=== PATIENT | female | born 1960 | race Caucasian/White ===

== ENCOUNTER → 2017-08-25 | Outpatient (CLI) | payer MEDICARE, MEDICAID ==
[~2017-08-25] MED LIST: CATHETER FLUSH 10 ML SYR IV PRN; IOHEXOL 350 MG/ML 150 ML (OMNIPAQUE 350) VIAL IV ONE; NS 100 ML (IVPB) BAG IV ONE
[2017-08-25 09:26] LABS: BUN/CREATININE RATIO 25; CREATININE SERUM 0.71 MG/DL (0.60-1.30); GFR ESTIMATED > 60
--- NOTE | 2017-08-25 11:31 | Diagnostic Imaging Report ---
PROCEDURE: CT angiography of the chest with contrast. TECHNIQUE: Multiple contiguous axial images were obtained through the chest after uneventful bolus administration of intravenous contrast. Reconstructed CTA MIP acquisitions were also performed. INDICATION: Difficulty breathing, shortness of breath and cough with a history of COPD. FINDINGS: There is some patchy bibasilar atelectasis and/or pneumonitis. There are no discrete pulmonary nodules or masses. There is air-trapping compatible with COPD. There is no pleural or pericardial fluid. There is no pneumothorax. There are no filling defects seen within the pulmonary arteries to suggest pulmonary embolism. Thoracic aorta is normal in caliber without evidence of dissection. There is no pathologically enlarged adenopathy in the chest. There are mild degenerative changes in the spine. The visualized intraabdominal structures are unremarkable. IMPRESSION: No evidence of pulmonary embolism or aortic dissection. COPD with some patchy bibasal atelectasis and/or pneumonitis. Dictated by: Dictated on workstation # [id number]
== END ==
LOC: RAD 08:49
PROVIDERS: ATTEND Nurse Practitioner Family
DX: J44.9 Chronic obstructive pulmonary disease, unspecified (principal)
CPT/HCPCS: 36415; 71275; 82565; 84520

== ENCOUNTER → 2017-08-27 | Outpatient (CLI) | payer MEDICARE, MEDICAID ==
[~2017-08-27] MED LIST changes: -CATHETER FLUSH 10 ML SYR IV PRN; -IOHEXOL 350 MG/ML 150 ML (OMNIPAQUE 350) VIAL IV ONE; -NS 100 ML (IVPB) BAG IV ONE; +RT-ALBUTEROL SULF 2.5 MG/3 ML PRE-MIX VIAL INH ONE
== END ==
LOC: RT 09:00 → EDUNIT# 09:45
PROVIDERS: ATTEND Nurse Practitioner Family
DX: J45.909 Unspecified asthma, uncomplicated (principal); J44.9 Chronic obstructive pulmonary disease, unspecified; Z72.0 Tobacco use
CPT/HCPCS: 94060; 94726; 94729

== ENCOUNTER 2017-09-12 19:48 | Outpatient (CLI) | payer MEDICARE, MEDICAID | END 2017-09-13 06:55 | disposition home or self-care (01) | LOC: SLEEP 19:48 | PROVIDERS: ATTEND Nurse Practitioner Family | DX: G47.33 Obstructive sleep apnea (adult) (pediatric) (principal); G47.10 Hypersomnia, unspecified | CPT/HCPCS: 95810 ==

== ENCOUNTER → 2017-09-30 | Outpatient (CLI) | payer MEDICARE, MEDICAID ==
[2017-09-30 10:38] LABS: ABG BASE EXCESS -1.3 MMOL/L (-2.5-2.5); ABG OXYGEN SATURATION 96 % (94-100); ABG PCO2 39 MMHG (35-45); ABG PH 7.39 (7.37-7.43); ABG PO2 61 MMHG (79-93); ABG TCO2 24.5 MMOL/L (21.0-31.0)
[2017-09-30 10:39] LABS: ALLENS TEST YES-POS; INSPIRED O2 2 L; PATIENT TEMP 96.6; VENTILATOR NO
== END ==
LOC: LAB 10:10
PROVIDERS: ATTEND Nurse Practitioner Family
DX: J44.9 Chronic obstructive pulmonary disease, unspecified (principal)
CPT/HCPCS: 82805

== ENCOUNTER 2017-10-09 19:48 | Outpatient (CLI) | payer MEDICARE, MEDICAID | END 2017-10-10 06:22 | disposition home or self-care (01) | LOC: SLEEP 19:48 | PROVIDERS: ATTEND Nurse Practitioner Family | DX: G47.33 Obstructive sleep apnea (adult) (pediatric) (principal); G47.10 Hypersomnia, unspecified; J43.9 Emphysema, unspecified | CPT/HCPCS: 95811 ==

== ENCOUNTER 2017-10-30 08:30 | Outpatient (RCR) | payer MEDICARE, MEDICAID ==
[2017-11-18 09:00] VITALS: BP 100/60
[2017-11-18 10:00] VITALS: BP 120/78
[2017-11-20 08:45] VITALS: BP 130/63
[2017-11-20 09:50] VITALS: BP 138/70
[2017-11-25 09:00] VITALS: BP 130/60
[2017-11-25 10:00] VITALS: BP 140/60
[2017-11-27 08:45] VITALS: BP 130/80
[2017-11-27 09:50] VITALS: BP 111/68
[2017-12-02 08:50] VITALS: BP 120/70
[2017-12-02 10:00] VITALS: BP 120/70
[2017-12-04 08:50] VITALS: BP 108/62
[2017-12-04 10:00] VITALS: BP 108/70
[2017-12-09 08:40] VITALS: BP 120/60
[2017-12-09 10:00] VITALS: BP 120/70
[2017-12-11 08:45] VITALS: BP 120/60
[2017-12-11 09:55] VITALS: BP 120/70
[2017-12-16 08:30] VITALS: BP 140/60
[2017-12-16 09:35] VITALS: BP 118/50
== END 2017-12-21 | disposition home or self-care (01) ==
LOC: PULM 08:30
PROVIDERS: ATTEND Nurse Practitioner Family
DX: J44.9 Chronic obstructive pulmonary disease, unspecified (principal); J45.909 Unspecified asthma, uncomplicated; R09.02 Hypoxemia; R06.00 Dyspnea, unspecified
CPT/HCPCS: 99211

== ENCOUNTER 2018-10-20 06:45 | Day surgery (SDC) | payer MEDICARE, MEDICAID ==
[2018-10-20] VITALS (12 sets, daily range): BP systolic 112–169; BP diastolic 62–92
[~2018-10-20] VITALS: Ht 160 cm; Wt 81.7 kg
--- OUTSIDE RECORDS SUMMARY | 2018-10-20 06:49 | XMS REPORT ---
Author Author REINIER LAMBERT [facility] Address [address] [place] [address] Care Team Providers Care Bracelet Form Coverer Name Role Phone PETRA REINIER Unavailable PROBLEMS Type Condition ICD9-CM Code [id number] Code Onset Dates Condition Status SNOMED Code Problem COPD mixed type J44.9 Active 71985114 Problem GERD with esophagitis K21.0 Active 392454336 Problem Insomnia, unspecified type G47.00 Active 630416988 Problem Mixed hyperlipidemia E78.2 Active 931032938 Problem COPD with acute exacerbation J44.1 Active 532856106 Problem Rhinitis J31.0 Active 40748411 Problem Adult idiopathic generalized osteoporosis M81.8 Active 925660329 Problem Oxygen dependent Z99.81 Active 405225381660 Problem History of anaphylactic shock due to insect sting Z91.038 Active 206318450 Problem Type 2 diabetes mellitus without complication, without long-term current use of insulin E11.9 Active 707467991 ALLERGIES Substance Reaction Event Type Date Status wasps anaphylaxsis Non Drug Allergy Jul, Active ENCOUNTERS Encounter Location Date Diagnosis [address] [place] [address] [id number] Jul, COPD mixed type J44.9 ; Oxygen dependent Z99.81 and Rhinitis J31.[address] [place] [address] [id number] Jun, [address] [place] [address] [id number] May, COPD with acute exacerbation J44.1 ; Dyspnea R06.00 ; Elevated BP without diagnosis of hypertension R03.0 and Oxygen dependent Z99.[address] [place] [address] [id number] May, COPD mixed type J44.9 ; GERD with esophagitis K21.0 and Adult idiopathic generalized osteoporosis M81.[id number] [place] [address] [id number] Apr, Type 2 diabetes mellitus without complication, without long-term current use of insulin E11.9 ; COPD mixed type J44.9 ; Encounter for immunization Z23 ; Oxygen dependent Z99.81 ; Rhinitis J31.0 ; Mixed hyperlipidemia E78.2 and History of anaphylactic shock due to insect sting Z91.038 [place] [id number] [place] [address] [id number] Feb, Bruises easily R23.8 ; COPD mixed type J44.9 ; Fever blister B00.1 ; GERD with esophagitis K21.0 and Adult idiopathic generalized osteoporosis M81.[address] [id number] Jan, [place] [id number] [place] [address] [id number] Jan, [place] [id number] [place] [address] [id number] December, Dilated pore of Tonya of back L70.8 [place] [id number] [place] [address] [id number] Nov, Well woman exam with routine gynecological exam Z01.419 ; Screening breast examination Z12.31 ; COPD mixed type J44.9 ; Oxygen dependent Z99.81 ; Vaginal discharge N89.8 ; Fever blister B00.1 ; GERD with esophagitis K21.0 and Adult idiopathic generalized osteoporosis M81.[address] [place] [address] [id number] Oct, [place] [id number] [place] [address] [id number] Oct, COPD exacerbation J44.[address] [place] [address] [id number] Oct, Pneumonia of right upper lobe due to infectious organism J18.1 ; Thrush B37.0 and COPD mixed type J44.9 [facility] [address] [id number] [id number] Oct, [facility] [id number] [place] [address] [id number] Oct, Acute nasopharyngitis J00 and COPD exacerbation J44.1 [place] [id number] [place] [address] [id number] Oct, History of anaphylactic shock due to insect sting Z91.038 ; COPD mixed type J44.9 and Oxygen dependent Z99.81 [place] [id number] [place] [address] [id number] Sep, Fever blister B00.1 and Skin infection L08.9 [place] [id number] [place] [address] [id number] Sep, Fever blister B00.[address] [id number] Jul, Seborrheic keratosis L82.1 and Obesity (BMI 30.0-34.9) E66.9 [place] [id number] [place] [address] [id number] Jul, COPD mixed type J44.9 ; Oxygen dependent Z99.81 ; Type 2 diabetes mellitus without complication, without long-term current use of insulin E11.9 and Mixed hyperlipidemia E78.[address] [place] [address] [id number] Jun, Type 2 diabetes mellitus without complication, without long-term current use of insulin E11.9 [address] [place] [address] [id number] Jun, Type 2 diabetes mellitus without complication, without long-term current use of insulin E11.9 and Mixed hyperlipidemia E78.[address] [id number] [id number] Jun, COPD mixed type J44.9 [address] [place] [address] [id number] Jun, COPD mixed type J44.9 ; Oxygen dependent Z99.81 ; Type 2 diabetes mellitus without complication, without long-term current use of insulin E11.9 ; Adult idiopathic generalized osteoporosis M81.8 ; Self-care deficit for bathing R46.0 ; No one available at home to care for patient Z74.2 ; Need for assistance at home and no other household member able to render care Z74.2 ; Encounter for immunization Z23 ; GERD with esophagitis K21.0 ; Insomnia, unspecified type G47.00 and Mixed hyperlipidemia E78.2 IMMUNIZATIONS No Known Immunizations SOCIAL HISTORY Never Assessed REASON FOR VISIT Breathing Issues Colleen URBINA PLAN OF CARE Activity Details Follow Up as scheduled, prn Reason:CHM VITAL SIGNS Height 63 in 2018-07-20 Weight 173.0 lbs 2018-07-20 Temperature 98.5 degrees Fahrenheit 2018-07-20 Heart Rate 88 bpm 2018-07-20 Respiratory Rate 18 2018-07-20 Oximetry w/ oxygen @ 2L:100 % 2018-07-20 BMI 30.64 kg/m2 2018-07-20 Blood pressure systolic 110 mmHg 2018-07-20 Blood pressure diastolic 64 mmHg 2018-07-20 MEDICATIONS Medication Instructions Dosage Frequency Start Date End Date Duration Status Spiriva HandiHaler 18 MCG Inhalation Once a day 1 capsule 24h Active Aspirin 81 81 MG Orally Once a day 1 tablet 24h Active Acyclovir 400 mg Orally Twice a day 1 tablet 12h Active Crestor 10 MG TAKE ONE (1) TABLET BY MOUTH DAILY... Active Albuterol Sulfate (2.5 MG/3ML) 0.083% Inhalation Every 4-6 hours as needed 2.5 mg Active Accu-Chek Anisa Plus w/Device In Vitro 2 to 3 times a week as directed Jan, 0 days Active Accu-Chek Anisa Plus - In Vitro 2-3 times a week as directed Jan, 0 days Active Ventolin HFA 90 MCG/ACT inhalation every 4 hours as needed 2 puffs as needed every 6 hrs Inhalation 0 days Active Evista 60 mg Orally Once a day 1 tablet 24h 90 days Active EpiPen 2-Gunner 0.3 MG/0.3ML Injection as needed as directed Oct, Active Ranitidine HCl 150 MG Orally twice a day 1 capsule 12h 90 days Active Calcium 500 + D 500-125 MG-UNIT Orally Once a day 1 tablet with food 24h Active Montelukast Sodium 10 MG Orally Once a day 1 tablet in the evening 24h Active Nebulizer/Tubing/Mouthpiece - as directed Jan, Active Symbicort 160-4.5 MCG/ACT Inhalation Twice a day 2 puffs 12h Active Zyrtec Allergy 10 mg Orally Once a day 1 capsule 24h 30 May, 2018 Aug, Active RESULTS No Results PROCEDURES Procedure Date Ordered Result Body Site [facility] VISIT ESTABLISHED PATIENT Jul 20, 2018 INSTRUCTIONS MEDICATIONS ADMINISTERED No Known Medications MEDICAL (GENERAL) HISTORY Type Description Date Medical History chronic obstructive pulmonary disease (COPD) on Medical History type II diabetes Medical History hypercholesterolemia Medical History insomnia Medical History esophageal reflux Surgical History partial hysterectomy Surgical History carpal tunnel release, left wrist Surgical History cataract removal, bilateral Surgical History colonoscopy, normal 2014 Surgical History heart cath, normal 2010 Surgical History Mammogram, normal 2014 Hospitalization History CVA, non-hemmoragic 1998
--- OUTSIDE RECORDS SUMMARY | 2018-10-20 06:49 | XMS REPORT ---
Author Author REINIER LAMBERT [facility] Address [address] [place] [address] Care Team Providers Care Quality Control Assistant Name Role Phone PETRA REINIER Unavailable PROBLEMS Type Condition ICD9-CM Code [id number] Code Onset Dates Condition Status SNOMED Code Problem COPD mixed type J44.9 Active 16129802 Problem GERD with esophagitis K21.0 Active 243371925 Problem Insomnia, unspecified type G47.00 Active 511171691 Problem Mixed hyperlipidemia E78.2 Active 023927278 Problem COPD with acute exacerbation J44.1 Active 099213927 Problem Rhinitis J31.0 Active 62626982 Problem Adult idiopathic generalized osteoporosis M81.8 Active 840633997 Problem Oxygen dependent Z99.81 Active 515293744265 Problem History of anaphylactic shock due to insect sting Z91.038 Active 567960461 Problem Type 2 diabetes mellitus without complication, without long-term current use of insulin E11.9 Active 475845506 ALLERGIES No Information ENCOUNTERS Encounter Location Date Diagnosis [id number] [place] [address] [id number] Jul, [place] [id number] [place] [address] [id number] Jun, [address] [id number] May, COPD with acute exacerbation J44.1 ; Dyspnea R06.00 ; Elevated BP without diagnosis of hypertension R03.0 and Oxygen dependent Z99.81 [place] [id number] [place] [address] [id number] May, COPD mixed type J44.9 ; GERD with esophagitis K21.0 and Adult idiopathic generalized osteoporosis M81.8 [place] [id number] [place] [address] [id number] Apr, Type 2 diabetes mellitus without complication, without long-term current use of insulin E11.9 ; COPD mixed type J44.9 ; Encounter for immunization Z23 ; Oxygen dependent Z99.81 ; Rhinitis J31.0 ; Mixed hyperlipidemia E78.2 and History of anaphylactic shock due to insect sting Z91.038 [facility] [id number] [place] [address] [id number] Feb, Bruises easily R23.8 ; COPD mixed type J44.9 ; Fever blister B00.1 ; GERD with esophagitis K21.0 and Adult idiopathic generalized osteoporosis M81.8 [facility] [id number] [place] [address] [id number] Jan, [place] [id number] [place] [address] [id number] Jan, [place] [id number] [place] [address] [id number] December, Dilated pore of Tonya of back L70.8 [place] [id number] [place] [address] [id number] Nov, Well woman exam with routine gynecological exam Z01.419 ; Screening breast examination Z12.31 ; COPD mixed type J44.9 ; Oxygen dependent Z99.81 ; Vaginal discharge N89.8 ; Fever blister B00.1 ; GERD with esophagitis K21.0 and Adult idiopathic generalized osteoporosis M81.8 [facility] [id number] [place] [address] [id number] Oct, [address] [place] [address] [id number] Oct, COPD exacerbation J44.1 [place] [id number] [place] [address] [id number] Oct, Pneumonia of right upper lobe due to infectious organism J18.1 ; Thrush B37.0 and COPD mixed type J44.9 [facility] [address] [id number] [facility] [id number] [phone] Oct, [facility] [id number] [place] [address] [id number] Oct, Acute nasopharyngitis J00 and COPD exacerbation J44.1 [facility] [id number] Oct, History of anaphylactic shock due to insect sting Z91.038 ; COPD mixed type J44.9 and Oxygen dependent Z99.81 [address] [place] [address] [id number] Sep, Fever blister B00.1 and Skin infection L08.9 [address] [place] [address] [id number] Sep, Fever blister B00.1 [address] [place] [address] [id number] Jul, Seborrheic keratosis L82.1 and Obesity (BMI 30.0-34.9) E66.9 [address] [place] [address] [id number] Jul, COPD mixed type J44.9 ; Oxygen dependent Z99.81 ; Type 2 diabetes mellitus without complication, without long-term current use of insulin E11.9 and Mixed hyperlipidemia E78.[id number] [place] [address] [id number] Jun, Type 2 diabetes mellitus without complication, without long-term current use of insulin E11.9 [address] [place] [address] [id number] Jun, Type 2 diabetes mellitus without complication, without long-term current use of insulin E11.9 and Mixed hyperlipidemia E78.[address] [id number] [id number] Jun, COPD mixed type J44.[address] [id number] [id number] Jun, COPD mixed type J44.9 ; Oxygen [...] SOCIAL HISTORY Never Assessed REASON FOR VISIT Xray Results PLAN OF CARE VITAL SIGNS MEDICATIONS Unknown Medications RESULTS No Results PROCEDURES No Known procedures INSTRUCTIONS MEDICATIONS ADMINISTERED No Known Medications MEDICAL (GENERAL) HISTORY Type Description Date Medical History chronic obstructive pulmonary disease (COPD) on 02 Medical History type II diabetes Medical History hypercholesterolemia Medical History insomnia Medical History esophageal reflux Surgical History partial hysterectomy Surgical History carpal tunnel release, left wrist Surgical History cataract removal, bilateral Surgical History colonoscopy, normal 2014 Surgical History heart cath, normal 2010 Surgical History Mammogram, normal 2014 Hospitalization History CVA, non-hemmoragic 1998
--- OUTSIDE RECORDS SUMMARY | 2018-10-20 06:49 | XMS REPORT ---
Author Author REINIER LAMBERT [facility] Address [address] [place] [address] Care Team Providers Care Director Loan Name Role Phone PETRA REINIER Unavailable PROBLEMS Type Condition ICD9-CM Code AJP89-SH Code Onset Dates Condition Status SNOMED Code Problem COPD mixed type J44.9 Active 05568674 Problem GERD with esophagitis K21.0 Active 739598294 Problem Insomnia, unspecified type G47.00 Active 732156879 Problem Mixed hyperlipidemia E78.2 Active 831007087 Problem COPD with acute exacerbation J44.1 Active 107432293 Problem Rhinitis J31.0 Active 48668794 Problem Adult idiopathic generalized osteoporosis M81.8 Active 282916093 Problem Oxygen dependent Z99.81 Active 592601174206 Problem History of anaphylactic shock due to insect sting Z91.038 Active 894077074 Problem Type 2 diabetes mellitus without complication, without long-term current use of insulin E11.9 Active 859418725 ALLERGIES Substance Reaction Event Type Date Status wasps anaphylaxsis Non Drug Allergy May, Active ENCOUNTERS Encounter Location Date Diagnosis [address] [id number] [place] [address] [id number] Jul, [address] [place] [address] [id number] Jun, [place] [id number] [place] [address] [id number] May, COPD with acute exacerbation J44.1 ; Dyspnea R06.00 ; Elevated BP without diagnosis of hypertension R03.0 and Oxygen dependent Z99.81 [place] [id number] [place] [address] [id number] May, COPD mixed type J44.9 ; GERD with esophagitis K21.0 and Adult idiopathic generalized osteoporosis M81.8 [place] [id number] [place] [address] [id number] Apr, Type 2 diabetes mellitus without complication, without long-term current use of insulin E11.9 ; COPD mixed type J44.9 ; Encounter for immunization Z23 ; Oxygen dependent Z99.81 ; Rhinitis J31.0 ; Mixed hyperlipidemia E78.2 and History of anaphylactic shock due to insect sting Z91.038 [facility] [id number] [place] [address] [id number] Feb, Bruises easily R23.8 ; COPD mixed type J44.9 ; Fever blister B00.1 ; GERD with esophagitis K21.0 and Adult idiopathic generalized osteoporosis M81.8 [facility] [address] [id number] Jan, [address] [id number] Jan, [place] [id number] [place] [address] [id number] December, Dilated pore of Tonya of back L70.8 [place] [id number] [place] [address] [id number] Nov, Well woman exam with routine gynecological exam Z01.419 ; Screening breast examination Z12.31 ; COPD mixed type J44.9 ; Oxygen dependent Z99.81 ; Vaginal discharge N89.8 ; Fever blister B00.1 ; GERD with esophagitis K21.0 and Adult idiopathic generalized osteoporosis M81.8 [facility] [id number] [place] [address] [id number] Oct, [place] [id number] [place] [address] [id number] Oct, COPD exacerbation J44.1 [facility] [id number] [place] [address] [id number] Oct, Pneumonia of right upper lobe due to infectious organism J18.1 ; Thrush B37.0 and COPD mixed type J44.9 [facility] [address] [id number] [id number] Oct, [facility] [id number] [place] [address] [id number] 20 Mar, 2018 Acute nasopharyngitis J00 and COPD exacerbation J44.1 [address] [place] [address] [id number] Oct, History of anaphylactic shock due to insect sting Z91.038 ; COPD mixed type J44.9 and Oxygen dependent Z99.81 [address] [place] [address] [id number] Sep, Fever blister B00.1 and Skin infection L08.9 [place] [id number] [place] [address] [id number] Sep, Fever blister B00.1 [place] [id number] [place] [address] [id number] Jul, Seborrheic keratosis L82.1 and Obesity (BMI 30.0-34.9) E66.9 [address] [place] [address] [id number] Jul, COPD mixed type J44.9 ; Oxygen dependent Z99.81 ; Type 2 diabetes mellitus without complication, without long-term current use of insulin E11.9 and Mixed hyperlipidemia E78.2 [address] [place] [address] [id number] Jun, Type 2 diabetes mellitus without complication, without long-term current use of insulin E11.9 [address] [place] [address] [id number] Jun, Type 2 diabetes mellitus without complication, without long-term current use of insulin E11.9 and Mixed hyperlipidemia E78.[address] [id number] [id number] Jun, COPD mixed type J44.[id number] [place] [address] [id number] Jun, COPD mixed type J44.9 ; Oxygen [...] SOCIAL HISTORY Never Assessed REASON FOR VISIT Cough/ congestion started yesterday. Not able to cough anything up Jack SHAH PLAN OF CARE Activity Details Follow Up 4 Weeks, prn Reason:BP/CHM VITAL SIGNS Height 63 in 2018-06-16 Weight 171.6 lbs 2018-06-16 Temperature 96.6 degrees Fahrenheit 2018-06-16 Heart Rate 100 bpm 2018-06-16 Respiratory Rate 24 2018-06-16 BMI 30.39 kg/m2 2018-06-16 Blood pressure systolic 170 mmHg 2018-06-16 Blood pressure diastolic 90 mmHg 2018-06-16 MEDICATIONS Medication Instructions Dosage Frequency Start Date End Date Duration Status Accu-Chek Anisa Plus - In Vitro 2-3 times a week as directed Jan, 0 days Active Nebulizer/Tubing/Mouthpiece - as directed Jan, Active EpiPen 2-Gunner 0.3 MG/0.3ML Injection as needed as directed Oct, Active Accu-Chek Anisa Plus w/Device In Vitro 2 to 3 times a week as directed Jan, 0 days Active Montelukast Sodium 10 MG Orally Once a day 1 tablet in the evening 24h Active Zyrtec Allergy 10 mg Orally Once a day 1 capsule 24h May, Aug, 30 day(s) Active Ventolin HFA 90 MCG/ACT inhalation every 4 hours as needed 2 puffs as needed every 6 hrs Inhalation 0 days Active Ranitidine HCl 150 MG Orally twice a day 1 capsule 12h 90 days Active Symbicort 160-4.5 MCG/ACT Inhalation Twice a day 2 puffs 12h Active Evista 60 mg Orally Once a day 1 tablet 24h 90 days Active Aspirin 81 81 MG Orally Once a day 1 tablet 24h Active Spiriva HandiHaler 18 MCG Inhalation Once a day 1 capsule 24h Active Crestor 10 MG TAKE ONE (1) TABLET BY MOUTH DAILY... Active Calcium 500 + D 500-125 MG-UNIT Orally Once a day 1 tablet with food 24h Active PredniSONE 20 mg Orally Once a day 1 tablet 24h May, Jun, 5 days Active Acyclovir 400 mg Orally Twice a day 1 tablet 12h 27 Feb, 2018 Active Albuterol Sulfate (2.5 MG/3ML) 0.083% Inhalation Every 4-6 hours as needed 2.5 mg Active RESULTS Name Result Date Reference Range Xray : Chest 2018-06-17 PROCEDURES Procedure Date Ordered Result Body Site [facility] VISIT ESTABLISHED PATIENT Jun 16, 2018 INSTRUCTIONS MEDICATIONS ADMINISTERED No Known Medications [...]
--- OUTSIDE RECORDS SUMMARY | 2018-10-20 06:49 | XMS REPORT ---
Author Author REINIER LAMBERT Organization [facility] Address [address] [place] [address] Care Team Providers Care Tow Mate Name Role Phone PETRA REINIER Unavailable PROBLEMS Type Condition ICD9-CM Code EIM53-YS Code Onset Dates Condition Status SNOMED Code Problem COPD mixed type J44.9 Active 23865027 Problem GERD with esophagitis K21.0 Active 168551083 Problem Insomnia, unspecified type G47.00 Active 343668715 Problem Mixed hyperlipidemia E78.2 Active 337624317 Problem COPD with acute exacerbation J44.1 Active 587904829 Problem Rhinitis J31.0 Active 82276581 Problem Adult idiopathic generalized osteoporosis M81.8 Active 566543584 Problem Oxygen dependent Z99.81 Active 734680416373 Problem History of anaphylactic shock due to insect sting Z91.038 Active 447028425 Problem Type 2 diabetes mellitus without complication, without long-term current use of insulin E11.9 Active 766493892 ALLERGIES No Information ENCOUNTERS Encounter Location Date Diagnosis [address] [place] [address] [id number] Jul, [place] [id number] [place] [address] [id number] May, COPD with acute exacerbation J44.1 ; Oxygen dependent Z99.81 ; Dyspnea R06.00 and Elevated BP without diagnosis of hypertension R03.0 [place] [id number] [place] [address] [id number] May, COPD mixed type J44.9 ; GERD with esophagitis K21.0 and Adult idiopathic generalized osteoporosis M81.[address] [place] [address] [id number] Apr, Type 2 diabetes mellitus without complication, without long-term current use of insulin E11.9 ; COPD mixed type J44.9 ; Encounter for immunization Z23 ; Oxygen dependent Z99.81 ; Rhinitis J31.0 ; Mixed hyperlipidemia E78.2 and History of anaphylactic shock due to insect sting Z91.038 [address] [place] [address] [id number] Feb, Bruises easily R23.8 ; COPD mixed type J44.9 ; Fever blister B00.1 ; GERD with esophagitis K21.0 and Adult idiopathic generalized osteoporosis M81.8 [place] [id number] [place] [address] [id number] Jan, [address] [id number] Jan, [place] [id number] [place] [address] [id number] December, Dilated pore of Tonya of back L70.8 [place] [address] [place] [address] [id number] Nov, Well woman exam with routine gynecological exam Z01.419 ; Screening breast examination Z12.31 ; COPD mixed type J44.9 ; Oxygen dependent Z99.81 ; Vaginal discharge N89.8 ; Fever blister B00.1 ; GERD with esophagitis K21.0 and Adult idiopathic generalized osteoporosis M81.8 [place] [id number] [place] [address] [id number] Oct, [place] [id number] [place] [address] [id number] Oct, COPD exacerbation J44.1 [place] [id number] [place] [address] [id number] Oct, Pneumonia of right upper lobe due to infectious organism J18.1 ; Thrush B37.0 and COPD mixed type J44.9 [facility] [address] [facility] [address] [id number] [id number] Oct, [address] [place] [address] [id number] Oct, Acute nasopharyngitis J00 and COPD exacerbation J44.1 [place] [id number] [place] [address] [id number] Oct, History of anaphylactic shock due to insect sting Z91.038 ; COPD mixed type J44.9 and Oxygen dependent Z99.[address] [place] [address] [id number] Sep, Fever blister B00.1 and Skin infection L08.9 [place] [id number] [place] [address] [id number] Sep, Fever blister B00.1 [place] [id number] [place] [address] [id number] Jul, Seborrheic keratosis L82.1 and Obesity (BMI 30.0-34.9) E66.9 [place] [address] [place] [address] [id number] Jul, COPD mixed type J44.9 ; Oxygen dependent Z99.81 ; Type 2 diabetes mellitus without complication, without long-term current use of insulin E11.9 and Mixed hyperlipidemia E78.[address] [place] [address] [id number] Jun, Type 2 diabetes mellitus without complication, without long-term current use of insulin E11.9 [address] [place] [address] [id number] Jun, Type 2 diabetes mellitus without complication, without long-term current use of insulin E11.9 and Mixed hyperlipidemia E78.[address] [id number] [id number] Jun, COPD mixed type J44.[id number] [place] [address] [id number] Jun, COPD mixed type J44.9 ; Oxygen [...] SOCIAL HISTORY Never Assessed REASON FOR VISIT med refill PLAN OF CARE VITAL SIGNS MEDICATIONS Medication Instructions Dosage Frequency Start Date End Date Duration Status Spiriva HandiHaler 18 MCG Inhalation Once a day 1 capsule 24h 30 days Active Ventolin HFA 90 MCG/ACT inhalation every 4 hours as needed 2 puffs as needed every 6 hrs Inhalation 0 days 30 days Active Albuterol Sulfate (2.5 MG/3ML) 0.083% Inhalation Every 4-6 hours as needed 2.5 mg 30 days Active Symbicort 160-4.5 MCG/ACT Inhalation Twice a day 2 puffs 12h 30 days Active Evista 60 mg Orally Once a day 1 tablet 24h 90 days Active Ranitidine HCl 150 MG Orally twice a day 1 capsule 12h 90 days Active RESULTS No Results PROCEDURES No Known procedures [...]
--- OUTSIDE RECORDS SUMMARY | 2018-10-20 06:50 | XMS REPORT ---
Author Author REINIER LAMBERT [facility] Address [address] [place] [address] Care Team Providers Care Nutrition Consultant Name Role Phone PETRA REINIER Unavailable PROBLEMS Type Condition ICD9-CM Code PBA58-XO Code Onset Dates Condition Status SNOMED Code Problem COPD mixed type J44.9 Active 20579061 Problem GERD with esophagitis K21.0 Active 532515874 Problem Insomnia, unspecified type G47.00 Active 068413274 Problem Rhinitis J31.0 Active 45515056 Problem History of anaphylactic shock due to insect sting Z91.038 Active 002001353 Problem Mixed hyperlipidemia E78.2 Active 635740903 Problem Oxygen dependent Z99.81 Active 782242530514 Problem Type 2 diabetes mellitus without complication, without long-term current use of insulin E11.9 Active 447446831 Problem Adult idiopathic generalized osteoporosis M81.8 Active 389109485 ALLERGIES Substance Reaction Event Type Date Status wasps anaphylaxsis Non Drug Allergy Apr, Active ENCOUNTERS Encounter Location Date Diagnosis [address] [place] [address] [id number] Apr, Type 2 diabetes mellitus without complication, without long-term current use of insulin E11.9 ; COPD mixed type J44.9 ; Encounter for immunization Z23 ; Oxygen dependent Z99.81 ; Rhinitis J31.0 ; Mixed hyperlipidemia E78.2 and History of anaphylactic shock due to insect sting Z91.038 [place] [id number] [id number] Feb, Bruises easily R23.8 ; COPD mixed type J44.9 ; Fever blister B00.1 ; GERD with esophagitis K21.0 and Adult idiopathic generalized osteoporosis M81.8 [place] [id number] [id number] Jan, [place] [id number] [place] [address] [id number] Jan, [address] [place] [address] [id number] December, Dilated pore of Tonya of back L70.8 [place] [id number] [place] [address] [id number] Nov, Well woman exam with routine gynecological exam Z01.419 ; Screening breast examination Z12.31 ; COPD mixed type J44.9 ; Oxygen dependent Z99.81 ; Vaginal discharge N89.8 ; Fever blister B00.1 ; GERD with esophagitis K21.0 and Adult idiopathic generalized osteoporosis M81.8 [address] [place] [address] [id number] Oct, [place] [id number] [place] [address] [id number] Oct, COPD exacerbation J44.1 [place] [id number] [place] [address] [id number] Oct, Pneumonia of right upper lobe due to infectious organism J18.1 ; Thrush B37.0 and COPD mixed type J44.9 [address] [id number] Oct, [place] [id number] [place] [address] [id number] Oct, Acute nasopharyngitis J00 and COPD exacerbation J44.1 [address] [place] [address] [id number] Oct, History of anaphylactic shock due to insect sting Z91.038 ; COPD mixed type J44.9 and Oxygen dependent Z99.81 [address] [place] [address] [id number] Sep, Fever blister B00.1 and Skin infection L08.9 [place] [id number] [place] [address] [id number] Sep, Fever blister B00.1 [place] [id number] [place] [address] [id number] Jul, Seborrheic keratosis L82.1 and Obesity (BMI 30.0-34.9) E66.9 [facility] [address] [facility] [id number] [id number] Jul, COPD mixed type J44.9 ; Oxygen dependent Z99.81 ; Type 2 diabetes mellitus without complication, without long-term current use of insulin E11.9 and Mixed hyperlipidemia E78.2 [facility] [address] [facility] [id number] [id number] Jun, Type 2 diabetes mellitus without complication, without long-term current use of insulin E11.9 [facility] [address] [facility] [id number] [id number] Jun, Type 2 diabetes mellitus without complication, without long-term current use of insulin E11.9 and Mixed hyperlipidemia E78.[address] [id number] [id number] Jun, COPD mixed type J44.[address] [id number] [id number] Jun, COPD mixed type J44.9 ; Oxygen [...] type G47.00 and Mixed hyperlipidemia E78.2 IMMUNIZATIONS Vaccine Route Administration Date Status FLULAVAL QUAD 0.5ML (6 MO & UP) 2018 IM Intramuscular May 08, 2018 Administered SOCIAL HISTORY Never Assessed REASON FOR VISIT New provider visit- COPD Jack SHAH, Right ear ache PLAN OF CARE Activity Details Follow Up 3 months or as indicated by lab, prn Reason:CHM VITAL SIGNS Height 63 in 2018-05-08 Weight 170 lbs 2018-05-08 Temperature 98.8 degrees Fahrenheit 2018-05-08 Heart Rate 100 bpm 2018-05-08 Respiratory Rate 24 2018-05-08 BMI 30.11 kg/m2 2018-05-08 Blood pressure systolic 128 mmHg 2018-05-08 Blood pressure diastolic 72 mmHg 2018-05-08 MEDICATIONS Medication Instructions Dosage Frequency Start Date End Date Duration Status Accu-Chek Anisa Plus w/Device In Vitro 2 to 3 times a week as directed Jan, 0 days Active Albuterol Sulfate (2.5 MG/3ML) 0.083% Inhalation Every 4-6 hours as needed 2.5 mg Active Aspirin 81 81 MG Orally Once a day 1 tablet 24h Active Accu-Chek Anisa Plus - In Vitro 2-3 times a week as directed Jan, 0 days Active Symbicort 160-4.5 MCG/ACT Inhalation Twice a day 2 puffs 12h Active Crestor 10 MG TAKE ONE (1) TABLET BY MOUTH DAILY... Active Acyclovir 400 mg Orally Twice a day 1 tablet 12h Sep, Active Montelukast Sodium 10 MG Orally Once a day 1 tablet in the evening 24h Active Ventolin HFA 90 MCG/ACT inhalation every 4 hours as needed 2 puffs as needed every 6 hrs Inhalation 0 days Active Spiriva HandiHaler 18 MCG Inhalation Once a day 1 capsule 24h Active Evista 60 MG Orally Once a day 1 tablet 24h Active Nebulizer/Tubing/Mouthpiece - as directed Jan, 0 days Active Zyrtec Allergy 10 mg Orally Once a day 1 capsule 24h Apr, May, 30 day(s) Active EpiPen 2-Gunner 0.3 MG/0.3ML Injection as needed as directed Oct, Active Calcium 500 + D 500-125 MG-UNIT Orally Once a day 1 tablet with food 24h Active Ranitidine HCl 150 MG Orally twice a day 1 capsule 12h Active RESULTS Name Result Date Reference Range A1C (IN HOUSE) 2018-05-08 A1C IN HOUSE 6.1 4.3 - 5.6 % Previous A1c 5.8 Lot [id number] Exp date 01/2020 MICROALBUMIN, URINE (IN HOUSE) 2018-05-08 MICROALBUMIN normal Lot # [id number] Exp date 11/2018 Clarity clear Color yellow ALB 10 CRE 200 A:C (IN HOUSE) 30 Control + Control Lot # Exp date PROCEDURES Procedure Date Ordered Result Body Site [facility] VISIT ESTABLISHED PATIENT May 08, 2018 MICROALBUMIN, SEMIQUANT May 08, 2018 GLYCATED HEMOGLOBIN TEST May 08, 2018 SINGLE IMMUNIZATION ADMIN May 08, 2018 FLULAVAL QUAD 0.5ML (6 MO AND UP) 2017May 08, 2018 INSTRUCTIONS MEDICATIONS ADMINISTERED No Known Medications [...] Mammogram, normal 2014 Hospitalization History CVA, non-hemmoragic 1999
--- OUTSIDE RECORDS SUMMARY | 2018-10-20 06:50 | XMS REPORT ---
Author Author LATOSHA PATTERSON Organization [facility] Address [address] [place] [address] Care Team Providers Care Core Winder Name Role Phone LATOSHA PATTERSON Unavailable PROBLEMS Type Condition ICD9-CM Code LNK79-FR Code Onset Dates Condition Status SNOMED Code Problem Adult idiopathic generalized osteoporosis M81.8 Active 648724537 Problem COPD mixed type J44.9 Active 87712645 Problem Type 2 diabetes mellitus without complication, without long-term current use of insulin E11.9 Active 055752083 Problem Mixed hyperlipidemia E78.2 Active 584561616 Problem COPD exacerbation J44.1 Active 461499147 Problem History of anaphylactic shock due to insect sting Z91.038 Active 916915266 Problem GERD with esophagitis K21.0 Active 034612803 Problem Insomnia, unspecified type G47.00 Active 641175359 Problem Obesity (BMI 30.0-34.9) E66.9 Active 751883462896858 Problem Oxygen dependent Z99.81 Active 233929533622 ALLERGIES No Information ENCOUNTERS Encounter Location Date Diagnosis [place] [id number] [place] [address] [id number] Feb, Bruises easily R23.8 ; COPD mixed type J44.9 ; Fever blister B00.1 ; GERD with esophagitis K21.0 and Adult idiopathic generalized osteoporosis M81.8 [facility] [id number] [id number] Jan, [place] [address] [place] [id number] [place] [address] [id number] Jan, [place] [address] [place] [id number] [place] [address] [id number] December, Dilated pore of Tonya of back L70.8 [place] [address] [place] [id number] [place] [address] [id number] Nov, Well woman exam with routine gynecological exam Z01.419 ; Screening breast examination Z12.31 ; COPD mixed type J44.9 ; Oxygen dependent Z99.81 ; Vaginal discharge N89.8 ; Fever blister B00.1 ; GERD with esophagitis K21.0 and Adult idiopathic generalized osteoporosis M81.8 [address] [place] [address] [id number] Oct, [address] [id number] Oct, COPD exacerbation J44.1 [address] [place] [address] [id number] Oct, Pneumonia of right upper lobe due to infectious organism J18.1 ; Thrush B37.0 and COPD mixed type J44.9 [address] [id number] Oct, [place] [address] [place] [address] [id number] Oct, Acute nasopharyngitis J00 and COPD exacerbation J44.1 [place] [address] [place] [address] [id number] Oct, History of anaphylactic shock due to insect sting Z91.038 ; COPD mixed type J44.9 and Oxygen dependent Z99.81 [address] [place] [address] [id number] Sep, Fever blister B00.1 and Skin infection L08.9 [place] [id number] [place] [address] [id number] Sep, Fever blister B00.1 [place] [address] [place] [address] [id number] Jul, Seborrheic keratosis L82.1 and Obesity (BMI 30.0-34.9) E66.9 [address] [place] [address] [id number] Jul, COPD mixed type J44.9 ; Oxygen dependent Z99.81 ; Type 2 diabetes mellitus without complication, without long-term current use of insulin E11.9 and Mixed hyperlipidemia E78.2 [facility] [address] [id number] [place] [id number] Jun, Type 2 diabetes mellitus without complication, without long-term current use of insulin E11.9 [facility] [address] [id number] [place] [id number] Jun, Type 2 diabetes mellitus without complication, without long-term current use of insulin E11.9 and Mixed hyperlipidemia E78.2 [place] [address] [facility] [address] [id number] [place] [id number] Jun, COPD mixed type J44.9 [facility] [address] [facility] [id number] [id number] Jun, COPD mixed type J44.9 ; Oxygen [...] SOCIAL HISTORY Never Assessed REASON FOR VISIT resend rx's PLAN OF CARE VITAL SIGNS MEDICATIONS Medication Instructions Dosage Frequency Start Date End Date Duration Status Nebulizer/Tubing/Mouthpiece - as directed Jan, 0 days Active Accu-Chek Anisa Plus w/Device In Vitro 2 to 3 times a week as directed Jan, 0 days Active Accu-Chek Anisa Plus - In Vitro 2-3 times a week as directed Jan, 0 days Active RESULTS No Results PROCEDURES No [...]
--- OUTSIDE RECORDS SUMMARY | 2018-10-20 06:50 | XMS REPORT ---
Author Author LATOSHA PATTERSON Organization [facility] Address [address] [place] [address] Care Team Providers Care Inspector Electromechanical Name Role Phone LATOSHA PATTERSON Unavailable PROBLEMS Type Condition ICD9-CM Code LCU03-BG Code Onset Dates Condition Status SNOMED Code Problem Adult idiopathic generalized osteoporosis M81.8 Active 298941353 Problem COPD mixed type J44.9 Active 04762102 Problem Type 2 diabetes mellitus without complication, without long-term current use of insulin E11.9 Active 039656960 Problem Mixed hyperlipidemia E78.2 Active 723084071 Problem COPD exacerbation J44.1 Active 361066996 Problem History of anaphylactic shock due to insect sting Z91.038 Active 475149207 Problem GERD with esophagitis K21.0 Active 482092330 Problem Insomnia, unspecified type G47.00 Active 923003205 Problem Obesity (BMI 30.0-34.9) E66.9 Active 502213461023166 Problem Oxygen dependent Z99.81 Active 678728276916 ALLERGIES No Information ENCOUNTERS Encounter Location Date Diagnosis [place] [id number] [place] [address] [id number] Feb, Bruises easily R23.8 ; COPD mixed type J44.9 ; Fever blister B00.1 ; GERD with esophagitis K21.0 and Adult idiopathic generalized osteoporosis M81.8 [facility] [id number], [place] [id number] Jan, [place] [address] [place] [id number] [place] [address] [id number] Jan, [place] [address] [place] [id number] [place] [address] [id number] December, Dilated pore of Tonya of back L70.8 [place] [address] [place] [id number] [place] [address] [id number] Nov, Well woman exam with routine gynecological exam Z01.419 ; Screening breast examination Z12.31 ; COPD mixed type J44.9 ; Oxygen dependent Z99.81 ; Vaginal discharge N89.8 ; Fever blister B00.1 ; GERD with esophagitis K21.0 and Adult idiopathic generalized osteoporosis M81.8 [address] [place] [address] [id number] Oct, [address] [id number] Oct, COPD exacerbation J44.1 [address] [place] [address] [id number] Oct, Pneumonia of right upper lobe due to infectious organism J18.1 ; Thrush B37.0 and COPD mixed type J44.9 [address] [id number] Oct, [place] [address] [place] [address] [id number] Oct, Acute nasopharyngitis J00 and COPD exacerbation J44.1 [place] [id number] [place] [address] [id number] Oct, History of anaphylactic shock due to insect sting Z91.038 ; COPD mixed type J44.9 and Oxygen dependent Z99.81 [address] [place] [address] [id number] Sep, Fever blister B00.1 and Skin infection L08.9 [place] [id number] [place] [address] [id number] Sep, Fever blister B00.1 [place] [id number] [place] [address] [id number] Jul, Seborrheic keratosis L82.1 and Obesity (BMI 30.0-34.9) E66.9 [address] [place] [address] [id number] Jul, COPD mixed type J44.9 ; Oxygen dependent Z99.81 ; Type 2 diabetes mellitus without complication, without long-term current use of insulin E11.9 and Mixed hyperlipidemia E78.2 [facility] [address] [id number] [place] [id number] Jun, Type 2 diabetes mellitus without complication, without long-term current use of insulin E11.9 [facility] [address] [id number] [place] [id number] Jun, Type 2 diabetes mellitus without complication, without long-term current use of insulin E11.9 and Mixed hyperlipidemia E78.2 [place] [address] [facility] [address] [id number] [place] [id number] Jun, COPD mixed type J44.[address] [facility] [address] [facility] [id number] [id number] Jun, COPD mixed type J44.9 ; Oxygen [...] SOCIAL HISTORY Never Assessed REASON FOR VISIT needs glucose monitor and neb kit PLAN OF CARE VITAL SIGNS MEDICATIONS Medication Instructions Dosage Frequency Start Date End Date Duration Status Accu-Chek Anisa Plus w/Device In Vitro 2 to 3 times a week as directed Jan, 0 days Active Accu-Chek Anisa Plus - In Vitro 2-3 times a week as directed Jan, 0 days Active Nebulizer/Tubing/Mouthpiece - as directed Jan, 0 days Active RESULTS [...]
--- OUTSIDE RECORDS SUMMARY | 2018-10-20 06:50 | XMS REPORT ---
Author Author LATOSHA PATTERSON Organization [facility] Address [address] [place] [address] Care Team Providers Care Facilities Engineering Manager Name Role Phone LATOSHA PATTERSON Unavailable PROBLEMS Type Condition ICD9-CM Code WID14-FG Code Onset Dates Condition Status SNOMED Code Problem Adult idiopathic generalized osteoporosis M81.8 Active 573200807 Problem COPD mixed type J44.9 Active 75965143 Problem Type 2 diabetes mellitus without complication, without long-term current use of insulin E11.9 Active 802318726 Problem Mixed hyperlipidemia E78.2 Active 434545081 Problem COPD exacerbation J44.1 Active 262303690 Problem History of anaphylactic shock due to insect sting Z91.038 Active 459900168 Problem GERD with esophagitis K21.0 Active 266162797 Problem Insomnia, unspecified type G47.00 Active 391592995 Problem Obesity (BMI 30.0-34.9) E66.9 Active 582765529360071 Problem Oxygen dependent Z99.81 Active 199056159142 ALLERGIES Substance Reaction Event Type Date Status wasps anaphylaxsis Non Drug Allergy December, Active ENCOUNTERS Encounter Location Date Diagnosis [address] [place] [address] [id number] Feb, Bruises easily R23.8 ; COPD mixed type J44.9 ; Fever blister B00.1 ; GERD with esophagitis K21.0 and Adult idiopathic generalized osteoporosis M81.8 [place] [address] [id number] [id number] Jan, [address] [place] [address] [id number] Jan, [place] [id number] [id number] December, Dilated pore of Tonya of back L70.8 [address] [place] [address] [id number] Nov, Well woman exam with routine gynecological exam Z01.419 ; Screening breast examination Z12.31 ; COPD mixed type J44.9 ; Oxygen dependent Z99.81 ; Vaginal discharge N89.8 ; Fever blister B00.1 ; GERD with esophagitis K21.0 and Adult idiopathic generalized osteoporosis M81.8 [place] [id number] [place] [id number] Oct, [address] [id number] Oct, COPD exacerbation J44.[address] [id number] Oct, Pneumonia of right upper lobe due to infectious organism J18.1 ; Thrush B37.0 and COPD mixed type J44.9 [address] [id number] Oct, [place] [address] [place] [address] [id number] Oct, Acute nasopharyngitis J00 and COPD exacerbation J44.[address] [id number] Oct, History of anaphylactic shock due to insect sting Z91.038 ; COPD mixed type J44.9 and Oxygen dependent Z99.81 [address] [place] [address] [id number] Sep, Fever blister B00.1 and Skin infection L08.9 [place] [address] [place] [address] [id number] Sep, Fever blister B00.[address] [id number] Jul, Seborrheic keratosis L82.1 and Obesity (BMI 30.0-34.9) E66.9 [place] [address] [place] [address] [id number] Jul, COPD mixed type J44.9 ; Oxygen dependent Z99.81 ; Type 2 diabetes mellitus without complication, without long-term current use of insulin E11.9 and Mixed hyperlipidemia E78.2 [facility] [address] [facility] [id number] [phone] Jun, Type 2 diabetes mellitus without complication, without long-term current use of insulin E11.9 [facility] [address] [facility] [id number] [id number] Jun, Type 2 diabetes mellitus without complication, without long-term current use of insulin E11.9 and Mixed hyperlipidemia E78.[address] [id number] [place] [id number] Jun, COPD mixed type J44.9 [facility] [address] [facility] [id number] [phone] Jun, COPD mixed type J44.9 ; Oxygen [...] SOCIAL HISTORY Never Assessed REASON FOR VISIT Procedure- PLAN OF CARE Activity Details Follow Up prn Reason: VITAL SIGNS Height 63 in 2017-12-19 Weight 165.8 lbs 2017-12-19 Temperature 97.6 degrees Fahrenheit 2017-12-19 Heart Rate 100 bpm 2017-12-19 Respiratory Rate 20 2017-12-19 BMI 29.37 kg/m2 2017-12-19 Blood pressure systolic 120 mmHg 2017-12-19 Blood pressure diastolic 68 mmHg 2017-12-19 MEDICATIONS Medication Instructions Dosage Frequency Start Date End Date Duration Status Crestor 10 mg Orally Once a day 1 tablet 24h Active Albuterol Sulfate (2.5 MG/3ML) 0.083% Inhalation Every 4-6 hours as needed 2.5 mg 0 Active Montelukast Sodium 10 MG Orally Once a day 1 tablet in the evening 24h 0 Active Acyclovir 400 mg Orally Twice a day 1 tablet 12h Sep, 30 days Active Fluconazole 150 MG Orally once 1 tablet Nov, 1 dose Active Calcium 500 + D 500-125 MG-UNIT Orally Once a day 1 tablet with food 24h Active Ranitidine HCl 150 MG Orally twice a day 1 capsule 12h 0 Active Evista 60 MG Orally Once a day 1 tablet 24h 0 Active Ventolin HFA 90 MCG/ACT inhalation every 4 hours as needed 2 puffs as needed every 6 hrs Inhalation 0 days 0 Active Aspirin 81 81 MG Orally Once a day 1 tablet 24h Active Spiriva HandiHaler 18 MCG Inhalation Once a day 1 capsule 24h 0 Active Symbicort 160-4.5 MCG/ACT Inhalation Twice a day 2 puffs 12h 0 Active EpiPen 2-Gunner 0.3 MG/0.3ML Injection as needed as directed Oct, 0 days Active RESULTS No Results PROCEDURES Procedure Date Ordered Result Body Site [facility] VISIT ESTABLISHED PATIENT December 19, 2017 INSTRUCTIONS MEDICATIONS ADMINISTERED No Known Medications MEDICAL [...]
--- OUTSIDE RECORDS SUMMARY | 2018-10-20 06:50 | XMS REPORT ---
Author Author LATOSHA PATTERSON Organization [facility] Address [address] [place] [address] Care Team Providers Care French Instructor Name Role Phone LATOSHA PATTERSON Unavailable PROBLEMS Type Condition ICD9-CM Code YGB62-MP Code Onset Dates Condition Status SNOMED Code Problem Adult idiopathic generalized osteoporosis M81.8 Active 186524696 Problem COPD mixed type J44.9 Active 53498863 Problem Type 2 diabetes mellitus without complication, without long-term current use of insulin E11.9 Active 991358094 Problem Mixed hyperlipidemia E78.2 Active 164217345 Problem COPD exacerbation J44.1 Active 304462622 Problem History of anaphylactic shock due to insect sting Z91.038 Active 600975511 Problem GERD with esophagitis K21.0 Active 692373242 Problem Insomnia, unspecified type G47.00 Active 524959098 Problem Obesity (BMI 30.0-34.9) E66.9 Active 272856377910005 Problem Oxygen dependent Z99.81 Active 369134618312 ALLERGIES Substance Reaction Event Type Date Status wasps anaphylaxsis Non Drug Allergy Nov, Active ENCOUNTERS Encounter Location Date Diagnosis [address] [place] [address] [id number] Feb, Bruises easily R23.8 ; COPD mixed type J44.9 ; Fever blister B00.1 ; GERD with esophagitis K21.0 and Adult idiopathic generalized osteoporosis M81.8 [place] [address] [id number] [phone] Jan, [address] [place] [address] [id number] Jan, [place] [id number] [id number] December, Dilated pore of Tonya of back L70.8 [address] [place] [address] [id number] Nov, Well woman exam with routine gynecological exam Z01.419 ; Screening breast examination Z12.31 ; COPD mixed type J44.9 ; Oxygen dependent Z99.81 ; Vaginal discharge N89.8 ; Fever blister B00.1 ; GERD with esophagitis K21.0 and Adult idiopathic generalized osteoporosis M81.8 [place] [id number] [place] [id number] Oct, [address] [id number] Oct, COPD exacerbation J44.[address] [id number] Oct, Pneumonia of right upper lobe due to infectious organism J18.1 ; Thrush B37.0 and COPD mixed type J44.9 [address] [id number] Oct, [place] [address] [place] [address] [id number] Oct, Acute nasopharyngitis J00 and COPD exacerbation J44.1 [place] [address] [place] [address] [id number] Oct, History of anaphylactic shock due to insect sting Z91.038 [place] [address] [place] [address] [id number] Sep, Fever blister B00.1 and Skin infection L08.9 [place] [address] [place] [address] [id number] Sep, Fever blister B00.1 [place] [address] [place] [address] [id number] Jul, Seborrheic keratosis L82.1 and Obesity (BMI 30.0-34.9) E66.9 [place] [address] [place] [address] [id number] Jul, COPD mixed type J44.9 ; Oxygen dependent Z99.81 ; Type 2 diabetes mellitus without complication, without long-term current use of insulin E11.9 and Mixed hyperlipidemia E78.2 [facility] [address] [facility] [id number] [place] [phone] Jun, Type 2 diabetes mellitus without complication, without long-term current use of insulin E11.9 [facility] [address] [facility] [id number] [place] [phone] Jun, Type 2 diabetes mellitus without complication, without long-term current use of insulin E11.9 and Mixed hyperlipidemia E78.[address] [id number] [place] [phone] Jun, COPD mixed type J44.9 [facility] [address] [facility] [id number] [id number] Jun, COPD mixed type J44.9 ; Oxygen [...] E78.2 IMMUNIZATIONS Vaccine Route Administration Date Status B12, VITAMIN (UP TO 1000 MCG) IM Intramuscular December 12, 2017 Administered SOCIAL HISTORY Never Assessed REASON FOR VISIT Annual physical (female) Jack SHAH PLAN OF CARE Activity Details Follow Up 1 Year, prn Reason:WWE Pending Test Mammogram, Bilateral Screening VITAL SIGNS Height 63 in 2017-12-12 Weight 168 lbs 2017-12-12 Heart Rate 98 bpm 2017-12-12 Respiratory Rate 20 2017-12-12 BMI 29.76 kg/m2 2017-12-12 Blood pressure systolic 122 mmHg 2017-12-12 Blood pressure diastolic 68 mmHg 2017-12-12 MEDICATIONS Medication Instructions Dosage Frequency Start Date End Date Duration Status Fluconazole 150 MG Orally once 1 tablet Nov, 1 dose Active Montelukast Sodium 10 MG Orally Once a day 1 tablet in the evening 24h 0 Active Symbicort 160-4.5 MCG/ACT Inhalation Twice a day 2 puffs 12h 0 Active Evista 60 MG Orally Once a day 1 tablet 24h 0 Active Aspirin 81 81 MG Orally Once a day 1 tablet 24h Active Calcium 500 + D 500-125 MG-UNIT Orally Once a day 1 tablet with food 24h Active Spiriva HandiHaler 18 MCG Inhalation Once a day 1 capsule 24h 0 Active Acyclovir 400 mg Orally Twice a day 1 tablet 12h 27 Sep, 2017 30 days Active Ranitidine HCl 150 MG Orally twice a day 1 capsule 12h 0 Active EpiPen 2-Gunner 0.3 MG/0.3ML Injection as needed as directed Oct, 0 days Active Albuterol Sulfate (2.5 MG/3ML) 0.083% Inhalation Every 4-6 hours as needed 2.5 mg 0 Active Crestor 10 mg Orally Once a day 1 tablet 24h Active Ventolin HFA 90 MCG/ACT inhalation every 4 hours as needed 2 puffs as needed every 6 hrs Inhalation 0 days 0 Active RESULTS No Results PROCEDURES Procedure Date Ordered Result Body Site SPECIMEN HANDLING December 12, 2017 [facility] December 12, 2017 [facility] VISIT ESTABLISHED PATIENT December 12, 2017 B12, VITAMIN (UP TO 1000 MCG) December 12, 2017 Bacterial Vaginosis In House December 12, 2017 ANNUAL WELLNESS VST; PPS SUBSQT VST December 12, 2017 THER/PROPH/DIAG INJ, SC/IM December 12, 2017 INSTRUCTIONS MEDICATIONS ADMINISTERED No Known Medications [...]
--- OUTSIDE RECORDS SUMMARY | 2018-10-20 06:50 | XMS REPORT ---
Author Author LATOSHA PATTERSON Organization [facility] Address [address] [place] [address] Care Team Providers Care Manager Metrology Name Role Phone LATOSHA PATTERSON Unavailable PROBLEMS Type Condition ICD9-CM Code EGE34-JT Code Onset Dates Condition Status SNOMED Code Problem Adult idiopathic generalized osteoporosis M81.8 Active 516501555 Problem COPD mixed type J44.9 Active 80649695 Problem Type 2 diabetes mellitus without complication, without long-term current use of insulin E11.9 Active 927182095 Problem Mixed hyperlipidemia E78.2 Active 342930780 Problem COPD exacerbation J44.1 Active 531292079 Problem History of anaphylactic shock due to insect sting Z91.038 Active 833997485 Problem GERD with esophagitis K21.0 Active 695424729 Problem Insomnia, unspecified type G47.00 Active 379695861 Problem Obesity (BMI 30.0-34.9) E66.9 Active 694585424779429 Problem Oxygen dependent Z99.81 Active 321182228223 ALLERGIES Substance Reaction Event Type Date Status wasps anaphylaxsis Non Drug Allergy Oct, Active ENCOUNTERS Encounter Location Date Diagnosis [address] [place] [address] [id number] Apr, [place] [id number] [place] [address] [id number] Feb, Bruises easily R23.8 ; COPD mixed type J44.9 ; Fever blister B00.1 ; GERD with esophagitis K21.0 and Adult idiopathic generalized osteoporosis M81.8 [address] [id number] Jan, [address], [place] [id number] Jan, [place] [address] [place] [address] [id number] December, Dilated pore of Tonya of back L70.8 [address] [place] [address] [id number] Nov, Well woman exam with routine gynecological exam Z01.419 ; Screening breast examination Z12.31 ; COPD mixed type J44.9 ; Oxygen dependent Z99.81 ; Vaginal discharge N89.8 ; Fever blister B00.1 ; GERD with esophagitis K21.0 and Adult idiopathic generalized osteoporosis M81.8 [place] [address] [place] [id number] Oct, [address] [id number] Oct, COPD exacerbation J44.[address] [id number] Oct, Pneumonia of right upper lobe due to infectious organism J18.1 ; Thrush B37.0 and COPD mixed type J44.9 [address] [id number] Oct, [place] [address] [place] [address] [id number] Oct, Acute nasopharyngitis J00 and COPD exacerbation J44.1 [place] [address] [place] [address] [id number] Oct, History of anaphylactic shock due to insect sting Z91.038 ; COPD mixed type J44.9 and Oxygen dependent Z99.81 [place] [address] [place] [address] [id number] Sep, Fever blister B00.1 and Skin infection L08.9 [place] [address] [place] [address] [id number] Sep, Fever blister B00.[address] [id number] Jul, Seborrheic keratosis L82.1 and Obesity (BMI 30.0-34.9) E66.[address] [place] [id number] Jul, COPD mixed type J44.9 ; Oxygen dependent Z99.81 ; Type 2 diabetes mellitus without complication, without long-term current use of insulin E11.9 and Mixed hyperlipidemia E78.2 [facility] [address] [facility] [id number] [phone] Jun, Type 2 diabetes mellitus without complication, without long-term current use of insulin E11.9 [facility] [address] [facility] [id number] [phone] Jun, Type 2 diabetes mellitus without complication, without long-term current use of insulin E11.9 and Mixed hyperlipidemia E78.[address] [id number] [id number] Jun, COPD mixed type J44.9 [facility] [address] [facility] [id number][place] [id number] Jun, COPD mixed type J44.9 ; Oxygen [...] SOCIAL HISTORY Never Assessed REASON FOR VISIT COPD and due for EPI Pen Renewal Jack SHAH, Sees new for f/u results PLAN OF CARE Activity Details Follow Up 6 Months, prn Reason:CHM COPD VITAL SIGNS Height 63 in 2017-10-28 Weight 171 lbs 2017-10-28 Temperature 97.9 degrees Fahrenheit 2017-10-28 Heart Rate 112 bpm 2017-10-28 Respiratory Rate 20 2017-10-28 BMI 30.29 kg/m2 2017-10-28 Blood pressure systolic 142 mmHg 2017-10-28 Blood pressure diastolic 66 mmHg 2017-10-28 MEDICATIONS Medication Instructions Dosage Frequency Start Date End Date Duration Status Evista 60 MG Orally Once a day 1 tablet 24h Active Acyclovir 400 mg Orally Twice a day 1 tablet 12h 27 Sep, 2017 30 days Active Montelukast Sodium 10 MG Orally Once a day 1 tablet in the evening 24h Active Spiriva HandiHaler 18 MCG Inhalation Once a day 1 capsule 24h Active Calcium 500 + D 500-125 MG-UNIT Orally Once a day 1 tablet with food 24h Active Crestor 10 mg Orally Once a day 1 tablet 24h 0 Active Ventolin HFA 90 MCG/ACT Inhalation every 6 hrs 2 puffs as needed 6h 0 days Active Ranitidine HCl 150 MG Orally twice a day 1 capsule 12h Active EpiPen 2-Gunner 0.3 MG/0.3ML Injection as needed as directed Oct, 0 days Active Aspirin 81 81 MG Orally Once a day 1 tablet 24h Active Brovana 15 MCG/2ML Inhalation Twice a day 2 ml 12h Active Symbicort 160-4.5 MCG/ACT Inhalation Twice a day 2 puffs 12h Active Mirtazapine 7.5 MG Orally Once a day 1 tablet at bedtime 24h Active Ventolin HFA 90 MCG/ACT 2 puffs as needed every 6 hrs Inhalation 0 days 0 Active Albuterol Sulfate (2.5 MG/3ML) 0.083% Active RESULTS No Results PROCEDURES Procedure Date Ordered Result Body Site [facility] VISIT ESTABLISHED PATIENT October 28, 2017 INSTRUCTIONS MEDICATIONS ADMINISTERED No Known Medications [...]
--- OUTSIDE RECORDS SUMMARY | 2018-10-20 06:50 | XMS REPORT ---
Author Author LATOSHA PATTERSON Organization [facility] Address [address] [place] [address] Care Team Providers Care Register Repairer Name Role Phone LATOSHA APTTERSON Unavailable PROBLEMS Type Condition ICD9-CM Code DAX37-VQ Code Onset Dates Condition Status SNOMED Code Problem COPD mixed type J44.9 Active 16903197 Problem GERD with esophagitis K21.0 Active 198881887 Problem Insomnia, unspecified type G47.00 Active 625416164 Problem Rhinitis J31.0 Active 90466400 Problem History of anaphylactic shock due to insect sting Z91.038 Active 715472799 Problem Mixed hyperlipidemia E78.2 Active 781388525 Problem Oxygen dependent Z99.81 Active 092353121701 Problem Type 2 diabetes mellitus without complication, without long-term current use of insulin E11.9 Active 779283903 Problem Adult idiopathic generalized osteoporosis M81.8 Active 216911624 ALLERGIES Substance Reaction Event Type Date Status wasps anaphylaxsis Non Drug Allergy Feb, Active ENCOUNTERS Encounter Location Date Diagnosis [address] [place] [address] [id number] Apr, Type 2 diabetes mellitus without complication, without long-term current use of insulin E11.9 ; COPD mixed type J44.9 ; Encounter for immunization Z23 ; Oxygen dependent Z99.81 ; Rhinitis J31.0 ; Mixed hyperlipidemia E78.2 and History of anaphylactic shock due to insect sting Z91.038 [address] [place] [address] [id number] Feb, Bruises easily R23.8 ; COPD mixed type J44.9 ; Fever blister B00.1 ; GERD with esophagitis K21.0 and Adult idiopathic generalized osteoporosis M81.8 [address], [place] [id number] Jan, [address] [place] [address] [id number] Jan, [place] [address] [place] [address] [id number] December, Dilated pore of Tonya of back L70.8 [place] [address] [place] [address] [id number] Nov, Well woman exam with routine gynecological exam Z01.419 ; Screening breast examination Z12.31 ; COPD mixed type J44.9 ; Oxygen dependent Z99.81 ; Vaginal discharge N89.8 ; Fever blister B00.1 ; GERD with esophagitis K21.0 and Adult idiopathic generalized osteoporosis M81.[address] [id number] Oct, [place] [address] [place] [address] [id number] Oct, COPD exacerbation J44.[address] [id number] Oct, Pneumonia of right upper lobe due to infectious organism J18.1 ; Thrush B37.0 and COPD mixed type J44.9 [place] [id number] [place] [address] [id number] Oct, [place] [address] [place] [address] [id number] Oct, Acute nasopharyngitis J00 and COPD exacerbation J44.1 [place] [address] [place] [address] [id number] Oct, History of anaphylactic shock due to insect sting Z91.038 ; COPD mixed type J44.9 and Oxygen dependent Z99.81 [place] [address] [place] [address] [id number] Sep, Fever blister B00.1 and Skin infection L08.9 [place] [address] [place] [address] [id number] Sep, Fever blister B00.[address] [id number] Jul, Seborrheic keratosis L82.1 and Obesity (BMI 30.0-34.9) E66.9 [facility] [address] [facility] [id number] [id number] Jul, COPD mixed type J44.9 ; Oxygen dependent Z99.81 ; Type 2 diabetes mellitus without complication, without long-term current use of insulin E11.9 and Mixed hyperlipidemia E78.2 [facility] [address] [facility] [id number] [phone] Jun, Type 2 diabetes mellitus without complication, without long-term current use of insulin E11.9 [facility] [address] [facility] [id number], [place] [phone] Jun, Type 2 diabetes mellitus without complication, without long-term current use of insulin E11.9 and Mixed hyperlipidemia E78.[address] [id number] [id number] Jun, COPD mixed type J44.[address] [id number], [place] [id number] Jun, COPD mixed type J44.9 ; Oxygen [...] SOCIAL HISTORY Never Assessed REASON FOR VISIT Arm pain, needs order for arm sleeves, and skin cream Colleen RN PLAN OF CARE Activity Details Follow Up 3 Months, prn Reason: VITAL SIGNS Height 63 in 2018-02-24 Weight 171.0 lbs 2018-02-24 Temperature 98.4 degrees Fahrenheit 2018-02-24 Heart Rate 102 bpm 2018-02-24 Respiratory Rate 22 2018-02-24 Oximetry w/ oxygen:96 % 2018-02-24 BMI 30.29 kg/m2 2018-02-24 Blood pressure systolic 140 mmHg 2018-02-24 Blood pressure diastolic 76 mmHg 2018-02-24 MEDICATIONS Medication Instructions Dosage Frequency Start Date End Date Duration Status EpiPen 2-Gunner 0.3 MG/0.3ML Injection as needed as directed Oct, 0 days Active Acyclovir 400 mg Orally Twice a day 1 tablet 12h Sep, Active Montelukast Sodium 10 MG Orally Once a day 1 tablet in the evening 24h Active Spiriva HandiHaler 18 MCG Inhalation Once a day 1 capsule 24h Active Ranitidine HCl 150 MG Orally twice a day 1 capsule 12h Active Crestor 10 mg Orally Once a day 1 tablet 24h Active Ventolin HFA 90 MCG/ACT inhalation every 4 hours as needed 2 puffs as needed every 6 hrs Inhalation 0 days Active Evista 60 MG Orally Once a day 1 tablet 24h Active Accu-Chek Anisa Plus w/Device In Vitro 2 to 3 times a week as directed Jan, 0 days Active Albuterol Sulfate (2.5 MG/3ML) 0.083% Inhalation Every 4-6 hours as needed 2.5 mg Active Accu-Chek Anisa Plus - In Vitro 2-3 times a week as directed Jan, 0 days Active Symbicort 160-4.5 MCG/ACT Inhalation Twice a day 2 puffs 12h Active Aspirin 81 81 MG Orally Once a day 1 tablet 24h Active Nebulizer/Tubing/Mouthpiece - as directed Jan, 0 days Active Calcium 500 + D 500-125 MG-UNIT Orally Once a day 1 tablet with food 24h Active RESULTS No Results PROCEDURES Procedure Date Ordered Result Body Site [facility] VISIT ESTABLISHED PATIENT February 24, 2018 INSTRUCTIONS MEDICATIONS ADMINISTERED No Known Medications [...]
--- OUTSIDE RECORDS SUMMARY | 2018-10-20 06:50 | XMS REPORT ---
Author Author LATOSHA PATTERSON Organization [facility] Address [address] [place] [address] Care Team Providers Care Line Appliance Assembler Name Role Phone LATOSHA PATTERSON Unavailable PROBLEMS Type Condition ICD9-CM Code [id number] Code Onset Dates Condition Status SNOMED Code Problem Adult idiopathic generalized osteoporosis M81.8 Active 800318971 Problem COPD mixed type J44.9 Active 77976141 Problem Type 2 diabetes mellitus without complication, without long-term current use of insulin E11.9 Active 089579513 Problem Mixed hyperlipidemia E78.2 Active 541497308 Problem COPD exacerbation J44.1 Active 791710347 Problem History of anaphylactic shock due to insect sting Z91.038 Active 737529351 Problem GERD with esophagitis K21.0 Active 042555330 Problem Insomnia, unspecified type G47.00 Active 462860388 Problem Obesity (BMI 30.0-34.9) E66.9 Active 293478855579543 Problem Oxygen dependent Z99.81 Active 337019773687 ALLERGIES No Known Allergies ENCOUNTERS Encounter Location Date Diagnosis [place] [id number] [place] [address] [id number] Feb, Bruises easily R23.8 ; COPD mixed type J44.9 ; Fever blister B00.1 ; GERD with esophagitis K21.0 and Adult idiopathic generalized osteoporosis M81.8 [facility] [id number] [id number] Jan, [place] [address] [place] [id number] [place] [address] [id number] Jan, [facility] [address] [id number] [place] [address] [id number] December, Dilated pore of Tonya of back L70.8 [place] [id number] [place] [address] [id number] Nov, Well woman exam with routine gynecological exam Z01.419 ; Screening breast examination Z12.31 ; COPD mixed type J44.9 ; Oxygen dependent Z99.81 ; Vaginal discharge N89.8 ; Fever blister B00.1 ; GERD with esophagitis K21.0 and Adult idiopathic generalized osteoporosis M81.8 [address] [place] [address] [id number] Oct, [address] [id number] Oct, COPD exacerbation J44.1 [place] [id number] [place] [address] [id number] Oct, Pneumonia of right upper lobe due to infectious organism J18.1 ; Thrush B37.0 and COPD mixed type J44.9 [address] [id number] Oct, [place] [id number] [place] [address] [id number] Oct, Acute nasopharyngitis J00 and COPD exacerbation J44.1 [place] [id number] [place] [address] [id number] Oct, History of anaphylactic shock due to insect sting Z91.038 [place] [id number] [place] [address] [id number] Sep, Fever blister B00.1 and Skin infection L08.9 [place] [id number] [place] [address] [id number] Sep, Fever blister B00.1 [place] [id number] [place] [address] [id number] Jul, Seborrheic keratosis L82.1 and Obesity (BMI 30.0-34.9) E66.9 [place] [id number] [place] [address] [id number] 08 Jul, 2017 COPD mixed type J44.9 ; Oxygen dependent Z99.81 ; Type 2 diabetes mellitus without complication, without long-term current use of insulin E11.9 and Mixed hyperlipidemia E78.[address] [id number] [place] [id number] Jun, Type 2 diabetes mellitus without complication, without long-term current use of insulin E11.9 [facility] [address] [facility] [id number] [id number] Jun, Type 2 diabetes mellitus without complication, without long-term current use of insulin E11.9 and Mixed hyperlipidemia E78.[address] [id number][place] [id number] Jun, COPD mixed type J44.9 [facility] [address] [facility] [id number][place] [phone] Jun, COPD mixed type J44.9 ; Oxygen [...] SOCIAL HISTORY Never Assessed REASON FOR VISIT Pt c/o blisters to lips and left side of face started about 7 days ago Jack SHAH PLAN OF CARE Activity Details Follow Up 1 Week, prn Reason: VITAL SIGNS Height 63 in 2017-10-14 Weight 169.8 lbs 2017-10-14 Temperature 98.1 degrees Fahrenheit 2017-10-14 Heart Rate 100 bpm 2017-10-14 Respiratory Rate 20 2017-10-14 BMI 30.08 kg/m2 2017-10-14 Blood pressure systolic 124 mmHg 2017-10-14 Blood pressure diastolic 72 mmHg 2017-10-14 MEDICATIONS Medication Instructions Dosage Frequency Start Date End Date Duration Status Acyclovir 400 mg Orally Twice a day 1 tablet 12h Sep, 30 days Active Spiriva HandiHaler 18 MCG Inhalation Once a day 1 capsule 24h Active Montelukast Sodium 10 MG Orally Once a day 1 tablet in the evening 24h Active Symbicort 160-4.5 MCG/ACT Inhalation Twice a day 2 puffs 12h Active Calcium 500 + D 500-125 MG-UNIT Orally Once a day 1 tablet with food 24h Active Ranitidine HCl 150 MG Orally twice a day 1 capsule 12h Active Mirtazapine 7.5 MG Orally Once a day 1 tablet at bedtime 24h Active Keflex 500 mg Orally every 12 hrs 1 capsule 12h 27 Sep, 2017 Oct, 10 day(s) Active Aspirin 81 81 MG Orally Once a day 1 tablet 24h Active Ventolin HFA 90 MCG/ACT Inhalation every 6 hrs 2 puffs as needed 6h 0 days Active Albuterol Sulfate (2.5 MG/3ML) 0.083% Active Crestor 10 mg Orally Once a day 1 tablet 24h Jul, 0 days Active Evista 60 MG Orally Once a day 1 tablet 24h Active RESULTS No Results PROCEDURES Procedure Date Ordered Result Body Site [facility] VISIT ESTABLISHED PATIENT Oct 14, 2017 INSTRUCTIONS MEDICATIONS ADMINISTERED No Known Medications [...]
--- OUTSIDE RECORDS SUMMARY | 2018-10-20 06:51 | XMS REPORT ---
Author Author LATOSHA PATTERSON Organization [facility] Address [address] [place] [address] Care Team Providers Care Electrician Aircraft Name Role Phone LATOSHA PATTERSON Unavailable PROBLEMS Type Condition ICD9-CM Code [id number] Code Onset Dates Condition Status SNOMED Code Problem Adult idiopathic generalized osteoporosis M81.8 Active 994668031 Problem COPD mixed type J44.9 Active 75571395 Problem Type 2 diabetes mellitus without complication, without long-term current use of insulin E11.9 Active 509375485 Problem Mixed hyperlipidemia E78.2 Active 926641600 Problem COPD exacerbation J44.1 Active 838577875 Problem History of anaphylactic shock due to insect sting Z91.038 Active 891202290 Problem GERD with esophagitis K21.0 Active 217530748 Problem Insomnia, unspecified type G47.00 Active 919920337 Problem Obesity (BMI 30.0-34.9) E66.9 Active 743824357379458 Problem Oxygen dependent Z99.81 Active 674860761245 ALLERGIES No Information ENCOUNTERS Encounter Location Date Diagnosis [address] [place] [address] [id number] Feb, Bruises easily R23.8 ; COPD mixed type J44.9 ; Fever blister B00.1 ; GERD with esophagitis K21.0 and Adult idiopathic generalized osteoporosis M81.8 [facility] [id number] [id number] Jan, [place] [id number] [place] [address] [id number] Jan, [facility] [id number] [place] [address] [id number] December, Dilated pore of Tonya of back L70.8 [place] [address] [place] [id number] [place] [address] [id number] Nov, Well woman exam with routine gynecological exam Z01.419 ; Screening breast examination Z12.31 ; COPD mixed type J44.9 ; Oxygen dependent Z99.81 ; Vaginal discharge N89.8 ; Fever blister B00.1 ; GERD with esophagitis K21.0 and Adult idiopathic generalized osteoporosis M81.8 [address] [place] [address] [id number] Oct, [address] [id number] Oct, COPD exacerbation J44.1 [place] [id number] [place] [address] [id number] Oct, Pneumonia of right upper lobe due to infectious organism J18.1 ; Thrush B37.0 and COPD mixed type J44.[address] [id number] [id number] Oct, [place] [id number] [place] [address] [id number] Oct, Acute nasopharyngitis J00 and COPD exacerbation J44.1 [place] [id number] [place] [address] [id number] Oct, History of anaphylactic shock due to insect sting Z91.038 [place] [id number] [place] [address] [id number] Sep, Fever blister B00.1 and Skin infection L08.9 [place] [id number] [place] [address] [id number] Sep, Fever blister B00.1 [place] [id number] [place] [address] [id number] Jul, Seborrheic keratosis L82.1 and Obesity (BMI 30.0-34.9) E66.9 [place] [id number] [place] [address] [id number] Jul, COPD mixed type J44.9 ; Oxygen dependent Z99.81 ; Type 2 diabetes mellitus without complication, without long-term current use of insulin E11.9 and Mixed hyperlipidemia E78.[address] [id number] [place] [id number] Jun, Type 2 diabetes mellitus without complication, without long-term current use of insulin E11.9 [facility] [address] [facility] [id number] [id number] Jun, Type 2 diabetes mellitus without complication, without long-term current use of insulin E11.9 and Mixed hyperlipidemia E78.[address] [id number] [place] [id number] Jun, COPD mixed type J44.9 [facility] [address] [facility] [id number][place] [id number] Jun, COPD mixed type J44.9 ; Oxygen [...] SOCIAL HISTORY Never Assessed REASON FOR VISIT lab results/medication PLAN OF CARE VITAL SIGNS MEDICATIONS Medication Instructions Dosage Frequency Start Date End Date Duration Status Amoxicillin-Pot Clavulanate 875-125 MG Orally every 12 hrs 1 tablet 12h Oct, Nov, 10 day(s) Active RESULTS No Results PROCEDURES No Known [...]
--- OUTSIDE RECORDS SUMMARY | 2018-10-20 06:51 | XMS REPORT ---
Author Author EVONNE AHUJA Organization [facility] Address [address] [place] [address] Care Team Providers Care Director Of Food And Beverage Services Name Role Phone EVONNE AHUJA Unavailable PROBLEMS Type Condition ICD9-CM Code RCF34-WI Code Onset Dates Condition Status SNOMED Code Problem Adult idiopathic generalized osteoporosis M81.8 Active 248118325 Problem COPD mixed type J44.9 Active 66860116 Problem Type 2 diabetes mellitus without complication, without long-term current use of insulin E11.9 Active 676817676 Problem Mixed hyperlipidemia E78.2 Active 571699081 Problem COPD exacerbation J44.1 Active 242880927 Problem History of anaphylactic shock due to insect sting Z91.038 Active 426485547 Problem GERD with esophagitis K21.0 Active 453485052 Problem Insomnia, unspecified type G47.00 Active 978873425 Problem Obesity (BMI 30.0-34.9) E66.9 Active 449435234883994 Problem Oxygen dependent Z99.81 Active 165142844000 ALLERGIES No Information ENCOUNTERS Encounter Location Date Diagnosis [place] [id number] [place] [address] [id number] Feb, Bruises easily R23.8 ; COPD mixed type J44.9 ; Fever blister B00.1 ; GERD with esophagitis K21.0 and Adult idiopathic generalized osteoporosis M81.8 [facility] [id number] [place] [address] [id number] Jan, [place] [id number] [place] [address] [id number] Jan, [place] [id number] [place] [address] [id number] December, Dilated pore of Tonya of back L70.8 [address] [place] [address] [id number] Nov, Well woman exam with routine gynecological exam Z01.419 ; Screening breast examination Z12.31 ; COPD mixed type J44.9 ; Oxygen dependent Z99.81 ; Vaginal discharge N89.8 ; Fever blister B00.1 ; GERD with esophagitis K21.0 and Adult idiopathic generalized osteoporosis M81.8 [place] [id number] [place] [address] [id number] Oct, [address] [id number] Oct, COPD exacerbation J44.[address] [id number] Oct, Pneumonia of right upper lobe due to infectious organism J18.1 ; Thrush B37.0 and COPD mixed type J44.9 [address] [place] [address] [id number] Oct, [place] [id number] [place] [address] [id number] Oct, Acute nasopharyngitis J00 and COPD exacerbation J44.1 [place] [id number] [place] [address] [id number] Oct, History of anaphylactic shock due to insect sting Z91.[address] [id number] Sep, Fever blister B00.1 and Skin infection L08.9 [place] [id number] [place] [address] [id number] Sep, Fever blister B00.[address] [id number] Jul, Seborrheic keratosis L82.1 and Obesity (BMI 30.0-34.9) E66.[address] [id number] Jul, 2017 COPD mixed type J44.9 ; Oxygen dependent Z99.81 ; Type 2 diabetes mellitus without complication, without long-term current use of insulin E11.9 and Mixed hyperlipidemia E78.2 [place] [id number] [place] [address] [id number] Jun, Type 2 diabetes mellitus without complication, without long-term current use of insulin E11.9 [facility] [address] [facility] [id number] [place] [id number] Jun, Type 2 diabetes mellitus without complication, without long-term current use of insulin E11.9 and Mixed hyperlipidemia E78.2 [place] [address] [facility] [id number] [place] [id number] Jun, COPD mixed type J44.9 [facility] [address] [facility] [id number] [place] [id number] Jun, COPD mixed type J44.9 ; Oxygen [...] SOCIAL HISTORY Never Assessed REASON FOR VISIT PLAN OF CARE VITAL SIGNS MEDICATIONS No Known Medications RESULTS No Results PROCEDURES No Known [...]
--- OUTSIDE RECORDS SUMMARY | 2018-10-20 06:51 | XMS REPORT ---
Author Author EVONNE AHUJA Organization [facility] Address [address] [place] [address] Care Team Providers Care Specialty Food Products Supervisor Name Role Phone EVONNE AHUJA Unavailable PROBLEMS Type Condition ICD9-CM Code HSO95-MF Code Onset Dates Condition Status SNOMED Code Problem Adult idiopathic generalized osteoporosis M81.8 Active 718213179 Problem COPD mixed type J44.9 Active 14263775 Problem Type 2 diabetes mellitus without complication, without long-term current use of insulin E11.9 Active 071403396 Problem Mixed hyperlipidemia E78.2 Active 236363897 Problem COPD exacerbation J44.1 Active 503108454 Problem History of anaphylactic shock due to insect sting Z91.038 Active 895040257 Problem GERD with esophagitis K21.0 Active 323204717 Problem Insomnia, unspecified type G47.00 Active 261156411 Problem Obesity (BMI 30.0-34.9) E66.9 Active 953445305801686 Problem Oxygen dependent Z99.81 Active 754397426135 ALLERGIES No Known Allergies ENCOUNTERS Encounter Location Date Diagnosis [place] [id number] [place] [address] [id number] Feb, Bruises easily R23.8 ; COPD mixed type J44.9 ; Fever blister B00.1 ; GERD with esophagitis K21.0 and Adult idiopathic generalized osteoporosis M81.8 [facility] [id number] [place] [address] [id number] Jan, [place] [id number] [place] [address] [id number] Jan, [place] [id number] [place] [address] [id number] December, Dilated pore of Tonya of back L70.8 [place] [id number] [place] [address] [id number] Nov, Well woman exam with routine gynecological exam Z01.419 ; Screening breast examination Z12.31 ; COPD mixed type J44.9 ; Oxygen dependent Z99.81 ; Vaginal discharge N89.8 ; Fever blister B00.1 ; GERD with esophagitis K21.0 and Adult idiopathic generalized osteoporosis M81.8 [facility] [address] [id number] [place] [id number] Oct, [address] [id number] Oct, COPD exacerbation J44.[address] [id number] Oct, Pneumonia of right upper lobe due to infectious organism J18.1 ; Thrush B37.0 and COPD mixed type J44.9 [place] [id number] [place] [address] [id number] Oct, [address] [id number] Oct, Acute nasopharyngitis J00 and COPD exacerbation J44.1 [place] [id number] [place] [address] [id number] Oct, History of anaphylactic shock due to insect sting Z91.[address] [id number] Sep, Fever blister B00.1 and Skin infection L08.9 [place] [id number] [place] [address] [id number] Sep, Fever blister B00.[address] [id number] Jul, Seborrheic keratosis L82.1 and Obesity (BMI 30.0-34.9) E66.[address] [id number] 08 Jul, 2017 COPD mixed type J44.9 ; Oxygen dependent Z99.81 ; Type 2 diabetes mellitus without complication, without long-term current use of insulin E11.9 and Mixed hyperlipidemia E78.2 [place] [id number] [place] [address] [id number] Jun, Type 2 diabetes mellitus without complication, without long-term current use of insulin E11.9 [facility] [address] [facility] [id number] [place] [id number] Jun, Type 2 diabetes mellitus without complication, without long-term current use of insulin E11.9 and Mixed hyperlipidemia E78.2 [place] [address] [facility] [id number] [place] [id number] Jun, COPD mixed type J44.9 [facility] [address] [facility] [id number][place] [id number] Jun, COPD mixed type J44.9 ; Oxygen [...] SOCIAL HISTORY Never Assessed REASON FOR VISIT Swelling (lip), has had fever blister Colleen RN PLAN OF CARE Activity Details Follow Up as schd Reason: VITAL SIGNS Height 63 in 2017-10-06 Weight 167.6 lbs 2017-10-06 Temperature 97.4 degrees Fahrenheit 2017-10-06 Heart Rate 88 bpm 2017-10-06 Respiratory Rate 18 2017-10-06 Oximetry w/ oxygen:99 % 2017-10-06 BMI 29.69 kg/m2 2017-10-06 Blood pressure systolic 126 mmHg 2017-10-06 Blood pressure diastolic 70 mmHg 2017-10-06 MEDICATIONS Medication Instructions Dosage Frequency Start Date End Date Duration Status Ventolin HFA 90 MCG/ACT Inhalation every 6 hrs 2 puffs as needed 6h 0 days Active Acyclovir 800 MG Orally Five times a day 1 tablet Sep, 07 days Active Crestor 10 mg Orally Once a day 1 tablet 24h Jul, 0 days Active Ranitidine HCl 150 MG Orally twice a day 1 capsule 12h Active Aspirin 81 81 MG Orally Once a day 1 tablet 24h Active Mirtazapine 7.5 MG Orally Once a day 1 tablet at bedtime 24h Active Calcium 500 + D 500-125 MG-UNIT Orally Once a day 1 tablet with food 24h Active Albuterol Sulfate (2.5 MG/3ML) 0.083% Active Spiriva HandiHaler 18 MCG Inhalation Once a day 1 capsule 24h Active Evista 60 MG Orally Once a day 1 tablet 24h Active Montelukast Sodium 10 MG Orally Once a day 1 tablet in the evening 24h Active Symbicort 160-4.5 MCG/ACT Inhalation Twice a day 2 puffs 12h Active RESULTS No Results PROCEDURES Procedure Date Ordered Result Body Site MEASURE BLOOD OXYGEN LEVEL Oct 06, 2017 [facility] VISIT ESTABLISHED PATIENT Oct 06, 2017 INSTRUCTIONS MEDICATIONS ADMINISTERED No Known Medications [...]
--- OUTSIDE RECORDS SUMMARY | 2018-10-20 06:51 | XMS REPORT ---
Author Author LATOSHA PATTERSON Organization [facility] Address [address] [place] [address] Care Team Providers Care Ethnoarchaeologist Name Role Phone LATOSHA PATTERSON Unavailable PROBLEMS Type Condition ICD9-CM Code QUC98-YS Code Onset Dates Condition Status SNOMED Code Problem Adult idiopathic generalized osteoporosis M81.8 Active 486779275 Problem COPD mixed type J44.9 Active 77413871 Problem Type 2 diabetes mellitus without complication, without long-term current use of insulin E11.9 Active 092446076 Problem Mixed hyperlipidemia E78.2 Active 729087958 Problem COPD exacerbation J44.1 Active 907013855 Problem History of anaphylactic shock due to insect sting Z91.038 Active 578537153 Problem GERD with esophagitis K21.0 Active 450998403 Problem Insomnia, unspecified type G47.00 Active 329923142 Problem Obesity (BMI 30.0-34.9) E66.9 Active 098095253396665 Problem Oxygen dependent Z99.81 Active 460835952147 ALLERGIES No Known Allergies ENCOUNTERS Encounter Location Date Diagnosis [address] [id number] December, Dilated pore of Tonya of back L70.8 [place] [id number] [id number] Nov, Well woman exam with routine gynecological exam Z01.419 ; Screening breast examination Z12.31 ; COPD mixed type J44.9 ; Oxygen dependent Z99.81 ; Vaginal discharge N89.8 ; Fever blister B00.1 ; GERD with esophagitis K21.0 and Adult idiopathic generalized osteoporosis M81.8 [place] [id number] [id number] Oct, [address] [place] [address] [id number] Oct, COPD exacerbation J44.1 [address] [place] [address] [id number] Oct, Pneumonia of right upper lobe due to infectious organism J18.1 ; Thrush B37.0 and COPD mixed type J44.9 [facility] [address] [facility] [address] [id number] [id number] Oct, [address] [id number] Oct, Acute nasopharyngitis J00 and COPD exacerbation J44.1 [place] [id number] [place] [address] [id number] Oct, History of anaphylactic shock due to insect sting Z91.038 [place] [id number] [place] [address] [id number] Sep, Fever blister B00.1 and Skin infection L08.9 [place] [id number] [place] [address] [id number] Sep, Fever blister B00.1 [place] [id number] [place] [address] [id number] Jul, Seborrheic keratosis L82.1 and Obesity (BMI 30.0-34.9) E66.9 [place] [id number] [place] [address] [id number] Jul, COPD mixed type J44.9 ; Oxygen dependent Z99.81 ; Type 2 diabetes mellitus without complication, without long-term current use of insulin E11.9 and Mixed hyperlipidemia E78.2 [address] [place] [address] [id number] Jun, Type 2 diabetes mellitus without complication, without long-term current use of insulin E11.9 [address] [place] [address] [id number] Jun, Type 2 diabetes mellitus without complication, without long-term current use of insulin E11.9 and Mixed hyperlipidemia E78.2 [facility] [address] [facility] [address] [id number][place] [id number] Jun, COPD mixed type J44.9 [facility] [address] [facility] [id number] [place] [phone] Jun, COPD mixed type J44.9 ; Oxygen [...] Never Assessed REASON FOR VISIT COPD and lab f/u Jack SHAH PLAN OF CARE Activity Details Follow Up 3 Months Reason:CHM COPD VITAL SIGNS Height 63 in 2017-07-25 Weight 172.2 lbs 2017-07-25 Temperature 98.1 degrees Fahrenheit 2017-07-25 Heart Rate 80 bpm 2017-07-25 Respiratory Rate 18 2017-07-25 BMI 30.50 kg/m2 2017-07-25 Blood pressure systolic 120 mmHg 2017-07-25 Blood pressure diastolic 68 mmHg 2017-07-25 MEDICATIONS Medication Instructions Dosage Frequency Start Date [...] day 1 tablet with food 24h Active Symbicort 160-4.5 MCG/ACT Inhalation Twice a day 2 puffs 12h Active Mirtazapine 7.5 MG Orally Once a day 1 tablet at bedtime 24h Active Ranitidine HCl 150 MG Orally twice a day 1 capsule 12h Active Brovana 15 MCG/2ML Inhalation Twice a day 2 ml 12h Active Crestor 10 mg Orally Once a day 1 tablet 24h Jul, 0 days Active Clotrimazole 1 % Externally Twice a day 1 application to affected area 12h Active Montelukast Sodium 10 MG Orally Once a day 1 tablet in the evening 24h Active Dexilant 60 MG Orally Once a day 1 capsule 24h Active RESULTS No Results PROCEDURES Procedure Date Ordered Result Body Site [facility] VISIT ESTABLISHED PATIENT Jul 25, 2017 INSTRUCTIONS MEDICATIONS ADMINISTERED No Known Medications [...]
--- OUTSIDE RECORDS SUMMARY | 2018-10-20 06:51 | XMS REPORT ---
Author Author LATOSHA PATTERSON Organization [facility] Address [address] [place] [address] Care Team Providers Care [employer] Manager Name Role Phone LATOSHA PATTERSON Unavailable PROBLEMS Type Condition ICD9-CM Code KUI26-LK Code Onset Dates Condition Status SNOMED Code Problem Adult idiopathic generalized osteoporosis M81.8 Active 013405144 Problem COPD mixed type J44.9 Active 20052015 Problem Type 2 diabetes mellitus without complication, without long-term current use of insulin E11.9 Active 289220449 Problem Mixed hyperlipidemia E78.2 Active 566273073 Problem COPD exacerbation J44.1 Active 683745308 Problem History of anaphylactic shock due to insect sting Z91.038 Active 863130186 Problem GERD with esophagitis K21.0 Active 547530989 Problem Insomnia, unspecified type G47.00 Active 493302234 Problem Obesity (BMI 30.0-34.9) E66.9 Active 636989622284885 Problem Oxygen dependent Z99.81 Active 597280843880 ALLERGIES No Known Allergies ENCOUNTERS Encounter Location Date Diagnosis [address] [id number] December, Dilated pore of Tonya of back L70.8 [place] [id number] [id number] Nov, Well woman exam with routine gynecological exam Z01.419 ; Screening breast examination Z12.31 ; COPD mixed type J44.9 ; Oxygen dependent Z99.81 ; Vaginal discharge N89.8 ; Fever blister B00.1 ; GERD with esophagitis K21.0 and Adult idiopathic generalized osteoporosis M81.8 [place] [id number] [id number] Oct, [address] [place] [address] [id number] Oct, COPD exacerbation J44.1 [address] [place] [address] [id number] Oct, Pneumonia of right upper lobe due to infectious organism J18.1 ; Thrush B37.0 and COPD mixed type J44.9 [facility] [address] [id number] [id number] Oct, [address] [id number] Oct, Acute nasopharyngitis J00 and COPD exacerbation J44.1 [place] [address] [place] [address] [id number] Oct, History of anaphylactic shock due to insect sting Z91.038 [place] [address] [place] [address] [id number] Sep, Fever blister B00.1 and Skin infection L08.9 [place] [address] [place] [address] [id number] Sep, Fever blister B00.1 [place] [address] [place] [address] [id number] Jul, Seborrheic keratosis L82.1 and Obesity (BMI 30.0-34.9) E66.9 [place] [address] [place] [address] [id number] Jul, COPD mixed type J44.9 ; Oxygen dependent Z99.81 ; Type 2 diabetes mellitus without complication, without long-term current use of insulin E11.9 and Mixed hyperlipidemia E78.2 [address] [place] [address] [id number] Jun, Type 2 diabetes mellitus without complication, without long-term current use of insulin E11.9 [address] [place] [address] [id number] Jun, Type 2 diabetes mellitus without complication, without long-term current use of insulin E11.9 and Mixed hyperlipidemia E78.2 [facility] [address] [id number] [id number] Jun, COPD mixed type J44.9 [facility] [address] [facility] [id number] [place] [phone] Jun, COPD mixed type J44.9 ; Oxygen [...] SOCIAL HISTORY Never Assessed REASON FOR VISIT Mole Removal from right side of nose Jack SHAH PLAN OF CARE Activity Details Follow Up prn Reason: VITAL SIGNS Height 63 in 2017-07-29 Weight 172 lbs 2017-07-29 Temperature 96.9 degrees Fahrenheit 2017-07-29 Heart Rate 86 bpm 2017-07-29 Respiratory Rate 16 2017-07-29 BMI 30.47 kg/m2 2017-07-29 Blood pressure systolic 122 mmHg 2017-07-29 Blood pressure diastolic 68 mmHg 2017-07-29 MEDICATIONS Medication Instructions Dosage Frequency Start Date End Date Duration Status Mirtazapine 7.5 MG Orally Once a day 1 tablet at bedtime 24h Active Spiriva HandiHaler 18 MCG Inhalation Once a day 1 capsule 24h Active Symbicort 160-4.5 MCG/ACT Inhalation Twice a day 2 puffs 12h Active Evista 60 MG Orally Once a day 1 tablet 24h Active Calcium 500 + D 500-125 MG-UNIT Orally Once a day 1 tablet with food 24h Active Albuterol Sulfate (2.5 MG/3ML) 0.083% Active Clotrimazole 1 % Externally Twice a day 1 application to affected area 12h Active Ranitidine HCl 150 MG Orally twice a day 1 capsule 12h Active Dexilant 60 MG Orally Once a day 1 capsule 24h Active Brovana 15 MCG/2ML Inhalation Twice a day 2 ml 12h Active Montelukast Sodium 10 MG Orally Once a day 1 tablet in the evening 24h Active Crestor 10 mg Orally Once a day 1 tablet 24h Jul, 0 days Active Ventolin HFA 90 MCG/ACT Inhalation every 6 hrs 2 puffs as needed 6h 0 days Active RESULTS No Results PROCEDURES Procedure Date Ordered Result Body Site CRYOTHERAPY OF SKIN 2017-07-29 completed CRYOTHERAPY OF SKIN Jul 29, 2017 [facility] VISIT ESTABLISHED PATIENT Jul 29, 2017 INSTRUCTIONS MEDICATIONS ADMINISTERED No Known Medications [...]
--- OUTSIDE RECORDS SUMMARY | 2018-10-20 06:51 | XMS REPORT ---
Author Author LATOSHA PATTERSON Organization [facility] Address [address] [place] [address] Care Team Providers Care Human Resources Intern Name Role Phone LATOSHA PATTERSON Unavailable PROBLEMS Type Condition ICD9-CM Code LNE33-YW Code Onset Dates Condition Status SNOMED Code Problem Adult idiopathic generalized osteoporosis M81.8 Active 153547623 Problem COPD mixed type J44.9 Active 07142284 Problem Type 2 diabetes mellitus without complication, without long-term current use of insulin E11.9 Active 393808606 Problem Mixed hyperlipidemia E78.2 Active 943235886 Problem COPD exacerbation J44.1 Active 529586297 Problem History of anaphylactic shock due to insect sting Z91.038 Active 024178342 Problem GERD with esophagitis K21.0 Active 027408059 Problem Insomnia, unspecified type G47.00 Active 607133160 Problem Obesity (BMI 30.0-34.9) E66.9 Active 993519554541145 Problem Oxygen dependent Z99.81 Active 757104138176 ALLERGIES Substance Reaction Event Type Date Status wasps anaphylaxsis Non Drug Allergy Oct, Active ENCOUNTERS Encounter Location Date Diagnosis [address] [id number] Feb, Bruises easily R23.8 ; COPD mixed type J44.9 ; Fever blister B00.1 ; GERD with esophagitis K21.0 and Adult idiopathic generalized osteoporosis M81.8 [id number] [id number] Jan, [address] [id number] Jan, [place] [id number] [id number] December, Dilated pore of Tonya of back L70.8 [address] [place] [id number] Nov, Well woman exam with routine gynecological exam Z01.419 ; Screening breast examination Z12.31 ; COPD mixed type J44.9 ; Oxygen dependent Z99.81 ; Vaginal discharge N89.8 ; Fever blister B00.1 ; GERD with esophagitis K21.0 and Adult idiopathic generalized osteoporosis M81.8 [address] [place] [id number] Oct, [address] [id number] Oct, COPD exacerbation J44.[address] [id number] Oct, Pneumonia of right upper lobe due to infectious organism J18.1 ; Thrush B37.0 and COPD mixed type J44.9 [address] [id number] Oct, [place] [id number] [place] [address] [id number] Oct, Acute nasopharyngitis J00 and COPD exacerbation J44.1 [place] [id number] [place] [address] [id number] Oct, History of anaphylactic shock due to insect sting Z91.038 [place] [id number] [place] [address] [id number] Sep, Fever blister B00.1 and Skin infection L08.9 [place] [id number] [place] [address] [id number] Sep, Fever blister B00.1 [place] [id number] [place] [address] [id number] Jul, Seborrheic keratosis L82.1 and Obesity (BMI 30.0-34.9) E66.9 [address] [place] [address] [id number] Jul, COPD mixed type J44.9 ; Oxygen dependent Z99.81 ; Type 2 diabetes mellitus without complication, without long-term current use of insulin E11.9 and Mixed hyperlipidemia E78.2 [facility] [address] [facility] [id number] [place] [id number] Jun, Type 2 diabetes mellitus without complication, without long-term current use of insulin E11.9 [facility] [address] [facility] [id number] [place] [id number] Jun, Type 2 diabetes mellitus without complication, without long-term current use of insulin E11.9 and Mixed hyperlipidemia E78.[address] [id number] [place] [id number] Jun, COPD mixed type J44.9 [facility] [address] [facility] [id number] [phone] Jun, COPD mixed type J44.9 ; Oxygen [...] SOCIAL HISTORY Never Assessed REASON FOR VISIT f/u on pneumonia, had CXR done yesterday Jack SHAH PLAN OF CARE Activity Details Follow Up Friday prn, pending CXR and progression Reason: VITAL SIGNS Height 63 in 2017-11-05 Weight 169.4 lbs 2017-11-05 Temperature 98.8 degrees Fahrenheit 2017-11-05 Heart Rate 100 bpm 2017-11-05 Respiratory Rate 22 2017-11-05 BMI 30.00 kg/m2 2017-11-05 Blood pressure systolic 120 mmHg 2017-11-05 Blood pressure diastolic 68 mmHg 2017-11-05 MEDICATIONS Medication Instructions Dosage Frequency Start Date End Date Duration Status Crestor 10 mg Orally Once a day 1 tablet 24h 0 Active Benzonatate 100 mg Orally Three times a day 1 capsule as needed 8h Oct, Active Calcium 500 + D 500-125 MG-UNIT Orally Once a day 1 tablet with food 24h Active Acyclovir 400 mg Orally Twice a day 1 tablet 12h 27 Sep, 2017 30 days Active Nystatin 638281 UNIT/ML Mouth/Throat (swish and swallow) Four times a day 4 ml 6h Oct, Nov, 28 days Active Ranitidine HCl 150 MG Orally twice a day 1 capsule 12h Active Spiriva HandiHaler 18 MCG Inhalation Once a day 1 capsule 24h Active Albuterol Sulfate (2.5 MG/3ML) 0.083% Active Promethazine-Codeine 6.25-10 MG/5ML Orally 3 times a day 5 ml as needed for severe cough 8h Oct, Active Zithromax Z-Gunner 250 mg Orally Once a day 2 tqb d 1 then 1 tab qd 24h Oct, Oct, Active PredniSONE 10 mg Orally Once a day 4 tablet with food or milk x 4 d then 3 tab x 4 d then 2 tab x 4 d then 1 tab x 4 d 24h Oct, Active Evista 60 MG Orally Once a day 1 tablet 24h Active Montelukast Sodium 10 MG Orally Once a day 1 tablet in the evening 24h Active EpiPen 2-Gunner 0.3 MG/0.3ML Injection as needed as directed Oct, 0 days Active Aspirin 81 81 MG Orally Once a day 1 tablet 24h Active Ventolin HFA 90 MCG/ACT 2 puffs as needed every 6 hrs Inhalation 0 days Active Mirtazapine 7.5 MG Orally Once a day 1 tablet at bedtime 24h Active Symbicort 160-4.5 MCG/ACT Inhalation Twice a day 2 puffs 12h Active RESULTS No Results PROCEDURES Procedure Date Ordered Result Body Site ROUTINE VENIPUNCTURE 2017-11-05 [facility], 2017 [facility] VISIT ESTABLISHED PATIENT November 05, 2017 INSTRUCTIONS MEDICATIONS ADMINISTERED No Known Medications [...]
--- OUTSIDE RECORDS SUMMARY | 2018-10-20 06:51 | XMS REPORT ---
Author Author LATOSHA PATTERSON Organization [facility] Address [address] [place] [address] Care Team Providers Care School Attendance Secretary Name Role Phone LATOSHA PATTERSON Unavailable PROBLEMS Type Condition ICD9-CM Code XHS91-GA Code Onset Dates Condition Status SNOMED Code Problem Adult idiopathic generalized osteoporosis M81.8 Active 600685676 Problem COPD mixed type J44.9 Active 79488012 Problem Type 2 diabetes mellitus without complication, without long-term current use of insulin E11.9 Active 103532129 Problem Mixed hyperlipidemia E78.2 Active 232391448 Problem COPD exacerbation J44.1 Active 971013024 Problem History of anaphylactic shock due to insect sting Z91.038 Active 026177446 Problem GERD with esophagitis K21.0 Active 341808638 Problem Insomnia, unspecified type G47.00 Active 274559722 Problem Obesity (BMI 30.0-34.9) E66.9 Active 782985970913529 Problem Oxygen dependent Z99.81 Active 871062888114 ALLERGIES No Information ENCOUNTERS Encounter Location Date Diagnosis [address] [place] [address] [id number] Feb, Bruises easily R23.8 ; COPD mixed type J44.9 ; Fever blister B00.1 ; GERD with esophagitis K21.0 and Adult idiopathic generalized osteoporosis M81.8 [facility] [id number] [place] [id number] Jan, [place] [id number] [place] [address] [id number] Jan, [facility] [id number] [place] [address] [id number] December, Dilated pore of Tonya of back L70.8 [place] [address] [place] [id number] [place] [address] [id number] Nov, Well woman exam with routine gynecological exam Z01.419 ; Screening breast examination Z12.31 ; COPD mixed type J44.9 ; Oxygen dependent Z99.81 ; Vaginal discharge N89.8 ; Fever blister B00.1 ; GERD with esophagitis K21.0 and Adult idiopathic generalized osteoporosis M81.8 [address] [place] [address] [id number] Oct, [address] [id number] Oct, COPD exacerbation J44.1 [place] [id number] [place] [address] [id number] Oct, Pneumonia of right upper lobe due to infectious organism J18.1 ; Thrush B37.0 and COPD mixed type J44.[address] [id number] [id number] Oct, [place] [id number] [place] [address] [id number] Oct, Acute nasopharyngitis J00 and COPD exacerbation J44.1 [place] [id number] [place] [address] [id number] Oct, History of anaphylactic shock due to insect sting Z91.038 [place] [address] [place] [address] [id number] Sep, Fever blister B00.1 and Skin infection L08.9 [place] [id number] [place] [address] [id number] Sep, Fever blister B00.1 [place] [id number] [place] [address] [id number] Jul, Seborrheic keratosis L82.1 and Obesity (BMI 30.0-34.9) E66.9 [place] [address] [place] [address] [id number] Jul, COPD mixed type J44.9 ; Oxygen dependent Z99.81 ; Type 2 diabetes mellitus without complication, without long-term current use of insulin E11.9 and Mixed hyperlipidemia E78.[address] [id number] [place] [id number] Jun, Type 2 diabetes mellitus without complication, without long-term current use of insulin E11.9 [facility] [address] [facility] [id number] [id number] Jun, Type 2 diabetes mellitus without complication, without long-term current use of insulin E11.9 and Mixed hyperlipidemia E78.[address] [id number] [place] [id number] Jun, COPD mixed type J44.9 [facility] [address] [facility] [id number] [place] [id number] Jun, COPD mixed type J44.9 ; Oxygen [...] VISIT PLAN OF CARE VITAL SIGNS MEDICATIONS Medication Instructions Dosage Frequency Start Date End Date Duration Status Zithromax Z-Gunner 250 mg Orally Once a day 2 tqb d 1 then 1 tab qd 24h Oct, Oct, 0 days Active RESULTS No Results [...]
--- OUTSIDE RECORDS SUMMARY | 2018-10-20 06:51 | XMS REPORT ---
Author Author EVONNE AHUJA Organization [facility] Address [address] [place] [address] Care Team Providers Care Rigger Third Name Role Phone EVONNE AHUJA Unavailable PROBLEMS Type Condition ICD9-CM Code QDA99-VQ Code Onset Dates Condition Status SNOMED Code Problem Adult idiopathic generalized osteoporosis M81.8 Active 109152128 Problem COPD mixed type J44.9 Active 88074238 Problem Type 2 diabetes mellitus without complication, without long-term current use of insulin E11.9 Active 242842841 Problem Mixed hyperlipidemia E78.2 Active 467213407 Problem COPD exacerbation J44.1 Active 681442642 Problem History of anaphylactic shock due to insect sting Z91.038 Active 504248689 Problem GERD with esophagitis K21.0 Active 432632433 Problem Insomnia, unspecified type G47.00 Active 354068752 Problem Obesity (BMI 30.0-34.9) E66.9 Active 316771001268674 Problem Oxygen dependent Z99.81 Active 224600746849 ALLERGIES Substance Reaction Event Type Date Status wasps anaphylaxsis Non Drug Allergy Oct, Active ENCOUNTERS Encounter Location Date Diagnosis [address] [id number] Feb, Bruises easily R23.8 ; COPD mixed type J44.9 ; Fever blister B00.1 ; GERD with esophagitis K21.0 and Adult idiopathic generalized osteoporosis M81.8 [place] [id number] [place] [address] [id number] Jan, [place] [id number] [place] [address] [id number] Jan, [place] [address] [id number] [place] [address] [id number] December, Dilated pore of Tonya of back L70.[address] [id number] Nov, Well woman exam with routine gynecological exam Z01.419 ; Screening breast examination Z12.31 ; COPD mixed type J44.9 ; Oxygen dependent Z99.81 ; Vaginal discharge N89.8 ; Fever blister B00.1 ; GERD with esophagitis K21.0 and Adult idiopathic generalized osteoporosis M81.8 [place] [id number] [place] [id number] Oct, [address] [id number] Oct, COPD exacerbation J44.[address] [id number] Oct, Pneumonia of right upper lobe due to infectious organism J18.1 ; Thrush B37.0 and COPD mixed type J44.9 [address] [id number] Oct, [address] [id number] Oct, Acute nasopharyngitis J00 and COPD exacerbation J44.1 [place] [address] [place] [address] [id number] Oct, History of anaphylactic shock due to insect sting Z91.038 [place] [address] [place] [address] [id number] Sep, Fever blister B00.1 and Skin infection L08.9 [place] [address] [place] [address] [id number] Sep, Fever blister B00.1 [place] [id number] [place] [address] [id number] Jul, Seborrheic keratosis L82.1 and Obesity (BMI 30.0-34.9) E66.9 [place] [id number] [place] [address] [id number] Jul, 2017 COPD mixed type J44.9 ; Oxygen dependent Z99.81 ; Type 2 diabetes mellitus without complication, without long-term current use of insulin E11.9 and Mixed hyperlipidemia E78.2 [facility] [address] [facility] [id number] [place] [id number] Jun, Type 2 diabetes mellitus without complication, without long-term current use of insulin E11.9 [facility] [address] [facility] [id number] [id number] Jun, Type 2 diabetes mellitus without complication, without long-term current use of insulin E11.9 and Mixed hyperlipidemia E78.[address] [id number] [id number] Jun, COPD mixed type J44.9 [facility] [address] [facility] [id number] [id number] Jun, COPD mixed type J44.9 ; Oxygen [...] SOCIAL HISTORY Never Assessed REASON FOR VISIT cough with dark yellow sputum, sore throat, runny/stuffy nose, cough is worse when laying down, more SOA than usual, ears feel full and popping, sneezing more -all for 3 days---lexi RN PLAN OF CARE Activity Details Follow Up as scd Reason: VITAL SIGNS Height 63 in 2017-11-04 Weight 169 lbs 2017-11-04 Temperature 97.9 degrees Fahrenheit 2017-11-04 Heart Rate 123 bpm 2017-11-04 Respiratory Rate 24 2017-11-04 BMI 29.93 kg/m2 2017-11-04 Blood pressure systolic 136 mmHg 2017-11-04 Blood pressure diastolic 82 mmHg 2017-11-04 MEDICATIONS Medication Instructions Dosage Frequency Start Date End Date Duration Status Spiriva HandiHaler 18 MCG Inhalation Once a day 1 capsule 24h Active Zithromax Z-Gunner 250 mg Orally Once a day 2 tqb d 1 then 1 tab qd 24h Oct, Oct, 05 days Active Calcium 500 + D 500-125 MG-UNIT Orally Once a day 1 tablet with food 24h Active Ranitidine HCl 150 MG Orally twice a day 1 capsule 12h Active Symbicort 160-4.5 MCG/ACT Inhalation Twice a day 2 puffs 12h Active EpiPen 2-Gunner 0.3 MG/0.3ML Injection as needed as directed 13 Oct, 2017 0 days Active PredniSONE 10 mg Orally Once a day 4 tablet with food or milk x 4 d then 3 tab x 4 d then 2 tab x 4 d then 1 tab x 4 d 24h 20 Oct, 2017 Active Montelukast Sodium 10 MG Orally Once a day 1 tablet in the evening 24h Active Acyclovir 400 mg Orally Twice a day 1 tablet 12h Sep, 30 days Active Aspirin 81 81 MG Orally Once a day 1 tablet 24h Active Mirtazapine 7.5 MG Orally Once a day 1 tablet at bedtime 24h Not- Taking Crestor 10 mg Orally Once a day 1 tablet 24h 0 Active Evista 60 MG Orally Once a day 1 tablet 24h Active Albuterol Sulfate (2.5 MG/3ML) 0.083% Active Ventolin HFA 90 MCG/ACT 2 puffs as needed every 6 hrs Inhalation 0 days 0 Active Promethazine-Codeine 6.25-10 MG/5ML Orally 3 times a day 5 ml as needed for severe cough 8h Oct, Active Benzonatate 100 mg Orally Three times a day 1 capsule as needed 8h Oct, Active RESULTS Name Result Date Reference Range Chest X-ray PA and Lateral 2017-11-04 PROCEDURES Procedure Date Ordered Result Body Site [facility] VISIT ESTABLISHED PATIENT November 04, 2017 INSTRUCTIONS MEDICATIONS ADMINISTERED No Known Medications [...]
[2018-10-20] MEDS ORDERED: HEParin 1000 UNIT/ML (10ML VIAL) FOR BOLUS ONE (06:54)
[2018-10-20] MEDS ORDERED: NS IV 1000 ML 3,000 ML ONE (06:54)
[2018-10-20] MEDS ORDERED: LIDOCAINE 1% INJ 20 ML 20 ML VIAL ONE (06:54)
[2018-10-20] MEDS: NS IV 1000 ML 1,000 ML IV SCH ×2 (07:06→13:17)
[2018-10-20 07:23] LABS: HEMOGLOBIN 14.5 G/DL (11.5-16.0); RED CELL DISTRIBUTION WIDTH 14.9 % (10.0-14.5); WHITE BLOOD COUNT 10.5 10^3/uL (4.3-11.0)
[2018-10-20] MEDS ORDERED: RALO60TA12 PO (07:33)
[2018-10-20 07:35] LABS: INR 0.9 (0.8-1.4); PROTHROMBIN TIME PATIENT 12.1 SEC (12.2-14.7)
[2018-10-20] MEDS ORDERED: BUDE10.2 IH (07:40)
[2018-10-20] MEDS ORDERED: ROSU10TA27 PO (07:40)
[2018-10-20] MEDS ORDERED: ASPI-983 PO (07:40)
[2018-10-20] MEDS ORDERED: CYAN10006 PO (07:40)
[2018-10-20] MEDS ORDERED: TIOT18CA2 IH (07:40)
[2018-10-20] MEDS ORDERED: RANI-515 PO (07:40)
[2018-10-20] MEDS ORDERED: CETI10TA17 PO (07:40)
[2018-10-20] MEDS ORDERED: MONT10TA24 PO (07:40)
[2018-10-20] MEDS ORDERED: ACYC400T PO (07:40)
[2018-10-20] MEDS ORDERED: ALBU2.5V4 INH (07:40)
[2018-10-20] MEDS ORDERED: RT-ALBUINH INH (07:40)
[2018-10-20 07:44] LABS: ALANINE AMINOTRANSFERASE 12 U/L (0-55); ALBUMIN 4.5 GM/DL (3.2-4.5); ALKALINE PHOSPHATASE 75 U/L (40-136); BILIRUBIN,TOTAL 0.5 MG/DL (0.1-1.0); BUN/CREATININE RATIO 20; CARBON DIOXIDE 24 MMOL/L (21-32); CHLORIDE 105 MMOL/L (98-107); CREATININE SERUM 0.74 MG/DL (0.60-1.30); GFR ESTIMATED > 60; GLUCOSE 100 MG/DL (70-105); HDL CHOLESTEROL 65 MG/DL (40-60); POTASSIUM 3.7 MMOL/L (3.6-5.0); SODIUM 141 MMOL/L (135-145); TOTAL PROTEIN 7.6 GM/DL (6.4-8.2); TRIGLYCERIDES 76 MG/DL (<150); VLDL CHOLESTEROL 15 MG/DL (5-40)
[2018-10-20 08:33] LABS: CHOLESTEROL 183 MG/DL (< 200)
[2018-10-20] MEDS ORDERED: fentaNYL INJECTION 100 MCG/2 ML AMP ONE (09:41)
[2018-10-20] MEDS ORDERED: MIDAZOLAM 5 MG/5 ML (VERSED) VIAL ONE (09:41)
--- NOTE | 2018-10-20 09:52 | Cardiac Procedure Note-CS/ASA ---
Pre-Procedure Note Pre-Op Procedure Note H&P Reviewed The H&P was reviewed, patient examined and no changes noted. Date H&P Reviewed: Oct 20, 2018 Time H&P Reviewed: 09:52 Conscious Sedation Pre-Proced Time 09:52 ASA Score 3 For ASA 3 and 4: Consider anesthesia and medical clearance. Also, for patients with a history of failed moderate sedation consider anesthesia. Airway Lungs Heart ASA score ASA 1: a normal healthy patient ASA 2: a patient with a mild systemic disease (mid diabetes, controlled hypertension, obesity ASA 3: a patient with a severe systemic disease that limits activity (angina , COPD, prior Myocardial infarction) ASA 4: a patient with an incapacitating disease that is a constant threat to life (CHF, renal failure) ASA 5: a moribund patient not expected to survive 24 hrs. (ruptured aneurysm) ASA 6: a declared brain- patient whose organs are being harvested. For emergent operations, add the letter E after the classification Mallampati Classification Grade 2 Sedation Plan Analgesia, Amnesia, Plan communicated to team members, Discussed options with patient/fam, Discussed risks with patient/fam The patient is an appropriate candidate to undergo the planned procedure, sedation, and anesthesia. The patient immediately re-assessed prior to indication. AVANI SAHU MD FACP FAC CCDS Oct 20, 2018 09:52
[2018-10-20] MEDS ORDERED: EPTIFIBATIDE BOLUS 20 ML IV ONE (10:24)
[2018-10-20] MEDS ORDERED: NITRO DRIP 25000 MCG/D5W 0 ML IV ONE (10:24)
[2018-10-20] MEDS ORDERED: NS IV 1000 ML 1,000 ML IV SCH (10:39)
[2018-10-20] MEDS ORDERED: CLOPIDOGREL 300 MG (PLAVIX) TABLET PO ONE (10:43)
[2018-10-20] MEDS ORDERED: ASPIRIN 81 MG CHEW (CHILDREN'S ASA) ONE ×2 (10:43→10:47)
[2018-10-20] MEDS ORDERED: PATIENT MAY USE OWN MEDS, ALL PO SCH (10:45)
--- NOTE | 2018-10-20 11:13 | CARDIAC CATHETERIZATION ---
DATE OF SERVICE: 10/20/2018 CARDIAC CATHETERIZATION REPORT The patient is a 57-year-old lady, who has multiple coronary artery disease risk factors and who has had rapidly progressive exertional shortness of breath in the recent past and chest discomfort suggestive of new onset of angina. Cardiac catheterization was carried out today after having obtained informed consent. PROCEDURE: She was brought to the cardiac catheterization laboratory in a fasting state. Right groin was prepared and draped in the usual sterile fashion. Lidocaine 1% was used for local anesthesia. Modified Seldinger technique was used to advance a 5-Palestinian sheath in the right femoral artery. A 5-Palestinian JL4 catheter was used for left coronary angiography. A 5-Palestinian JR4 catheter for right coronary angiography. A 5-Palestinian JR4 catheter was used for left heart catheterization and left ventricular angiography. Subsequently, percutaneous intervention was carried out to the left anterior descending artery as described below. PERCUTANEOUS INTERVENTION TO THE LEFT ANTERIOR DESCENDING ARTERY: We exchanged the sheath over a wire for a 6-Palestinian sheath. We gave 5000 units of intravenous heparin. A double bolus of Integrilin was given during the intervention. We used a 6-Palestinian JL4 guide catheter. We used a Choice floppy wire to cross the mid left anterior descending artery lesion and the tip was placed in the distal vessel. We advanced Jing 2.25 x 18 mm stent to the mid left anterior descending artery. This was carefully positioned to cover the lesion and the stent was deployed at 16 atmospheres. This reduced the stenosis from 75% to 0%. Flow throughout the vessel is normal. The patient tolerated the procedure well. HEMODYNAMICS: Left ventricular end-diastolic pressure following coronary angiography was 18 mmHg. There was no significant pressure gradient on pullback across the aortic valve. Ascending aortic pressure was 106/64 with a mean 81 mmHg. LEFT VENTRICULAR ANGIOGRAPHY: Left ventricular angiography was carried out in the right anterior oblique projection. Global left ventricular systolic function normal. No regional wall motion abnormality is seen. Left ventricular ejection fraction is approximately 65%. There does not appear to be significant mitral regurgitation. CORONARY ANGIOGRAPHY: Coronary calcification is present. Left main coronary artery does not exhibit significant obstructive disease. Left anterior descending artery had 75% mid vessel stenosis, which was successfully stented with the Jing 2.25 x 18 mm stent deployed at 16 atmospheres. This reduced the stenosis to 0% residual. The left circumflex has mild plaque. The right coronary artery is dominant and has 40% mid vessel stenosis. CONCLUSIONS: 1. Coronary artery disease consisting of 75% mid vessel stenosis in the left anterior descending artery that was stented with Jing 2.25 x 18 mm stent. The rest of the coronary vessels have mild to moderate diffuse disease. 2. Normal global left ventricular systolic function with ejection fraction of 65%. 3. Mild to moderate elevation of left ventricular end-diastolic pressure. DISCUSSION AND RECOMMENDATIONS: Dual antiplatelet therapy has been initiated. She has been advised to continue to refrain from smoking cigarettes. Risk factor modification has been discussed. She is being hospitalized for overnight observation. Job ID: [id number] DocumentID: [id number] Dictated Date: 10/20/2018 10:58:00 [employer] Vice President [employer] (Ex ) Date: 10/20/2018 11:12:35 Dictated By: AVANI SAHU MD, MA, FACP, FACC,
[2018-10-20] MEDS ORDERED: NS IV 1000 ML 1,000 ML ONE (13:12)
--- NOTE | 2018-10-20 16:15 | NUR ---
bruise noted to inside of patients R thigh. Palpated area, area soft, no c/o pain or discomfort, had second nurse assess area. Agree with this nurse assessment. Groin check remains the same, soft, no bleeding noted, no hematomas noted, no pain on palpitation.
--- NOTE | 2018-10-20 18:00 | NUR ---
patient transferred to 4th floor, nurse deysi dietrich assessed patient site with this nurse. No change in site. report given, patient belongings et home med brought with patient.
--- NOTE | 2018-10-20 18:12 | NUR ---
Pt received as transfer from ICU. Accompanied by TREATING MACHINE OPERATOR, & sister
[2018-10-20] MEDS: RT-ALBUTEROL SULF 2.5 MG/3 ML PRE-MIX VIAL INH PRN (20:34)
[2018-10-20] MEDS ORDERED: MONTELUKAST 10 MG (SINGULAIR) TAB PO SCH (21:00)
[2018-10-20] MEDS ORDERED: ROSUVASTATIN 10 MG (CRESTOR) TABLET PO SCH (21:00)
[2018-10-20] MEDS: ACYCLOVIR 400 MG TABLET (ZOVIRAX) PO SCH (21:16)
[2018-10-20] MEDS: SYMBICORT 160/4.5 MCG INHALER 6 GM (NON-FORMULARY) IH SCH (21:16)
[2018-10-21] VITALS: BP 111/57
[2018-10-21 04:00] VITALS: BP 118/54
[2018-10-21 05:51] LABS: HEMOGLOBIN 12.1 G/DL (11.5-16.0); MEAN PLATELET VOLUME 11.6 FL (7.4-10.4); RED CELL DISTRIBUTION WIDTH 14.7 % (10.0-14.5); WHITE BLOOD COUNT 10.4 10^3/uL (4.3-11.0)
[2018-10-21 06:18] LABS: BUN/CREATININE RATIO 20; CALCIUM 9.1 MG/DL (8.5-10.1); CARBON DIOXIDE 24 MMOL/L (21-32); CHLORIDE 108 MMOL/L (98-107); CREATININE SERUM 0.66 MG/DL (0.60-1.30); GFR ESTIMATED > 60; GLUCOSE 113 MG/DL (70-105); POTASSIUM 4.7 MMOL/L (3.6-5.0); SODIUM 138 MMOL/L (135-145)
[2018-10-21] MEDS ORDERED: CYANOCOBALAMIN 1,000 MCG (VITAMIN B-12) TABLET PO SCH (07:00)
[2018-10-21 08:00] VITALS: BP 133/80
[2018-10-21] MEDS ORDERED: TIOTROPIUM BROMIDE (SPIRIVA) 5'S INHALER IH SCH (08:00)
[2018-10-21] MEDS: RT-ALBUTEROL SULF 2.5 MG/3 ML PRE-MIX VIAL INH PRN (08:27)
[2018-10-21] MEDS: SYMBICORT 160/4.5 MCG INHALER 6 GM (NON-FORMULARY) IH SCH (08:28)
[2018-10-21] MEDS: ACYCLOVIR 400 MG TABLET (ZOVIRAX) PO SCH (08:31)
[2018-10-21] MEDS ORDERED: CLOPIDOGREL 75 MG (PLAVIX) TABLET PO SCH (09:00)
[2018-10-21] MEDS ORDERED: raLOXifene 60 MG (EVISTA) TAB PO SCH (09:00)
[2018-10-21] MEDS ORDERED: raNItidine (ZANTAC) 150 MG TAB NON-FORMULARY PO SCH (09:00)
[2018-10-21] MEDS ORDERED: ASPIRIN 81 MG CHEW (CHILDREN'S ASA) PO SCH (09:00)
[2018-10-21] MEDS ORDERED: ceTIRizine 10 MG (ZyrTEC) TAB NON-FORMULARY PO SCH (09:00)
--- NOTE | 2018-10-21 09:48 | Progress Note-Cardiology ---
Cardiology SOAP Progress Note Objective: I&O/Vital Signs 10/21/18 10/21/18 10/21/18 10/21/18 00:00 01:00 04:00 07:00 Temp 97.2 97.6 Pulse 89 75 81 93 Resp 22 20 B/P (MAP) 111/57 (75) 118/54 (75) Pulse Ox 94 97 O2 Delivery Nasal Cannula Nasal Cannula O2 Flow Rate 2.00 2.00 10/21/18 10/21/18 08:00 08:28 Temp 97.0 Pulse 78 Resp 18 B/P (MAP) 133/80 (97) Pulse Ox 97 95 O2 Delivery Nasal Cannula Nasal Cannula O2 Flow Rate 2.00 2.00 10/21/18 00:00 Intake Total 1000 ml Balance 1000 ml Weight (Pounds): 180 Weight (Ounces): 1.0 Weight (Calculated Kilograms): 81.978831 Condition: DP/PT pulses palpable Swelling: mild amount of swelling Bruising: moderated bruising Constitutional: AAO x 3, well-developed Respiratory: No accessory muscle use; other (some scattered rhonchi, good air entry, somewhat increased exp phase) Cardiovascular: regular rate-rhythm, S1 and S2, systolic murmur (soft SOPHIA at card base) Gastrointestional: No tender; soft; No guarding, No rebound; audible bowel sounds Extremities: No clubbing, No cyanosis, No significant edema Neurologic/Psychiatric: oriented x 3, grossly intact, power is 5/5 both on sides Skin: No rash on exposed areas, No ulcerations on exposed areas Results/Procedures: Labs Laboratory Tests 10/21/18 05:19: White Blood Count 10.4, Red Blood Count 4.33L, Hemoglobin 12.1, Hematocrit 39, Mean Corpuscular Volume 89, Mean Corpuscular Hemoglobin 28, Mean Corpuscular Hemoglobin Concent 31L, Red Cell Distribution Width 14.7H, Platelet Count 192, Mean Platelet Volume 11.6H, Sodium Level 138, Potassium Level 4.7, Chloride Level 108H, Carbon Dioxide Level 24, Anion Gap 6, Blood Urea Nitrogen 13, Creatinine 0.66, Estimat Glomerular Filtration Rate > 60, BUN/Creatinine Ratio 20, Glucose Level 113H, Calcium Level 9.1 Laboratory Tests 10/20/18 07:12 10/21/18 05:19 A/P: Assessment: CAD. Cath of 10/20/18 showed 75% mid vessel stenosis in the left anterior descending artery that was stented with Jing 2.25 x 18 mm stent. The rest of the coronary vessels have mild to moderate diffuse disease. Normal global left ventricular systolic function with ejection fraction of 65%. Mild to moderate elevation of left ventricular end-diastolic pressure COPD Chronic tobacco use, quit in Jun 2018 Borderline DM II vs IFG Hyperlipidemia Plan: * I had a long and detailed discussion regarding cath findings, interventions undertaken, regimen changes, f/u plan and risk factor mod * Advised to continue to avoid smoking * Advised compliance with meds, including ASA and Plavix * Outpt f/u advised AVANI SAHU MD FACP FAC CCDS Oct 21, 2018 09:48
[2018-10-21] MEDS ORDERED: ASPI-999 PO (09:59)
[2018-10-21] MEDS ORDERED: CLOP75TA69 PO (09:59)
--- NOTE | 2018-10-21 09:59 | Discharge Inst-Cardiology ---
Discharge Inst-Cardiac Discharge Medications New Medications: Aspirin (Aspirin) 81 Mg Tab.chew 81 MG PO DAILY, #90 TAB 3 Refills Clopidogrel Bisulfate (Plavix) 75 Mg Tablet 75 MG PO DAILY, #90 TAB 3 Refills Continued Medications: Acyclovir (Acyclovir) 400 Mg Tablet 400 MG PO BID, TAB Albuterol Sulfate (Albuterol Sulfate) 2.5 Mg/3 Ml Vial.neb 2.5 MG INH Q4-6HRS PRN for SHORTNESS OF BREATH, EA Albuterol Sulfate (Ventolin Hfa) 1 Puff Puff 2 PUFF INH Q4H PRN for SHORTNESS OF BREATH, PUFF 1 PUFF = 90 MCG Budesonide/Formoterol Fumarate (Symbicort 160-4.5 Mcg Inhaler) 10.2 Gm Hfa.aer.ad 2 PUFF IH BID, INHALER Cetirizine HCl (Cetirizine HCl) 10 Mg Tablet 10 MG PO DAILY, TAB Cyanocobalamin (Vitamin B-12) (Vitamin B-12) 1,000 Mcg Tablet 1000 MCG PO DAILY, TAB Montelukast Sodium (Montelukast Sodium) 10 Mg Tablet 10 MG PO DAILY, TAB Raloxifene HCl (Raloxifene HCl) 60 Mg Tablet 60 MG PO DAILY, TAB Ranitidine HCl (Acid Manager Metrology (RANITIDINE)) 150 Mg Tablet 150 MG PO DAILY, TAB Rosuvastatin Calcium (Rosuvastatin Calcium) 10 Mg Tablet 10 MG PO DAILY, TAB Tiotropium [place] (Spiriva) 1 Inh Aerp 1 INH IH DAILY, INHALER Discontinued Medications: Aspirin (Aspirin EC) 81 Mg Tablet. 81 MG PO DAILY, TAB AVANI SAHU MD FACP FAC CCDS Oct 21, 2018 09:59
--- NOTE | 2018-10-21 10:00 | Discharge Inst-Post CATH ---
Discharge Inst-CATH/EP Post Cardiac Cath/EP D/C Inst Follow Up/Plan F/u with Dr Williamson in 2-3 weeks No smoking CARDIAC CATH DISCHARGE INSTRUCTIONS *Hold Metformin for 48 hours post heart cath. ACTIVITY * Go Home directly and rest. * Limit activity of the leg (or wrist if it was used) for 7 days including aerobics, swimming, jogging, bicycling, etc. * Restrict stair-climbing for 7 days if possible, if not, climb up with your non -cath leg, then bring together on the same step. * Avoid lifting, pushing, pulling or excessive movement of the affected extremity for 7 days. * Customary sexual activity may be resumed after 2 days-use caution not to use a position that strains or causes pain to the affected extremity. * No driving for 24 hours. * NO SMOKING. * Avoid straining for bowel movements for 7 days. * Gentle walking on level ground is allowed. * Returning to work will depend on the type of procedure and the results. Your doctor will discuss this with you. CALL YOUR DOCTOR FOR ANY OF THE FOLLOWING: *If bleeding from the puncture site occurs- Apply gentle pressure to site with clean cloth and call your doctor or EMS. * If a knot or lump forms under the skin, increases in size, or causes pain. * If bruising appears to be worsening or moving further down your leg instead of disappearing. * Temperature above 101 F. CARE OF YOUR GROIN INCISION; * Bruising or purple discoloration of the skin near the puncture site is common. * You may shower only, no bathtub bathing for 5 days. Be careful to avoid slipping as your leg may feel stiff. * If a closure device was used on your femoral artery, please see the attached guide regarding care of the device and your leg. * Leave the dressing on, until removed by office staff. CARE OF YOUR WRIST INCISION; * Bruising or purple discoloration of the skin near the puncture site is common. * You may shower. * DO NOT submerge wrist. * Leave dressing on, until removed by office staff.. AVANI WILLIAMSON [facility] CCDS Oct 21, 2018 10:00
== END 2018-10-21 10:35 | disposition home or self-care (01) ==
LOC: CATH 06:45 → ICU 11:27 → 4TH 18:00 → CATH 10-21 10:35
PROVIDERS: ATTEND Internal Medicine Cardiovascular Disease
DX: I25.10 Atherosclerotic heart disease of native coronary artery without angina pectoris (principal); Z11.2 Encounter for screening for other bacterial diseases; E11.9 Type 2 diabetes mellitus without complications; E78.5 Hyperlipidemia, unspecified; J44.9 Chronic obstructive pulmonary disease, unspecified; G47.33 Obstructive sleep apnea (adult) (pediatric); Z86.73 Personal history of transient ischemic attack (TIA), and cerebral infarction without residual deficits; Z87.891 Personal history of nicotine dependence; Z79.899 Other long term (current) drug therapy; Z79.82 Long term (current) use of aspirin
CPT/HCPCS: 36415; 80048; 80053; 80061; 85027; 85610; 85730; 87081; 93005; 93458; 94640; 94760

== ENCOUNTER 2018-10-24 11:48 | Emergency (ER) | payer MEDICARE, MEDICAID ==
[~2018-10-24] VITALS: Ht 160 cm; Wt 77.1 kg
[~2018-10-24 11:48] MED LIST changes: +ACYC400T PO; +ALBU2.5V4 INH; +ASPI-983 PO; +ASPI-999 PO; +BUDE10.2 IH; +CETI10TA17 PO; +CLOP75TA69 PO; +CYAN10006 PO; +MONT10TA24 PO; +RALO60TA12 PO; +RANI-515 PO; +ROSU10TA27 PO; +RT-ALBUINH INH; -RT-ALBUTEROL SULF 2.5 MG/3 ML PRE-MIX VIAL INH ONE; +TIOT18CA2 IH
--- NOTE | 2018-10-24 12:49 | ED Integumentary General ---
General Chief Complaint: Skin/Wound Problems Stated Complaint: STENT PLACED- AREA IS SWOLLEN Nursing Triage Note: STENT PLACED RIGHT GROIN ON FRIDAY. TODAY STATES THERE IS A HARD LUMP IN THE AREA. AREA SORE BUT DOES NOT HURT MORE THEN NORMAL. Source: patient Exam Limitations: no limitations History of Present Illness Date Seen by Provider: Oct 24, 2018 Time Seen by Provider: 12:23 Initial Comments 57-year-old female who presents to the emergency room with complaints of right groin swelling. She reports that on 10/20/18 she had a heart catheter with a stent placed. When she woke up this morning she noticed a hard tender lump to the right groin. It is approximately size of a golf ball. Timing/Duration: this morning Possible Cause: no cause identified Associated Symptoms: swelling/mass/lumps Allergies and Home Medications Allergies Coded Allergies: No Known Drug Allergies (Unverified , 08/25/17) Home Medications Acyclovir 400 Mg Tablet, 400 MG PO BID, (Reported) Albuterol Sulfate 2.5 Mg/3 Ml Vial.neb, 2.5 MG INH Q4-6HRS PRN for SHORTNESS OF BREATH, (Reported) Albuterol Sulfate 1 Puff Puff, 2 PUFF INH Q4H PRN for SHORTNESS OF BREATH, ( Reported) 1 PUFF = 90 MCG Aspirin 81 Mg Tab.chew, 81 MG PO DAILY Prescribed by: AVANI SAHU on 10/21/18958 Budesonide/Formoterol Fumarate 10.2 Gm Hfa.aer.ad, 2 PUFF IH BID, (Reported) Cetirizine HCl 10 Mg Tablet, 10 MG PO DAILY, (Reported) Clopidogrel Bisulfate 75 Mg Tablet, 75 MG PO DAILY Prescribed by: AVANI SAHU on 10/21/18958 Cyanocobalamin (Vitamin B-12) 1,000 Mcg Tablet, 1,000 MCG PO DAILY, (Reported) Montelukast Sodium 10 Mg Tablet, 10 MG PO DAILY, (Reported) Raloxifene HCl 60 Mg Tablet, 60 MG PO DAILY, (Reported) Ranitidine HCl 150 Mg Tablet, 150 MG PO DAILY, (Reported) Rosuvastatin Calcium 10 Mg Tablet, 10 MG PO DAILY, (Reported) Tiotropium [place] 1 Inh Aerp, 1 INH IH DAILY, (Reported) Patient Home Medication List Home Medication List Reviewed: Yes Review of Systems Review of Systems Constitutional: no symptoms reported, see HPI Skin: see HPI, lumps (right groin swelling) All Other Systems Reviewed Negative Unless Noted: Yes Past Phsxzgs-Vdpomi-Kgvino Hx Past Med/Social Hx: Reviewed Nursing Past Med/Soc Hx Patient Social History Alcohol Use: Denies Use Recreational Drug Use: No Smoking Status: Former Smoker Type Used: Cigarettes 2nd Hand Smoke Exposure: Yes Recent Foreign Travel: No Contact w/Someone Who Travel: No Recent Infectious Disease Expo: No Recent Hopitalizations: No Immunizations Up To Date Date of Pneumonia Vaccine: May 22, 2016 Date of Influenza Vaccine: May 22, 2018 Past Medical History Surgeries: Yes Hysterectomy Respiratory: Yes (CONT O2) COPD Currently Using BIPAP: Yes (WITH O2 ) Cardiac: Yes (RECENT CARDIAC STENT) High Cholesterol Neurological: Yes (1998) Stroke Genitourinary: No Gastrointestinal: Yes Gastroesophageal Reflux Endocrine: Yes (DIET CONTROLLED DIABETES) Cancer: No Integumentary: No Family Medical History Reviewed Nursing Family Hx Physical Exam Vital Signs Vital Signs - First Documented 10/24/18 11:57 Temp 98.4 Pulse 90 Resp 16 Pulse Ox 96 O2 Delivery Nasal Cannula O2 Flow Rate 2.00 Capillary Refill : Less Than 3 Seconds General Appearance: WD/WN, no apparent distress Cardiovascular: normal peripheral pulses, regular rate, rhythm, no edema, no gallop, no JVD, no murmur Respiratory: chest non-tender, lungs clear, normal breath sounds, no respiratory distress, no accessory muscle use Extremities: normal capillary refill Neurologic/Psychiatric: alert, normal mood/affect, oriented x 3 Skin: normal color, warm/dry, ecchymosis (moderate ecchymosis to the right groin) Skin Problem Location: other (right groin) Skin Problem Character: swelling (moderate swelling approximately 3 cm in diameter. No bruit present at this time.) Progress/Results/Core Measures Results/Orders My Orders Orders - SRUTHI TERRY Pseudoaneurysm Dx Repair (10/24/18 12:18) Cbc With Automated Diff (10/24/18 12:22) Protime With Inr (10/24/18 12:22) Partial Thromboplastin Time (10/24/18 12:22) Basic Metabolic Panel (10/24/18 12:40) Vital Signs/I&O 3/9/19 3/9/19 11:57 12:19 Temp 98.4 Pulse 90 Resp 16 B/P (MAP) Pulse Ox 96 O2 Delivery Nasal Cannula Nasal Cannula O2 Flow Rate 2.00 2.00 Departure Impression Primary Impression: possible pseudoaneurysm after heart catheter Disposition: 02 XFER [facility]-TRM HOSP Condition: Stable/Unchanged Transfer Time Spoke to Accepting Phy: 12:[address] Moises Lozada emergency room physician agrees to accept the patient at this time. Transfer Time: 12:54 Transfer Facility: [facility] room Method of Transfer: Private Vehicle Departure-Patient Inst. Referrals: [facility] (PCP/Family) Primary Care Physician SRUTHI TERRY Oct 24, 2018 12:49
[2018-10-24 13:15] VITALS: BP 157/67
== END 2018-10-24 13:15 | disposition short-term general hospital (02) ==
LOC: EDUNIT# 11:48 → ER 11:50
DX: R19.09 Other intra-abdominal and pelvic swelling, mass and lump (principal); J44.9 Chronic obstructive pulmonary disease, unspecified; E78.00 Pure hypercholesterolemia, unspecified; K21.9 Gastro-esophageal reflux disease without esophagitis; E11.9 Type 2 diabetes mellitus without complications; Z86.73 Personal history of transient ischemic attack (TIA), and cerebral infarction without residual deficits; Z95.5 Presence of coronary angioplasty implant and graft; Z79.51 Long term (current) use of inhaled steroids; Z79.82 Long term (current) use of aspirin; Z79.02 Long term (current) use of antithrombotics/antiplatelets; Z87.891 Personal history of nicotine dependence; Z90.710 Acquired absence of both cervix and uterus

== ENCOUNTER → 2019-01-04 | Outpatient (CLI) | payer MEDICARE, MEDICAID ==
--- NOTE | 2019-01-04 15:41 | Diagnostic Imaging Report ---
EXAM: CT CHEST SCREENING WO INDICATION: Quit smoking 5 years ago. Long-term smoker. COMPARISON: None. FINDINGS: Advanced centrilobular emphysema. New spiculated nodule in the left upper lobe measures up to 0.8 cm. No other new pulmonary nodules. Calcified granulomas in the right lung. Lung bases are obscured by respiratory motion. Increasing consolidation and pleural thickening along the posterior right upper lobe. No endobronchial lesions. No pleural effusion or pneumothorax. Moderate atherosclerotic calcifications including coronary and aortic. Normal caliber central pulmonary arteries and thoracic aorta. Normal heart size. No pericardial effusion. No mediastinal, hilar or axillary lymphadenopathy. Calcified right hilar and mediastinal lymph nodes. The visualized upper abdominal contents are unremarkable. No acute osseous findings. IMPRESSION: 1. New spiculated solid pulmonary nodule in the left upper lobe measuring up to 0.8 cm. There is also new consolidation along the right major fissure in the right upper lobe. Recommend followup with low-dose noncontrast chest CT in three months. 2. Advanced centrilobular emphysema. 3. Moderate atherosclerotic calcifications including coronary. Lung-RADS Category: 4a Modifier: S. Please note that the low-dose technique of this chest CT is of non-diagnostic quality. This study is only intended for lung cancer screening of high risk patients. Dictated by: Dictated on workstation # [id number]
== END ==
LOC: RAD 10:25
PROVIDERS: ATTEND Nurse Practitioner Family
DX: Z12.2 Encounter for screening for malignant neoplasm of respiratory organs (principal); J43.2 Centrilobular emphysema; J45.909 Unspecified asthma, uncomplicated; J18.1 Lobar pneumonia, unspecified organism; I25.10 Atherosclerotic heart disease of native coronary artery without angina pectoris; R91.1 Solitary pulmonary nodule; I70.0 Atherosclerosis of aorta; G47.10 Hypersomnia, unspecified; G47.33 Obstructive sleep apnea (adult) (pediatric); F17.210 Nicotine dependence, cigarettes, uncomplicated

== ENCOUNTER 2019-02-22 08:45 | Outpatient (RCR) | payer MEDICARE, MEDICAID | END 2019-02-23 | disposition home or self-care (01) | LOC: CR 08:45 | PROVIDERS: ATTEND Internal Medicine Cardiovascular Disease | DX: Z48.812 Encounter for surgical aftercare following surgery on the circulatory system (principal); Z95.5 Presence of coronary angioplasty implant and graft | CPT/HCPCS: 93798 ==

== ENCOUNTER → 2019-02-25 | Outpatient (CLI) | payer MEDICAID, MEDICARE | LOC: RAD 10:22 | PROVIDERS: ATTEND Registered Nurse | DX: Z12.31 Encounter for screening mammogram for malignant neoplasm of breast (principal) | CPT/HCPCS: 77067 ==

== ENCOUNTER → 2019-04-27 | Outpatient (CLI) | payer MEDICARE, MEDICAID ==
[~2019-04-27] MED LIST changes: +CYAN-41 PO; -CYAN10006 PO; +HOLD METFORMIN - RECEIVED CONTRAST 20 ML VIAL IV SCH; +IOHEXOL 350 MG/ML 100 ML (OMNIPAQUE 350) VIAL IV ONE; +NS 100 ML (IVPB) BAG IV ONE; -ROSU10TA27 PO; +ROSU10TA28 PO
[2019-04-27 08:00] LABS: BUN/CREATININE RATIO 13; CREATININE SERUM 0.75 MG/DL (0.60-1.30); GFR ESTIMATED > 60
--- NOTE | 2019-04-27 13:49 | Diagnostic Imaging Report ---
PROCEDURE: CT chest with contrast only. TECHNIQUE: Multiple contiguous axial images were obtained through the chest after administration of intravenous contrast. Auto Exposure Controls were utilized during the CT exam to meet ALARA standards for radiation dose reduction. DATE: April 27, 2019. COMPARISON: CT chest of August 25, 2017. CT chest of January 04, 2019. INDICATION: 58-year-old female, evaluation of new pulmonary nodule seen on screening CT chest exam. FINDINGS: There are predominantly linear opacities in the right upper lobe on axial image 46 and adjacent sequential images which are consistent with atelectasis and/or scarring. This is a change since August 25, 2017. There is a nodule in the left upper lobe measuring 5 mm in size on axial image 33 which is new since August 2017 but unchanged in size since January 04, 2019. There is a fairly similar appearing nodular opacity in the right lower lobe on axial image 73 measuring 5 mm in size which is new. There is no additional identified pulmonary nodule. There is no lung mass. There is no additional focal airspace consolidation. There is no pneumothorax. There is no pleural effusion. There are upper lobe predominant changes of centrilobular emphysema. There is no identified pulmonary embolus. The main pulmonary artery is normal in caliber. There are coronary artery calcifications and additional areas of atherosclerotic disease. The heart is not enlarged. There is no pericardial effusion. There is no identified abnormally enlarged noncalcified mediastinal, hilar, or axillary lymph node which meets CT size criteria for adenopathy. Additional evaluation of the imaged portions of the upper abdomen is unremarkable. There is no identified acute bony abnormality. IMPRESSION: 1. There are 5 mm left upper lobe and 5 mm right lower lobe pulmonary nodules. The right lower lobe pulmonary nodule is new since January 04, 2019. The left upper lobe pulmonary nodule is stable since January 04, 2019 and new since August 25, 2017. Recommend followup CT chest in 3-6 months to evaluate for potential stability of both pulmonary nodules. 2. Upper lobe predominant changes of centrilobular emphysema. Dictated by: Dictated on workstation # [id number]
== END ==
LOC: RAD 07:28
PROVIDERS: ATTEND Nurse Practitioner Family
DX: J43.2 Centrilobular emphysema (principal); R91.8 Other nonspecific abnormal finding of lung field; G47.33 Obstructive sleep apnea (adult) (pediatric); G47.10 Hypersomnia, unspecified; J42 Unspecified chronic bronchitis; J45.909 Unspecified asthma, uncomplicated; Z72.0 Tobacco use
CPT/HCPCS: 36415; 71260; 82565; 84520

== ENCOUNTER 2019-04-28 08:33 | Outpatient (RCR) | payer MEDICARE, MEDICAID ==
[~2019-04-28 08:33] MED LIST changes: -HOLD METFORMIN - RECEIVED CONTRAST 20 ML VIAL IV SCH; -IOHEXOL 350 MG/ML 100 ML (OMNIPAQUE 350) VIAL IV ONE; -NS 100 ML (IVPB) BAG IV ONE
== END 2019-05-27 | disposition home or self-care (01) ==
LOC: CR 08:33
PROVIDERS: ATTEND Internal Medicine Cardiovascular Disease
DX: Z48.812 Encounter for surgical aftercare following surgery on the circulatory system (principal); Z95.5 Presence of coronary angioplasty implant and graft
CPT/HCPCS: 93798

== ENCOUNTER 2019-05-17 08:03 | Outpatient (RCR) | payer MEDICARE, MEDICAID | END 2019-06-02 | disposition home or self-care (01) | LOC: CR3 08:03 | PROVIDERS: ATTEND Internal Medicine Cardiovascular Disease | DX: Z29.8 Encounter for other specified prophylactic measures (principal) ==

== ENCOUNTER → 2019-06-11 | Outpatient (CLI) | payer MEDICARE, MEDICAID ==
[~2019-06-11] MED LIST changes: +CATHETER FLUSH 10 ML SYR IV PRN; +HOLD METFORMIN - RECEIVED CONTRAST 20 ML VIAL IV SCH; +IOHEXOL 350 MG/ML 100 ML (OMNIPAQUE 350) VIAL IV ONE; +NS 100 ML (IVPB) BAG IV ONE
[2019-06-11 10:15] LABS: BASOPHILS % (AUTO) 1 % (0-10); EOSINOPHILS # (AUTO) 0.2 10^3/uL (0.0-0.3); EOSINOPHILS % (AUTO) 2 % (0-10); HEMATOCRIT 35 % (35-52); HEMOGLOBIN 10.6 G/DL (11.5-16.0); LYMPHOCYTES # (AUTO) 2.2 X 10^3 (1.0-4.0); LYMPHOCYTES % (AUTO) 25 % (12-44); MEAN CORPUSCULAR HEMOGLOBIN 23 PG (25-34); MEAN CORPUSCULAR HGB CONC 30 G/DL (32-36); MEAN CORPUSCULAR VOLUME 77 FL (80-99); MEAN PLATELET VOLUME 10.6 FL (7.4-10.4); MONOCYTES # (AUTO) 0.5 X 10^3 (0.0-1.0); MONOCYTES % (AUTO) 6 % (0-12); NEUTROPHILS # (AUTO) 5.8 X 10^3 (1.8-7.8); NEUTROPHILS % (AUTO) 67 % (42-75); PLATELET COUNT 344 10^3/uL (130-400); RED CELL DISTRIBUTION WIDTH 16.5 % (10.0-14.5); WHITE BLOOD COUNT 8.7 10^3/uL (4.3-11.0)
[2019-06-11 10:29] LABS: ALANINE AMINOTRANSFERASE 14 U/L (0-55); ALBUMIN 4.3 GM/DL (3.2-4.5); ALKALINE PHOSPHATASE 79 U/L (40-136); BILIRUBIN,TOTAL 0.4 MG/DL (0.1-1.0); BUN/CREATININE RATIO 19; CALCIUM 10.3 MG/DL (8.5-10.1); CARBON DIOXIDE 25 MMOL/L (21-32); CHLORIDE 104 MMOL/L (98-107); CREATININE SERUM 0.68 MG/DL (0.60-1.30); GFR ESTIMATED > 60; GLUCOSE 90 MG/DL (70-105); POTASSIUM 4.1 MMOL/L (3.6-5.0); SODIUM 140 MMOL/L (135-145); TOTAL PROTEIN 7.1 GM/DL (6.4-8.2)
--- NOTE | 2019-06-11 11:09 | Diagnostic Imaging Report ---
PROCEDURE: CT angiography of the chest with contrast. TECHNIQUE: Multiple contiguous axial images were obtained through the chest after uneventful bolus administration of intravenous contrast. 3D reconstructed CTA MIP acquisitions were also performed. Auto Exposure Controls were utilized during the CT exam to meet ALARA standards for radiation dose reduction. INDICATION: Increasing shortness of air for the last two weeks. COMPARISON: Correlation is made with prior CT chest from 04/27/2019. FINDINGS: Pulmonary arterial system is without evidence of thromboembolus. No filling defects are seen within central, lobar or segmental branches. Thoracic aorta is normal in caliber. There is no dissection. No axillary lymphadenopathy is seen. No definite hilar or mediastinal lymphadenopathy is detected. No pericardial or pleural fluid is detected. Centrilobular emphysematous changes are noted. The nodular density in the left upper lobe previously described appears stable at 5 mm, image 35, series 3. Linear bandlike opacity in the right upper lobe appears similar to prior exam. Previously noted nodule in the right lower lobe is not appreciated on today's exam. No new nodule is seen. No infiltrates are identified. Upper abdomen is unremarkable. IMPRESSION: 1. No evidence of pulmonary embolism or thoracic aortic dissection. 2. Stable left upper lobe pulmonary nodule. Right lower lobe nodule described previously is not well seen on today's study. No new abnormality is detected. Dictated by: Dictated on workstation # [id number]
--- NOTE | 2019-06-11 16:34 | Diagnostic Imaging Report ---
PROCEDURE: US Venous Lower Ext Jordi. TECHNIQUE: Multiple real-time grayscale images were obtained over the lower extremities in various projections, bilaterally. Additional duplex Doppler and color Doppler images were also obtained. INDICATION: Bilateral leg pain. Comparison: Non available. Findings: The bilateral common femoral, femoral and popliteal veins are patent by color doppler imaging and without DVT. Visualized proximal aspects of the greater saphenous, deep femoral, posterior tibial and peroneal veins are also patent. All of the evaluated deep venous structures demonstrate normal compressibility and waveform augmentation where applicable. Impression: No deep venous thrombosis in either of the lower extremities. Dictated by: Dictated on workstation # [id number]
== END ==
LOC: RAD 09:58
PROVIDERS: ATTEND Nurse Practitioner Family
DX: J44.9 Chronic obstructive pulmonary disease, unspecified (principal); M25.572 Pain in left ankle and joints of left foot; M25.571 Pain in right ankle and joints of right foot; R91.1 Solitary pulmonary nodule; Z87.891 Personal history of nicotine dependence
CPT/HCPCS: 36415; 71275; 80053; 85025; 85027; 93970

== ENCOUNTER → 2019-07-26 | Outpatient (CLI) | payer MEDICARE, MEDICAID ==
[~2019-07-26] MED LIST changes: +ACHD5005 PO; +ALBU2.5V4 NEB; -CATHETER FLUSH 10 ML SYR IV PRN; +CLOP75TA28 PO; +DILT180C85 PO; +FERR-84 PO; +FLUT16SP22 NS; -HOLD METFORMIN - RECEIVED CONTRAST 20 ML VIAL IV SCH; -IOHEXOL 350 MG/ML 100 ML (OMNIPAQUE 350) VIAL IV ONE; +LINE600T15 PO; -NS 100 ML (IVPB) BAG IV ONE; +OSEL75CA15 PO; +PANT40TA3 PO; -RANI-515 PO; +RANI-609 PO
--- NOTE | 2019-07-26 13:21 | Diagnostic Imaging Report ---
INDICATION: ASTHMA,COPD,CHRONIC BRONCHITIS,HX SMOKING,SOB, TOBACCO USER COMPARISON: CT chest dated 04/27/2019. FINDINGS: Frontal and lateral views of the chest demonstrate normal heart size and pulmonary vascularity. The lungs are clear. There are no signs of infiltrate, pleural effusions or pneumothoraces. The visualized osseous structures show no acute abnormalities. IMPRESSION: 1. No acute process. No signs of infiltrates, effusions or pneumothoraces. Dictated by: Dictated on workstation # [id number]
== END ==
LOC: RAD 12:11
PROVIDERS: ATTEND Nurse Practitioner Family
DX: J44.9 Chronic obstructive pulmonary disease, unspecified (principal); R91.8 Other nonspecific abnormal finding of lung field; Z87.891 Personal history of nicotine dependence; Z72.0 Tobacco use
CPT/HCPCS: 71046

== ENCOUNTER 2019-09-06 05:47 | Outpatient (CLI) | payer MEDICARE, MEDICAID ==
[~2019-09-06] VITALS: Ht 160 cm; Wt 84.0 kg
[~2019-09-06 05:47] MED LIST changes: -ACHD5005 PO; -ALBU2.5V4 NEB; -CLOP75TA28 PO; -DILT180C85 PO; -FERR-84 PO; -FLUT16SP22 NS; -LINE600T15 PO; -OSEL75CA15 PO; -PANT40TA3 PO
[2019-09-06] MEDS ORDERED: FERR-84 PO (14:40)
== END 2019-09-06 14:45 | disposition home or self-care (01) ==
LOC: PREOP 05:47
PROVIDERS: ATTEND Surgery
DX: Z01.818 Encounter for other preprocedural examination (principal)

== ENCOUNTER 2019-09-22 14:06 | Inpatient (IN) | payer MEDICARE, MEDICAID ==
[~2019-09-22] VITALS: Ht 160 cm; Wt 86.3 kg
[~2019-09-22 14:06] MED LIST changes: +ALBU2.5V4 NEB; +CLOP75TA28 PO; +FERR-84 PO; +FLUT16SP22 NS; +OSEL75CA15 PO
[2019-09-22] MEDS ORDERED: guaiFENesin/CODEINE (ROBITUSSIN AC) 10ML UDC PO PRN (14:15)
[2019-09-22] MEDS ORDERED: MELATONIN 3 MG TABLET PO PRN (14:15)
[2019-09-22] MEDS ORDERED: ALPRAZolam 0.25 MG (XANAX) TAB PO PRN (14:15)
[2019-09-22] MEDS ORDERED: LACTULOSE SYRUP 10GM/15ML (ENULOSE) 30ML UDC PO PRN (14:15)
[2019-09-22] MEDS ORDERED: diphenhydrAMINE 25 MG TAB (BENADRYL) PO PRN (14:15)
[2019-09-22] MEDS ORDERED: CALCIUM CARBONATE 500 MG (TUMS) TAB.CHEW PO PRN (14:15)
[2019-09-22] MEDS ORDERED: BISACODYL 10 MG SUPP (DULCOLAX) PR PRN (14:15)
[2019-09-22] MEDS ORDERED: ONDANSETRON 4 MG/2 ML (SDV) Z0FRAN IV PRN (14:15)
[2019-09-22] MEDS ORDERED: LOPERAMIDE 2 MG (IMODIUM) TABLET PO PRN (14:15)
[2019-09-22] MEDS ORDERED: FLEET ENEMA ADULT 1 EA BTL PR PRN (14:15)
[2019-09-22] MEDS ORDERED: ONDANSETRON 4 MG (ZOFRAN) ORAL DISSOLVE TAB PO PRN (14:15)
[2019-09-22] MEDS ORDERED: DOCUSATE SODIUM 100 MG (COLACE) CAP PO PRN (14:15)
[2019-09-22] MEDS ORDERED: DILT180C85 PO (14:32)
[2019-09-22] MEDS ORDERED: ACHD5005 PO (14:32)
[2019-09-22] MEDS ORDERED: LINE600T15 PO (14:32)
[2019-09-22] MEDS ORDERED: PANT40TA3 PO (14:32)
--- NOTE | 2019-09-22 15:04 | Physical Therapy Evaluation ---
PT Evaluation-General Medical Diagnosis Admission Date Medical Diagnosis: resp failure, sepsis/pneumonia Onset Date: Sep 12, 2019 Therapy Diagnosis Therapy Diagnosis: impaired mobility, strength, endurance Height/Weight Height (Feet): 5 Height (Inches): 3.00 Weight (Pounds): 170 Weight (Ounces): 0.0 Precautions Precautions/Isolations: Droplet Isolation, Standard Precautions Referral Physician: Adrianne Mathews DO Reason for Referral: Evaluation/Treatment Medical History Pertinent Medical History: CAD, COPD Additional Medical History Past Medical History Surgeries: Hysterectomy Respiratory: Chronic Bronchitis, COPD, Emphysema, Pneumonia, Sleep Apnea Currently Using CPAP: No Currently Using BIPAP: Yes (WITH O2 ) Cardiac: Coronary Artery Disease, High Cholesterol Neurological: Stroke Sexually Transmitted Disease: No HIV/AIDS: No Gastrointestinal: Gastroesophageal Reflux Musculoskeletal: Chronic Back Pain Loss of Vision: Denies Hearing Impairment: Denies History of Blood Disorders: Yes (ANEMIA) Adverse Reaction to Blood Mims: No (N/A) Reviewed History: Yes Reviewed History: Yes Social History Home: Single Level Current Living Status: Other Family Entry Into Home: Level Entry Prior Prior Level of Function SCALE: Activities may be completed with or without assistive devices. 6-Ksyuccdorn-hlhfqfx completes the activity by him/herself with no assistance from a helper. 5-Set-up or Clean-up Assistance-helper sets up or cleans up; patient completes activity. [place] assists only prior to or following the activity. 4-Supervision or Touching Assistance-helper provides verbal cues and/or touching/steadying and/or contact guard assistance as patient completes activity. Assistance may be provided throughout the activity or intermittently. 3-Partial/Moderate Assistance-helper does LESS THAN HALF the effort. [place] lifts, holds or supports trunk or limbs, but provides less than half the effort. 2-Substantial/Maximal Assistance-helper does MORE THAN HALF the effort. [place] lifts or holds trunk or limbs and provides more than half the effort. 9-Jkyurtwuw-npqmaj does ALL the effort. Patient does none of the effort to complete the activity. Or, the assistance of 2 or more helpers is required for the patient to complete the activity. If activity was not attempted, code reason: 7-Patient Refused. 9-Not Applicable-not attempted and the patient did not perform the activity before the current illness, exacerbation or injury. 10-Not Attempted due to Environmental Limitations-(lack of equipment, weather restraints, etc.). 88-Not Attempted due to Medical Conditions or Safety Concerns. Bed Mobility: 6 Transfers (B,C,W/C): 6 Gait: 6 Indoor Mobility (Ambulation): Independent PT Evaluation-Current Subjective Patient in bed pre tx, agrees to PT, will be going down to rehab this afternoon. Patient has 3/10 pain in her abdomen. Will be co-treating with OT due to poor patient mobility, strength, endurance, severe SOB with little activity, the need to coordinate UE and LE during activity. Pt/Family Goals "to be able to take care of myself at home" Objective Patient Orientation: Person, Place, Situation Attachments: Oxygen, Otero Catheter vapotherm ROM/Strength ROM Lower Extremities WNL Strength Lower Extremities 4/5 gross BLE Sensory Hearing: Functional Sensation Right Lower Extremit: Intact Sensation Left Lower Extremity: Intact Transfers Roll Left to Right (QC): 4 Sit to Lying (QC): 4 Lying to Sitting/Side of Bed(Q: 4 Sit to Stand (QC): 4 Chair/Tos-uu-Blgms Xfer(QC): 4 Patient performs bed mobility with SBA, supine <-> sit with SBA, sit <-> stand with CGA, transfers with CGA. Good use of hands on armrests and good safety positioning. Patient gets SOB just sitting up to the side of the bed. Gait Does the Patient Walk?: Yes Mode of Locomotion: Walk Anticipated Mode of Locomotion: Walk Walk 10 feet (QC): 88 Walk 50 ft with 2 Turns(QC): 88 Walk 150 ft (QC): 88 Walking 10ft/uneven surface-QC: 88 Distance: 3'x2 Gait Assistive Device: FWW Comments/Gait Description Patient can ambulate 3' with a rolling walker with CGA. Patient ambulates slowly but steady. She is very SOB just from ambulating that short distance. Wheelchair Training Does the Pt Use a Wheelchair?: Yes Wheel 50 ft with 2 turns (QC): 1 Wheel 150 ft (QC): 1 Type of Wheelchair: Manual Stairs 1 Step (curb) (QC): 88 4 Steps (QC): 88 12 Steps (QC): 88 Balance Sitting Static: Normal Sitting Dynamic: Normal Standing Static: Good Standing Dynamic: Good Picking up an Object (QC): 88 Assessment/Needs Patient has impaired mobility, strength, endurance. She has severe SOB with even light activity. Rehab Potential: Poor PT Short Term Goals Short Term Goals Time Frame: Sep 29, 2019 Roll Left & Right: 6 Sit to lyin Lying to sitting on side of be: 6 Sit to stand: 4 (SBA) Chair/vgd-pz-dsmph transfer: 4 (SBA) Toilet transfer: 4 (SBA) Car transfer: 4 (SBA) Walk 10 feet: 4 (CGA) PT Outgoing Inspector Goals Long-Term Goals PT Long-Term Goals Time Frame: Oct 13, 2019 Roll Left & Right (QC): 6 Sit to Lying (QC): 6 Lying-Sitting on Side/Bed(QC): 6 Sit to Stand (QC): 6 Chair/Pym-rf-Gppbk Xfer(QC): 6 Toilet Transfer (QC): 6 Car Transfer (QC): 6 Walk 10 feet (QC): 6 PT Plan Problem List Problem List: Activity Tolerance, Functional Strength, Safety, Balance, Gait, Transfer, Bed Mobility Treatment/Plan Treatment Plan: Continue Plan of Care Treatment Plan: Bed Mobility, Education, Functional Activity Kameron, Functional Strength, Group Therapy, Gait, Safety, Therapeutic Exercise, Transfers Treatment Duration: Oct 13, 2019 Frequency: Modified Program (IRF) Estimated Hrs Per Day: 1.5 hours per day Patient and/or Family Agrees t: Yes Safety Risks/Education Patient Education: Gait Training, Transfer Techniques, Correct Positioning, Safety Issues Teaching Recipient: Patient Teaching Methods: Demonstration, Discussion Response to Teaching: Reinforcement Needed Discharge Recommendations Plan Patient will perform bed mobility and transfer training, balance and endurance training, functional strengthening, stair training, gait training, and education, to improve functional mobility and independence at home. Therapy Discharge Recommendati: Home & Family Time/GCodes Time In: 1405 Time Out: 1505 Total Billed Treatment Time: 50 Total Billed Treatment 1 visit EVM 10' FA 40 PT performed bed mobility, transfers, ambulation, positioning and LE activity, OT performed UE activity, positioning and assist with transfers and ambulation. PT eval from [id number], OT eval from [id number], co-treat from [id number] YAMILET HOPKINS PT Sep 22, 2019 15:03
--- NOTE | 2019-09-22 15:35 | Occupational Therapy Eval ---
OT Evaluation-General/PLF Medical Diagnosis Admission Date Medical Diagnosis: resp failure, sepsis/pneumonia Onset Date: Sep 12, 2019 Therapy Diagnosis Therapy Diagnosis: Decreased ADL status Height/Weight Height (Feet): 5 Height (Inches): 3.00 Weight (Pounds): 170 Weight (Ounces): 0.0 Precautions Precautions/Isolations: Droplet Isolation, Standard Precautions Weight Bear Status Weight Bearing Restriction: Weight Bearing/Tolerated Referral Physician: Adrianne Mathews DO Referral Reason: Activity Tolerance, Self Care, Evaluation/Treatment, Strengt hening/ROM Medical History Pertinent Medical History: CAD, COPD Additional Medical History s/p stent, COPD, sleep apnea, BiPAP, sepsis protocol, high cholesterol, CAD Current History Pt was in ICU for multiple days due to decreased repiration/ sepsis/ PNA, pt transferred to 4th floor and now to ARU. Pt remains on vapotherm, states they attempted to take off on this date and pt not able to tolerate it. Reviewed History: Yes Social History Home: Single Level Current Living Status: Other Family Entry Into Home: Level Entry Steps Into Home: 0 ADL-Prior Level of Function SCALE: Activities may be completed with or without assistive devices. 8-Kiuvtuafgk-yokddza completes the activity by him/herself with no assistance from a helper. 5-Set-up or Clean-up Assistance-helper sets up or cleans up; patient completes activity. [place] assists only prior to or following the activity. 4-Supervision or Touching Assistance-helper provides verbal cues and/or touching/steadying and/or contact guard assistance as patient completes activity. Assistance may be provided throughout the activity or intermittently. 3-Partial/Moderate Assistance-helper does LESS THAN HALF the effort. [place] lifts, holds or supports trunk or limbs, but provides less than half the effort. 2-Substantial/Maximal Assistance-helper does MORE THAN HALF the effort. [place] lifts or holds trunk or limbs and provides more than half the effort. 8-Zxmskmbvm-zgoacp does ALL the effort. Patient does none of the effort to complete the activity. Or, the assistance of 2 or more helpers is required for the patient to complete the activity. If activity was not attempted, code reason: 7-Patient Refused. 9-Not Applicable-not attempted and the patient did not perform the activity before the current illness, exacerbation or injury. 10-Not Attempted due to Environmental Limitations-(lack of equipment, weather restraints, etc.). 88-Not Attempted due to Medical Conditions or Safety Concerns. ADL PLOF Comments Pt states she received assist prior to hospitalization (~17 hours), assists with IADLs in/out of home and shower transfers. Self Care: Needed Some Help Functional Cognition: Independent DME/Equipment: Bath Chair, Grab Bars, Shower DME/Equipment Comments FWW and above. Occupation: not employed Drive Self: No Leisure Interests: Books, manish. OT Current Status Subjective PT eval: [id number] (10) OT eval: 9061-0438 (10) OT/ PT cotreat: 6926-4106 (40) Pt in bed upon entry (4th floor). PT eval, OT eval. Pt expresses minimal 2/10 pain in abdomen post-medication. Pt agreeable to OT/ PT cotreat and assist to ARU. Cotreat rendered due to complex medical status, decreased respiratory endurance, need for 2 skilled therapists to manage transfers/ balance/ track respiratory status/ manage multiple lines. Mental Status/Objective Patient Orientation: Person, Place, Situation, Normal For Age Attachments: Otero Catheter, Oxygen (continues on vapotherm), SCD's, Telemetry Current Glasses/Contacts: Yes Hearing Aids: No Dentures/Partials: Yes Hand Dominance: Right Upper Extremity ROM WFL BUE Upper Extremity Coordination WFL BUE Upper Extremity Sensation WFL BUE Upper Extremity Strength 4-/5 bilaterally Edema: L UE edematous and weeping from forearm. ADL-Treatment Eating (QC): 6 (per pt.) Oral Hygiene (QC): 7 Shower/Bathe Self (QC): 7 Upper Body Dressing (QC): 7 Lower Body Dressing (QC): 7 On/Off Footwear (QC): 4 (SBA per pt and previous OT notes, denies sock donning/ doffing at this time.) Toileting Hygiene (QC): 7 Other Treatments At start of session, sister/ brother in law present. Pt plans to transfer to ARU, education provided to pt's family members of ability to take items to ARU. Family leaves. PT eval; OT eval (10 min). Pt provides hx of hospitalization, provides prior level. Pt wishes to return home to continue doing activities she completed a few month prior to hospitalization. Pt states immediately prior to hospitalization, pt was extremely weak/ required assist. Pt willing to work, ARU expectations and OT/ PT role addressed. Pt expresses minimal knowledge of therapy role, specific examples provided with education of importance of skilled therapeutic movements/ knowledge. Pt educated on use of co-treatments until pt able to maintain 02/ increase activity endurance. Pt completes bed mob with SBA, scoots bottom EOB with SBA. Pt positioned with walker, able to sit to stand with SBA and transfer to w/c positioned at foot of bed with SBA. Pt expresses she needs to catch breath (pt continued on vapotherm). Pt recovers quickly. Pt states she is able to don/ doff socks with SBA, already sponge bathed today, and has been "getting up/ down" frequently through day and states little fatigued. Pt educated on benefits of movement for edema management. RT contacted for vapotherm transfer. With RT present, pt wheeled to ARU on 15L 02 with vapotherm to follow. Pt positioned next to recliner chair, able to sit to stand/ transfer to recliner with SBA. Pt returned to vapother. Pt educated on use of call light/ plans to return in morning. Family educated on pt positioning, family returns to room. Family educated on goals of ARU and recommended clothing options. Family acknowledges. All questions answered, call light in reach, pt le ft with family in recliner chair with legs elevated. Education OT Patient Education: Correct positioning, Exercise program, Home exercise program, Modified ADL techniques, Purpose of tx/functional activities, Rehab process, Safety issues, Transfer techniques Teaching Recipient: Patient Teaching Methods: Demonstration, Discussion Response to Teaching: Verbalize Understanding, Return Demonstration OT Short Term Goals Short Term Goals Oral hygiene: 6 Toileting hygiene: 3 OT Longterm Goals Longterm Goals Time Frame: Oct 06, 2019 Eating (QC): 6 Oral Hygiene (QC): 6 Toileting Hygiene (QC): 6 Shower/Bathe Self (QC): 6 Upper Body Dressing (QC): 6 Lower Body Dressing (QC): 6 On/Off Footwear (QC): 6 Additional Goals: 1-Demonstrate ADL Tasks, 2-Verbalize Understanding, 3- ImproveStrength/[place] 1=Demonstrate adherence to instructed precautions during ADL tasks. 2=Patient will verbalize/demonstrate understanding of assistive devices/modifications for ADL. 3=Patient will improve strength/tolerance for activity to enable patient to perform ADL's. OT Education/Plan Problem List/Assessment Assessment: Decreased Activ Tolerance, Dependent Transfers, Edema, Impaired I ADL's, Impaired Self-Care Skills Discharge Recommendations Plan/Recommendations: Continue POC Treatment Plan/Plan of Care Treatment,Training & Education: Yes Patient would benefit from OT for education, treatment and training to promote independence in ADL's, mobility, safety and/or upper extremity function for ADL's. Plan of Care: ADL Retraining, Caregiver Training, Concurrent Therapy, Functional Mobility, Group Exercise/Act as Ind, UE Funct Exercise/Act Treatment Duration: Oct 06, 2019 Frequency: At least 5 of 7 days/Wk (IRF) Estimated Hrs Per Day: 1.5 hours per day Agreement: Yes Rehab Potential: Fair Time/GCodes Start Time: 14:15 Stop Time: 15:05 Total Time Billed (hr/min): 50 Billed Treatment Time PT eval: [id number] (10) OT eval: 3306-2485 (10) OT/ PT cotreat: [id number] (40): Cotreat rendered due to complex medical status, decreased respiratory endurance, need for 2 skilled therapists to manage transfers/ balance/ track respiratory status/ manage multiple lines. 1, EVM (10), FA 2 (40)= 50 JIMBO DEL TORO OTR Sep 22, 2019 15:35
--- NOTE | 2019-09-22 15:54 | NUR ---
Ruth Kc admitted to room 228-1, with an admitting diagnosis of COPD, Sepsis, Afib, on 09/22/19 from Medical Floor via wheelchair, accompanied by Staff and family. RUTH KC introduced to surroundings, call light, bed controls, phone, TV, temperature control, lights, meal times, smoking policy, visitor policy, side rail policy, bathrooms and showers. Patient Rights given to patient in the handbook.RUTH KC verbalizes understanding that [facility] is not responsible for the loss or damage to any personal effects or valuables that are kept in the patients posession during their hospitalization. The following Patient Care Plans were discussed with the Patient: Discharge Planning, Sepsis, COPD exacerbation, Impaired Mobility. RUTH KC verbalizes understanding of Interdisciplinary Patient Education.
[2019-09-22] MEDS ORDERED: ACETAMINOPHEN 325 MG TABLET PO PRN (16:15)
[2019-09-22] MEDS ORDERED: ONDANSETRON 4 MG/2 ML (SDV) Z0FRAN IVP PRN (16:15)
[2019-09-22] MEDS ORDERED: morphine INJ 4 MG/ML 1 ML (VIAL/SYRINGE) IV PRN (16:15)
[2019-09-22] MEDS ORDERED: RT-ALBUTEROL/IPRATROPIUM 3 ML (DUONEB) VIAL INH PRN (16:15)
[2019-09-22] MEDS ORDERED: polyethylene glycoL POWDER 17 GM (MIRALAX) PACK PO PRN (16:15)
--- NOTE | 2019-09-22 16:18 | PM&R Post Admission Assessment ---
PM&R HP Date of Visit: Sep 22, 2019 Time of Visit: 16:00 History of Present Illness CC: COPD myopathy HPI: This is a very complicated and weak 58yoWF clinic patient of [facility] who is known to me on admit on 09/12/19 for severe sepsis and required lengthy stay in ICU for 9 days who presents to the IRF in need of aggressive therapy in order to regain function to return home to live and return to [place]. Patient remains on droplet isolation for MRSA pneumonia and sputum culture confirmed. Patient remains on Vapotherm so will require slow therapy schedule in order to accommodate hypoxia and increase O2 requirements. Family updated on the plan. Cardiology and Pulmonology will remain in consultation on this very complicated patient. Patient is at high risk for decompensation. My admit assessment and plan from 09/12/19: Assessment: Severe sepsis placed on aggressive IV fluid protocol Pneumonia left lung nearly white out post influenza placed on broad-spectrum Zosyn and vancomycin to cover for MRSA pneumonia post influenza which ultimately revealed MRSA in sputum Influenza s/p Tamiflu Exacerbation of COPD placed on IV steroids and nebulizer treatments Obstructive sleep apnea maintain on BiPAP Dr. Kirkland CAD previous stent placed by Dr. Williamson consulted cardiology Episodes of atrial fibrillation with rapid ventricular response on telemetry consulting cardiology High risk for DVT placed on Lovenox Severe leukocytosis Anemia of chronic illness Plan: Central line by Dr. Jaime Crowley and Dr. Kirkland are all appreciated IV antibiotics Lovenox IV steroids Maintain Vapotherm may need BiPAP or intubation Critically ill Past Lbfzike-Jmafcb-Mwdzsr Hx Past Med/Social Hx: Reviewed Nursing Past Med/Soc Hx, Reviewed and Corrections made Patient Social History Marrital Status: single Employed/Student: unemployed Alcohol Use: Denies Use Recreational Drug Use: No Smoking Status: Former Smoker Former Smoker, Quit: Jul 24, 2019 Type Used: Cigarettes 2nd Hand Smoke Exposure: Yes Physical Abuse Screen: No Sexual Abuse: No Recent Foreign Travel: No Contact w/other who traveled: No Recent Hopitalizations: Yes (This hospitalization, on 4th floor) Recent Infectious Disease Expo: No Immunizations Up To Date Pediatric: Yes Date of Pneumonia Vaccine: May 22, 2016 Date of Influenza Vaccine: May 22, 2018 Seasonal Allergies Seasonal Allergies: Yes Past Medical History Surgeries: Hysterectomy Respiratory: Chronic Bronchitis, COPD, Emphysema, Pneumonia, Sleep Apnea Currently Using CPAP: No Currently Using BIPAP: Yes (WITH O2 ) Cardiac: Atrial Fibrillation, Coronary Artery Disease, High Cholesterol, Hypertension Neurological: Stroke Sexually Transmitted Disease: No HIV/AIDS: No Gastrointestinal: Gastroesophageal Reflux Musculoskeletal: Chronic Back Pain Are Your Blood Sugars Over 250: No Loss of Vision: Denies Hearing Impairment: Denies History of Blood Disorders: Yes (ANEMIA) Adverse Reaction to Blood Mims: No (N/A) Family History Alcoholism 19 FATHER G8 BROTHER Alzheimer's disease Arthritis 19 MOTHER Cardiovascular disease G8 SISTER Cataracts 19 MOTHER Completed stroke 19 MOTHER Coronary thrombosis G8 SISTER Dementia 19 MOTHER Hypercholesterolemia 19 MOTHER Hypertension 19 MOTHER Myocardial infarction G8 SISTER Osteoporosis 19 MOTHER Prior Level of Function Bed Mobility: 6 Transfers: 6 Gait: 6 Indoor Mobility (Ambulation): Independent Self Care: Needed Some Help Functional Cognition: Independent Occupation: not employed Drive Self: No Leisure Interests: Books, manish. Current Level of Fuctioning Roll Left to Right: 4 Sit to Lyin Lying to Sitting/Side of Bed: 4 Sit to Stand: 4 Chair/Jxs-op-Aafxh Xfer: 4 Does the Patient Walk: Yes Mode of Locomotion: Walk Anticipated Mode of Locomotion: Walk Walk 10 feet: 88 Walk 50 ft with 2 Turns: 88 Walk 150 ft: 88 Walking 10ft on uneven surface: 88 Gait Assistive Device: FWW Does the Pt Use a Wheelchair: Yes Wheel 50 ft with 2 turns: 1 Wheel 150 ft: 1 Type of Wheelchair: Manual 1 Step (curb): 88 4 Steps: 88 12 Steps: 88 Picking up an Object: 88 Eatin (per pt.) Oral Hygiene: 7 Shower/Bathe Self: 7 Upper Body Dressin Lower Body Dressin On/Off Footwear: 4 (SBA per pt and previous OT notes, denies sock donning/ doffing at this time.) Toileting Hygiene: 7 PM&R Allergy/Meds/Data Review Allergies Coded Allergies: No Known Drug Allergies (Unverified , 09/06/19) Home Medications Scheduled Aspirin (Aspirin), 81 MG PO HS, (Reported) Budesonide/Formoterol Fumarate (Symbicort 160-4.5 Mcg Inhaler), 2 PUFF IH BID, (Reported) Cetirizine HCl (Cetirizine HCl), 10 MG PO DAILY, (Reported) Clopidogrel Bisulfate (Clopidogrel), 75 MG PO DAILY, (Reported) Ferrous Sulfate (Iron), 325 MG PO DAILY, (Reported) Montelukast Sodium (Montelukast Sodium), 10 MG PO HS, (Reported) Raloxifene HCl (Raloxifene HCl), 60 MG PO DAILY, (Reported) Rosuvastatin Calcium (Rosuvastatin Calcium), 10 MG PO HS, (Reported) Tiotropium [place] (Spiriva), 1 CAP IH 1000, (Reported) Scheduled PRN Albuterol Sulfate (Proair Hfa), 2 PUFF INH Q4H PRN for SHORTNESS OF BREATH, ( Reported) Albuterol Sulfate (Albuterol Sulfate), 2.5 MG NEB Q4H PRN for SHORTNESS OF BREATH, (Reported) Fluticasone Propionate (Fluticasone Propionate), 1 SPRAY NS DAILY PRN for ALLERGIES, (Reported) Discontinued Medications Aspirin (Aspirin), 81 MG PO HS, (Reported) Oseltamivir Phosphate (Oseltamivir Phosphate), 75 MG PO BID, (Reported) Current Medications Current Medications Reviewed Review of Systems Constitutional: dizziness, malaise, weakness Respiratory: cough, dyspnea on exertion, short of breath, wheezing Psychiatric/Neurological: Anxiety, Depressed All Other Systems Reviewed Negative Unless Noted: Yes Physical Exam Physical Exam Vital Signs Capillary Refill : Height, Weight, BMI Height: 5'3.00" Weight: 170lbs. 0.0oz. [id number]; 33.00 BMI Method:Stated General Appearance: WD/WN, Anxious, Chronically ill, Mild Distress Eyes: Bilateral Eye Normal Inspection, Bilateral Eye PERRL HEENT: PERRL/EOMI, Normal ENT Inspection, Pharynx Normal Neck: Full Range of Motion, Normal Inspection, Non Tender, Supple, Carotid Bruit Respiratory: Chest Non Tender, No Accessory Muscle Use, No Respiratory Distress Cardiovascular: Regular Rate, Rhythm, No Gallop, No JVD, No Murmur, Normal Peripheral Pulses Gastrointestinal: Normal Bowel Sounds, No Organomegaly, No Pulsatile Mass, Non Tender, Soft Back: Normal Inspection, No CVA Tenderness, No Vertebral Tenderness Extremity: Normal Capillary Refill, Normal Inspection, Normal Range of Motion, Non Tender, No Calf Tenderness, Pedal Edema Neurologic/Psychiatric: Alert, Oriented x3, No Motor/Sensory Deficits, Normal Mood/Affect, Motor Weakness (generalized weakness all extremities) Skin: Normal Color, Warm/Dry Lymphatic: No Adenopathy PM&R Medical Assessment & Plan REHAB/MEDICAL ASSESSMENT AND PLAN: REHAB 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 The comorbidities that impact the patients function and/or functional outcome by: severe COPD still requiring Vapotherm will require close monitoring along with recent AF will maintain on Tely REHAB PLAN: The patient is being admitted to our comprehensive inpatient rehabilitation facility and can tolerate the intensity of service consisting of at least: 180 minutes of therapy a day, 5 out of 7 days a week Rehab treatment will consist of: PT and OT will slowly help patient progress and strengthen in order to return home PLOF The patient/family has a good understanding of our discharge process and will benefit from an interdisciplinary inpatient rehabilitation program. The patient has potential to make improvement and is in need of at least two of the following multidisciplinary therapies including but not limited to physical, occupational, speech, and prosthetics and orthotics. Additionally the patient will need services from respiratory, nutritional services, wound care, psychology, etc. (Customize this to each patient). Given the patients complex condition and risk of further medical complications, rehabilitation services cannot be safely or effectively provided at a lower level of care such as a long-term facility. BARRIERS TO DISCHARGE: Severe COPD and Vapotherm requirements ESTIMATED LOS: 10 days DISPOSITION: Home RELEVANT CHANGES SINCE PREADMISSION SCREENING: I have compared the patients medical and functional status at the time of the preadmission screening and there are: no changes PROGNOSIS: Good REHABILITATION GOALS: 1. All therapies will help regain function and strength in order to return to PLOF All the above goals were reviewed with the patient and he/she is in agreement. By signing this document, I acknowledge that I have personally performed a full physical examination on this patient within 24 hours of admission to this inpatient rehabilitation facility and have determined the patient to be able to tolerate the above course of treatment at an intensive level for a reasonable period of time. I will be completing a detailed individualized Plan of Care for this patient by day #4 of the patients stay based upon the Preadmission Screen, the Post-Admission Evaluation, and the therapy evaluations. Admission Dx/Comorbidities: (1) Respiratory failure Status: Acute ICD Codes: J96.90 - Respiratory failure, unspecified, unspecified whether with hypoxia or hypercapnia (2) Anemia ICD Codes: D64.9 - Anemia, unspecified (3) CAD (coronary artery disease) ICD Codes: I25.10 - Atherosclerotic heart disease of unga coronary artery without angina pectoris (4) Leukocytosis ICD Codes: D72.829 - Elevated white blood cell count, unspecified (5) Atrial fibrillation with RVR ICD Codes: I48.91 - Unspecified atrial fibrillation (6) COPD (chronic obstructive pulmonary disease) Status: Acute ICD Codes: J44.9 - Chronic obstructive pulmonary disease, unspecified (7) Obstructive sleep apnea Status: Chronic ICD Codes: G47.33 - Obstructive sleep apnea (adult) (pediatric) (8) Myopathy ICD Codes: G72.9 - Myopathy, unspecified (9) Former smoker ICD Codes: Z87.891 - Personal history of nicotine dependence (10) History of coronary artery stent placement ICD Codes: Z95.5 - Presence of coronary angioplasty implant and graft Assessment and Plan Assess & Plan/Chief Complaint Assessment: COPD myopathy s/p Severe sepsis placed on aggressive IV fluid protocol s/p MRSA pneumonia left lung nearly white out post influenza placed on broad- spectrum Zosyn and vancomycin to cover for MRSA pneumonia post influenza which ultimately revealed MRSA in sputum s/p Influenza B s/p Tamiflu Exacerbation of COPD placed on IV steroids and nebulizer treatments Obstructive sleep apnea maintain on BiPAP Dr. Kirkland CAD previous stent placed by Dr. Williamson consulted cardiology Episodes of atrial fibrillation with rapid ventricular response on telemetry consulting cardiology High risk for DVT placed on Lovenox Severe leukocytosis Anemia of chronic illness s/p transfusion Plan: IRF protocol Monitor closely Cardiology and Pulmo appreciated BERTRAND CUEVAS DO Sep 22, 2019 16:18
[2019-09-22] MEDS ORDERED: ASPI-999 PO (16:32)
--- NOTE | 2019-09-22 16:33 | NUR ---
UPDATED THE MED REC TO THE LIST OF MEDICATIONS REPORTED WHEN SHE WAS ADMITTED TO ICU. THE FOLLOWING CHANGES WERE MADE WHEN THE PATIENT DISCHARGED TO REHAB THAT ARE NOT CURRENTLY REFLECTED ON THE MED REC: START TAKING: DILTIAZEM ER 180MG 2 CAP DAILY HYDROCODONE 5-325MG 1 Q4H PRN LINEZOLID 600MG BID PROTONIX 40MG BID STOP TAKING: ASPIRIN 81MG HS TAMIFLU 75MG BID (DID NOT ADD THIS BACK TO THE MED REC AT THIS TIME.)
[2019-09-22] MEDS ORDERED: FLU QUADRIvalent (5+ YOA) 2019-2020 (AFLURIA) 0.5 ML IM ONE (16:45)
[2019-09-22 17:58] VITALS: BP 150/67
[2019-09-22] MEDS: ACETAMINOPHEN 500 MG TAB (TYLENOL) PO PRN (18:36)
[2019-09-22] MEDS: ADVAIR HFA 115/21 MCG INHALER 8 GM IH SCH (19:49)
[2019-09-22] MEDS: LINEZOLID (ZYVOX) 600 MG TAB PO SCH (20:48)
[2019-09-22] MEDS: APIXABAN 5 MG (ELIQUIS) TABLET PO SCH (20:48)
[2019-09-22] MEDS: PANTOPRAZOLE 40 MG (PROTONIX) TAB PO SCH (20:48)
[2019-09-22] MEDS: SENNA W/DOCUSATE (SENOKOT S) TABLET PO SCH (20:49)
[2019-09-22] MEDS: polyethylene glycoL POWDER 17 GM (MIRALAX) PACK PO SCH (20:49)
[2019-09-22] MEDS: DOCUSATE SODIUM 100 MG (COLACE) CAP PO SCH (20:49)
[2019-09-22] MEDS: inSUlin ASPART (NovoLOG) 1 UNIT/0.01 ML (CHARGE PER UNIT) SC SCH (21:27)
[2019-09-22] MEDS: HYDROcodone/APAP 5 MG/325 MG (LORTAB) TAB PO PRN (22:18)
[2019-09-23 05:06] VITALS: BP 136/72
[2019-09-23] MEDS: inSUlin ASPART (NovoLOG) 1 UNIT/0.01 ML (CHARGE PER UNIT) SC SCH ×4 (06:00→21:45)
[2019-09-23 06:24] LABS: BASOPHILS % (AUTO) 0 % (0-10); EOSINOPHILS # (AUTO) 0.4 10^3/uL (0.0-0.3); EOSINOPHILS % (AUTO) 5 % (0-10); HEMATOCRIT 28 % (35-52); HEMOGLOBIN 8.6 G/DL (11.5-16.0); LYMPHOCYTES # (AUTO) 1.2 X 10^3 (1.0-4.0); LYMPHOCYTES % (AUTO) 13 % (12-44); MEAN CORPUSCULAR HEMOGLOBIN 26 PG (25-34); MEAN CORPUSCULAR HGB CONC 30 G/DL (32-36); MEAN CORPUSCULAR VOLUME 86 FL (80-99); MEAN PLATELET VOLUME 10.4 FL (7.4-10.4); MONOCYTES # (AUTO) 0.9 X 10^3 (0.0-1.0); MONOCYTES % (AUTO) 10 % (0-12); NEUTROPHILS # (AUTO) 6.5 X 10^3 (1.8-7.8); NEUTROPHILS % (AUTO) 72 % (42-75); PLATELET COUNT 561 10^3/uL (130-400); RED CELL DISTRIBUTION WIDTH 18.4 % (10.0-14.5); WHITE BLOOD COUNT 8.9 10^3/uL (4.3-11.0)
[2019-09-23 06:48] LABS: ALANINE AMINOTRANSFERASE 15 U/L (0-55); ALBUMIN 2.9 GM/DL (3.2-4.5); ALKALINE PHOSPHATASE 75 U/L (40-136); BILIRUBIN,TOTAL 0.3 MG/DL (0.1-1.0); BUN/CREATININE RATIO 14; CALCIUM 8.7 MG/DL (8.5-10.1); CARBON DIOXIDE 27 MMOL/L (21-32); CHLORIDE 98 MMOL/L (98-107); CREATININE SERUM 0.59 MG/DL (0.60-1.30); GFR ESTIMATED > 60; GLUCOSE 111 MG/DL (70-105); POTASSIUM 4.2 MMOL/L (3.6-5.0); SODIUM 133 MMOL/L (135-145); TOTAL PROTEIN 6.2 GM/DL (6.4-8.2)
[2019-09-23] MEDS: PANTOPRAZOLE 40 MG (PROTONIX) TAB PO SCH ×2 (08:28→21:51)
[2019-09-23] MEDS: APIXABAN 5 MG (ELIQUIS) TABLET PO SCH (08:28)
[2019-09-23] MEDS: SENNA W/DOCUSATE (SENOKOT S) TABLET PO SCH ×2 (08:28→21:52)
[2019-09-23] MEDS: LINEZOLID (ZYVOX) 600 MG TAB PO SCH ×2 (08:28→21:51)
[2019-09-23] MEDS: DOCUSATE SODIUM 100 MG (COLACE) CAP PO SCH ×2 (08:29→21:51)
[2019-09-23] MEDS: polyethylene glycoL POWDER 17 GM (MIRALAX) PACK PO SCH ×2 (08:29→21:52)
[2019-09-23 08:30] VITALS: BP 155/71
--- NOTE | 2019-09-23 08:41 | PM&R Progress Note ---
Subjective HPI/CC On Admission Date Seen by Provider: Sep 23, 2019 Time Seen by Provider: 08:45 Subjective/Events-last exam Pt doing very well Weaning off vapotherm Still very dyspneic on exertion On 6 liters of oxygen weaning down to 5 liters today. She wears 4 liters at home Infection control will evaluate how many more sputums we need and when those can be obtained because she still is on droplet protection Will DC lee catheter Sodium level 133 Dark tarry stools will hold Plavix and Eliquis BM today but it was dark and tarry Zyvox will stop on Friday Checked meds and labs Conferred with RN Reviewed therapy notes Review of Systems General: Fatigue Pulmonary: Dyspnea Objective Exam Vital Signs Vital Signs Date Time Temp Pulse Resp B/P (MAP) Pulse Ox O2 Delivery O2 Flow Rate FiO2 09/23/19 17:18 36.6 78 20 137/62 (87) 94 Nasal Cannula 3.00 09/23/19 09:42 40 Capillary Refill : Less Than 3 Seconds General Appearance: WD/WN, Anxious, Chronically ill, Mild Distress HEENT: PERRL/EOMI, Normal ENT Inspection, Pharynx Normal Neck: Full Range of Motion, Normal Inspection, Non Tender, Supple, Carotid Bruit Respiratory: Chest Non Tender, No Accessory Muscle Use, No Respiratory Distress, Decreased Breath Sounds Cardiovascular: Regular Rate, Rhythm, No Gallop, No JVD, No Murmur, Normal Peripheral Pulses Gastrointestinal: Normal Bowel Sounds, No Organomegaly, No Pulsatile Mass, Non Tender, Soft Back: Normal Inspection, No CVA Tenderness, No Vertebral Tenderness Extremity: Normal Capillary Refill, Normal Inspection, Normal Range of Motion, Non Tender, No Calf Tenderness, Pedal Edema Neurologic/Psychiatric: Alert, Oriented x3, No Motor/Sensory Deficits, Normal Mood/Affect, Motor Weakness (generalized weakness all extremities) Skin: Normal Color, Warm/Dry Lymphatic: No Adenopathy Results/Procedures Lab Laboratory Tests 09/23/19 05:30 Patient resulted labs reviewed. FIM Transfers Therapy Code Descriptions/Definitions Functional Whitley Measure: 0=Not Assessed/NA 4=Minimal Assistance 1=Total Assistance 5=Supervision or Setup 2=Maximal Assistance 6=Modified Whitley 3=Moderate Assistance 7=Complete IndependenceSCALE: Activities may be completed with or without assistive devices. 6-Qyrmdyktcd-cudovtx completes the activity by him/herself with no assistance from a helper. 5-Set-up or Clean-up Assistance-helper sets up or cleans up; patient completes activity. [place] assists only prior to or following the activity. 4-Supervision or Touching Assistance-helper provides verbal cues and/or touching/steadying and/or contact guard assistance as patient completes activity. Assistance may be provided throughout the activity or intermittently. 3-Partial/Moderate Assistance-helper does LESS THAN HALF the effort. Lincoln lifts, holds or supports trunk or limbs, but provides less than half the effort. 2-Substantial/Maximal Assistance-helper does MORE THAN HALF the effort. [place] lifts or holds trunk or limbs and provides more than half the effort. 2-Pmvawsvtf-vvuhlk does ALL the effort. Patient does none of the effort to complete the activity. Or, the assistance of 2 or more helpers is required for the patient to complete the activity. If activity was not attempted, code reason: 7-Patient Refused. 9-Not Applicable-not attempted and the patient did not perform the activity before the current illness, exacerbation or injury. 10-Not Attempted due to Environmental Limitations-(lack of equipment, weather restraints, etc.). 88-Not Attempted due to Medical Conditions or Safety Concerns. Roll Left to Right (QC): 4 Sit to Lying (QC): 4 Sit to Stand (QC): 4 Chair/Nlm-ly-Xqzuh Xfer(QC): 4 Gait Training Does the Patient Walk?: Yes Walk 10 feet (QC): 88 Walk 50 ft with 2 Turns(QC): 88 Walk 150 ft (QC): 88 Walking 10ft/uneven surface-QC: 88 Gait Assistive Device: FWW Wheelchair Training Does the Pt Use a Wheelchair?: Yes Wheel 50 ft with 2 turns (QC): 1 Wheel 150 ft (QC): 1 Type of Wheelchair: Manual Stair Training 1 Step (curb) (QC): 88 4 Steps (QC): 88 12 Steps (QC): 88 Balance Picking up an Object (QC): 88 ADL-Treatment Eating (QC): 6 (per pt.) Oral Hygiene (QC): 7 Shower/Bathe Self (QC): 7 Upper Body Dressing (QC): 7 Lower Body Dressing (QC): 7 On/Off Footwear (QC): 4 (SBA per pt and previous OT notes, denies sock donning/ doffing at this time.) Toileting Hygiene (QC): 7 Assessment/Plan Assessment and Plan Assess & Plan/Chief Complaint Assessment: COPD myopathy s/p Severe sepsis placed on aggressive IV fluid protocol s/p MRSA pneumonia left lung nearly white out post influenza placed on broad- spectrum Zosyn and vancomycin to cover for MRSA pneumonia post influenza which ultimately revealed MRSA in sputum s/p Influenza B s/p Tamiflu s/p Exacerbation of COPD placed on IV steroids and nebulizer treatments Obstructive sleep apnea maintain on BiPAP Dr. Kirkland CAD previous stent placed by Dr. Williamson consulted cardiology Episodes of atrial fibrillation with rapid ventricular response on telemetry consulting cardiology High risk for DVT placed on Lovenox Severe leukocytosis Anemia of chronic illness s/p transfusion Plan: IRF protocol Monitor closely Cardiology and Pulmo appreciated Wean Vapotherm (1) Respiratory failure Status: Acute (2) Anemia (3) CAD (coronary artery disease) (4) Leukocytosis (5) Atrial fibrillation with RVR (6) COPD (chronic obstructive pulmonary disease) Status: Acute (7) Obstructive sleep apnea Status: Chronic (8) Myopathy (9) Former smoker (10) History of coronary artery stent placement BERTRAND CUEVAS DO Sep 23, 2019 08:41
[2019-09-23 09:42] VITALS: BP 155/71
--- NOTE | 2019-09-23 09:56 | Physical Therapy Daily Note ---
PT Daily Note-Current Subjective Patient in bed pre tx, agrees to PT, has no complaints of pain. Will be co- treating with OT due to poor patient mobility, endurance, severe SOB with activity, the need to coordinate UE and LE during activity. Appearance Patient in recliner post tx with nurse call, phone, tray, all needs met. Mental Status Patient Orientation: Normal For Age Attachments: Oxygen 5L of O2 nasal canula Transfers SCALE: Activities may be completed with or without assistive devices. 7-Dyikmqhxbq-zpsjpdo completes the activity by him/herself with no assistance from a helper. 5-Set-up or Clean-up Assistance-helper sets up or cleans up; patient completes activity. [place] assists only prior to or following the activity. 4-Supervision or Touching Assistance-helper provides verbal cues and/or touching/steadying and/or contact guard assistance as patient completes activity. Assistance may be provided throughout the activity or intermittently. 3-Partial/Moderate Assistance-helper does LESS THAN HALF the effort. [place] lifts, holds or supports trunk or limbs, but provides less than half the effort. 2-Substantial/Maximal Assistance-helper does MORE THAN HALF the effort. [place] lifts or holds trunk or limbs and provides more than half the effort. 1-Qieaekatm-vyrteu does ALL the effort. Patient does none of the effort to complete the activity. Or, the assistance of 2 or more helpers is required for the patient to complete the activity. If activity was not attempted, code reason: 7-Patient Refused. 9-Not Applicable-not attempted and the patient did not perform the activity before the current illness, exacerbation or injury. 10-Not Attempted due to Environmental Limitations-(lack of equipment, weather restraints, etc.). 88-Not Attempted due to Medical Conditions or Safety Concerns. Roll Left & Right (QC): 6 Lying to Sitting/Side of Bed(Q: 6 Sit to Stand (QC): 4 Chair/Dvi-gf-Juinq Xfer(QC): 4 Car Transfer (QC): 4 Car transfer machine was placed in the doorway of her room and she performed car transfer with SBA, no assist needed to get her legs in or out. Gait Training Distance: 10'x2 Walk 10 feet (QC): 4 Gait Persons Needed: 1 Gait Assistive Device: FWW Slow but steady ambulation, severe SOB with going just this short distance. Exercises Seated Therapy Exercises: Ankle pumps, Long arc quads, Hip flexion, Hip abd/add Seated Reps: 20 Treatments bed mobility, transfers, ambulation, car transfer, LE exercise, assist OT with standing and positioning during bathing and dressing Assessment Current Status: Fair Progress improved general mobility but patient has severe SOB with minimal activity. PT performed bed mobility, transfers, ambulation, LE exercise, standing and positi oning during bathing and dressing, OT performed bathing and dressing, UE activity. PT Short Term Goals Short Term Goals Time Frame: Sep 29, 2019 Roll Left & Right: 6 Sit to lyin Lying to sitting on side of be: 6 Sit to stand: 4 (SBA) Chair/yad-bc-szrtl transfer: 4 (SBA) Toilet transfer: 4 (SBA) Car transfer: 4 (SBA) Walk 10 feet: 4 (CGA) PT Residential Goals Racecar Driver Goals PT Residential Goals Time Frame: Oct 13, 2019 Roll Left & Right (QC): 6 Sit to Lying (QC): 6 Lying-Sitting on Side/Bed(QC): 6 Sit to Stand (QC): 6 Chair/Aic-jf-Mroxi Xfer(QC): 6 Toilet Transfer (QC): 6 Car Transfer (QC): 6 Walk 10 feet (QC): 6 PT Plan Problem List Problem List: Activity Tolerance, Functional Strength, Safety, Balance, Gait, Transfer, Bed Mobility Treatment/Plan Treatment Plan: Continue Plan of Care Treatment Plan: Bed Mobility, Education, Functional Activity Kameron, Functional Strength, Group Therapy, Gait, Safety, Therapeutic Exercise, Transfers Treatment Duration: Oct 13, 2019 Frequency: Modified Program (IRF) Estimated Hrs Per Day: 1.5 hours per day Patient and/or Family Agrees t: Yes Safety Risks/Education Patient Education: Gait Training, Transfer Techniques, Correct Positioning, Safety Issues Teaching Recipient: Patient Teaching Methods: Demonstration, Discussion Response to Teaching: Reinforcement Needed Time/GCodes Time In: 0900 Time Out: 1000 Total Billed Treatment Time: 60 Total Billed Treatment 1 visit FA 45' EX 15' Co-treated with OT for 60 min. YAMILET HOPKINS PT Sep 23, 2019 09:56
--- NOTE | 2019-09-23 09:58 | Occupational Ther Daily Note ---
OT Current Status-Daily Note Subjective Pt alert, lying in bed. Pt agrees to therapy. No c/o pain. Respiratory in room during treatment to check O2 levels: 95-96%. Pt on 5 L O2. Mental Status/Objective Patient Orientation: Person, Place, Time, Situation Attachments: Central Line, Otero Catheter, Oxygen (5L) ADL-Treatment [place] with PT ([id number]) due to complex medical status, decreased respiratory tolerance, need for 2 skilled therapists to manage transfers/ balance/ track respiratory status/ manage multiple lines. PT worked on transfers, sit to stands, ambulation and B LE exercises. OT worked on ADLs, UE placement during transfers, manipulating tubing during ambulation and energy conservation techniques. Pt requires multiple lengthy recovery breaks throughout therapy due to SOA. Pt has difficulty with completing any activity/task with UE at chest height or higher due to SOA and decreased activity tolerance. Pt able to stand with close SBA to cleanse allie area then due to fatigue and SOA assist given to cleanse buttocks. Pt able to thread UE's and head through shirt then assist to pull down in back. Pt able to don/doff socks after set up. Assist to thread catheter through pant leg, assist to thread that leg through pants. Pt able to thread R LE through pant leg. After therapy, pt sitting in recliner with call light/phone in reach. All needs met in room. Therapy Code Descriptions/Definitions Functional [place] Measure: 0=Not Assessed/NA 4=Minimal Assistance 1=Total Assistance 5=Supervision or Setup 2=Maximal Assistance 6=Modified [place] 3=Moderate Assistance 7=Complete IndependenceSCALE: Activities may be completed with or without assistive devices. 3-Tvzoydlfiq-sojjsts completes the activity by him/herself with no assistance from a helper. 5-Set-up or Clean-up Assistance-helper sets up or cleans up; patient completes activity. [place] assists only prior to or following the activity. 4-Supervision or Touching Assistance-helper provides verbal cues and/or touching/steadying and/or contact guard assistance as patient completes activity. Assistance may be provided throughout the activity or intermittently. 3-Partial/Moderate Assistance-helper does LESS THAN HALF the effort. [place] lifts, holds or supports trunk or limbs, but provides less than half the effort. 2-Substantial/Maximal Assistance-helper does MORE THAN HALF the effort. [place] lifts or holds trunk or limbs and provides more than half the effort. 2-Dpccuarit-zjlknc does ALL the effort. Patient does none of the effort to complete the activity. Or, the assistance of 2 or more helpers is required for the patient to complete the activity. If activity was not attempted, code reason: 7-Patient Refused. 9-Not Applicable-not attempted and the patient did not perform the activity before the current illness, exacerbation or injury. 10-Not Attempted due to Environmental Limitations-(lack of equipment, weather restraints, etc.). 88-Not Attempted due to Medical Conditions or Safety Concerns. Shower/Bathe Self (QC): 3 Upper Body Dressing (QC): 3 Lower Body Dressing (QC): 3 On/Off Footwear: 5 OT Short Term Goals Short Term Goals Oral hygiene: 6 Toileting hygiene: 3 OT Weatherization Operations Manager Goals Correction Goals Time Frame: Oct 06, 2019 Eating (QC): 6 Oral Hygiene (QC): 6 Toileting Hygiene (QC): 6 Shower/Bathe Self (QC): 6 Upper Body Dressing (QC): 6 Lower Body Dressing (QC): 6 On/Off Footwear (QC): 6 Additional Goals: 1-Demonstrate ADL Tasks, 2-Verbalize Understanding, 3- ImproveStrength/Kameron 1=Demonstrate adherence to instructed precautions during ADL tasks. 2=Patient will verbalize/demonstrate understanding of assistive devices/modifications for ADL. 3=Patient will improve strength/tolerance for activity to enable patient to perform ADL's. OT Education/Plan Problem List/Assessment Assessment: Decreased Activ Tolerance, Decreased UE Strength, Impaired Self- Care Skills, Restricted Funct UE ROM Discharge Recommendations Plan/Recommendations: Continue POC Treatment Plan/Plan of Care Patient would benefit from OT for education, treatment and training to promote independence in ADL's, mobility, safety and/or upper extremity function for ADL's. Plan of Care: ADL Retraining, Caregiver Training, Concurrent Therapy, Functional Mobility, Group Exercise/Act as Ind, UE Funct Exercise/Act Treatment Duration: Oct 06, 2019 Frequency: At least 5 of 7 days/Wk (IRF) Estimated Hrs Per Day: 1.5 hours per day Agreement: Yes Rehab Potential: Fair Time/GCodes Start Time: 09:00 Stop Time: 10:00 Total Time Billed (hr/min): 60 Billed Treatment Time 1 visit-ADL 3 (45 min) FA 1 (15 min) [place] with PT ([id number]) due to complex medical status, decreased respiratory tolerance, need for 2 skilled therapists to manage transfers/ balance/ track respiratory status/ manage multiple lines. SYLVIA MALDONADO Sep 23, 2019 09:58
[2019-09-23] MEDS: CLOPIDOGREL 75 MG (PLAVIX) TABLET PO SCH ×2 (10:20→16:26)
--- NOTE | 2019-09-23 10:29 | NUR ---
PCCT REPORTS DARK, TARRY STOOL THIS AM. DR. CUEVAS AND DR. MYRICK NOTIFIED. ORDERS TO HOLD PLAVIX AND ELIQUIS PER DR. CUEVAS.
--- NOTE | 2019-09-23 10:30 | Progress Note ---
MARUQIS BILLINGSLEY, MEDICAL STUDENT 09/23/19 1030: Progress Note 58 YO F w/ PMH of COPD who was admitted on 09/12/19 for severe sepsis starting with influenza, then MRSA and required lengthy stay in ICU for 9 days who is now in rehab, in need of aggressive therapy in order to regain function to return home to live and return to PLOF. Patient remains on droplet isolation for MRSA pneumonia and sputum culture confirmed. Patient remains on Vapotherm so will require slow therapy schedule in order to accommodate hypoxia and increase O2 requirements. Family updated on the plan. Cardiology and Pulmonology will remain in consultation on this very complicated patient. Patient is at high risk for decompensation. Since admission to the rehab unit the patient remains on oxygen and is currently on 5L, she mentioned that she is normally on 2L at home. She has also had an EGD which revealed a stomach ulcer. The patient describes abdominal pain the right upper quadrant and has been mentioning that she has been having dark stools. Vital Signs Capillary Refill : Height, Weight, BMI Height: 5'3.00" Weight: 170lbs. 0.0oz. 77.032590et; 33.00 BMI Method:Stated General Appearance: WD/WN, Anxious, Chronically ill, Mild Distress Eyes: Bilateral Eye Normal Inspection, Bilateral Eye PERRL Neck: Full Range of Motion, Normal Inspection, Non Tender, Supple, Carotid Bruit Respiratory: No wheezes or crackles bilaterally, Patient has increased work of breathing and is currently on 5L O2 Cardiovascular: Regular Rate, Rhythm, No Gallop, No JVD, No Murmur, Normal Peripheral Pulses, distant heart sounds Gastrointestinal: Normal Bowel Sounds, No Organomegaly, No Pulsatile Mass, Tender in LUQ Extremity: Normal Capillary Refill, Normal Inspection, Normal Range of Motion, Non Tender, No Calf Tenderness, Pedal Edema Neurologic/Psychiatric: Alert, Oriented x3, Normal Mood/Affect, Motor Weakness (generalized weakness all extremities) Skin: Normal Color, Warm/Dry Lymphatic: No Adenopathy Assessment: 58 YO F w/ PMH of COPD who is at high risk of decompensation due to influenza infection and superimposed MRSA PNA. The patient is currently being managed on 5L O2 which is 3L higher than her home O2. She is currently receiving antibiotics and recovering appropriately. She will see PT and OT daily to return to her baseline function. Plan: Severe sepsis placed on aggressive IV fluid protocol - discontinuing as patient is hyponatremic Pneumonia left lung nearly white out post influenza placed on Linezolid Patient will remain on contact and droplet precautions until patient has 3 negative sputum cultures. Influenza s/p Tamiflu Exacerbation of COPD placed on IV steroids and nebulizer treatments Obstructive sleep apnea maintain on BiPAP Dr. Kirkland CAD previous stent placed by Dr. Williamson consulted cardiology Episodes of atrial fibrillation with rapid ventricular response on telemetry consulting cardiology On Lovenox and Plavix - may or may not continue anticoagulation as patient was found to have ulcer and is having dark stools Severe leukocytosis Anemia of chronic illness Marquis Billingsley MS4 ADRIANNE CUEVAS DO 09/23/190: Supervisory-Addendum Brief Verification & Attestation Participated in pt care: history, MDM, physical Personally performed: exam, history, MDM, supervision of care Care discussed with: Medical Student Procedures: n/a Results interpretation: Verified all documentation Verification and Attestation of Medical Student E/M Service A medical student performed and documented this service in my presence. I reviewed and verified all information documented by the medical student and made modifications to such information, when appropriate. I personally performed the physical exam and medical decision making. Adrianne Cuevas, Sep 23, 2019,21:30 MARQUIS BILLINGSLEY, MEDICAL STUDENT Sep 23, 2019 10:30 ADRIANNE CUEVAS DO Sep 23, 2019 21:30
[2019-09-23] MEDS: RT-ALBUTEROL/IPRATROPIUM 3 ML (DUONEB) VIAL INH SCH ×3 (11:09→23:03)
[2019-09-23] MEDS: ADVAIR HFA 115/21 MCG INHALER 8 GM IH SCH ×2 (11:09→23:03)
[2019-09-23] MEDS: UMECLIDINIUM BROMIDE (INCRUSE ELLIPTA) 7'S IH SCH (11:09)
--- NOTE | 2019-09-23 11:20 | ST Cognitive Linguistic Eval ---
Speech Evaluation-General Medical Diagnosis resp failure, sepsis/pneumonia Onset Date: Sep 12, 2019 Therapy Diagnosis Therapy Diagnosis: Cognitive-communication Referral Referring Physician: Dr. Mathews Reason for Referral: Evaluation/Treatment Medical History Pertinent Medical History: CAD, COPD Reviewed History: Yes Social History Current Living Status: Other Family Speech PLF-Current Status Prior Level of Function Patient reported that her cognition and memory were normal prior to hospital admission Subjective Patient was alert, pleasant, and cooperative for all evaluation tasks. Patient reported that she is feeling good and that her mind is clearing up each day. Patient sat upright in her bed for the duration of the evaluation. Language Eval: Auditory Comprehends Simple Yes/No Ques: Functional Indent/Objects Multiple [place]: Functional Ident/Pics in Multiple [place]: Functional Follows 1-Step Commands: Functional Follows Complex Directions: Functional Follows General Conversations: Functional Language Eval: Verbal Language Completes Spontaneous Greeting: Functional Produces Auto, Serial Info: Functional Imitates Simple Words/Phrases: Functional Word Finding: Functional Requests Basic Needs: Functional States Basic Personal Info: Functional Expresses Complex Ideas: Functional Objective Cognitive Domain Attention: WNL Memory: WNL Problem Solving: Functional Executive Functions: WNL Visuospatial Skills: WNL Composite Severity Rating: WNL Clock Drawing Severity Rating: WNL Objective Formal/Standardized Tests [facility] Mental Status (UMS) Examination was administered. Results Patient was administered the SLUMS and scored 27/30 which falls within normal limits of cognitive function. Oral Motor/Speech Production Within functional limits. Impression Patient was admitted to the ARU s/p sepsis/pneumonia. Patient was administered the SLUMS and scored 27/30 which falls within normal limits of cognitive function. Patient does not require skilled ST services at this time. Speech Patient Assess Expression of Ideas/Wants: Expression (4) Understanding Verbal Content: Understands (4) Brief Interview-Mental Status: Yes Repetition of Three Words: Three (3) Temporal Orientation: Year: Correct (3) Temporal Orientation: Month: Accurate within 5 days(2) Temporal Orientation: Day: Correct (1) Recall : Wear to say "Sock": Yes, no cue required (2) Recall : Color: Yes, no cue required (2) Recall : Bed: Yes,after cueing (1) Memory/Recall Ability: Current season, That he or she is in a hsp/hsp unit Speech-Plan Patient/Family Goals Patient/Family Goals: Patient reported that she wishes to return home upon discharge. Treatment Plan Speech Therapy Treatment Plan: Discontinue ST Treatment Duration: Sep 23, 2019 Frequency: 1 time per week Estimated Hrs Per Day: .25 hour per day Rehab Potential: Fair Barriers to Learning: Current medical status Pt/Family Agrees to Plan: Yes Safety Risks/Education Teaching Recipient: Patient Teaching Methods: Demonstration, Discussion Response to Teaching: Verbalize Understanding Education Topics Provided: Patient educated on evaluation tasks and safety awareness of hospital room. Time Speech Therapy Time In: 08:45 Speech Therapy Time Out: 09:00 Total Billed Time: 15 Billed Treatment Time 1, SPSNDCOMP VAMSHI Esquivel Sep 23, 2019 11:20
--- NOTE | 2019-09-23 11:26 | NUR ---
PER DR. MYRICK, PLEASE MAKE SURE PATIENT IS ON PROTONIX BID AND CARAFATE AC&HS.
--- NOTE | 2019-09-23 11:27 | Physical Therapy Daily Note ---
PT Daily Note-Current Subjective Patient in recliner pre tx, agrees to PT, no complaints of pain at rest. Appearance Patient in recliner post tx with nurse call, phone, tray, all needs met. Mental Status Patient Orientation: Normal For Age Attachments: Oxygen Transfers SCALE: Activities may be completed with or without assistive devices. 3-Xfirgpmoyx-kaiuzyn completes the activity by him/herself with no assistance from a helper. 5-Set-up or Clean-up Assistance-helper sets up or cleans up; patient completes activity. [place] assists only prior to or following the activity. 4-Supervision or Touching Assistance-helper provides verbal cues and/or touching/steadying and/or contact guard assistance as patient completes activity. Assistance may be provided throughout the activity or intermittently. 3-Partial/Moderate Assistance-helper does LESS THAN HALF the effort. [place] lifts, holds or supports trunk or limbs, but provides less than half the effort. 2-Substantial/Maximal Assistance-helper does MORE THAN HALF the effort. [place] lifts or holds trunk or limbs and provides more than half the effort. 0-Dwkuyzbbd-yfptbd does ALL the effort. Patient does none of the effort to complete the activity. Or, the assistance of 2 or more helpers is required for the patient to complete the activity. If activity was not attempted, code reason: 7-Patient Refused. 9-Not Applicable-not attempted and the patient did not perform the activity before the current illness, exacerbation or injury. 10-Not Attempted due to Environmental Limitations-(lack of equipment, weather restraints, etc.). 88-Not Attempted due to Medical Conditions or Safety Concerns. Exercises Supine Ex: Ankle pumps, Quad Set, Glut sets Supine Reps: 20 (performed in recliner with legs elevated) Seated Therapy Exercises: Ankle pumps, Long arc quads, Hip flexion, Hip abd/add Seated Reps: 20 Treatments LE strengthening Assessment Current Status: Fair Progress Patient needs many rest breaks due to SOB and fatigue PT Short Term Goals Short Term Goals Time Frame: Sep 29, 2019 Roll Left & Right: 6 Sit to lyin Lying to sitting on side of be: 6 Sit to stand: 4 (SBA) Chair/vsv-vl-ytmvk transfer: 4 (SBA) Toilet transfer: 4 (SBA) Car transfer: 4 (SBA) Walk 10 feet: 4 (CGA) PT Racecourse Barrier Attendant Goals Shelter Goals PT Shelter Goals Time Frame: Oct 13, 2019 Roll Left & Right (QC): 6 Sit to Lying (QC): 6 Lying-Sitting on Side/Bed(QC): 6 Sit to Stand (QC): 6 Chair/Lvn-lw-Zdwka Xfer(QC): 6 Toilet Transfer (QC): 6 Car Transfer (QC): 6 Walk 10 feet (QC): 6 PT Plan Problem List Problem List: Activity Tolerance, Functional Strength, Safety, Balance, Gait, Transfer, Bed Mobility Treatment/Plan Treatment Plan: Continue Plan of Care Treatment Plan: Bed Mobility, Education, Functional Activity Kameron, Functional Strength, Group Therapy, Gait, Safety, Therapeutic Exercise, Transfers Treatment Duration: Oct 13, 2019 Frequency: Modified Program (IRF) Estimated Hrs Per Day: 1.5 hours per day Patient and/or Family Agrees t: Yes Safety Risks/Education Patient Education: Correct Positioning, Safety Issues Teaching Recipient: Patient Teaching Methods: Demonstration, Discussion Response to Teaching: Reinforcement Needed Time/GCodes Time In: 1100 Time Out: 1130 Total Billed Treatment Time: 30 Total Billed Treatment 1 visit EX 30' YAMILET HOPKINS PT Sep 23, 2019 11:27
--- NOTE | 2019-09-23 11:38 | Occupational Ther Daily Note ---
OT Current Status-Daily Note Subjective Pt alert, sitting in recliner. Pt agrees to therapy. Pt stated that respiratory has decreased her O2 levels to 3L. Pt was dizzy after short ambulation and had difficulty catching her breath. Increased O2 to 4L during session. Mental Status/Objective Patient Orientation: Person, Place, Time, Situation Attachments: Central Line, Otero Catheter, Oxygen (3L) ADL-Treatment Pt able to ambulated using FWW with SBA and assist to manipulate tubing. Pt sat at sink to complete oral care. Pt had difficulty with recovering from ambulation and UE movement with oral motor task, stating that she felt dizzy. Pt then complete oral/denture care, mod I. Pt then ambulated back to recliner after session. Call light/phone in reach. All needs met in room. Therapy Code Descriptions/Definitions Functional [place] Measure: 0=Not Assessed/NA 4=Minimal Assistance 1=Total Assistance 5=Supervision or Setup 2=Maximal Assistance 6=Modified [place] 3=Moderate Assistance 7=Complete IndependenceSCALE: Activities may be completed with or without assistive devices. 5-Jfocdmxxze-qiqvxxz completes the activity by him/herself with no assistance from a helper. 5-Set-up or Clean-up Assistance-helper sets up or cleans up; patient completes activity. [place] assists only prior to or following the activity. 4-Supervision or Touching Assistance-helper provides verbal cues and/or touching/steadying and/or contact guard assistance as patient completes activity. Assistance may be provided throughout the activity or intermittently. 3-Partial/Moderate Assistance-helper does LESS THAN HALF the effort. [place] lifts, holds or supports trunk or limbs, but provides less than half the effort. 2-Substantial/Maximal Assistance-helper does MORE THAN HALF the effort. [place] lifts or holds trunk or limbs and provides more than half the effort. 0-Afinvcmij-pszsly does ALL the effort. Patient does none of the effort to compl ete the activity. Or, the assistance of 2 or more helpers is required for the patient to complete the activity. If activity was not attempted, code reason: 7-Patient Refused. 9-Not Applicable-not attempted and the patient did not perform the activity before the current illness, exacerbation or injury. 10-Not Attempted due to Environmental Limitations-(lack of equipment, weather restraints, etc.). 88-Not Attempted due to Medical Conditions or Safety Concerns. Oral Hygiene (QC): 6 OT Short Term Goals Short Term Goals Oral hygiene: 6 Toileting hygiene: 3 OT Brick Shader Goals Nursing Home Goals Time Frame: Oct 06, 2019 Eating (QC): 6 Oral Hygiene (QC): 6 Toileting Hygiene (QC): 6 Shower/Bathe Self (QC): 6 Upper Body Dressing (QC): 6 Lower Body Dressing (QC): 6 On/Off Footwear (QC): 6 Additional Goals: 1-Demonstrate ADL Tasks, 2-Verbalize Understanding, 3- ImproveStrength/Kameron 1=Demonstrate adherence to instructed precautions during ADL tasks. 2=Patient will verbalize/demonstrate understanding of assistive devices/modifications for ADL. 3=Patient will improve strength/tolerance for activity to enable patient to perform ADL's. OT Education/Plan Problem List/Assessment Assessment: Decreased Activ Tolerance, Decreased UE Strength, Impaired Self- Care Skills Discharge Recommendations Plan/Recommendations: Continue POC Treatment Plan/Plan of Care Patient would benefit from OT for education, treatment and training to promote independence in ADL's, mobility, safety and/or upper extremity function for ADL's. Plan of Care: ADL Retraining, Caregiver Training, Concurrent Therapy, Functional Mobility, Group Exercise/Act as Ind, UE Funct Exercise/Act Treatment Duration: Oct 06, 2019 Frequency: At least 5 of 7 days/Wk (IRF) Estimated Hrs Per Day: 1.5 hours per day Agreement: Yes Rehab Potential: Fair Time/GCodes Start Time: 11:30 Stop Time: 12:00 Total Time Billed (hr/min): 30 Billed Treatment Time 1 visit-ADL 2 (30 min) SYLVIA MALDONADO Sep 23, 2019 11:38
--- NOTE | 2019-09-23 11:39 | NUR ---
PER DIXIE MILLAN, RECHECK SPUTUM TODAY. IF NEGATIVE, MAY DC FROM ISOLATION.
[2019-09-23] MEDS: HYDROcodone/APAP 5 MG/325 MG (LORTAB) TAB PO PRN ×2 (13:19→21:51)
--- NOTE | 2019-09-23 14:37 | Occupational Ther Daily Note ---
OT Current Status-Daily Note Subjective Pt alert, lying in bed. Pt states that she was tired from the day. Agrees to work with CONDE, education on Energy Conservation. Mental Status/Objective Patient Orientation: Person, Place, Time Attachments: Central Line, Otero Catheter, Oxygen (3L) ADL-Treatment Therapy Code Descriptions/Definitions Functional [place] Measure: 0=Not Assessed/NA 4=Minimal Assistance 1=Total Assistance 5=Supervision or Setup 2=Maximal Assistance 6=Modified [place] 3=Moderate Assistance 7=Complete IndependenceSCALE: Activities may be completed with or without assistive devices. 9-Bkpffboahf-wxjpghg completes the activity by him/herself with no assistance fr om a helper. 5-Set-up or Clean-up Assistance-helper sets up or cleans up; patient completes activity. [place] assists only prior to or following the activity. 4-Supervision or Touching Assistance-helper provides verbal cues and/or touching/steadying and/or contact guard assistance as patient completes activity. Assistance may be provided throughout the activity or intermittently. 3-Partial/Moderate Assistance-helper does LESS THAN HALF the effort. [place] lifts, holds or supports trunk or limbs, but provides less than half the effort. 2-Substantial/Maximal Assistance-helper does MORE THAN HALF the effort. [place] lifts or holds trunk or limbs and provides more than half the effort. 3-Djlbtsxvn-vshakf does ALL the effort. Patient does none of the effort to complete the activity. Or, the assistance of 2 or more helpers is required for the patient to complete the activity. If activity was not attempted, code reason: 7-Patient Refused. 9-Not Applicable-not attempted and the patient did not perform the activity before the current illness, exacerbation or injury. 10-Not Attempted due to Environmental Limitations-(lack of equipment, weather restraints, etc.). 88-Not Attempted due to Medical Conditions or Safety Concerns. Other Treatment Pt given Energy Conservation handout and educated on using techniques throughout the day. Pt and CONDE discussed pt's normal day and how to implement techniques in personal routine. Pt verbalized understanding and gave personal strategies and experiences. After therapy, pt lying in bed with call light/phone in reach. All needs met in room. OT Short Term Goals Short Term Goals Oral hygiene: 6 Toileting hygiene: 3 OT Penit[facility] Goals Food And Beverage Checker Goals Time Frame: Oct 06, 2019 Eating (QC): 6 Oral Hygiene (QC): 6 Toileting Hygiene (QC): 6 Shower/Bathe Self (QC): 6 Upper Body Dressing (QC): 6 Lower Body Dressing (QC): 6 On/Off Footwear (QC): 6 Additional Goals: 1-Demonstrate ADL Tasks, 2-Verbalize Understanding, 3-Improve Strength/Kameron 1=Demonstrate adherence to instructed precautions during ADL tasks. 2=Patient will verbalize/demonstrate understanding of assistive devices/modifications for ADL. 3=Patient will improve strength/tolerance for activity to enable patient to pe rform ADL's. OT Education/Plan Problem List/Assessment Assessment: Decreased Activ Tolerance, Decreased UE Strength, Impaired Self- Care Skills Discharge Recommendations Plan/Recommendations: Continue POC Treatment Plan/Plan of Care Patient would benefit from OT for education, treatment and training to promote independence in ADL's, mobility, safety and/or upper extremity function for ADL's. Plan of Care: ADL Retraining, Caregiver Training, Concurrent Therapy, Functional Mobility, Group Exercise/Act as Ind, UE Funct Exercise/Act Treatment Duration: Oct 06, 2019 Frequency: At least 5 of 7 days/Wk (IRF) Estimated Hrs Per Day: 1.5 hours per day Agreement: Yes Rehab Potential: Fair Time/GCodes Start Time: 14:05 Stop Time: 14:35 Total Time Billed (hr/min): 30 Billed Treatment Time 1 visit-FA 2 (30 min) SYLVIA MALDONADO Sep 23, 2019 14:37
--- NOTE | 2019-09-23 15:20 | NUR ---
"RD ASSESSMENT PMHx: COPD; CAD; hypercholesterolemia; stroke; GERD; REGAN PT INTERACTION: Pt was awake and pleasant during nutrition assessment. Pt states she has been eating well since I spoke with her in the ICU. Note avg PO intake is 80% x2d, per chart review. Pt states no recent issues with n/v at this time. Pt states some recent issues with constipation. Note last BM was 2/5 and pt currently on bowel regimen of colace BID; senna BID; and miralax BID, per chart review. ABNORMAL NUTRITION-RELATED LAB VALUES LOW: Na 133; cr 0.59; Pro 6.2; alb 2.9 HIGH: Est. kcal needs: 1210-5930 kcal | 15-18 kcal/kg Est. Pro needs: 72-90 g Pro | 0.8-1.0 g Pro/kg PES STATEMENT: Given pt's PO intake, no nutrition diagnosis at this time (NO-1.1) INTERVENTION: Continue with current diet order of Heart Healthy diet. Will continue to follow and reassess as pt needs and status change. MONITOR/EVALUATE: PO Intake; Plan of Care; Hydration Status; Weight Status; Lab Values Edgar Morgan, MS, RD, LD"
[2019-09-23] MEDS: SUCRALFATE 1 GM (CARAFATE) TAB PO SCH ×2 (15:45→21:51)
--- NOTE | 2019-09-23 16:49 | NUR ---
DR. SAHU UPDATED ON TARRY STOOLS NOTED THIS AM. [facility] 8.6... 8.5 YESTERDAY (09/22/19). ORDERS TO CONTINUE TO HOLD ELIQUIS... BUT RESUME PLAVIX. PATIENT "COULD IF SHE DOESN'T TAKE PLAVIX". Addendum: 09/23/19 at 1953 by EDDIE GREEN RN DR. CUEVAS NOTIFIED AND OK TO RESUME PLAVIX.
[2019-09-23 17:18] VITALS: BP 137/62
--- NOTE | 2019-09-23 19:56 | NUR ---
HECK CATHETER DC'D THIS AFTERNOON PER ORDERS. PATIENT VOIDING WITHOUT DIFFICULTY.
[2019-09-24] MEDS: RT-ALBUTEROL/IPRATROPIUM 3 ML (DUONEB) VIAL INH SCH ×6 (03:00→22:44)
[2019-09-24] MEDS: inSUlin ASPART (NovoLOG) 1 UNIT/0.01 ML (CHARGE PER UNIT) SC SCH ×4 (06:13→21:50)
[2019-09-24 06:14] VITALS: BP 134/73
[2019-09-24] MEDS: SUCRALFATE 1 GM (CARAFATE) TAB PO SCH ×4 (06:14→22:00)
[2019-09-24] MEDS: UMECLIDINIUM BROMIDE (INCRUSE ELLIPTA) 7'S IH SCH (06:36)
[2019-09-24] MEDS: ADVAIR HFA 115/21 MCG INHALER 8 GM IH SCH ×2 (06:36→22:44)
[2019-09-24 06:39] LABS: HEMOGLOBIN 8.1 G/DL (11.5-16.0); RED CELL DISTRIBUTION WIDTH 18.1 % (10.0-14.5); WHITE BLOOD COUNT 8.7 10^3/uL (4.3-11.0)
[2019-09-24 08:00] VITALS: BP 133/68
--- NOTE | 2019-09-24 08:00 | NUR ---
LAB REPORTS YESTERDAY'S SPUTUM SPECIMEN CONTINUES TO GROW MRSA AND ISOLATION CONTINUES. ASSISTED UP TO COMMODE AND PATIENT REPORTS A DARK STOOL. CONTINUED SOB WITH EXERTION, BUT STATES IMPROVED. O2 ON AT 3L. 2+ EDEMA BLE AND BRYAN HOSE AND SCD ON. STATES IS TOLERATING THERAPY BETTER.
[2019-09-24] MEDS: CLOPIDOGREL 75 MG (PLAVIX) TABLET PO SCH (08:20)
[2019-09-24] MEDS: PANTOPRAZOLE 40 MG (PROTONIX) TAB PO SCH ×2 (08:20→22:01)
[2019-09-24] MEDS: LINEZOLID (ZYVOX) 600 MG TAB PO SCH ×2 (08:21→22:01)
[2019-09-24] MEDS: DOCUSATE SODIUM 100 MG (COLACE) CAP PO SCH ×2 (08:22→21:30)
[2019-09-24] MEDS: polyethylene glycoL POWDER 17 GM (MIRALAX) PACK PO SCH ×2 (08:22→21:30)
[2019-09-24] MEDS: SENNA W/DOCUSATE (SENOKOT S) TABLET PO SCH ×2 (08:22→21:30)
--- NOTE | 2019-09-24 09:09 | PM&R Progress Note ---
Subjective HPI/CC On Admission Date Seen by Provider: Sep 24, 2019 Time Seen by Provider: 09:15 Subjective/Events-last exam Pt doing very well Sputum did show once again the MRSA Maintained on Zyvox Off vapotherm completely Overall dramatically improved since admission Lower extremity edema continues Hgb 8.1, had some bloody stools today, stopped Eliquis and maintained on Plavix since that is absolutely required per cardiology Dark tarry stools will hold Eliquis BM today but it was dark and tarry Zyvox will stop on Friday Checked meds and labs Conferred with RN Reviewed therapy notes Review of Systems General: Fatigue Pulmonary: Dyspnea Gastrointestinal: Melena, Hematochezia Objective Exam Vital Signs Vital Signs Date Time Temp Pulse Resp B/P (MAP) Pulse Ox O2 Delivery O2 Flow Rate FiO2 09/24/19 14:31 97 Nasal Cannula 3.00 09/24/19 06:14 36.0 80 16 134/73 (93) 09/23/19 09:42 40 Capillary Refill : Less Than 3 Seconds General Appearance: No Apparent Distress, WD/WN, Anxious, Chronically ill HEENT: PERRL/EOMI, Normal ENT Inspection, Pharynx Normal Neck: Full Range of Motion, Normal Inspection, Non Tender, Supple, Carotid Bruit Respiratory: Chest Non Tender, No Accessory Muscle Use, No Respiratory Distress, Decreased Breath Sounds Cardiovascular: Regular Rate, Rhythm, No Gallop, No JVD, No Murmur, Normal Peripheral Pulses Gastrointestinal: Normal Bowel Sounds, No Organomegaly, No Pulsatile Mass, Non Tender, Soft Back: Normal Inspection, No CVA Tenderness, No Vertebral Tenderness Extremity: Normal Capillary Refill, Normal Inspection, Normal Range of Motion, Non Tender, No Calf Tenderness, Pedal Edema Neurologic/Psychiatric: Alert, Oriented x3, No Motor/Sensory Deficits, Normal Mood/Affect, Motor Weakness Skin: Normal Color, Warm/Dry Lymphatic: No Adenopathy Results/Procedures Lab Laboratory Tests 09/24/19 06:30 Patient resulted labs reviewed. FIM Transfers Therapy Code Descriptions/Definitions Functional [place] Measure: 0=Not Assessed/NA 4=Minimal Assistance 1=Total Assistance 5=Supervision or Setup 2=Maximal Assistance 6=Modified [place] 3=Moderate Assistance 7=Complete IndependenceSCALE: Activities may be completed with or without assistive devices. 1-Twgnievwla-hqfkpiy completes the activity by him/herself with no assistance from a helper. 5-Set-up or Clean-up Assistance-helper sets up or cleans up; patient completes activity. [place] assists only prior to or following the activity. 4-Supervision or Touching Assistance-helper provides verbal cues and/or touching/steadying and/or contact guard assistance as patient completes activity. Assistance may be provided throughout the activity or intermittently. 3-Partial/Moderate Assistance-helper does LESS THAN HALF the effort. [place] lif ts, holds or supports trunk or limbs, but provides less than half the effort. 2-Substantial/Maximal Assistance-helper does MORE THAN HALF the effort. [place] lifts or holds trunk or limbs and provides more than half the effort. 6-Faksencin-hcerve does ALL the effort. Patient does none of the effort to complete the activity. Or, the assistance of 2 or more helpers is required for the patient to complete the activity. If activity was not attempted, code reason: 7-Patient Refused. 9-Not Applicable-not attempted and the patient did not perform the activity before the current illness, exacerbation or injury. 10-Not Attempted due to Environmental Limitations-(lack of equipment, weather restraints, etc.). 88-Not Attempted due to Medical Conditions or Safety Concerns. Roll Left to Right (QC): 6 Sit to Lying (QC): 4 Sit to Stand (QC): 4 Chair/Jmv-kx-Uiarg Xfer(QC): 4 Car Transfer (QC): 4 Gait Training Does the Patient Walk?: Yes Distance: 10'x2 Walk 10 feet (QC): 4 Walk 50 ft with 2 Turns(QC): 88 Walk 150 ft (QC): 88 Walking 10ft/uneven surface-QC: 88 Gait Persons Needed: 1 Gait Assistive Device: FWW Wheelchair Training Does the Pt Use a Wheelchair?: Yes Wheel 50 ft with 2 turns (QC): 1 Wheel 150 ft (QC): 1 Type of Wheelchair: Manual Stair Training 1 Step (curb) (QC): 88 4 Steps (QC): 88 12 Steps (QC): 88 Balance Picking up an Object (QC): 88 ADL-Treatment Eating (QC): 6 (per pt.) Oral Hygiene (QC): 6 Shower/Bathe Self (QC): 3 Upper Body Dressing (QC): 3 Lower Body Dressing (QC): 3 On/Off Footwear (QC): 5 Toileting Hygiene (QC): 7 Assessment/Plan Assessment and Plan Assess & Plan/Chief Complaint Assessment: COPD myopathy s/p Severe sepsis placed on aggressive IV fluid protocol s/p MRSA pneumonia left lung nearly white out post influenza placed on broad- spectrum Zosyn and vancomycin to cover for MRSA pneumonia post influenza which ultimately revealed MRSA in sputum s/p Influenza B s/p Tamiflu s/p Exacerbation of COPD placed on IV steroids and nebulizer treatments Obstructive sleep apnea maintain on BiPAP Dr. Kirkland CAD previous stent placed by Dr. Williamson consulted cardiology Episodes of atrial fibrillation with rapid ventricular response on telemetry consulting cardiology High risk for DVT placed on Lovenox Severe leukocytosis Anemia of chronic illness s/p transfusion Plan: IRF protocol Monitor closely Cardiology and Pulmo appreciated Weaned Vapotherm Maintain Plavix Hold OAC (1) Respiratory failure Status: Acute (2) Anemia (3) CAD (coronary artery disease) (4) Leukocytosis (5) Atrial fibrillation with RVR (6) COPD (chronic obstructive pulmonary disease) Status: Acute (7) Obstructive sleep apnea Status: Chronic (8) Myopathy (9) Former smoker (10) History of coronary artery stent placement BERTRAND CUEVAS DO Sep 24, 2019 09:09
[2019-09-24] MEDS: HYDROcodone/APAP 5 MG/325 MG (LORTAB) TAB PO PRN (09:16)
--- NOTE | 2019-09-24 09:39 | Pulmonary Progress Note ---
Subjective Date Seen by a Provider: Sep 24, 2019 Time Seen by a Provider: 08:45 Subjective/Events-last exam Pt is sitting up in chair and getting bath w/ assistance. Is purse lip breathing as gets short of breath with exertion but is able to maintain sats per NC and 3L and no longer on vapotherm. She denies f/ns/c. Review of Systems General: Fatigue Pulmonary: Dyspnea, Cough Sepsis Event Evaluation Height, Weight, BMI Height: 5'3.00" Weight: 170lbs. 0.0oz. 77.662095wt; 36.52 BMI Method:Stated Exam Exam Vital Signs Date Time Temp Pulse Resp B/P (MAP) Pulse Ox O2 Delivery O2 Flow Rate FiO2 09/24/19 06:42 Nasal Cannula 3.00 09/24/19 06:41 Nasal Cannula 3.00 09/24/19 06:37 95 Nasal Cannula 3.00 09/24/19 06:14 36.0 80 16 134/73 (93) 97 Nasal Cannula 3.00 09/23/19 23:10 Nasal Cannula 3.00 09/23/19 22:59 93 Nasal Cannula 3.00 09/23/19 21:00 Nasal Cannula 6.00 09/23/19 17:18 36.6 78 20 137/62 (87) 94 Nasal Cannula 3.00 09/23/19 15:30 91 Nasal Cannula 3.00 09/23/19 11:18 Nasal Cannula 3.00 09/23/19 11:10 98 Nasal Cannula 5.00 09/23/19 09:59 Nasal Cannula 6.00 09/23/19 09:42 36.6 84 97 40 I & O 09/24/19 07:00 Intake Total 810 ml Output Total 1000 ml Balance -190 ml Height & Weight Height: 5'3.00" Weight: 170lbs. 0.0oz. 77.281756pb; 36.52 BMI Method:Stated General Appearance: WD/WN, Anxious, Chronically ill, Mild Distress HEENT: PERRL/EOMI, Normal ENT Inspection, Pharynx Normal Neck: Full Range of Motion, Normal Inspection, Non Tender, Supple, Carotid Bru it Respiratory: Chest Non Tender, No Accessory Muscle Use, No Respiratory Dist ress, Decreased Breath Sounds Cardiovascular: Regular Rate, Rhythm, No Gallop, No JVD, No Murmur, Normal Peripheral Pulses Capillary Refill: Less Than 3 Seconds Extremity: Normal Capillary Refill, Normal Inspection, Normal Range of Motion, Non Tender, No Calf Tenderness, Pedal Edema Neurologic/Psychiatric: Alert, Oriented x3, No Motor/Sensory Deficits, Normal Mood/Affect, Motor Weakness Skin: Normal Color, Warm/Dry Lymphatic: No Adenopathy Results Lab Laboratory Tests 09/23/19 05:30 09/24/19 06:30 Assessment/Plan Assessment/Plan Severe Sepsis secondary to PNA/UTI -zyvox -CXR 09/21 is improving -Titrate oxygen pt to 3L NC currently is not on vapotherm - CT of chest -- reviewed -will need to be repeated 8wks after discharge. -MRSA nasal swab is positive s/p GIB with positive occult stool protonix to BID -s/p EGD/colonoscopy -s/p 2 units of PRBC s/p AFib -Currently on Cardizem gtt -Cardiology following H Influenza and MRSA PNA -Continue Zyvox -pt remains on droplet precaution Acute respiratory failure Vapotherm and BIPAP PRN Anemia -Occult stool is negative Hx of lung nodules -PT will need repeat CT of chest 8 wks after treatment to ensure complete resolution. Influenza -Continue Tamiflu s/p Afib RVR - now converted to sinus -Cardiology follwowing COPDAE - Severe oxygen dependent COPD. -Solumedrol -SVNs -Oxygen Anemia -Monitor -Check Occult stool REGAN -Home bipap CAD -Cardiology following -troponin is neg THANIA VANCE APRN Sep 24, 2019 09:39
--- NOTE | 2019-09-24 09:55 | Occupational Ther Daily Note ---
OT Current Status-Daily Note Subjective Pt alert, sitting on BSC. Pt agrees to therapy. Pt c/o abdomen pain, reported to nrsg. Mental Status/Objective Patient Orientation: Person, Place, Time, Situation Attachments: Central Line ADL-Treatment [place] with PT ([id number]) due to complex medical status, decreased respiratory tolerance, need for 2 skilled therapists to manage transfers/ balance/ track respiratory status. PT worked on transfers, sit to stands, ambulation and B LE exercises. OT worked on ADLs, UE placement during transfers, manipulating tubing during ambulation and energy conservation techniques. Pt requires multiple lengthy recovery breaks throughout therapy due to SOA. Pt has difficulty with completing any activity/task with UE at chest height or higher due to SOA and decreased activity tolerance. Pt able to stand to cleanse allie area/buttocks. Pt donned/doffed shirt by self after set up. Pt able to don socks using sock aide, doff socks by self. Pt used sock aid to don BRYAN hose with min A. Pt used dressing stick to don/doff pants over feet due to decreased respiratory tolerance then was able to stand and hike over hips. Pt started in standing to complete oral care then used chair to sit and finish oral care. Therapy Code Descriptions/Definitions Functional [place] Measure: 0=Not Assessed/NA 4=Minimal Assistance 1=Total Assistance 5=Supervision or Setup 2=Maximal Assistance 6=Modified [place] 3=Moderate Assistance 7=Complete IndependenceSCALE: Activities may be completed with or without assistive devices. 4-Gmgqvbezkd-jgzphtc completes the activity by him/herself with no assistance from a helper. 5-Set-up or Clean-up Assistance-helper sets up or cleans up; patient completes activity. [place] assists only prior to or following the activity. 4-Supervision or Touching Assistance-helper provides verbal cues and/or touching/steadying and/or contact guard assistance as patient completes activity. Assistance may be provided throughout the activity or intermittently. 3-Partial/Moderate Assistance-helper does LESS THAN HALF the effort. [place] lifts, holds or supports trunk or limbs, but provides less than half the effort. 2-Substantial/Maximal Assistance-helper does MORE THAN HALF the effort. [place] lifts or holds trunk or limbs and provides more than half the effort. 0-Bautcuacf-kzziix does ALL the effort. Patient does none of the effort to complete the activity. Or, the assistance of 2 or more helpers is required for the patient to complete the activity. If activity was not attempted, code reason: 7-Patient Refused. 9-Not Applicable-not attempted and the patient did not perform the activity before the current illness, exacerbation or injury. 10-Not Attempted due to Environmental Limitations-(lack of equipment, weather restraints, etc.). 88-Not Attempted due to Medical Conditions or Safety Concerns. Oral Hygiene (QC): 6 Shower/Bathe Self (QC): 5 Upper Body Dressing (QC): 5 Lower Body Dressing (QC): 5 On/Off Footwear: 3 Toileting Hygiene (QC): 4 (SBA to manipulate clothing and cleanse self.) Toilet Transfer (QC): 4 (SBA) Other Treatment Pt completed UE exercises using pursed lip breathing, verbal cues for correct sequence during exercises. Pt complete UE exercises that did not go above heart 15x each then 10x for over heart exercises. Pt took lengthy recovery breaks between each exercise. After therapy, pt sitting in recliner with call light/ phone in reach. All needs met in room. OT Short Term Goals Short Term Goals Oral hygiene: 6 Toileting hygiene: 3 OT Adjunct Latin Professor Goals Adjunct Latin Professor Goals Time Frame: Oct 06, 2019 Eating (QC): 6 Oral Hygiene (QC): 6 Toileting Hygiene (QC): 6 Shower/Bathe Self (QC): 6 Upper Body Dressing (QC): 6 Lower Body Dressing (QC): 6 On/Off Footwear (QC): 6 Additional Goals: 1-Demonstrate ADL Tasks, 2-Verbalize Understanding, 3- ImproveStrength/Kameron 1=Demonstrate adherence to instructed precautions during ADL tasks. 2=Patient will verbalize/demonstrate understanding of assistive devices/modifications for ADL. 3=Patient will improve strength/tolerance for activity to enable patient to perform ADL's. OT Education/Plan Problem List/Assessment Assessment: Decreased Activ Tolerance, Impaired Self-Care Skills Discharge Recommendations Plan/Recommendations: Continue POC Treatment Plan/Plan of Care Patient would benefit from OT for education, treatment and training to promote independence in ADL's, mobility, safety and/or upper extremity function for ADL's. Plan of Care: ADL Retraining, Caregiver Training, Concurrent Therapy, Func tional Mobility, Group Exercise/Act as Ind, UE Funct Exercise/Act Treatment Duration: Oct 06, 2019 Frequency: At least 5 of 7 days/Wk (IRF) Estimated Hrs Per Day: 1.5 hours per day Agreement: Yes Rehab Potential: Fair Time/GCodes Start Time: 08:30 Stop Time: 10:00 Total Time Billed (hr/min): 90 Billed Treatment Time 1 visit-ADL 5 (75 min) EX 1 (15 min) [place] with PT ([id number]) due to complex medical status, decreased respiratory tolerance, need for 2 skilled therapists to manage transfers/ balance/ track respiratory status. Individual [id number] SYLVIA MALDONADO Sep 24, 2019 09:55
--- NOTE | 2019-09-24 09:55 | Physical Therapy Daily Note ---
PT Daily Note-Current Subjective Patient in recliner pre tx, agrees to PT, has unrated pain in abdomen, nurse comes to give patient pain meds during treatment. Will be co-treating with OT due to poor patient mobility, strength, endurance, SOB with even minimal activity, and the need to coordinate UE and LE during activity. Appearance Patient in recliner post tx with nurse call, phone, tray, all needs met. Mental Status Patient Orientation: Normal For Age Attachments: Oxygen Transfers SCALE: Activities may be completed with or without assistive devices. 7-Cxracovxlx-sbpnzgz completes the activity by him/herself with no assistance from a helper. 5-Set-up or Clean-up Assistance-helper sets up or cleans up; patient completes activity. [place] assists only prior to or following the activity. 4-Supervision or Touching Assistance-helper provides verbal cues and/or дмитрий meggan/steadying and/or contact guard assistance as patient completes activity. Assistance may be provided throughout the activity or intermittently. 3-Partial/Moderate Assistance-helper does LESS THAN HALF the effort. [place] lifts, holds or supports trunk or limbs, but provides less than half the effort. 2-Substantial/Maximal Assistance-helper does MORE THAN HALF the effort. [place] lifts or holds trunk or limbs and provides more than half the effort. 0-Xsoavoxdq-udxjsx does ALL the effort. Patient does none of the effort to complete the activity. Or, the assistance of 2 or more helpers is required for the patient to complete the activity. If activity was not attempted, code reason: 7-Patient Refused. 9-Not Applicable-not attempted and the patient did not perform the activity before the current illness, exacerbation or injury. 10-Not Attempted due to Environmental Limitations-(lack of equipment, weather restraints, etc.). 88-Not Attempted due to Medical Conditions or Safety Concerns. Sit to Stand (QC): 4 Chair/Vwl-hf-Oxamw Xfer(QC): 4 Gait Training Distance: 20'x3 Walk 10 feet (QC): 4 Gait Persons Needed: 1 Gait Assistive Device: FWW Slow but steady ambulation, needs occasional cues to keep from getting wound up in her O2 line. Exercises Seated Therapy Exercises: Ankle pumps, Long arc quads, Hip flexion Seated Reps: 20 Treatments ambulation, transfers, LE strengthening, patient stood at the sink and groomed and took care of her dentures, sitting occasionally for SOB Assessment Current Status: Fair Progress slowly improving endurance PT Short Term Goals Short Term Goals Time Frame: Sep 29, 2019 Roll Left & Right: 6 Sit to lyin Lying to sitting on side of be: 6 Sit to stand: 4 (SBA) Chair/zkb-pf-fgkyn transfer: 4 (SBA) Toilet transfer: 4 (SBA) Car transfer: 4 (SBA) Walk 10 feet: 4 (CGA) PT Asset Management Lead Goals Care Home Goals PT Care Home Goals Time Frame: Oct 13, 2019 Roll Left & Right (QC): 6 Sit to Lying (QC): 6 Lying-Sitting on Side/Bed(QC): 6 Sit to Stand (QC): 6 Chair/Grb-zl-Jzaod Xfer(QC): 6 Toilet Transfer (QC): 6 Car Transfer (QC): 6 Walk 10 feet (QC): 6 PT Plan Problem List Problem List: Activity Tolerance, Functional Strength, Safety, Balance, Gait, Transfer, Bed Mobility Treatment/Plan Treatment Plan: Continue Plan of Care Treatment Plan: Bed Mobility, Education, Functional Activity Kameron, Functional Strength, Group Therapy, Gait, Safety, Therapeutic Exercise, Transfers Treatment Duration: Oct 13, 2019 Frequency: Modified Program (IRF) Estimated Hrs Per Day: 1.5 hours per day Patient and/or Family Agrees t: Yes Safety Risks/Education Patient Education: Gait Training, Transfer Techniques, Correct Positioning, Safety Issues Teaching Recipient: Patient Teaching Methods: Demonstration, Discussion Response to Teaching: Reinforcement Needed Time/GCodes Time In: 0900 Time Out: 1000 Total Billed Treatment Time: 60 Total Billed Treatment 1 visit GT 20' EX 10' FA 30' Co-treated for 60 min. PT performed transfers, ambulation, standing during grooming, LE exercise, OT performed dressing, grooming, UE exercise, assist with ambulation and UE activity. YAMILET HOPKINS PT Sep 24, 2019 09:55
--- NOTE | 2019-09-24 10:03 | Progress Note - Cardiology ---
Cardiology SOAP Progress Note Subjective: Sitting up in a recliner at the bedside. C/O abdominal discomfort and dark tarry BM's. No c/o CP or palpitations. Feels she is getting stronger. Objective: I&O/Vital Signs 09/24/19 09/24/19 09/24/19 09/24/19 06:14 06:37 06:41 06:42 Temp 36.0 Pulse 80 Resp 16 B/P (MAP) 134/73 (93) Pulse Ox 97 95 O2 Delivery Nasal Cannula Nasal Cannula Nasal Cannula Nasal Cannula O2 Flow Rate 3.00 3.00 3.00 3.00 09/24/19 00:00 Intake Total 560 ml Output Total 750 ml Balance -190 ml Weight (Pounds): 170 Weight (Ounces): 0.0 Weight (Calculated Kilograms): 77.277569 Constitutional: AAO x 3, well-developed Respiratory: chest expansion is symmetric, chest is bilaterally symmetric, other (good air entry) Cardiovascular: regular rate-rhythm, systolic murmur (SOPHIA) Gastrointestional: No tender; round, distended, audible bowel sounds Extremities: other (mod bilat LE swelling) Neurologic/Psychiatric: grossly intact Skin: No rash on exposed areas, No ulcerations on exposed areas Results/Procedures: Labs Laboratory Tests 09/23/19 15:58: Glucometer 145H 09/23/19 21:01: Glucometer 145H 09/24/19 05:34: Glucometer 136H 09/24/19 06:30: White Blood Count 8.7, Red Blood Count 3.14L, Hemoglobin 8.1L, Hematocrit 27L, Mean Corpuscular Volume 85, Mean Corpuscular Hemoglobin 26, Mean Corpuscular Hemoglobin Concent 30L, Red Cell Distribution Width 18.1H, Platelet Count 564H, Mean Platelet Volume 10.0 09/24/19 10:42: Glucometer 122H Microbiology 09/23/19 Gram Stain - Final, Resulted 09/23/19 Sputum Culture - Preliminary, Resulted Staphylococcus aureus A/P: Assessment: Sepsis and ac resp failure due to ac exac of COPD due to ANTONIA pneumonia PAF with intermittent RVR Anemia due to GI blood loss. Upper and lower endoscopy of 09/21/19: reflux esophagitis(stage 2), moderate gastritis with prepyloric ulcer 5mm size with overlying fibrin clot, no active bleed; mild chronic stage 2 ext and int hemorrhoids, mild sigmoid diverticulosis. CAD. Cath of 10/20/18 showed 75% mid vessel stenosis in the left anterior descending artery that was stented with Jing 2.25 x 18 mm stent. The rest of the coronary vessels have mild to moderate diffuse disease. Normal global left ventricular systolic function with ejection fraction of 65%. Mild to moderate elevation of left ventricular end-diastolic pressure COPD Chronic tobacco use, quit in Jun 2018 Borderline DM II vs IFG Hyperlipidemia 50-60% bilat ICA stenoses on carotid u/s 04/29/2019 Plan: Complex management due to multiple comorbidities (see above) Resume Eliquis when felt to be safe by the Med and Surg services Continue Plavix. Hold ASA Transfuse as needed Advised to stay away from tobacco use Hospitalist and Pulm Svces managing pneumonia, COPD, and sepsis STEPH REVELES Sep 24, 2019 10:03
[2019-09-24] MEDS ORDERED: CATHETER FLUSH 10 ML SYR IV PRN (12:15)
[2019-09-24] MEDS: CATHETER FLUSH 10 ML SYR IV SCH ×2 (14:17→22:12)
--- NOTE | 2019-09-24 14:19 | Physical Therapy Daily Note ---
PT Daily Note-Current Subjective Patient is agreeable to therapy at this time. Appearance Patient in recliner with feet up and call light and bedside table within reach. Mental Status Patient Orientation: Person, Place, Time, Situation Attachments: Oxygen (6L) Transfers SCALE: Activities may be completed with or without assistive devices. 0-Zerwjihiln-rywaldj completes the activity by him/herself with no assistance from a helper. 5-Set-up or Clean-up Assistance-helper sets up or cleans up; patient completes activity. [place] assists only prior to or following the activity. 4-Supervision or Touching Assistance-helper provides verbal cues and/or touching/steadying and/or contact guard assistance as patient completes activity. Assistance may be provided throughout the activity or intermittently. 3-Partial/Moderate Assistance-helper does LESS THAN HALF the effort. [place] lifts, holds or supports trunk or limbs, but provides less than half the effort. 2-Substantial/Maximal Assistance-helper does MORE THAN HALF the effort. [place] lifts or holds trunk or limbs and provides more than half the effort. 8-Iilfidhsm-smfugj does ALL the effort. Patient does none of the effort to complete the activity. Or, the assistance of 2 or more helpers is required for the patient to complete the activity. If activity was not attempted, code reason: 7-Patient Refused. 9-Not Applicable-not attempted and the patient did not perform the activity before the current illness, exacerbation or injury. 10-Not Attempted due to Environmental Limitations-(lack of equipment, weather restraints, etc.). 88-Not Attempted due to Medical Conditions or Safety Concerns. Sit to Stand (QC): 4 (SBA) Toilet Transfer (QC): 4 (SBA) Gait Training Does the Patient Walk?: Yes Distance: 50' x 3 Walk 10 feet (QC): 4 Walk 50 ft with 2 Turns(QC): 4 Gait Assistive Device: FWW CGA for safety. Wheelchair Training Does the Pt Use a Wheelchair?: No Exercises Seated Therapy Exercises: Ankle pumps (20BLE x 2), Long arc quads (15BLE x 2), Hip flexion (15BLE x 2) Treatments Ambulation, transfers, BLE exercises. Assessment Patient needed frequent rest breaks while performing exercises due to SOB. Patient fatigued quickly during ambulation. PT Short Term Goals Short Term Goals Time Frame: Sep 29, 2019 Roll Left & Right: 6 Sit to lyin Lying to sitting on side of be: 6 Sit to stand: 4 (SBA) Chair/aeq-iu-gkzqp transfer: 4 (SBA) Toilet transfer: 4 (SBA) Car transfer: 4 (SBA) Walk 10 feet: 4 (CGA) PT Fraternity Adviser Goals Fdc Goals PT Fraternity Adviser Goals Time Frame: Oct 13, 2019 Roll Left & Right (QC): 6 Sit to Lying (QC): 6 Lying-Sitting on Side/Bed(QC): 6 Sit to Stand (QC): 6 Chair/Due-gd-Mxkbw Xfer(QC): 6 Toilet Transfer (QC): 6 Car Transfer (QC): 6 Walk 10 feet (QC): 6 PT Plan Problem List Problem List: Activity Tolerance, Functional Strength, Safety, Balance, Gait, Transfer, Bed Mobility Treatment/Plan Treatment Plan: Continue Plan of Care Treatment Plan: Bed Mobility, Education, Functional Activity Kameron, Functional Strength, Group Therapy, Gait, Safety, Therapeutic Exercise, Transfers Treatment Duration: Oct 13, 2019 Frequency: Modified Program (IRF) Estimated Hrs Per Day: 1.5 hours per day Patient and/or Family Agrees t: Yes Safety Risks/Education Patient Education: Gait Training, Transfer Techniques Teaching Recipient: Patient Teaching Methods: Discussion Response to Teaching: Reinforcement Needed Time/GCodes Time In: 1300 Time Out: 1330 Total Billed Treatment Time: 30 Total Billed Treatment 1 visit GT 15 EX 15 SHIRA TYLER PT Sep 24, 2019 14:19
--- NOTE | 2019-09-24 16:02 | NUR ---
CM/SS ADMISSION Patient was admitted to ARU 09/22/19 for COPD MYOPATHY after a stay beginning in AV ICU 09/12/19. She had presented to ED 09/12 in critical condition status with severe sepsis and respiratory failure requiring Vapotherm. Patient continues to have a complex medical status and decreased respiratory endurance but has improved to O2 via NC at this time. Patient resided at home with in-home assist through [employer] 17 hours weekly. Environmental Lawyer will contact her Disaster Recovery Coordinator to explore an increase in hours due to change in status. DME: Has Home O2, BiPap with O2, bath chair, grab bars, FWW. Will partner with therapists regarding any DME recommendations to assist patient for post hospital functioning and care. PCP: [facility] PAINT[facility] [place] INSURED: RUPAL Davison O and RPI ([employer])er PHARMACY: [facility] Patient understands the purpose of the Weekly Team Conference, that she will be reviewed overall next week for progress and a proposed target discharge window.
--- NOTE | 2019-09-24 16:16 | Progress Note - Cardiology ---
Cardiology SOAP Progress Note Subjective: Black, tarry stool yesterday and today Gen malaise present Shortness of breath better than at time of admission, but not resolved No cp No palp No syncope No n/v/d Objective: I&O/Vital Signs 09/24/19 09/24/19 09/24/19 09/24/19 06:14 06:37 06:41 06:42 Temp 36.0 Pulse 80 Resp 16 B/P (MAP) 134/73 (93) Pulse Ox 97 95 O2 Delivery Nasal Cannula Nasal Cannula Nasal Cannula Nasal Cannula O2 Flow Rate 3.00 3.00 3.00 3.00 09/24/19 09/24/19 09/24/19 09:00 11:22 14:31 Pulse Ox 97 97 O2 Delivery Nasal Cannula Nasal Cannula Nasal Cannula O2 Flow Rate 3.00 3.00 3.00 09/24/19 00:00 Intake Total 560 ml Output Total 750 ml Balance -190 ml Weight (Pounds): 170 Weight (Ounces): 0.0 Weight (Calculated Kilograms): 77.983809 Constitutional: AAO x 3, well-developed Respiratory: chest expansion is symmetric, chest is bilaterally symmetric, other (good air entry) Cardiovascular: regular rate-rhythm, systolic murmur (SOPHIA) Gastrointestional: No tender; round, distended, audible bowel sounds Extremities: other (mod bilat LE swelling) Neurologic/Psychiatric: grossly intact Skin: No rash on exposed areas, No ulcerations on exposed areas Results/Procedures: Labs Laboratory Tests 09/23/19 21:01: Glucometer 145H 09/24/19 05:34: Glucometer 136H 09/24/19 06:30: White Blood Count 8.7, Red Blood Count 3.14L, Hemoglobin 8.1L, Hematocrit 27L, Mean Corpuscular Volume 85, Mean Corpuscular Hemoglobin 26, Mean Corpuscular Hemoglobin Concent 30L, Red Cell Distribution Width 18.1H, Platelet Count 564H, Mean Platelet Volume 10.0 09/24/19 10:42: Glucometer 122H Microbiology 09/23/19 Gram Stain - Final, Resulted 09/23/19 Sputum Culture - Preliminary, Resulted Staphylococcus aureus Laboratory Tests 09/23/19 05:30 09/24/19 06:30 A/P: Assessment: Sepsis and ac resp failure due to ac exac of COPD due to ANTONIA pneumonia, improved, managed by the Med Svce PAF with intermittent RVR Anemia due to GI blood loss. Upper and lower endoscopy of 09/21/19: reflux esophagitis(stage 2), moderate gastritis with prepyloric ulcer 5mm size with overlying fibrin clot, no active bleed; mild chronic stage 2 ext and int hemorrhoids, mild sigmoid diverticulosis. CAD. Cath of 10/20/18 showed 75% mid vessel stenosis in the left anterior descending artery that was stented with Jing 2.25 x 18 mm stent. The rest of the coronary vessels have mild to moderate diffuse disease. Normal global left ventricular systolic function with ejection fraction of 65%. Mild to moderate elevation of left ventricular end-diastolic pressure COPD Chronic tobacco use, quit in Jun 2018 Borderline DM II vs IFG Hyperlipidemia 50-60% bilat ICA stenoses on carotid u/s 04/29/2019 Plan: Complex management due to multiple comorbidities (see above) Have had to hold Eliquis because pt still has some melena. Resume Eliquis when felt to be safe by the Med and Surg services Continue Plavix. Hold ASA Transfuse as needed Advised to stay away from tobacco use AVANI SAHU MD FACP FACC CCDS Sep 24, 2019 16:16
[2019-09-24 17:32] VITALS: BP 153/78
--- NOTE | 2019-09-24 18:00 | NUR ---
HAS IMPROVED IN ACTIVITY TODAY AND AMBULATING TO BATHROOM EACH TIME INSTEAD OF USING COMMODE. A GOOD DAY.
--- NOTE | 2019-09-24 19:20 | NUR ---
bedside report received from [facility], assume care of pt
--- NOTE | 2019-09-24 21:55 | NUR ---
pt refused rogelio Fernandez & Henry, fabs 138
[2019-09-24 23:00] VITALS: BP 153/78
[2019-09-25] MEDS: RT-ALBUTEROL/IPRATROPIUM 3 ML (DUONEB) VIAL INH SCH ×4 (03:26→22:15)
[2019-09-25 05:18] VITALS: BP 152/77
[2019-09-25] MEDS: SUCRALFATE 1 GM (CARAFATE) TAB PO SCH ×4 (05:53→21:14)
[2019-09-25] MEDS: CATHETER FLUSH 10 ML SYR IV SCH ×3 (05:53→22:29)
[2019-09-25] MEDS: inSUlin ASPART (NovoLOG) 1 UNIT/0.01 ML (CHARGE PER UNIT) SC SCH ×4 (05:57→21:15)
[2019-09-25] MEDS: ADVAIR HFA 115/21 MCG INHALER 8 GM IH SCH ×2 (07:15→22:14)
[2019-09-25] MEDS: UMECLIDINIUM BROMIDE (INCRUSE ELLIPTA) 7'S IH SCH (07:16)
[2019-09-25 08:00] VITALS: BP 149/84
--- NOTE | 2019-09-25 08:00 | NUR ---
STATES TIRED AND GENERALIZED ACHINESS FROM YESTERDAY. WAS MORE ACTIVE WITH THERAPY YESTERDAY. CONTINUED 2+ EDEMA IN LOWER EXTREMITIES. BRYAN HOSE ON. STATES FEELS STIR CRAZY WITH NOT GOING OUT OF ROOM, BUT CAN NOT TOLERATED WEARING MASK OVER OXYGEN.
[2019-09-25] MEDS: DOCUSATE SODIUM 100 MG (COLACE) CAP PO SCH ×2 (08:17→21:18)
[2019-09-25] MEDS: PANTOPRAZOLE 40 MG (PROTONIX) TAB PO SCH ×2 (08:17→21:15)
[2019-09-25] MEDS: CLOPIDOGREL 75 MG (PLAVIX) TABLET PO SCH (08:17)
[2019-09-25] MEDS: SENNA W/DOCUSATE (SENOKOT S) TABLET PO SCH ×2 (08:17→21:18)
[2019-09-25] MEDS: LINEZOLID (ZYVOX) 600 MG TAB PO SCH (08:17)
[2019-09-25] MEDS: polyethylene glycoL POWDER 17 GM (MIRALAX) PACK PO SCH ×2 (08:19→21:18)
--- NOTE | 2019-09-25 08:56 | Physical Therapy Daily Note ---
PT Daily Note-Current Subjective Pt laying Supine in bed upon arrival. Nurse is present. Pt agrees to PT. Due to droplet precaution & pt not wanting to wear mask to leave room, pt completes Rx in room. Pain Numeric Pain Scale: 3 Comment: Pt reports generalized pain throughout body but reports tolerable. Mental Status Patient Orientation: Person, Place, Time, Situation Transfers SCALE: Activities may be completed with or without assistive devices. 3-Fhxxyqspkn-nvstxwz completes the activity by him/herself with no assistance from a helper. 5-Set-up or Clean-up Assistance-helper sets up or cleans up; patient completes activity. [place] assists only prior to or following the activity. 4-Supervision or Touching Assistance-helper provides verbal cues and/or touching/steadying and/or contact guard assistance as patient completes activity . Assistance may be provided throughout the activity or intermittently. 3-Partial/Moderate Assistance-helper does LESS THAN HALF the effort. [place] lifts, holds or supports trunk or limbs, but provides less than half the effort. 2-Substantial/Maximal Assistance-helper does MORE THAN HALF the effort. [place] lifts or holds trunk or limbs and provides more than half the effort. 7-Wpkvgmbrk-rzamvo does ALL the effort. Patient does none of the effort to complete the activity. Or, the assistance of 2 or more helpers is required for the patient to complete the activity. If activity was not attempted, code reason: 7-Patient Refused. 9-Not Applicable-not attempted and the patient did not perform the activity before the current illness, exacerbation or injury. 10-Not Attempted due to Environmental Limitations-(lack of equipment, weather restraints, etc.). 88-Not Attempted due to Medical Conditions or Safety Concerns. Sit to Lying (QC): 5 Lying to Sitting/Side of Bed(Q: 5 Sit to Stand (QC): 5 Toilet Transfer (QC): 5 Weight Bearing Right Lower Extremity: Right Full Weight Bearing Left Lower Extremity: Left Full Weight Bearing Gait Training Does the Patient Walk?: Yes Distance: 50' Walk 10 feet (QC): 5 Walk 50 ft with 2 Turns(QC): 5 Gait Persons Needed: 1 Gait Assistive Device: FWW MANAGER GARDEN only assists with managing O2 line. Wheelchair Training Does the Pt Use a Wheelchair?: No Exercises Seated Therapy Exercises: Ankle pumps, Long arc quads, Hip flexion, Kicking activity, Hip abd/add, Glut set Seated Reps: 20 Treatments Pt transfers from Supine to EOB and takes RB for dizziness. Pt then transfers to standing using FWW. Pt ambulates in room before reporting using to use restroom. Pt returns to recliner to rest after restroom. Pt completes Seated E x then resting in recliner with all needs met, call light in hand. Assessment Current Status: Good Progress Pt fatigues needing occasional short RB to recover. PT Short Term Goals Short Term Goals Time Frame: Sep 29, 2019 Roll Left & Right: 6 Sit to lyin Lying to sitting on side of be: 6 Sit to stand: 4 (SBA) Chair/qvj-yr-fbnja transfer: 4 (SBA) Toilet transfer: 4 (SBA) Car transfer: 4 (SBA) Walk 10 feet: 4 (CGA) PT Jail Goals Manager Ethics Goals PT Jail Goals Time Frame: Oct 13, 2019 Roll Left & Right (QC): 6 Sit to Lying (QC): 6 Lying-Sitting on Side/Bed(QC): 6 Sit to Stand (QC): 6 Chair/Zpw-wn-Zmgtf Xfer(QC): 6 Toilet Transfer (QC): 6 Car Transfer (QC): 6 Walk 10 feet (QC): 6 PT Plan Problem List Problem List: Activity Tolerance, Functional Strength Treatment/Plan Treatment Plan: Continue Plan of Care Treatment Plan: Bed Mobility, Education, Functional Activity Kameron, Functional Strength, Group Therapy, Gait, Safety, Therapeutic Exercise, Transfers Treatment Duration: Oct 13, 2019 Frequency: Modified Program (IRF) Estimated Hrs Per Day: 1.5 hours per day Patient and/or Family Agrees t: Yes Safety Risks/Education Patient Education: Gait Training, Transfer Techniques, Correct Positioning, Safety Issues Teaching Recipient: Patient Teaching Methods: Discussion Response to Teaching: Verbalize Understanding Time/GCodes Time In: 820 Time Out: 850 Total Billed Treatment Time: 30 Total Billed Treatment 1, FA (15m) EX (15m) BRINA ARNETT MANAGER GARDEN Sep 25, 2019 08:56
[2019-09-25] MEDS: HYDROcodone/APAP 5 MG/325 MG (LORTAB) TAB PO PRN (09:58)
--- NOTE | 2019-09-25 10:16 | Occupational Ther Daily Note ---
OT Current Status-Daily Note Subjective Pt seen in room, up in recliner, agreeable to OT. No pain mentioned. Appearance Alert, cooperative ADL-Treatment Therapy Code Descriptions/Definitions Functional [place] Measure: 0=Not Assessed/NA 4=Minimal Assistance 1=Total Assistance 5=Supervision or Setup 2=Maximal Assistance 6=Modified [place] 3=Moderate Assistance 7=Complete IndependenceSCALE: Activities may be completed with or without assistive devices. 7-Kzzcjrvvda-kvcxhfv completes the activity by him/herself with no assistance from a helper. 5-Set-up or Clean-up Assistance-helper sets up or cleans up; patient completes activity. [place] assists only prior to or following the activity. 4-Supervision or Touching Assistance-helper provides verbal cues and/or touching/steadying and/or contact guard assistance as patient completes acti vity. Assistance may be provided throughout the activity or intermittently. 3-Partial/Moderate Assistance-helper does LESS THAN HALF the effort. [place] lifts, holds or supports trunk or limbs, but provides less than half the effort. 2-Substantial/Maximal Assistance-helper does MORE THAN HALF the effort. [place] lifts or holds trunk or limbs and provides more than half the effort. 9-Ffjjorqlo-bkgtcz does ALL the effort. Patient does none of the effort to complete the activity. Or, the assistance of 2 or more helpers is required for the patient to complete the activity. If activity was not attempted, code reason: 7-Patient Refused. 9-Not Applicable-not attempted and the patient did not perform the activity before the current illness, exacerbation or injury. 10-Not Attempted due to Environmental Limitations-(lack of equipment, weather restraints, etc.). 88-Not Attempted due to Medical Conditions or Safety Concerns. Other Treatment Pt completed 10 reps of 5 different bilat UE exercises with yellow theraband (gentle resistance). Pt required recovery periods after each set of exercises and after exercise with one extremity before switching sides. On O2 throughout. Pt able to do pursed lip breathing without cues. While recovering, pt provided education on energy conservation, focusing on pacing herself. Pt was able to practice this while doing exercises and recognizing physical cues of recovery. Pt left up in recliner, all needs met, O2 in place. Education OT Patient Education: Energy conservation, Home exercise program, Purpose of tx/functional activities Teaching Recipient: Patient Teaching Methods: Demonstration, Discussion Response to Teaching: Verbalize Understanding, Return Demonstration OT Short Term Goals Short Term Goals Oral hygiene: 6 Toileting hygiene: 3 OT Half-Way Goals Nursing Program Coordinator Goals Time Frame: Oct 06, 2019 Eating (QC): 6 Oral Hygiene (QC): 6 Toileting Hygiene (QC): 6 Shower/Bathe Self (QC): 6 Upper Body Dressing (QC): 6 Lower Body Dressing (QC): 6 On/Off Footwear (QC): 6 Additional Goals: 1-Demonstrate ADL Tasks, 2-Verbalize Understanding, 3- ImproveStrength/Kameron 1=Demonstrate adherence to instructed precautions during ADL tasks. 2=Patient will verbalize/demonstrate understanding of assistive devices/modifications for ADL. 3=Patient will improve strength/tolerance for activity to enable patient to perform ADL's. OT Education/Plan Discharge Recommendations Plan/Recommendations: Continue POC Treatment Plan/Plan of Care Patient would benefit from OT for education, treatment and training to promote independence in ADL's, mobility, safety and/or upper extremity function for ADL's. Plan of Care: ADL Retraining, Caregiver Training, Concurrent Therapy, Functional Mobility, Group Exercise/Act as Ind, UE Funct Exercise/Act Treatment Duration: Oct 06, 2019 Frequency: At least 5 of 7 days/Wk (IRF) Estimated Hrs Per Day: 1.5 hours per day Agreement: Yes Rehab Potential: Fair Time/GCodes Start Time: 09:00 Stop Time: 09:30 Total Time Billed (hr/min): 30 Billed Treatment Time visit, 30 minutes exercise PEDRO GRAYSON OT Sep 25, 2019 10:15
--- NOTE | 2019-09-25 12:51 | PM&R Progress Note ---
Subjective HPI/CC On Admission Date Seen by Provider: Sep 25, 2019 Time Seen by Provider: 13:00 Subjective/Events-last exam Pt doing very well Sputum did show once again the MRSA so she remains in isolation Maintained on Zyvox Off Vapotherm completely Overall dramatically improved since admission Lower extremity edema continues and wearing BRYAN's Hgb 8.1, had some bloody stools yesterday, stopped Eliquis and maintained on Plavix since that is absolutely required per cardiology Dark tarry stools will hold Eliquis Zyvox will stop today Checked meds and labs Conferred with RN Reviewed therapy notes Review of Systems General: Fatigue Pulmonary: Dyspnea Cardiovascular: Edema Objective Exam Vital Signs Vital Signs Date Time Temp Pulse Resp B/P (MAP) Pulse Ox O2 Delivery O2 Flow Rate FiO2 09/25/19 07:19 Nasal Cannula 3.00 09/25/19 07:18 97 09/25/19 05:18 35.8 75 18 152/77 (102) 09/23/19 09:42 40 Capillary Refill : Less Than 3 Seconds General Appearance: No Apparent Distress, WD/WN, Anxious, Chronically ill HEENT: PERRL/EOMI, Normal ENT Inspection, Pharynx Normal Neck: Full Range of Motion, Normal Inspection, Non Tender, Supple, Carotid Bruit Respiratory: Chest Non Tender, No Accessory Muscle Use, No Respiratory Distress, Decreased Breath Sounds Cardiovascular: Regular Rate, Rhythm, No Gallop, No JVD, No Murmur, Normal Peripheral Pulses Gastrointestinal: Normal Bowel Sounds, No Organomegaly, No Pulsatile Mass, Non Tender, Soft Back: Normal Inspection, No CVA Tenderness, No Vertebral Tenderness Extremity: Normal Capillary Refill, Normal Inspection, Normal Range of Motion, Non Tender, No Calf Tenderness, Pedal Edema Neurologic/Psychiatric: Alert, Oriented x3, No Motor/Sensory Deficits, Normal Mood/Affect, Motor Weakness Skin: Normal Color, Warm/Dry Lymphatic: No Adenopathy Results/Procedures Lab Patient resulted labs reviewed. FIM Transfers Therapy Code Descriptions/Definitions Functional [place] Measure: 0=Not Assessed/NA 4=Minimal Assistance 1=Total Assistance 5=Supervision or Setup 2=Maximal Assistance 6=Modified [place] 3=Moderate Assistance 7=Complete IndependenceSCALE: Activities may be completed with or without assistive devices. 9-Qslyvatfbx-miibdub completes the activity by him/herself with no assistance from a helper. 5-Set-up or Clean-up Assistance-helper sets up or cleans up; patient completes activity. [place] assists only prior to or following the activity. 4-Supervision or Touching Assistance-helper provides verbal cues and/or touching/steadying and/or contact guard assistance as patient completes activity. Assistance may be provided throughout the activity or intermittently. 3-Partial/Moderate Assistance-helper does LESS THAN HALF the effort. [place] lifts, holds or supports trunk or limbs, but provides less than half the effort. 2-Substantial/Maximal Assistance-helper does MORE THAN HALF the effort. [place] lifts or holds trunk or limbs and provides more than half the effort. 7-Foqhflmrr-xzzprb does ALL the effort. Patient does none of the effort to complete the activity. Or, the assistance of 2 or more helpers is required for the patient to complete the activity. If activity was not attempted, code reason: 7-Patient Refused. 9-Not Applicable-not attempted and the patient did not perform the activity before the current illness, exacerbation or injury. 10-Not Attempted due to Environmental Limitations-(lack of equipment, weather restraints, etc.). 88-Not Attempted due to Medical Conditions or Safety Concerns. Roll Left to Right (QC): 6 Sit to Lying (QC): 5 Sit to Stand (QC): 5 Chair/Vaf-bo-Tkqrm Xfer(QC): 4 Car Transfer (QC): 4 Gait Training Does the Patient Walk?: Yes Distance: 50' Walk 10 feet (QC): 5 Walk 50 ft with 2 Turns(QC): 5 Walk 150 ft (QC): 88 Walking 10ft/uneven surface-QC: 88 Gait Persons Needed: 1 Gait Assistive Device: FWW Wheelchair Training Does the Pt Use a Wheelchair?: No Wheel 50 ft with 2 turns (QC): 1 Wheel 150 ft (QC): 1 Type of Wheelchair: Manual Stair Training 1 Step (curb) (QC): 88 4 Steps (QC): 88 12 Steps (QC): 88 Balance Picking up an Object (QC): 88 ADL-Treatment Eating (QC): 6 (per pt.) Oral Hygiene (QC): 6 Shower/Bathe Self (QC): 5 Upper Body Dressing (QC): 5 Lower Body Dressing (QC): 5 On/Off Footwear (QC): 3 Toileting Hygiene (QC): 4 (SBA to manipulate clothing and cleanse self.) Toilet Transfer (QC): 4 (SBA) Assessment/Plan Assessment and Plan Assess & Plan/Chief Complaint Assessment: COPD myopathy s/p Severe sepsis placed on aggressive IV fluid protocol s/p MRSA pneumonia left lung nearly white out post influenza placed on broad- spectrum Zosyn and vancomycin to cover for MRSA pneumonia post influenza which ultimately revealed MRSA in sputum s/p Influenza B s/p Tamiflu s/p Exacerbation of COPD placed on IV steroids and nebulizer treatments Obstructive sleep apnea maintain on BiPAP Dr. Kirkland CAD previous stent placed by Dr. Williamson consulted cardiology Episodes of atrial fibrillation with rapid ventricular response on telemetry consulting cardiology High risk for DVT placed on Lovenox Severe leukocytosis Anemia of chronic illness s/p transfusion Edema Plan: IRF protocol Monitor closely Cardiology and Pulmo appreciated Weaned Vapotherm Maintain Plavix, Hold OAC BRYAN's (1) Respiratory failure Status: Acute (2) Anemia (3) CAD (coronary artery disease) (4) Leukocytosis (5) Atrial fibrillation with RVR (6) COPD (chronic obstructive pulmonary disease) Status: Acute (7) Obstructive sleep apnea Status: Chronic (8) Myopathy (9) Former smoker (10) History of coronary artery stent placement BERTRAND CUEVAS DO Sep 25, 2019 12:51
--- NOTE | 2019-09-25 12:52 | Individualized Plan of Care ---
Individualized Plan of Care Rehab Nursing IPOC Order Admission Date Sep 22, 2019 at 15:33 Current Orders Orders Admission Order(Inpt,Obs,Sdc) (09/22/19 14:15) Vital Signs: Per Unit Policy ( 08,16,00 (09/22/19 14:15) Jack Scott 09,21 (09/22/19 14:15) Sequential Compression Device Q4H (09/22/19 14:15) Cam Maker-Inpt Rehab Con (09/22/19 14:15) Rehab Nursing Orders-Ipoc (09/22/19 14:15) Physical Therapy Rehab Orders (09/22/19 14:15) Occupational Therapy Rehab Ord (09/22/19 14:15) Speech Therapy Rehab Orders (09/22/19 14:15) Cbc With Automated Diff (09/23/19 06:00) Comprehensive Metabolic Panel (09/23/19 06:00) Sodium 2g (2000 Mg) (09/22/19 Dinner) Intake & Output 06,14,22 (09/22/19 14:15) Precautions (Aru) (09/22/19 14:15) Daily Weight 06 (09/22/19 14:15) Rehab-Intensity Of Therapy (09/22/19 14:15) Initiate Admission Nursing Pro .admission (09/22/19 14:15) Acetaminophen Tablet (Tylenol Tablet) (09/22/19 14:15) Alprazolam Tablet (Xanax Tablet) (09/22/19 14:15) Calcium Carbonate Chew Tablet (Antacid C (09/22/19 14:15) Diphenhydramine Tablet (Benadryl Tablet) (09/22/19 14:15) Docusate Sodium Capsule (Colace Capsule) (09/22/19 21:00) Docusate Sodium Capsule (Colace Capsule) (09/22/19 14:15) Bisacodyl Suppository (Dulcolax Supposit (09/22/19 14:15) Lactulose Oral Solution (Enulose Oral So (09/22/19 14:15) Na Phos/Na Biphos Enema (Fleet Enema Zeeshan (09/22/19 14:15) Guaifenesin/Codeine Syrup (Robitussin Ac (09/22/19 14:15) Loperamide Tablet (Imodium Tablet) (09/22/19 14:15) Melatonin Tablet (Melatonin Tablet) (09/22/19 14:15) Polyethylene Glycol Powder Pkt (Miralax (09/22/19 21:00) Ondansetron Injection (Zofran Injectio (09/22/19 14:15) Ondansetron Oral Dissolve Tab (Zofran (09/22/19 14:15) Senna S Tablet (Senokot S Tablet) (09/22/19 21:00) Initiate Admission Nursing Pro .admission (09/22/19 14:15) Patient Visit (09/22/19 ) Pt Eval Moderate Complexity (09/22/19 ) Functional Activities, Ea 15 (09/22/19 ) Code/Resuscitation (09/22/19 16:15) Accucheck Achs ACHS (09/22/19 16:15) Nursing Communication (Order) (09/22/19 16:15) Heart Healthy (09/23/19 Breakfast) Acetaminophen Tablet/Caplet (Tylenol T (09/22/19 16:15) Albuterol/Ipra Inhalation Soln (Duoneb I (09/22/19 16:15) Apixaban Tablet (Eliquis Tablet) (09/22/19 21:00) Clopidogrel Tablet (Plavix Tablet) (09/23/19 09:00) Diltiazem Cd 24 Hr Capsule (Cardizem Cd (09/23/19 09:00) Fluticasone/Salmeterol 115/21 (Advair Hf (09/22/19 20:00) Hydrocodone/Apap 5/325 Tablet (Lortab 5 (09/22/19 16:15) Linezolid Tablet (Zyvox Tablet) (09/22/19 21:00) Ondansetron Injection (Zofran Injectio (09/22/19 16:15) Pantoprazole Tablet (Protonix Tablet) (09/22/19 21:00) Polyethylene Glycol Powder Pkt (Miralax (09/22/19 16:15) Umeclidinium [place] Inhaler (Incruse El (09/23/19 08:00) Insulin Aspart (Novolog) (Novolog (Charg (09/22/19 21:00) Morphine Injection (Morphine Injection (09/22/19 16:15) Bipap (Bilevel) Set Up (09/22/19 16:15) Consult Cardiology (09/22/19 16:15) Consult General Surgery (09/22/19 16:15) Consult Pulmonology (09/22/19 16:15) Mdi Treatment (09/22/19 16:15) Rt Request For Service (09/22/19 16:15) Telemetry Nursing Assessment ( (09/22/19 16:15) Svn Small Volume Nebulizer (09/22/19 16:15) Influenza Quad (5+Yoa) (Afluria (09/22/19 16:45) Albuterol/Ipra Inhalation Soln (Duoneb I (09/23/19 10:00) Catheter(Urinary) Discontinue (09/23/19 09:33) Sputum Culture (09/23/19 10:55) Sucralfate Tablet (Carafate Tablet) (09/23/19 16:00) Patient Visit (09/23/19 ) Speech Sound Lang Comp (09/23/19 ) Patient Visit (09/23/19 ) Exercise Therap, Ea 15 Min (09/23/19 ) Functional Activities, Ea 15 (09/23/19 ) Cbc No Diff (09/24/19 06:00) Sodium Chloride Flush (Catheter Flush Sy (09/24/19 12:15) Sodium Chloride Flush (Catheter Flush Sy (09/24/19 14:00) Patient Visit (09/24/19 ) Functional Activities, Ea 15 (09/24/19 ) Gait Training, Ea 15 Min (09/24/19 ) Exercise Therap, Ea 15 Min (09/24/19 ) Patient Visit (09/24/19 ) Exercise Therap, Ea 15 Min (09/24/19 ) Gait Training, Ea 15 Min (09/24/19 ) Albuterol/Ipra Inhalation Soln (Duoneb I (09/25/19 03:00) Mat Initiate Protocol (09/24/19 23:08) Patient Visit (09/25/19 ) Functional Activities, Ea 15 (09/25/19 ) Exercise Therap, Ea 15 Min (09/25/19 ) Basic Metabolic Panel (09/26/19 05:00) Cbc With Automated Diff (09/26/19 05:00) Rehab Nursing Orders: Ongoing Assess. of Function Status, Bowel Management, Disease Management & Educaiton, DVT Prophylaxis, Fall Prevention, Fluid/Electrolyte/Nutrition Mgmt, Infection Prevention, Medication Management & Education, Management of Risks & Complications, Management of Skin Intergrity, Nutrition Management, Pain Management, Patient/Family Support, Safety Management Intensity of Therapy to be met Patient to be seen: 15 hrs over 7 cons. days PT IPOC Problem List: Activity Tolerance, Functional Strength Treatment Plan: Continue Plan of Care Bed Mobility, Education, Functional Activity Kameron, Functional Strength, Group Therapy, Gait, Safety, Therapeutic Exercise, Transfers Treatment Duration: Oct 13, 2019 Frequency: Modified Program (IRF) Estimated Hrs Per Day: 1.5 hours per day OT IPOC Problems: Decreased Activ Tolerance, Impaired Self-Care Skills OT Treatment, Training and Edu: Yes Plan of Care: ADL Retraining, Caregiver Training, Concurrent Therapy, Functional Mobility, Group Exercise/Act as Ind, UE Funct Exercise/Act Treatment Duration: Oct 06, 2019 Frequency: At least 5 of 7 days/Wk (IRF) Estimated Hrs Per Day: 1.[address] IPOC Speech Therapy Treatment Plan: Discontinue ST Treatment Duration: Sep 23, 2019 Frequency: 1 time per week Estimated Hrs Per Day: .25 hour per day Cam Maker/Case Mgmt Cam Maker/Case Managemen: Discharge Planning Dietitian/Board Certified Orthodontist Dietitian/Board Certified Orthodontist to monitor nutritional status and make changes and/or recommendations as needed and work with speech pathology on dietary upgrades as the occur. Physician IPOC Medical Issues being managed closely and that require the 24 hour availability of a physician: Recent severe respiratory failure and AF and GIB and anemia will require close monitoring or resp status Medical Issues: Bowel/Bladder Function, DVT Prophylaxis, Falls Precautions, Fluid/Electrolyte/Nutrition Balance, Pain Management Brief Synthesis of Preadmission Screen, Post-Admission Evaluation, and Therapy Evaluations: PT OT will focus on regaining PLOF in order to return home after a 2 week ICU course Medical Prognosis: Good Anticipated Length of Stay: 7 days BERTRAND CUEVAS DO Sep 25, 2019 12:52
--- NOTE | 2019-09-25 14:07 | Progress Note - Cardiology ---
Cardiology SOAP Progress Note Subjective: Has not noted black, tarry stools since early yesterday No cp or palp or syncope Shortness of breath and malaise slowly improving Objective: I&O/Vital Signs 09/25/19 09/25/19 09/25/19 09/25/19 03:27 05:18 07:18 07:19 Temp 35.8 Pulse 75 Resp 18 B/P (MAP) 152/77 (102) Pulse Ox 95 97 97 O2 Delivery NIV CPAP Nasal Cannula Nasal Cannula Nasal Cannula O2 Flow Rate 3.00 3.00 3.00 3.00 09/25/19 07:19 O2 Delivery Nasal Cannula O2 Flow Rate 3.00 09/25/19 00:00 Intake Total 990 ml Output Total 1000 ml Balance -10 ml Weight (Pounds): 170 Weight (Ounces): 0.0 Weight (Calculated Kilograms): 77.257956 Constitutional: AAO x 3, well-developed Respiratory: chest expansion is symmetric, chest is bilaterally symmetric, other (good air entry) Cardiovascular: regular rate-rhythm, systolic murmur (SOPHIA) Gastrointestional: No tender; round, distended, audible bowel sounds Extremities: other (mod bilat LE swelling) Neurologic/Psychiatric: grossly intact Skin: No rash on exposed areas, No ulcerations on exposed areas Results/Procedures: Labs Laboratory Tests 09/24/19 16:11: Glucometer 109 09/24/19 21:58: Glucometer 138H 09/25/19 05:47: Glucometer 129H 09/25/19 12:06: Glucometer 117H Microbiology 09/23/19 Gram Stain - Final, Complete 09/23/19 Sputum Culture - Final, Complete Staphylococcus aureus A/P: Assessment: Sepsis and ac resp failure due to ac exac of COPD due to ANTONIA pneumonia, improved, managed by the Med Svce PAF with intermittent RVR Anemia due to GI blood loss. Upper and lower endoscopy of 09/21/19: reflux esophagitis(stage 2), moderate gastritis with prepyloric ulcer 5mm size with overlying fibrin clot, no active bleed; mild chronic stage 2 ext and int hem orrhoids, mild sigmoid diverticulosis. CAD. Cath of 10/20/18 showed 75% mid vessel stenosis in the left anterior descending artery that was stented with Jing 2.25 x 18 mm stent. The rest of the coronary vessels have mild to moderate diffuse disease. Normal global left ventricular systolic function with ejection fraction of 65%. Mild to moderate elevation of left ventricular end-diastolic pressure COPD Chronic tobacco use, quit in Jun 2018 Borderline DM II vs IFG Hyperlipidemia 50-60% bilat ICA stenoses on carotid u/s 04/29/2019 Plan: * Complex management due to multiple comorbidities (see above) * Have had to hold Eliquis because pt still has some melena. Resume Eliquis when felt to be safe by the Med and Surg services * Continue Plavix. Hold ASA * Transfuse as needed * Advised to stay away from tobacco use * Repeat labs AVANI SAHU MD FACP FAC CCDS Sep 25, 2019 14:07
[2019-09-25 17:55] VITALS: BP 140/65
--- NOTE | 2019-09-25 18:00 | NUR ---
STILL VERY SOB WITH EXERTION, OTHERWISE DOING VERY WELL.
--- NOTE | 2019-09-25 19:12 | NUR ---
bedside report received from [facility], assume care of pt
--- NOTE | 2019-09-25 21:15 | NUR ---
fsbs 104, pt refused Senokot & miralax, to bathroom with 1 person assist & walker
[2019-09-26] MEDS: RT-ALBUTEROL/IPRATROPIUM 3 ML (DUONEB) VIAL INH SCH ×3 (03:48→15:39)
[2019-09-26] MEDS: ACETAMINOPHEN 500 MG TAB (TYLENOL) PO PRN (04:13)
--- NOTE | 2019-09-26 04:13 | NUR ---
c/o rib pain level 3/10 on numeric scale, Tylenol 500mg given
--- NOTE | 2019-09-26 05:00 | NUR ---
resting quietly in bed, pain level 0/10 on flacc scale
[2019-09-26] MEDS: CATHETER FLUSH 10 ML SYR IV SCH ×3 (05:30→22:35)
[2019-09-26 05:45] VITALS: BP 161/73
[2019-09-26 05:49] LABS: BASOPHILS % (AUTO) 0 % (0-10); EOSINOPHILS # (AUTO) 0.4 10^3/uL (0.0-0.3); EOSINOPHILS % (AUTO) 5 % (0-10); HEMATOCRIT 25 % (35-52); HEMOGLOBIN 7.6 G/DL (11.5-16.0); LYMPHOCYTES % (AUTO) 13 % (12-44); MEAN CORPUSCULAR HEMOGLOBIN 26 PG (25-34); MEAN CORPUSCULAR HGB CONC 30 G/DL (32-36); MEAN CORPUSCULAR VOLUME 86 FL (80-99); MEAN PLATELET VOLUME 9.7 FL (7.4-10.4); MONOCYTES # (AUTO) 0.7 X 10^3 (0.0-1.0); MONOCYTES % (AUTO) 9 % (0-12); NEUTROPHILS # (AUTO) 5.7 X 10^3 (1.8-7.8); NEUTROPHILS % (AUTO) 74 % (42-75); PLATELET COUNT 541 10^3/uL (130-400); RED CELL DISTRIBUTION WIDTH 17.4 % (10.0-14.5); WHITE BLOOD COUNT 7.7 10^3/uL (4.3-11.0)
[2019-09-26] MEDS: inSUlin ASPART (NovoLOG) 1 UNIT/0.01 ML (CHARGE PER UNIT) SC SCH ×4 (06:00→20:22)
[2019-09-26 06:10] LABS: BUN/CREATININE RATIO 17; CALCIUM 8.3 MG/DL (8.5-10.1); CARBON DIOXIDE 24 MMOL/L (21-32); CHLORIDE 102 MMOL/L (98-107); CREATININE SERUM 0.52 MG/DL (0.60-1.30); GFR ESTIMATED > 60; GLUCOSE 117 MG/DL (70-105); POTASSIUM 3.7 MMOL/L (3.6-5.0); SODIUM 135 MMOL/L (135-145)
[2019-09-26] MEDS: SUCRALFATE 1 GM (CARAFATE) TAB PO SCH ×4 (06:21→20:16)
[2019-09-26 08:00] VITALS: BP 142/67
--- NOTE | 2019-09-26 08:00 | NUR ---
ADMITS TO WEAKNESS AND SOB, BUT STATES FEELS BETTER THAN HAS IN MONTHS. O2 CONTINUES AT 3L AND QUITE SOB WITH EXERTION. DENIES PAIN.
[2019-09-26] MEDS: PANTOPRAZOLE 40 MG (PROTONIX) TAB PO SCH ×2 (08:23→20:15)
[2019-09-26] MEDS: CLOPIDOGREL 75 MG (PLAVIX) TABLET PO SCH (08:23)
[2019-09-26] MEDS: DOCUSATE SODIUM 100 MG (COLACE) CAP PO SCH ×2 (08:26→20:15)
[2019-09-26] MEDS: polyethylene glycoL POWDER 17 GM (MIRALAX) PACK PO SCH ×2 (08:26→20:15)
[2019-09-26] MEDS: SENNA W/DOCUSATE (SENOKOT S) TABLET PO SCH ×2 (08:26→20:22)
[2019-09-26] MEDS: ADVAIR HFA 115/21 MCG INHALER 8 GM IH SCH (10:30)
[2019-09-26] MEDS: UMECLIDINIUM BROMIDE (INCRUSE ELLIPTA) 7'S IH SCH (10:30)
--- NOTE | 2019-09-26 13:00 | NUR ---
DR. CUEVAS INFORMED OF RASH UNDER BREASTS AND WILL START ON NYSTATIN CREAM. ALSO HGB DROPPING AND VENOFER WILL BE STARTED. I.S. ENCOURAGED AND INTERVENTION PUT IN.
--- NOTE | 2019-09-26 13:42 | PM&R Progress Note ---
Subjective HPI/CC On Admission Date Seen by Provider: Sep 26, 2019 Time Seen by Provider: 13:00 Subjective/Events-last exam Pt doing very well Sputum did show once again the MRSA so she remains in isolation Off Vapotherm completely on NC Overall dramatically improved since admission Lower extremity edema continues and wearing BRYAN's and that seems to be helping Hgb lower today and only dark stool not tarry since stopping OAC but maintained on Plavix since it is absolutely necessary Checked meds and labs Conferred with RN Reviewed therapy notes Review of Systems General: Fatigue Pulmonary: Dyspnea Objective Exam Vital Signs Vital Signs Date Time Temp Pulse Resp B/P (MAP) Pulse Ox O2 Delivery O2 Flow Rate FiO2 09/26/19 17:51 36.6 80 20 148/78 (101) 97 Nasal Cannula 3.00 09/23/19 09:42 40 Capillary Refill : Less Than 3 Seconds General Appearance: No Apparent Distress, WD/WN, Anxious, Chronically ill HEENT: PERRL/EOMI, Normal ENT Inspection, Pharynx Normal Neck: Full Range of Motion, Normal Inspection, Non Tender, Supple, Carotid Bruit Respiratory: Chest Non Tender, No Accessory Muscle Use, No Respiratory Distress, Decreased Breath Sounds Cardiovascular: Regular Rate, Rhythm, No Gallop, No JVD, No Murmur, Normal Peripheral Pulses Gastrointestinal: Normal Bowel Sounds, No Organomegaly, No Pulsatile Mass, Non Tender, Soft Back: Normal Inspection, No CVA Tenderness, No Vertebral Tenderness Extremity: Normal Capillary Refill, Normal Inspection, Normal Range of Motion, Non Tender, No Calf Tenderness, Pedal Edema Neurologic/Psychiatric: Alert, Oriented x3, No Motor/Sensory Deficits, Normal Mood/Affect, Motor Weakness Skin: Normal Color, Warm/Dry Lymphatic: No Adenopathy Results/Procedures Lab Laboratory Tests 09/26/19 05:28 Patient resulted labs reviewed. FIM Transfers Therapy Code Descriptions/Definitions Functional [place] Measure: 0=Not Assessed/NA 4=Minimal Assistance 1=Total Assistance 5=Supervision or Setup 2=Maximal Assistance 6=Modified [place] 3=Moderate Assistance 7=Complete IndependenceSCALE: Activities may be completed with or without assistive devices. 1-Oprxodjdav-jhtrwad completes the activity by him/herself with no assistance from a helper. 5-Set-up or Clean-up Assistance-helper sets up or cleans up; patient completes activity. [place] assists only prior to or following the activity. 4-Supervision or Touching Assistance-helper provides verbal cues and/or touching/steadying and/or contact guard assistance as patient completes activity. Assistance may be provided throughout the activity or intermittently. 3-Partial/Moderate Assistance-helper does LESS THAN HALF the effort. [place] lifts, holds or supports trunk or limbs, but provides less than half the effort. 2-Substantial/Maximal Assistance-helper does MORE THAN HALF the effort. [place] lifts or holds trunk or limbs and provides more than half the effort. 6-Dgcdulovt-tzxgbx does ALL the effort. Patient does none of the effort to complete the activity. Or, the assistance of 2 or more helpers is required for the patient to complete the activity. If activity was not attempted, code reason: 7-Patient Refused. 9-Not Applicable-not attempted and the patient did not perform the activity before the current illness, exacerbation or injury. 10-Not Attempted due to Environmental Limitations-(lack of equipment, weather restraints, etc.). 88-Not Attempted due to Medical Conditions or Safety Concerns. Roll Left to Right (QC): 6 Sit to Lying (QC): 5 Sit to Stand (QC): 5 Chair/Kii-ue-Vqttl Xfer(QC): 4 Car Transfer (QC): 4 Gait Training Does the Patient Walk?: Yes Distance: 50' Walk 10 feet (QC): 5 Walk 50 ft with 2 Turns(QC): 5 Walk 150 ft (QC): 88 Walking 10ft/uneven surface-QC: 88 Gait Persons Needed: 1 Gait Assistive Device: FWW Wheelchair Training Does the Pt Use a Wheelchair?: No Wheel 50 ft with 2 turns (QC): 1 Wheel 150 ft (QC): 1 Type of Wheelchair: Manual Stair Training 1 Step (curb) (QC): 88 4 Steps (QC): 88 12 Steps (QC): 88 Balance Picking up an Object (QC): 88 ADL-Treatment Eating (QC): 6 (per pt.) Oral Hygiene (QC): 6 Shower/Bathe Self (QC): 5 Upper Body Dressing (QC): 5 Lower Body Dressing (QC): 5 On/Off Footwear (QC): 3 Toileting Hygiene (QC): 4 (SBA to manipulate clothing and cleanse self.) Toilet Transfer (QC): 4 (SBA) Assessment/Plan Assessment and Plan Assess & Plan/Chief Complaint Assessment: COPD myopathy s/p Severe sepsis placed on aggressive IV fluid protocol s/p MRSA pneumonia left lung nearly white out post influenza placed on broad- spectrum Zosyn and vancomycin to cover for MRSA pneumonia post influenza which ultimately revealed MRSA in sputum s/p Influenza B s/p Tamiflu s/p Exacerbation of COPD placed on IV steroids and nebulizer treatments Obstructive sleep apnea maintain on BiPAP Dr. Kirkland CAD previous stent placed by Dr. Williamson consulted cardiology Episodes of atrial fibrillation with rapid ventricular response on telemetry consulting cardiology High risk for DVT placed on Lovenox Severe leukocytosis Anemia of chronic illness s/p transfusion Edema Plan: IRF protocol Monitor closely Cardiology and Pulmo appreciated Weaned Vapotherm Maintain Plavix, Hold OAC BRYAN's (1) Respiratory failure Status: Acute (2) Anemia (3) CAD (coronary artery disease) (4) Leukocytosis (5) Atrial fibrillation with RVR (6) COPD (chronic obstructive pulmonary disease) Status: Acute (7) Obstructive sleep apnea Status: Chronic (8) Myopathy (9) Former smoker (10) History of coronary artery stent placement BERTRAND CUEVAS DO Sep 26, 2019 13:42
[2019-09-26] MEDS: IRON SUCROSE 200 MG/10 ML (VENOFER) VIAL IV SCH (13:47)
[2019-09-26] MEDS: NYSTATIN CREAM (MYCOSTATIN) 30 GM TUBE TP SCH ×2 (13:55→20:16)
--- NOTE | 2019-09-26 14:12 | Progress Note - Cardiology ---
Cardiology SOAP Progress Note Subjective: No cp or palp or syncope Has not had black, tarry stools in 48 hours No abd pain, n/v Mod, bilat leg swelling Shortness of breath improving Objective: I&O/Vital Signs 09/26/19 09/26/19 09/26/19 03:48 05:45 09:00 Temp 36.2 Pulse 99 Resp 18 B/P (MAP) 161/73 (102) Pulse Ox 94 96 O2 Delivery Nasal Cannula Nasal Cannula Nasal Cannula O2 Flow Rate 3.00 3.00 3.00 09/26/19 00:00 Intake Total 900 ml Balance 900 ml Weight (Pounds): 170 Weight (Ounces): 0.0 Weight (Calculated Kilograms): 77.869470 Constitutional: AAO x 3, well-developed Respiratory: chest expansion is symmetric, chest is bilaterally symmetric, other (good air entry) Cardiovascular: regular rate-rhythm, systolic murmur (SOPHIA) Gastrointestional: No tender; round, distended, audible bowel sounds Extremities: other (mod bilat LE swelling) Neurologic/Psychiatric: grossly intact Skin: No rash on exposed areas, No ulcerations on exposed areas Results/Procedures: Labs Laboratory Tests 09/25/19 16:33: Glucometer 132H 09/25/19 21:11: Glucometer 104 09/26/19 05:24: Glucometer 136H 09/26/19 05:28: White Blood Count 7.7, Red Blood Count 2.94L, Hemoglobin 7.6L, Hematocrit 25L, Mean Corpuscular Volume 86, Mean Corpuscular Hemoglobin 26, Mean Corpuscular Hemoglobin Concent 30L, Red Cell Distribution Width 17.4H, Platelet Count 541H, Mean Platelet Volume 9.7, Neutrophils (%) (Auto) 74, Lymphocytes (%) (Auto) 13, Monocytes (%) (Auto) 9, Eosinophils (%) (Auto) 5, Basophils (%) (Auto) 0, Neutrophils # (Auto) 5.7, Lymphocytes # (Auto) 1.0, Monocytes # (Auto) 0.7, Eosinophils # (Auto) 0.4H, Basophils # (Auto) 0.0, Sodium Level 135, Potassium Level 3.7, Chloride Level 102, Carbon Dioxide Level 24, Anion Gap 9, Blood Urea Nitrogen 9, Creatinine 0.52L, Estimat Glomerular Filtration Rate > 60, BUN/Creatinine Ratio 17, Glucose Level 117H, Calcium Level 8.3L 09/26/19 11:18: Glucometer 125H Microbiology 09/23/19 Gram Stain - Final, Complete 09/23/19 Sputum Culture - Final, Complete Staphylococcus aureus Laboratory Tests 09/26/19 05:28 A/P: Assessment: Sepsis and ac resp failure due to ac exac of COPD due to ANTONIA pneumonia, improved, managed by the Med Svce PAF with intermittent RVR Anemia due to GI blood loss. Upper and lower endoscopy of 09/21/19: reflux esophagitis(stage 2), moderate gastritis with prepyloric ulcer 5mm size with ove rlying fibrin clot, no active bleed; mild chronic stage 2 ext and int hemorrhoids, mild sigmoid diverticulosis. CAD. Cath of 10/20/18 showed 75% mid vessel stenosis in the left anterior descending artery that was stented with Jing 2.25 x 18 mm stent. The rest of the coronary vessels have mild to moderate diffuse disease. Normal global left ventricular systolic function with ejection fraction of 65%. Mild to moderate elevation of left ventricular end-diastolic pressure COPD Chronic tobacco use, quit in Jun 2018 Borderline DM II vs IFG Hyperlipidemia 50-60% bilat ICA stenoses on carotid u/s 04/29/2019 Plan: * Complex management due to multiple comorbidities (see above) * Hgb continues to fall, suggestive of probable slow GI bleed. Not suitable for Eliquis * Continue Plavix. Hold ASA * Advised to stay away from tobacco use * Continue to monitor labs AVANI SAHU MD FACP FACC CCDS Sep 26, 2019 14:12
[2019-09-26 17:51] VITALS: BP 148/78
--- NOTE | 2019-09-26 19:16 | NUR ---
bedside report received from [facility], assume care of pt
--- NOTE | 2019-09-26 20:16 | NUR ---
took Jim & rogelio refused Henry, fsbs 107, up with 1 person standby assist & walker
[2019-09-27] MEDS: RT-ALBUTEROL/IPRATROPIUM 3 ML (DUONEB) VIAL INH SCH ×4 (04:37→22:16)
[2019-09-27] MEDS: ADVAIR HFA 115/21 MCG INHALER 8 GM IH SCH ×3 (04:37→22:16)
[2019-09-27 05:30] VITALS: BP 157/73
[2019-09-27] MEDS: SUCRALFATE 1 GM (CARAFATE) TAB PO SCH ×4 (05:57→20:57)
[2019-09-27] MEDS: CATHETER FLUSH 10 ML SYR IV SCH ×3 (05:59→20:57)
[2019-09-27] MEDS: inSUlin ASPART (NovoLOG) 1 UNIT/0.01 ML (CHARGE PER UNIT) SC SCH ×4 (06:00→22:18)
[2019-09-27 06:08] LABS: BASOPHILS % (AUTO) 1 % (0-10); EOSINOPHILS # (AUTO) 0.3 10^3/uL (0.0-0.3); EOSINOPHILS % (AUTO) 5 % (0-10); HEMATOCRIT 26 % (35-52); HEMOGLOBIN 7.8 G/DL (11.5-16.0); LYMPHOCYTES # (AUTO) 1.1 X 10^3 (1.0-4.0); LYMPHOCYTES % (AUTO) 18 % (12-44); MEAN CORPUSCULAR HEMOGLOBIN 26 PG (25-34); MEAN CORPUSCULAR HGB CONC 30 G/DL (32-36); MEAN CORPUSCULAR VOLUME 85 FL (80-99); MEAN PLATELET VOLUME 9.1 FL (7.4-10.4); MONOCYTES # (AUTO) 0.5 X 10^3 (0.0-1.0); MONOCYTES % (AUTO) 9 % (0-12); NEUTROPHILS % (AUTO) 67 % (42-75); PLATELET COUNT 568 10^3/uL (130-400); RED CELL DISTRIBUTION WIDTH 17.7 % (10.0-14.5)
[2019-09-27 06:28] LABS: ALANINE AMINOTRANSFERASE 13 U/L (0-55); ALBUMIN 2.9 GM/DL (3.2-4.5); ALKALINE PHOSPHATASE 75 U/L (40-136); BILIRUBIN,TOTAL 0.2 MG/DL (0.1-1.0); BUN/CREATININE RATIO 17; CALCIUM 8.6 MG/DL (8.5-10.1); CARBON DIOXIDE 26 MMOL/L (21-32); CHLORIDE 103 MMOL/L (98-107); CREATININE SERUM 0.53 MG/DL (0.60-1.30); GFR ESTIMATED > 60; GLUCOSE 107 MG/DL (70-105); POTASSIUM 3.6 MMOL/L (3.6-5.0); SODIUM 137 MMOL/L (135-145)
[2019-09-27] MEDS: PANTOPRAZOLE 40 MG (PROTONIX) TAB PO SCH ×2 (08:08→20:57)
[2019-09-27] MEDS: CLOPIDOGREL 75 MG (PLAVIX) TABLET PO SCH (08:08)
[2019-09-27] MEDS: SENNA W/DOCUSATE (SENOKOT S) TABLET PO SCH ×2 (08:08→22:18)
[2019-09-27] MEDS: DOCUSATE SODIUM 100 MG (COLACE) CAP PO SCH ×2 (08:09→22:18)
[2019-09-27] MEDS: polyethylene glycoL POWDER 17 GM (MIRALAX) PACK PO SCH ×2 (08:10→22:18)
[2019-09-27] MEDS: NYSTATIN CREAM (MYCOSTATIN) 30 GM TUBE TP SCH ×3 (08:30→22:19)
--- NOTE | 2019-09-27 08:53 | Physical Therapy Daily Note ---
PT Daily Note-Current Subjective Patient in WC in bathroom pre tx, agrees to PT, has been working with OT for shower, has no complaints of pain. Will be co-treating with OT due to poor patient mobility, strength, endurance, severe SOB with activity, the need to coordinate UE and LE during activity. Appearance Patient in recliner post tx with nurse call, phone, tray, all needs met. Mental Status Patient Orientation: Normal For Age Attachments: Oxygen Transfers SCALE: Activities may be completed with or without assistive devices. 4-Yuwzbxswah-nbhbjul completes the activity by him/herself with no assistance from a helper. 5-Set-up or Clean-up Assistance-helper sets up or cleans up; patient completes activity. [place] assists only prior to or following the activity. 4-Supervision or Touching Assistance-helper provides verbal cues and/or touching/steadying and/or contact guard assistance as patient completes activity. Assistance may be provided throughout the activity or intermittently. 3-Partial/Moderate Assistance-helper does LESS THAN HALF the effort. [place] lifts, holds or supports trunk or limbs, but provides less than half the effort. 2-Substantial/Maximal Assistance-helper does MORE THAN HALF the effort. [place] lifts or holds trunk or limbs and provides more than half the effort. 1-Jmxawzzcl-tvupif does ALL the effort. Patient does none of the effort to complete the activity. Or, the assistance of 2 or more helpers is required for the patient to complete the activity. If activity was not attempted, code reason: 7-Patient Refused. 9-Not Applicable-not attempted and the patient did not perform the activity before the current illness, exacerbation or injury. 10-Not Attempted due to Environmental Limitations-(lack of equipment, weather restraints, etc.). 88-Not Attempted due to Medical Conditions or Safety Concerns. Sit to Stand (QC): 4 Chair/Zwq-re-Aqqoh Xfer(QC): 4 SBA Weight Bearing Right Lower Extremity: Right Full Weight Bearing Left Lower Extremity: Left Full Weight Bearing Gait Training Distance: 20'x2 Walk 10 feet (QC): 4 Gait Persons Needed: 1 Gait Assistive Device: FWW SBA, needs assist with controlling O2 line. Very SOB after ambulation each time, sits and purse lip breathes and recovers in a couple of minutes. Exercises Seated Therapy Exercises: Ankle pumps, Long arc quads, Hip flexion, Hip abd/add Seated Reps: 20 sit to stand x5 Treatments ambulation, transfers, LE exercise, assist patient with grooming at sink. PT performed transfers, ambulation, assist with grooming, LE exercise, instructed patient on purse lip breathing and energy conservation techniques. OT performed grooming UE exercise, assist with transfers and positioning. Assessment Current Status: Fair Progress Still gets very SOB with minimal activity. PT Short Term Goals Short Term Goals Time Frame: Sep 29, 2019 Roll Left & Right: 6 Sit to lyin Lying to sitting on side of be: 6 Sit to stand: 4 (SBA) Chair/eib-th-fqhux transfer: 4 (SBA) Toilet transfer: 4 (SBA) Car transfer: 4 (SBA) Walk 10 feet: 4 (CGA) PT Cage Operator Goals [facility] Goals PT Cage Operator Goals Time Frame: Oct 13, 2019 Roll Left & Right (QC): 6 Sit to Lying (QC): 6 Lying-Sitting on Side/Bed(QC): 6 Sit to Stand (QC): 6 Chair/Bzv-qm-Omczb Xfer(QC): 6 Toilet Transfer (QC): 6 Car Transfer (QC): 6 Walk 10 feet (QC): 6 PT Plan Problem List Problem List: Activity Tolerance, Functional Strength, Safety, Balance, Gait, Transfer Treatment/Plan Treatment Plan: Continue Plan of Care Treatment Plan: Bed Mobility, Education, Functional Activity Kameron, Functional Strength, Group Therapy, Gait, Safety, Therapeutic Exercise, Transfers Treatment Duration: Oct 13, 2019 Frequency: Modified Program (IRF) Estimated Hrs Per Day: 1.5 hours per day Patient and/or Family Agrees t: Yes Safety Risks/Education Patient Education: Gait Training, Transfer Techniques, Correct Positioning, Safety Issues Teaching Recipient: Patient Teaching Methods: Demonstration, Discussion Response to Teaching: Reinforcement Needed Time/GCodes Time In: 0800 Time Out: 0900 Total Billed Treatment Time: 60 Total Billed Treatment 1 visit EX 30' FA 30' YAMILET HOPKINS PT Sep 27, 2019 08:53
--- NOTE | 2019-09-27 08:55 | Occupational Ther Daily Note ---
OT Current Status-Daily Note Subjective Pt alert, sitting in recliner. Pt agrees to therapy. No c/o pain. Mental Status/Objective Patient Orientation: Person, Place, Time, Situation ADL-Treatment Pt agrees to shower. PT/OT cotreat ([id number]) for skilled instruction for energy conservation during mobility/functional tasks, and the need for skills of 2 clinicians due to pt's declined respiratory status and decreased activity tolerance for any mobility or functional task. PT working on transfers during functional tasks, ambulation and B LE exercises. OT working on ADLs, energy conservation during ambulation/transfers and B UE exercises. Pt took increased time to complete all tasks and exercises due to decreased activity tolerance and declined respiratory status. Pt used w/c to get to bathroom due to decreased activity tolerance. After set up, pt able to complete own shower using AE for energy conservation. Pt transferred into/out of shower with supervision using AD. Using AD pt able to transfer to/from toilet, mod I. Pt completed own nick thing manipulation and hygiene, mod I. Pt able to don/doff upper body clothing and lower body clothing by self after set up. Using sock aide pt donned sock, assist to don BRYAN hose. Pt sat at sink to complete oral care and grooming. Therapy Code Descriptions/Definitions Functional [place] Measure: 0=Not Assessed/NA 4=Minimal Assistance 1=Total Assistance 5=Supervision or Setup 2=Maximal Assistance 6=Modified [place] 3=Moderate Assistance 7=Complete IndependenceSCALE: Activities may be completed with or without assistive devices. 5-Ninhgyjyir-kyhretn completes the activity by him/herself with no assistance from a helper. 5-Set-up or Clean-up Assistance-helper sets up or cleans up; patient completes activity. [place] assists only prior to or following the activity. 4-Supervision or Touching Assistance-helper provides verbal cues and/or touching/steadying and/or contact guard assistance as patient completes activity. Assistance may be provided throughout the activity or intermittently. 3-Partial/Moderate Assistance-helper does LESS THAN HALF the effort. [place] lifts, holds or supports trunk or limbs, but provides less than half the effort. 2-Substantial/Maximal Assistance-helper does MORE THAN HALF the effort. [place] lifts or holds trunk or limbs and provides more than half the effort. 3-Hzjqmbxoh-dwtyqk does ALL the effort. Patient does none of the effort to complete the activity. Or, the assistance of 2 or more helpers is required for the patient to complete the activity. If activity was not attempted, code reason: 7-Patient Refused. 9-Not Applicable-not attempted and the patient did not perform the activity before the current illness, exacerbation or injury. 10-Not Attempted due to Environmental Limitations-(lack of equipment, weather restraints, etc.). 88-Not Attempted due to Medical Conditions or Safety Concerns. Oral Hygiene (QC): 6 Shower/Bathe Self (QC): 5 Upper Body Dressing (QC): 5 Lower Body Dressing (QC): 5 On/Off Footwear: 3 Toileting Hygiene (QC): 6 Toilet Transfer (QC): 6 Other Treatment Pt completed 1 set of UE exercises against gravity, 15-20 reps depending on pt tolerance and need for recovery breaks. After therapy, pt sitting in recliner with call light/phone in reach. All needs met in room. OT Short Term Goals Short Term Goals Oral hygiene: 6 Toileting hygiene: 3 OT Penitentiary Goals Penitentiary Goals Time Frame: Oct 06, 2019 Eating (QC): 6 Oral Hygiene (QC): 6 Toileting Hygiene (QC): 6 Shower/Bathe Self (QC): 6 Upper Body Dressing (QC): 6 Lower Body Dressing (QC): 6 On/Off Footwear (QC): 6 Additional Goals: 1-Demonstrate ADL Tasks, 2-Verbalize Understanding, 3- ImproveStrength/Kameron 1=Demonstrate adherence to instructed precautions during ADL tasks. 2=Patient will verbalize/demonstrate understanding of assistive devices/modifications for ADL. 3=Patient will improve strength/tolerance for activity to enable patient to perform ADL's. OT Education/Plan Problem List/Assessment Assessment: Decreased Activ Tolerance, Decreased UE Strength Discharge Recommendations Plan/Recommendations: Continue POC Treatment Plan/Plan of Care Patient would benefit from OT for education, treatment and training to promote independence in ADL's, mobility, safety and/or upper extremity function for ADL's. Plan of Care: ADL Retraining, Caregiver Training, Concurrent Therapy, Functional Mobility, Group Exercise/Act as Ind, UE Funct Exercise/Act Treatment Duration: Oct 06, 2019 Frequency: At least 5 of 7 days/Wk (IRF) Estimated Hrs Per Day: 1.5 hours per day Agreement: Yes Rehab Potential: Fair Time/GCodes Start Time: 07:30 Stop Time: 09:00 Total Time Billed (hr/min): 90 Billed Treatment Time 1 visit-ADL 3 (45 min) EX 3 (45 min) PT/OT cotreat ([id number]) for skilled instruction for energy conservation during mobility/functional tasks, and the need for skills of 2 clinicians due to pt's declined respiratory status and decreased activity tolerance for any mobility or functional task. SYLVIA MALDONADO Sep 27, 2019 08:55
[2019-09-27] MEDS: UMECLIDINIUM BROMIDE (INCRUSE ELLIPTA) 7'S IH SCH (09:09)
[2019-09-27 09:18] VITALS: BP 157/73
--- NOTE | 2019-09-27 11:21 | Physical Therapy Daily Note ---
PT Daily Note-Current Subjective Patient in recliner pre tx, agrees to PT, has no complaints of pain. Appearance Patient in recliner post tx with nurse call, phone, tray, all needs met. Mental Status Patient Orientation: Normal For Age Attachments: Oxygen Transfers SCALE: Activities may be completed with or without assistive devices. 1-Tbsxvphktr-rxodbcd completes the activity by him/herself with no assistance from a helper. 5-Set-up or Clean-up Assistance-helper sets up or cleans up; patient completes activity. [place] assists only prior to or following the activity. 4-Supervision or Touching Assistance-helper provides verbal cues and/or touching/steadying and/or contact guard assistance as patient completes activity. Assistance may be provided throughout the activity or intermittently. 3-Partial/Moderate Assistance-helper does LESS THAN HALF the effort. [place] lifts, holds or supports trunk or limbs, but provides less than half the effort. 2-Substantial/Maximal Assistance-helper does MORE THAN HALF the effort. [place] lifts or holds trunk or limbs and provides more than half the effort. 3-Hxcnwlvdw-hcwmzl does ALL the effort. Patient does none of the effort to complete the activity. Or, the assistance of 2 or more helpers is required for the patient to complete the activity. If activity was not attempted, code reason: 7-Patient Refused. 9-Not Applicable-not attempted and the patient did not perform the activity before the current illness, exacerbation or injury. 10-Not Attempted due to Environmental Limitations-(lack of equipment, weather restraints, etc.). 88-Not Attempted due to Medical Conditions or Safety Concerns. Sit to Stand (QC): 6 Chair/Kcv-fu-Clwfe Xfer(QC): 6 Weight Bearing Right Lower Extremity: Right Full Weight Bearing Left Lower Extremity: Left Full Weight Bearing Gait Training Distance: 20'x2 Walk 10 feet (QC): 6 Gait Assistive Device: FWW slow but steady ambulation Exercises Seated Therapy Exercises: Ankle pumps, Long arc quads, Hip flexion, Hip abd/add Seated Reps: 20 Treatments ambulation, transfers, LE exercise Assessment Current Status: Fair Progress rest breaks between exercises and ambulation due to SOB PT Short Term Goals Short Term Goals Time Frame: Sep 29, 2019 Roll Left & Right: 6 Sit to lyin Lying to sitting on side of be: 6 Sit to stand: 4 (SBA) Chair/lng-bz-ujuwq transfer: 4 (SBA) Toilet transfer: 4 (SBA) Car transfer: 4 (SBA) Walk 10 feet: 4 (CGA) PT Prison Goals Renderer Goals PT Renderer Goals Time Frame: Oct 13, 2019 Roll Left & Right (QC): 6 Sit to Lying (QC): 6 Lying-Sitting on Side/Bed(QC): 6 Sit to Stand (QC): 6 Chair/Gsx-au-Nxvyb Xfer(QC): 6 Toilet Transfer (QC): 6 Car Transfer (QC): 6 Walk 10 feet (QC): 6 PT Plan Problem List Problem List: Activity Tolerance, Functional Strength, Safety, Balance, Gait, Transfer, Bed Mobility Treatment/Plan Treatment Plan: Continue Plan of Care Treatment Plan: Bed Mobility, Education, Functional Activity Kameron, Functional Strength, Group Therapy, Gait, Safety, Therapeutic Exercise, Transfers Treatment Duration: Oct 13, 2019 Frequency: Modified Program (IRF) Estimated Hrs Per Day: 1.5 hours per day Patient and/or Family Agrees t: Yes Safety Risks/Education Patient Education: Gait Training, Transfer Techniques, Correct Positioning, Safety Issues Teaching Recipient: Patient Teaching Methods: Demonstration, Discussion Response to Teaching: Reinforcement Needed Time/GCodes Time In: 1100 Time Out: 1130 Total Billed Treatment Time: 30 Total Billed Treatment 1 visit GT 20' EX 10' YAMILET HOPKINS PT Sep 27, 2019 11:21
--- NOTE | 2019-09-27 12:09 | Progress Note - Cardiology ---
Cardiology SOAP Progress Note Subjective: Sitting up in recliner at the bedside. States abd bloating is improving. No c/o CP, palpitations, syncope or near syncope. Reports she feels her SOB continues to improve. Objective: I&O/Vital Signs 09/28/19 09/28/19 09/28/19 09/28/19 02:44 05:28 08:36 09:59 Temp 36.1 Pulse 95 95 Resp 20 B/P (MAP) 150/66 (94) 126/64 (84) Pulse Ox 97 93 97 O2 Delivery Nasal Cannula Nasal Cannula Nasal Cannula Nasal Cannula O2 Flow Rate 3.00 3.00 3.00 3.00 09/28/19 10:20 Pulse Ox 96 O2 Delivery Nasal Cannula O2 Flow Rate 3.00 09/28/19 00:00 Intake Total 1000 ml Balance 1000 ml Weight (Pounds): 170 Weight (Ounces): 0.0 Weight (Calculated Kilograms): 77.079628 Constitutional: AAO x 3, well-developed Respiratory: chest expansion is symmetric, chest is bilaterally symmetric, other (good air entry) Cardiovascular: regular rate-rhythm, systolic murmur (SOPHIA) Gastrointestional: No tender; round, distended, audible bowel sounds Extremities: other (mod bilat LE swelling) Neurologic/Psychiatric: grossly intact Skin: No rash on exposed areas, No ulcerations on exposed areas Results/Procedures: Labs Laboratory Tests 09/27/19 16:08: Glucometer 92 09/27/19 20:18: Glucometer 163H 09/28/19 05:52: Glucometer 121H 09/28/19 11:02: Glucometer 144H Microbiology 09/27/19 Gram Stain - Final, Resulted 09/27/19 Sputum Culture - Preliminary, Resulted Staphylococcus aureus Probable Klebsiella/Enterobact Usual upper respiratory jose A/P: Assessment: Sepsis and ac resp failure due to ac exac of COPD due to ANTONIA pneumonia, imp roved, managed by the Med Svce PAF with intermittent RVR Anemia due to GI blood loss. Upper and lower endoscopy of 09/21/19: reflux esophagitis(stage 2), moderate gastritis with prepyloric ulcer 5mm size with overlying fibrin clot, no active bleed; mild chronic stage 2 ext and int hemorrhoids, mild sigmoid diverticulosis. CAD. Cath of 10/20/18 showed 75% mid vessel stenosis in the left anterior descending artery that was stented with Jing 2.25 x 18 mm stent. The rest of the coronary vessels have mild to moderate diffuse disease. Normal global left ventricular systolic function with ejection fraction of 65%. Mild to moderate elevation of left ventricular end-diastolic pressure COPD Chronic tobacco use, quit in Jun 2018 Borderline DM II vs IFG Hyperlipidemia 50-60% bilat ICA stenoses on carotid u/s 04/29/2019 Plan: * Complex management due to multiple comorbidities (see above) * Hgb continues to fall, suggestive of probable slow GI bleed. Not suitable for Eliquis * Venofer started per medical services * Continue Plavix. Hold ASA * Advised to stay away from tobacco use * Continue to monitor labs STEPH REVELES Sep 27, 2019 12:09
--- NOTE | 2019-09-27 12:10 | PM&R Progress Note ---
Subjective HPI/CC On Admission Date Seen by Provider: Sep 27, 2019 Time Seen by Provider: 09:15 Subjective/Events-last exam Hgb 7.8 no indication for transfusion Venofer IV iron infusion initiated Sputum sample will be collected today to evaluate MRSA status Checked meds and labs Conferred with RN Reviewed therapy notes Review of Systems Pulmonary: Dyspnea Objective Exam Vital Signs Vital Signs Date Time Temp Pulse Resp B/P (MAP) Pulse Ox O2 Delivery O2 Flow Rate FiO2 09/28/19 05:28 36.1 95 20 150/66 (94) 93 Nasal Cannula 3.00 09/27/19 09:18 32 Capillary Refill : Less Than 3 Seconds General Appearance: No Apparent Distress, WD/WN, Anxious, Chronically ill HEENT: PERRL/EOMI, Normal ENT Inspection, Pharynx Normal Neck: Full Range of Motion, Normal Inspection, Non Tender, Supple, Carotid Bruit Respiratory: Chest Non Tender, No Accessory Muscle Use, No Respiratory Distress, Decreased Breath Sounds Cardiovascular: Regular Rate, Rhythm, No Gallop, No JVD, No Murmur, Normal Peripheral Pulses Gastrointestinal: Normal Bowel Sounds, No Organomegaly, No Pulsatile Mass, Non Tender, Soft Back: Normal Inspection, No CVA Tenderness, No Vertebral Tenderness Extremity: Normal Capillary Refill, Normal Inspection, Normal Range of Motion, Non Tender, No Calf Tenderness, Pedal Edema Neurologic/Psychiatric: Alert, Oriented x3, No Motor/Sensory Deficits, Normal Mood/Affect, Motor Weakness Skin: Normal Color, Warm/Dry Lymphatic: No Adenopathy Results/Procedures Lab Patient resulted labs reviewed. FIM Transfers Therapy Code Descriptions/Definitions Functional [place] Measure: 0=Not Assessed/NA 4=Minimal Assistance 1=Total Assistance 5=Supervision or Setup 2=Maximal Assistance 6=Modified [place] 3=Moderate Assistance 7=Complete IndependenceSCALE: Activities may be completed with or without assistive devices. 1-Nsbvvrdydq-pjliydi completes the activity by him/herself with no assistance from a helper. 5-Set-up or Clean-up Assistance-helper sets up or cleans up; patient completes activity. [place] assists only prior to or following the activity. 4-Supervision or Touching Assistance-helper provides verbal cues and/or touching/steadying and/or contact guard assistance as patient completes activi ty. Assistance may be provided throughout the activity or intermittently. 3-Partial/Moderate Assistance-helper does LESS THAN HALF the effort. [place] lifts, holds or supports trunk or limbs, but provides less than half the effort. 2-Substantial/Maximal Assistance-helper does MORE THAN HALF the effort. [place] lifts or holds trunk or limbs and provides more than half the effort. 8-Qhihgouaa-dirljr does ALL the effort. Patient does none of the effort to complete the activity. Or, the assistance of 2 or more helpers is required for the patient to complete the activity. If activity was not attempted, code reason: 7-Patient Refused. 9-Not Applicable-not attempted and the patient did not perform the activity before the current illness, exacerbation or injury. 10-Not Attempted due to Environmental Limitations-(lack of equipment, weather restraints, etc.). 88-Not Attempted due to Medical Conditions or Safety Concerns. Roll Left to Right (QC): 6 Sit to Lying (QC): 5 Sit to Stand (QC): 6 Chair/Uoj-yq-Zoynu Xfer(QC): 6 Car Transfer (QC): 4 Gait Training Does the Patient Walk?: Yes Distance: 20'x2 Walk 10 feet (QC): 6 Walk 50 ft with 2 Turns(QC): 5 Walk 150 ft (QC): 88 Walking 10ft/uneven surface-QC: 88 Gait Persons Needed: 1 Gait Assistive Device: FWW Wheelchair Training Does the Pt Use a Wheelchair?: No Wheel 50 ft with 2 turns (QC): 1 Wheel 150 ft (QC): 1 Type of Wheelchair: Manual Stair Training 1 Step (curb) (QC): 88 4 Steps (QC): 88 12 Steps (QC): 88 Balance Picking up an Object (QC): 88 ADL-Treatment Eating (QC): 6 (per pt.) Oral Hygiene (QC): 6 Shower/Bathe Self (QC): 5 Upper Body Dressing (QC): 5 Lower Body Dressing (QC): 5 On/Off Footwear (QC): 3 Toileting Hygiene (QC): 6 Toilet Transfer (QC): 6 Assessment/Plan Assessment and Plan Assess & Plan/Chief Complaint Assessment: COPD myopathy s/p Severe sepsis placed on aggressive IV fluid protocol s/p MRSA pneumonia left lung nearly white out post influenza placed on broad- spectrum Zosyn and vancomycin to cover for MRSA pneumonia post influenza which ultimately revealed MRSA in sputum s/p Influenza B s/p Tamiflu s/p Exacerbation of COPD placed on IV steroids and nebulizer treatments Obstructive sleep apnea maintain on BiPAP Dr. Kirkland CAD previous stent placed by Dr. Williamson consulted cardiology Episodes of atrial fibrillation with rapid ventricular response on telemetry consulting cardiology High risk for DVT placed on Lovenox Severe leukocytosis Anemia of chronic illness s/p transfusion Edema Plan: IRF protocol Monitor closely Cardiology and Pulmo appreciated Weaned Vapotherm Maintain Plavix, Hold OAC BRYAN's MRSA check on sputum likely colonized (1) Respiratory failure Status: Acute (2) Anemia (3) CAD (coronary artery disease) (4) Leukocytosis (5) Atrial fibrillation with RVR (6) COPD (chronic obstructive pulmonary disease) Status: Acute (7) Obstructive sleep apnea Status: Chronic (8) Myopathy (9) Former smoker (10) History of coronary artery stent placement BERTRAND CUEVAS DO Sep 27, 2019 12:10
--- NOTE | 2019-09-27 13:12 | Progress Note - Cardiology ---
Cardiology SOAP Progress Note Subjective: Does not report black, tarry stools for 2-3 days now No cp or palp or syncope Gen malaise and weakness present No n/v/d Objective: I&O/Vital Signs 09/27/19 09/27/19 09/27/19 09/27/19 05:30 09:00 09:09 09:18 Temp 35.8 35.8 Pulse 88 72 Resp 20 B/P (MAP) 157/73 (101) Pulse Ox 94 94 94 O2 Delivery Nasal Cannula Nasal Cannula Nasal Cannula O2 Flow Rate 3.00 3.00 3.00 FiO2 32 09/27/19 00:00 Intake Total 900 ml Balance 900 ml Weight (Pounds): 170 Weight (Ounces): 0.0 Weight (Calculated Kilograms): 77.073724 Constitutional: AAO x 3, well-developed Respiratory: chest expansion is symmetric, chest is bilaterally symmetric, other (good air entry) Cardiovascular: regular rate-rhythm, systolic murmur (SOPHIA) Gastrointestional: No tender; round, distended, audible bowel sounds Extremities: other (mod bilat LE swelling) Neurologic/Psychiatric: grossly intact Skin: No rash on exposed areas, No ulcerations on exposed areas Results/Procedures: Labs Laboratory Tests 09/26/19 16:20: Glucometer 110 09/26/19 20:12: Glucometer 107 09/27/19 05:55: White Blood Count 6.0, Red Blood Count 3.02L, Hemoglobin 7.8L, Hematocrit 26L, Mean Corpuscular Volume 85, Mean Corpuscular Hemoglobin 26, Mean Corpuscular Hemoglobin Concent 30L, Red Cell Distribution Width 17.7H, Platelet Count 568H, Mean Platelet Volume 9.1, Neutrophils (%) (Auto) 67, Lymphocytes (%) (Auto) 18, Monocytes (%) (Auto) 9, Eosinophils (%) (Auto) 5, Basophils (%) (Auto) 1, N eutrophils # (Auto) 4.0, Lymphocytes # (Auto) 1.1, Monocytes # (Auto) 0.5, Eosinophils # (Auto) 0.3, Basophils # (Auto) 0.0, Sodium Level 137, Potassium Level 3.6, Chloride Level 103, Carbon Dioxide Level 26, Anion Gap 8, Blood Urea Nitrogen 9, Creatinine 0.53L, Estimat Glomerular Filtration Rate > 60, BUN/Creatinine Ratio 17, Glucose Level 107H, Calcium Level 8.6, Corrected Calcium 9.5, Total Bilirubin 0.2, Aspartate Amino Transf (AST/SGOT) 10, Alanine Aminotransferase (ALT/SGPT) 13, Alkaline Phosphatase 75, Total Protein 6.0L, Albumin 2.9L 09/27/19 06:03: Glucometer 93 09/27/19 11:26: Glucometer 97 Microbiology 09/23/19 Gram Stain - Final, Complete 09/23/19 Sputum Culture - Final, Complete Staphylococcus aureus Laboratory Tests 09/26/19 05:28 09/27/19 05:55 A/P: Assessment: Sepsis and ac resp failure due to ac exac of COPD due to ANTONIA pneumonia, improved, managed by the Med Svce PAF with intermittent RVR Significant anemia due to GI blood loss. Upper and lower endoscopy of 09/21/19: reflux esophagitis(stage 2), moderate gastritis with prepyloric ulcer 5mm size with overlying fibrin clot, no active bleed; mild chronic stage 2 ext and int hemorrhoids, mild sigmoid diverticulosis. CAD. Cath of 10/20/18 showed 75% mid vessel stenosis in the left anterior descending artery that was stented with Jing 2.25 x 18 mm stent. The rest of the coronary vessels have mild to moderate diffuse disease. Normal global left ventricular systolic function with ejection fraction of 65%. Mild to moderate elevation of left ventricular end-diastolic pressure COPD Chronic tobacco use, quit in Jun 2018 Borderline DM II vs IFG Hyperlipidemia 50-60% bilat ICA stenoses on carotid u/s 04/29/2019 Plan: * Complex management due to multiple comorbidities (see above) * Still doesn't seem suitable for Eliquis * Venofer started per Medical services * Continue Plavix. Hold ASA * Advised to continue to stay away from tobacco use * Continue to monitor labs AVANI SAHU MD FACP FAC CCDS Sep 27, 2019 13:12
[2019-09-27 16:00] VITALS: BP 127/71
--- NOTE | 2019-09-27 16:03 | Pulmonary Progress Note ---
Standard Progress Note Progress Notes Date Seen by Provider: Sep 27, 2019 Time Seen by Provider: 15:15 pt is sitting up and reports shortness of breath has improved; pt can walk farther distance with increase to oxygen of 4L but is able to maintain at rest on 3L; Assessment & Plan Severe Sepsis secondary to PNA/UTI -zyvox -CXR 2/4 is improving -Titrate oxygen pt to 3-4L NC currently is not on vapotherm - CT of chest -- reviewed -will need to be repeated 8wks after discharge. -MRSA nasal swab is positive s/p GIB with positive occult stool protonix to BID -s/p EGD/colonoscopy -s/p 2 units of PRBC s/p AFib -Currently on Cardizem gtt -Cardiology following H Influenza and MRSA PNA -Continue Zyvox -pt remains on droplet precaution Acute respiratory failure Vapotherm and BIPAP PRN Anemia -Occult stool is negative Hx of lung nodules -PT will need repeat CT of chest 8 wks after treatment to ensure complete resolution. Influenza -Continue Tamiflu s/p Afib RVR - now converted to sinus -Cardiology follwowing COPDAE - Severe oxygen dependent COPD. -Solumedrol -SVNs -Oxygen Anemia -Monitor -Check Occult stool REGAN -Home bipap CAD -Cardiology following -troponin is neg THANAI VANCE APRN Sep 27, 2019 16:03
[2019-09-27 18:00] VITALS: BP 136/75
[2019-09-28] MEDS: RT-ALBUTEROL/IPRATROPIUM 3 ML (DUONEB) VIAL INH SCH ×4 (02:44→18:59)
[2019-09-28 05:28] VITALS: BP 150/66
[2019-09-28] MEDS: SUCRALFATE 1 GM (CARAFATE) TAB PO SCH ×4 (05:53→21:14)
[2019-09-28] MEDS: CATHETER FLUSH 10 ML SYR IV SCH ×3 (05:54→21:14)
[2019-09-28] MEDS: inSUlin ASPART (NovoLOG) 1 UNIT/0.01 ML (CHARGE PER UNIT) SC SCH ×4 (05:54→21:20)
--- NOTE | 2019-09-28 08:17 | Physical Therapy Daily Note ---
PT Daily Note-Current Subjective Pt agreeable to PT session. States she is ready to get better enough to go home. Pain Numeric Pain Scale: 0-No Pain Appearance Pt on droplet precautions and unable to leave room at this time. Pt sitting up in recliner awake and alert at beginning of session. At end of session, pt sitting up in recliner with phone, call light and bedside table within reach. Nurse present during part of session. Mental Status Patient Orientation: Person, Place, Time, Eyes Open, Situation, Normal For Age Attachments: Saline Lock, Oxygen (3L O2/NC) Transfers SCALE: Activities may be completed with or without assistive devices. 2-Kwtvqxpsxm-roggcre completes the activity by him/herself with no assistance from a helper. 5-Set-up or Clean-up Assistance-helper sets up or cleans up; patient completes activity. [place] assists only prior to or following the activity. 4-Supervision or Touching Assistance-helper provides verbal cues and/or touching/steadying and/or contact guard assistance as patient completes activity. Assistance may be provided throughout the activity or intermittently. 3-Partial/Moderate Assistance-helper does LESS THAN HALF the effort. [place] lifts, holds or supports trunk or limbs, but provides less than half the effort. 2-Substantial/Maximal Assistance-helper does MORE THAN HALF the effort. [place] lifts or holds trunk or limbs and provides more than half the effort. 9-Ylpcevxnh-ybtzum does ALL the effort. Patient does none of the effort to complete the activity. Or, the assistance of 2 or more helpers is required for the patient to complete the activity. If activity was not attempted, code reason: 7-Patient Refused. 9-Not Applicable-not attempted and the patient did not perform the activity before the current illness, exacerbation or injury. 10-Not Attempted due to Environmental Limitations-(lack of equipment, weather restraints, etc.). 88-Not Attempted due to Medical Conditions or Safety Concerns. Sit to Stand (QC): 5 Weight Bearing Right Lower Extremity: Right Full Weight Bearing Left Lower Extremity: Left Full Weight Bearing Gait Training Does the Patient Walk?: Yes Distance: 100 Walk 10 feet (QC): 5 Walk 50 ft with 2 Turns(QC): 5 Gait Persons Needed: 1 Gait Assistive Device: FWW slow steady pace, pt requiring assist to retrieve walker from across room, assist with O2 tubing during turns Exercises Supine Ex: Glut sets (25), Heel Slides (25) Supine Reps: 50 (hip IR/ER) Seated Therapy Exercises: Ankle pumps (25), Sit to stand (5), Long arc quads (25), Chair press-ups (4x5), Hip flexion, Kicking activity (50), Reaching activity (across body x30), Hip abd/add (feet on floor then kness extended x25 each) Requiring skilled verb inst in pursed lip breathing techniques and energy conservation throughout tx session. Rest breaks required during and after each exercise performed. Treatments education, safety, transfers, gait, strength, balance, activity tolerance, functional mobility, breathing techniques and energy conservation Assessment rest breaks required throughout tx session due to SOA and fatigue PT Short Term Goals Short Term Goals Time Frame: Sep 29, 2019 Roll Left & Right: 6 Sit to lyin Lying to sitting on side of be: 6 Sit to stand: 4 (SBA) Chair/dwo-no-kczup transfer: 4 (SBA) Toilet transfer: 4 (SBA) Car transfer: 4 (SBA) Walk 10 feet: 4 (CGA) PT Prison Goals Prison Goals PT Prison Goals Time Frame: Oct 13, 2019 Roll Left & Right (QC): 6 Sit to Lying (QC): 6 Lying-Sitting on Side/Bed(QC): 6 Sit to Stand (QC): 6 Chair/Ghh-so-Tgfjr Xfer(QC): 6 Toilet Transfer (QC): 6 Car Transfer (QC): 6 Walk 10 feet (QC): 6 PT Plan Treatment/Plan Treatment Plan: Continue Plan of Care Treatment Plan: Bed Mobility, Education, Functional Activity Kameron, Functional Strength, Group Therapy, Gait, Safety, Therapeutic Exercise, Transfers Treatment Duration: Oct 13, 2019 Frequency: Modified Program (IRF) Estimated Hrs Per Day: 1.5 hours per day Patient and/or Family Agrees t: Yes Safety Risks/Education Patient Education: Gait Training, Transfer Techniques, Safety Issues Teaching Recipient: Patient Teaching Methods: Demonstration, Discussion Response to Teaching: Verbalize Understanding, Return Demonstration Time/GCodes Time In: 800 Time Out: 900 Total Billed Treatment Time: 60 Total Billed Treatment 1 visit, EX x45 min, GT x15 min TORRES DELUNA LOCOMOTIVE ENGINEER DIESEL Sep 28, 2019 08:17
[2019-09-28 08:36] VITALS: BP 126/64
[2019-09-28] MEDS: CLOPIDOGREL 75 MG (PLAVIX) TABLET PO SCH (08:37)
[2019-09-28] MEDS: IRON SUCROSE 200 MG/10 ML (VENOFER) VIAL IV SCH (08:37)
[2019-09-28] MEDS: PANTOPRAZOLE 40 MG (PROTONIX) TAB PO SCH ×2 (08:37→21:14)
[2019-09-28] MEDS: polyethylene glycoL POWDER 17 GM (MIRALAX) PACK PO SCH ×2 (08:40→21:19)
[2019-09-28] MEDS: NYSTATIN CREAM (MYCOSTATIN) 30 GM TUBE TP SCH ×3 (08:40→21:14)
[2019-09-28] MEDS: DOCUSATE SODIUM 100 MG (COLACE) CAP PO SCH ×2 (08:40→21:19)
[2019-09-28] MEDS: SENNA W/DOCUSATE (SENOKOT S) TABLET PO SCH ×2 (08:41→21:19)
--- NOTE | 2019-09-28 08:58 | PM&R Progress Note ---
Subjective HPI/CC On Admission Date Seen by Provider: Sep 28, 2019 Time Seen by Provider: 09:00 Subjective/Events-last exam Colonized MRSA sputum. Will place on a mask and ambulate around and get to work with therapy. Pt still needs to accumulate some stamina. Checked meds and labs Conferred with RN Reviewed therapy notes Review of Systems General: Fatigue Pulmonary: Dyspnea, Cough Objective Exam Vital Signs Vital Signs Date Time Temp Pulse Resp B/P (MAP) Pulse Ox O2 Delivery O2 Flow Rate FiO2 09/28/19 18:59 99 Nasal Cannula 3.00 09/28/19 18:31 35.8 84 20 149/74 (99) 09/27/19 09:18 32 Capillary Refill : Less Than 3 Seconds General Appearance: No Apparent Distress, WD/WN, Anxious, Chronically ill HEENT: PERRL/EOMI, Normal ENT Inspection, Pharynx Normal Neck: Full Range of Motion, Normal Inspection, Non Tender, Supple, Carotid Bruit Respiratory: Chest Non Tender, No Accessory Muscle Use, No Respiratory Distress, Decreased Breath Sounds Cardiovascular: Regular Rate, Rhythm, No Gallop, No JVD, No Murmur, Normal Peripheral Pulses Gastrointestinal: Normal Bowel Sounds, No Organomegaly, No Pulsatile Mass, Non Tender, Soft Back: Normal Inspection, No CVA Tenderness, No Vertebral Tenderness Extremity: Normal Capillary Refill, Normal Inspection, Normal Range of Motion, Non Tender, No Calf Tenderness, Pedal Edema Neurologic/Psychiatric: Alert, Oriented x3, No Motor/Sensory Deficits, Normal Mood/Affect, Motor Weakness Skin: Normal Color, Warm/Dry Lymphatic: No Adenopathy Results/Procedures Lab Patient resulted labs reviewed. FIM Transfers Therapy Code Descriptions/Definitions Functional [place] Measure: 0=Not Assessed/NA 4=Minimal Assistance 1=Total Assistance 5=Supervision or Setup 2=Maximal Assistance 6=Modified [place] 3=Moderate Assistance 7=Complete IndependenceSCALE: Activities may be completed with or without assistive devices. 1-Wixdslnwyr-wcrxigo completes the activity by him/herself with no assistance from a helper. 5-Set-up or Clean-up Assistance-helper sets up or cleans up; patient completes activity. [place] assists only prior to or following the activity. 4-Supervision or Touching Assistance-helper provides verbal cues and/or touch ing/steadying and/or contact guard assistance as patient completes activity. Assistance may be provided throughout the activity or intermittently. 3-Partial/Moderate Assistance-helper does LESS THAN HALF the effort. [place] lifts, holds or supports trunk or limbs, but provides less than half the effort. 2-Substantial/Maximal Assistance-helper does MORE THAN HALF the effort. [place] lifts or holds trunk or limbs and provides more than half the effort. 0-Rspyzpjsb-xfjupo does ALL the effort. Patient does none of the effort to complete the activity. Or, the assistance of 2 or more helpers is required for the patient to complete the activity. If activity was not attempted, code reason: 7-Patient Refused. 9-Not Applicable-not attempted and the patient did not perform the activity before the current illness, exacerbation or injury. 10-Not Attempted due to Environmental Limitations-(lack of equipment, weather restraints, etc.). 88-Not Attempted due to Medical Conditions or Safety Concerns. Roll Left to Right (QC): 6 Sit to Lying (QC): 5 Sit to Stand (QC): 6 Chair/Olq-lq-Nyzxe Xfer(QC): 6 Car Transfer (QC): 4 Gait Training Does the Patient Walk?: Yes Distance: 18 x4 Walk 10 feet (QC): 6 Walk 50 ft with 2 Turns(QC): 5 Walk 150 ft (QC): 88 Walking 10ft/uneven surface-QC: 88 Gait Persons Needed: 1 Gait Assistive Device: FWW Wheelchair Training Does the Pt Use a Wheelchair?: No Wheel 50 ft with 2 turns (QC): 1 Wheel 150 ft (QC): 1 Type of Wheelchair: Manual Stair Training 1 Step (curb) (QC): 88 4 Steps (QC): 88 12 Steps (QC): 88 Balance Picking up an Object (QC): 88 ADL-Treatment Eating (QC): 6 (per pt.) Oral Hygiene (QC): 6 Shower/Bathe Self (QC): 5 Upper Body Dressing (QC): 5 Lower Body Dressing (QC): 5 On/Off Footwear (QC): 3 Toileting Hygiene (QC): 6 Toilet Transfer (QC): 6 Assessment/Plan Assessment and Plan Assess & Plan/Chief Complaint Assessment: COPD myopathy s/p Severe sepsis placed on aggressive IV fluid protocol s/p MRSA pneumonia left lung nearly white out post influenza placed on broad- spectrum Zosyn and vancomycin to cover for MRSA pneumonia post influenza which ultimately revealed MRSA in sputum s/p Influenza B s/p Tamiflu s/p Exacerbation of COPD placed on IV steroids and nebulizer treatments Obstructive sleep apnea maintain on BiPAP Dr. Kirkland CAD previous stent placed by Dr. Williamson consulted cardiology Episodes of atrial fibrillation with rapid ventricular response on telemetry consulting cardiology High risk for DVT placed on Lovenox Severe leukocytosis Anemia of chronic illness s/p transfusion Edema Plan: IRF protocol Monitor closely Cardiology and Pulmo appreciated Weaned Vapotherm Maintain Plavix, Hold OAC BRYAN's MRSA colonized sputum so placing mask on and ambulating out of the room (1) Respiratory failure Status: Acute (2) Anemia (3) CAD (coronary artery disease) (4) Leukocytosis (5) Atrial fibrillation with RVR (6) COPD (chronic obstructive pulmonary disease) Status: Acute (7) Obstructive sleep apnea Status: Chronic (8) Myopathy (9) Former smoker (10) History of coronary artery stent placement BERTRAND CUEVAS DO Sep 28, 2019 08:58
--- NOTE | 2019-09-28 10:07 | NUR ---
DR. CUEVAS TO THE FLOOR. INFORMED OF SPUTUM CULTURE RESULTS- PRESUMPTIVE MRSA AND PROBABLE KLEBSIELLA/ENTEROBACTER. Addendum: 09/28/19 at 1832 by EDDIE GREEN RN PER DR. CUEVAS, OK FOR PATIENT TO WALK OUT IN THE HALLS WITH THERAPY LONG PATIENT IS WEARING A MASK. THERAPY NOTIFIED.
[2019-09-28] MEDS: ADVAIR HFA 115/21 MCG INHALER 8 GM IH SCH ×2 (10:21→18:59)
[2019-09-28] MEDS: UMECLIDINIUM BROMIDE (INCRUSE ELLIPTA) 7'S IH SCH (10:22)
--- NOTE | 2019-09-28 10:29 | Occupational Ther Daily Note ---
OT Current Status-Daily Note Subjective Pt seen in recliner chair post-PT session. Pt agrees to attempt separate treatments today to encourage increased endurance throughout day. pt educated that if feeling weak/ overwhelmed/ SOB pt is welcome to have modified tx session (60 min rather than 90). Pt agrees, stating she will try her best and plans to take multiple rest breaks throughout. Mental Status/Objective Patient Orientation: Normal For Age Attachments: Oxygen (3L) ADL-Treatment Therapy Code Descriptions/Definitions Functional [place] Measure: 0=Not Assessed/NA 4=Minimal Assistance 1=Total Assistance 5=Supervision or Setup 2=Maximal Assistance 6=Modified [place] 3=Moderate Assistance 7=Complete IndependenceSCALE: Activities may be completed with or without assistive devices. 1-Yobvvgrfhc-palbevl completes the activity by him/herself with no assistance from a helper. 5-Set-up or Clean-up Assistance-helper sets up or cleans up; patient completes activity. [place] assists only prior to or following the activity. 4-Supervision or Touching Assistance-helper provides verbal cues and/or touching/steadying and/or contact guard assistance as patient completes activity. Assistance may be provided throughout the activity or intermittently. 3-Partial/Moderate Assistance-helper does LESS THAN HALF the effort. [place] lifts, holds or supports trunk or limbs, but provides less than half the effort. 2-Substantial/Maximal Assistance-helper does MORE THAN HALF the effort. [place] lifts or holds trunk or limbs and provides more than half the effort. 5-Vjpengetc-oagyly does ALL the effort. Patient does none of the effort to complete the activity. Or, the assistance of 2 or more helpers is required for the patient to complete the activity. If activity was not attempted, code reason: 7-Patient Refused. 9-Not Applicable-not attempted and the patient did not perform the activity before the current illness, exacerbation or injury. 10-Not Attempted due to Environmental Limitations-(lack of equipment, weather restraints, etc.). 88-Not Attempted due to Medical Conditions or Safety Concerns. Eating (QC): 6 Oral Hygiene (QC): 6 (completed prior to therapy with IND) Bathing Location: L Arm, R Arm, L Upper Leg, R Upper Leg, L Lower Leg (including foot), R Lower Leg (including foot), Chest, Abdomen, Buttocks, Perineal Area Shower/Bathe Self (QC): 4 (SUP: pt completes sponge bath as she states her energy is low. Pt completes sponge bath in recliner chair and allie/ bottom hygiene on toilet.) Upper Body Dressing (QC): 6 Lower Body Dressing (QC): 4 (SUP during stance.) On/Off Footwear: 6 (pt completes socks with mod I, BRYAN hose with IND.) Toileting Hygiene (QC): 6 Toilet Transfer (QC): 4 (SUP) Other Treatment Pt agrees to attempt full 90 min session with individual OT treatment. Pt states she is slightly fatigued from PT session. Pt completes toileting/ bathing with rest break during bathing task. Pt completes dressing in chair, DO comes in to discuss. Retrograde massage completed to bilateral feet, BRYAN hose donned. Pt completes UB theraband ex in stance/ in recliner chair with multiple breaks with 10 reps bilaterally: shoulder flexion (multple breaks with overhead motion), back flies, triceps, biceps, ext/ internal shoulder rotations, back rows, and shoulder scaptions with skilled cues for placement and tension. Pt requires min cues for rest break as pt attempts to complete while SOB, pt return demonstrates ability to recognize when break needed and verbalize such. Pt left in recliner chair with all needs met, call light in reach. Pt's nurse states DO clears pt to come out of room with mask on during therapy session. Education OT Patient Education: Correct positioning, Exercise program, Home exercise prog ricardo, Modified ADL techniques Teaching Recipient: Patient Teaching Methods: Demonstration, Discussion Response to Teaching: Verbalize Understanding, Return Demonstration OT Short Term Goals Short Term Goals Oral hygiene: 6 Toileting hygiene: 3 OT Halfway Goals Hospital Unit Coordinator Goals Time Frame: Oct 06, 2019 Eating (QC): 6 (met) Oral Hygiene (QC): 6 (met) Toileting Hygiene (QC): 6 Shower/Bathe Self (QC): 6 Upper Body Dressing (QC): 6 (met) Lower Body Dressing (QC): 6 On/Off Footwear (QC): 6 (met) Additional Goals: 1-Demonstrate ADL Tasks, 2-Verbalize Understanding, 3- ImproveStrength/Kameron 1=Demonstrate adherence to instructed precautions during ADL tasks. 2=Patient will verbalize/demonstrate understanding of assistive devices/modifications for ADL. 3=Patient will improve strength/tolerance for activity to enable patient to perform ADL's. OT Education/Plan Problem List/Assessment Assessment: Decreased Activ Tolerance, Decreased UE Strength, Edema Discharge Recommendations Plan/Recommendations: Continue POC Treatment Plan/Plan of Care Treatment,Training & Education: Yes Patient would benefit from OT for education, treatment and training to promote independence in ADL's, mobility, safety and/or upper extremity function for ADL's. Plan of Care: ADL Retraining, Caregiver Training, Concurrent Therapy, Functional Mobility, Group Exercise/Act as Ind, UE Funct Exercise/Act Treatment Duration: Oct 06, 2019 Frequency: At least 5 of 7 days/Wk (IRF) Estimated Hrs Per Day: 1.5 hours per day Agreement: Yes Rehab Potential: Fair Time/GCodes Start Time: 09:00 Stop Time: 10:30 Total Time Billed (hr/min): 90 Billed Treatment Time 1, ADL 4 (60), EX 2 (30)= 90 JIMBO DEL TORO OTR Sep 28, 2019 10:29
--- NOTE | 2019-09-28 14:03 | Progress Note - Cardiology ---
Cardiology SOAP Progress Note Subjective: Sitting up in a chair at the bedside. States she feels well. Stools are less dark. No c/o CP, palpitations or dyspnea. Objective: I&O/Vital Signs 09/29/19 09/30/19 21:56 05:04 Temp 36.1 Pulse 98 Resp 20 B/P (MAP) 165/73 (103) Pulse Ox 64 O2 Delivery Nasal Cannula Nasal Cannula O2 Flow Rate 3.00 3.00 09/30/19 00:00 Intake Total 1400 ml Balance 1400 ml Weight (Pounds): 170 Weight (Ounces): 0.0 Weight (Calculated Kilograms): 77.717236 Constitutional: AAO x 3, well-developed Respiratory: chest expansion is symmetric, chest is bilaterally symmetric, other (good air entry) Cardiovascular: regular rate-rhythm, systolic murmur (SOPHIA) Gastrointestional: No tender; round, distended, audible bowel sounds Extremities: other (mod bilat LE swelling) Neurologic/Psychiatric: grossly intact Skin: No rash on exposed areas, No ulcerations on exposed areas Results/Procedures: Labs Laboratory Tests 09/29/19 10:52: Glucometer 167H 09/29/19 15:52: Glucometer 99 09/29/19 20:51: Glucometer 124H 09/30/19 05:34: Glucometer 124H Microbiology 09/27/19 Gram Stain - Final, Resulted 09/27/19 Sputum Culture - Preliminary, Resulted Staphylococcus aureus Probable Klebsiella/Enterobact Usual upper respiratory jose A/P: Assessment: Sepsis and ac resp failure due to ac exac of COPD due to ANTONIA pneumonia, improved, managed by the Med Svce PAF with intermittent RVR Significant anemia due to GI blood loss. Upper and lower endoscopy of 09/21/19: reflux esophagitis(stage 2), moderate gastritis with prepyloric ulcer 5mm size with overlying fibrin clot, no active bleed; mild chronic stage 2 ext and int hemorrhoids, mild sigmoid diverticulosis. CAD. Cath of 10/20/18 showed 75% mid vessel stenosis in the left anterior descending artery that was stented with Jing 2.25 x 18 mm stent. The rest of the coronary vessels have mild to moderate diffuse disease. Normal global left ventricular systolic function with ejection fraction of 65%. Mild to moderate elevation of left ventricular end-diastolic pressure COPD Chronic tobacco use, quit in Jun 2018 Borderline DM II vs IFG Hyperlipidemia 50-60% bilat ICA stenoses on carotid u/s 04/29/2019 Plan: * Complex management due to multiple comorbidities (see above) * Still doesn't seem suitable for Eliquis * Venofer started per Medical services * Continue Plavix. Hold ASA * Advised to continue to stay away from tobacco use * Continue to monitor labs STEPH REVELES Sep 28, 2019 14:03
--- NOTE | 2019-09-28 14:49 | Physical Therapy Daily Note ---
PT Daily Note-Current Subjective Pt agreeable to PT session. States she feels good that she was told by nursing that Dr Mathews is allowing her to walk out in hallways as long as she wears a mask due to her droplet precautions. Pain Numeric Pain Scale: 0-No Pain Appearance Pt on droplet precautions, pt able to place mask on before leaving room. Pt sitting up in recliner awake and alert before and after PT session, call light, phone and bedside table within reach. Mental Status Patient Orientation: Normal For Age Attachments: Saline Lock, Oxygen Transfers SCALE: Activities may be completed with or without assistive devices. 9-Fcjqofqpik-gfswsyr completes the activity by him/herself with no assistance from a helper. 5-Set-up or Clean-up Assistance-helper sets up or cleans up; patient completes activity. [place] assists only prior to or following the activity. 4-Supervision or Touching Assistance-helper provides verbal cues and/or touching/steadying and/or contact guard assistance as patient completes activity. Assistance may be provided throughout the activity or intermittently. 3-Partial/Moderate Assistance-helper does LESS THAN HALF the effort. [place] lifts, holds or supports trunk or limbs, but provides less than half the effort. 2-Substantial/Maximal Assistance-helper does MORE THAN HALF the effort. [place] lifts or holds trunk or limbs and provides more than half the effort. 5-Paophkujc-gatakg does ALL the effort. Patient does none of the effort to complete the activity. Or, the assistance of 2 or more helpers is required for the patient to complete the activity. If activity was not attempted, code reason: 7-Patient Refused. 9-Not Applicable-not attempted and the patient did not perform the activity before the current illness, exacerbation or injury. 10-Not Attempted due to Environmental Limitations-(lack of equipment, weather restraints, etc.). 88-Not Attempted due to Medical Conditions or Safety Concerns. Sit to Stand (QC): 5 Weight Bearing Right Lower Extremity: Right Full Weight Bearing Left Lower Extremity: Left Full Weight Bearing Gait Training Does the Patient Walk?: Yes Distance: 125 x2 Walk 10 feet (QC): 5 Walk 50 ft with 2 Turns(QC): 4 Gait Persons Needed: 1 Gait Assistive Device: FWW Mask donned due to droplet precautions before leaving room and doffed upon arrival back into room, no LOB or unsteadiness, pt becomes SOA and fatigued requiring sitting rest breaks Treatments education, safety, strength, balance, transfers, activity tolerance, breathing techniques, energy conservation, functional mobility Assessment Current Status: Good Progress able to walk out in hallway this afternoon with Dr approval, with pt wearing mask due to droplet precautions PT Short Term Goals Short Term Goals Time Frame: Sep 29, 2019 Roll Left & Right: 6 Sit to lyin Lying to sitting on side of be: 6 Sit to stand: 4 (SBA) Chair/zxm-jv-yjvak transfer: 4 (SBA) Toilet transfer: 4 (SBA) Car transfer: 4 (SBA) Walk 10 feet: 4 (CGA) PT Data Capture Specialist Goals Data Capture Specialist Goals PT Snf Goals Time Frame: Oct 13, 2019 Roll Left & Right (QC): 6 Sit to Lying (QC): 6 Lying-Sitting on Side/Bed(QC): 6 Sit to Stand (QC): 6 Chair/Ocu-sk-Uefki Xfer(QC): 6 Toilet Transfer (QC): 6 Car Transfer (QC): 6 Walk 10 feet (QC): 6 PT Plan Treatment/Plan Treatment Plan: Continue Plan of Care Treatment Plan: Bed Mobility, Education, Functional Activity Kameron, Functional Strength, Group Therapy, Gait, Safety, Therapeutic Exercise, Transfers Treatment Duration: Oct 13, 2019 Frequency: Modified Program (IRF) Estimated Hrs Per Day: 1.5 hours per day Patient and/or Family Agrees t: Yes Safety Risks/Education Patient Education: Gait Training, Transfer Techniques, Safety Issues Teaching Recipient: Patient Teaching Methods: Discussion Response to Teaching: Verbalize Understanding Time/GCodes Time In: 1300 Time Out: 1330 Total Billed Treatment Time: 30 Total Billed Treatment 1 visit, GT x30 min OTRRES DELUNA SLAB PULLER Sep 28, 2019 14:48
--- NOTE | 2019-09-28 16:41 | Progress Note - Cardiology ---
Cardiology SOAP Progress Note Subjective: No further black, tarry stools No cp or palp or syncope or palp Shortness of breath and weakness are improving Objective: I&O/Vital Signs 09/28/19 09/28/19 09/28/19 09/28/19 05:28 08:36 09:59 10:20 Temp 36.1 Pulse 95 95 Resp 20 B/P (MAP) 150/66 (94) 126/64 (84) Pulse Ox 93 97 96 O2 Delivery Nasal Cannula Nasal Cannula Nasal Cannula Nasal Cannula O2 Flow Rate 3.00 3.00 3.00 3.00 09/28/19 14:16 Pulse Ox 98 O2 Delivery Nasal Cannula O2 Flow Rate 4.00 09/28/19 00:00 Intake Total 1000 ml Balance 1000 ml Weight (Pounds): 170 Weight (Ounces): 0.0 Weight (Calculated Kilograms): 77.918215 Constitutional: AAO x 3, well-developed Respiratory: chest expansion is symmetric, chest is bilaterally symmetric, other (good air entry) Cardiovascular: regular rate-rhythm, systolic murmur (SOPHIA) Gastrointestional: No tender; round, distended, audible bowel sounds Extremities: other (mod bilat LE swelling) Neurologic/Psychiatric: grossly intact Skin: No rash on exposed areas, No ulcerations on exposed areas Results/Procedures: Labs Laboratory Tests 09/27/19 20:18: Glucometer 163H 09/28/19 05:52: Glucometer 121H 09/28/19 11:02: Glucometer 144H 09/28/19 15:47: Glucometer 135H Microbiology 09/27/19 Gram Stain - Final, Resulted 09/27/19 Sputum Culture - Preliminary, Resulted Staphylococcus aureus Probable Klebsiella/Enterobact Usual upper respiratory jose A/P: Assessment: Sepsis and ac resp failure due to ac exac of COPD due to ANTONIA pneumonia, improved, managed by the Med Svce PAF with intermittent RVR Significant anemia due to GI blood loss. Upper and lower endoscopy of 09/21/19: reflux esophagitis(stage 2), moderate gastritis with prepyloric ulcer 5mm size with overlying fibrin clot, no active bleed; mild chronic stage 2 ext and int hemorrhoids, mild sigmoid diverticulosis. CAD. Cath of 10/20/18 showed 75% mid vessel stenosis in the left anterior descending artery that was stented with Jing 2.25 x 18 mm stent. The rest of the coronary vessels have mild to moderate diffuse disease. Normal global left ventricular systolic function with ejection fraction of 65%. Mild to moderate elevation of left ventricular end-diastolic pressure COPD Chronic tobacco use, quit in Jun 2018 Borderline DM II vs IFG Hyperlipidemia 50-60% bilat ICA stenoses on carotid u/s 04/29/2019 Plan: * Complex management due to multiple comorbidities (see above) * Still doesn't seem suitable for Eliquis * Venofer started per Medical services. Consider resumption of Elquis if Hgb improves * Continue Plavix. Hold ASA * Advised to continue to stay away from tobacco use * Continue to monitor labs AVANI SAHU MD FACP FACC CCDS Sep 28, 2019 16:41
[2019-09-28 18:31] VITALS: BP 149/74
[2019-09-29] MEDS: RT-ALBUTEROL/IPRATROPIUM 3 ML (DUONEB) VIAL INH SCH ×3 (02:21→19:05)
[2019-09-29] MEDS: SUCRALFATE 1 GM (CARAFATE) TAB PO SCH ×4 (04:59→20:39)
[2019-09-29] MEDS: CATHETER FLUSH 10 ML SYR IV SCH ×3 (05:03→20:45)
[2019-09-29] MEDS: inSUlin ASPART (NovoLOG) 1 UNIT/0.01 ML (CHARGE PER UNIT) SC SCH ×4 (05:20→21:26)
[2019-09-29 05:22] LABS: RED CELL DISTRIBUTION WIDTH 18.2 % (10.0-14.5)
[2019-09-29 05:36] VITALS: BP 150/69
[2019-09-29] MEDS: UMECLIDINIUM BROMIDE (INCRUSE ELLIPTA) 7'S IH SCH (07:59)
[2019-09-29] MEDS: ADVAIR HFA 115/21 MCG INHALER 8 GM IH SCH ×2 (08:01→19:09)
--- NOTE | 2019-09-29 08:02 | Occupational Ther Daily Note ---
OT Current Status-Daily Note Subjective Pt alert, sitting up in bed. Pt agrees to therapy. No c/o pain at this time. Discussed what pt wants for discharge and her goals are to walk 50' safely. Mental Status/Objective Patient Orientation: Person, Place, Time, Situation Attachments: Central Line, Oxygen ADL-Treatment Pt agrees to shower. Pt ambulates to bathroom and transfers to toilet with by self using FWW and grabbars then completes own hygiene and clothing manipulation. Pt transfers into shower using FWW, grabbars and shower bench by self. Pt completes shower using grabbars, hand held shower, shower bench and long handle sponge by self. Pt completes dressing upper body, lower body and footwear, independently. Pt completes own oral hygiene at sink. Pt takes increased time to complete tasks due to lengthy recovery breaks from SOA. Therapy Code Descriptions/Definitions Functional [place] Measure: 0=Not Assessed/NA 4=Minimal Assistance 1=Total Assistance 5=Supervision or Setup 2=Maximal Assistance 6=Modified [place] 3=Moderate Assistance 7=Complete IndependenceSCALE: Activities may be completed with or without assistive devices. 6-Unukxmymhh-vfndquk completes the activity by him/herself with no assistance from a helper. 5-Set-up or Clean-up Assistance-helper sets up or cleans up; patient completes activity. [place] assists only prior to or following the activity. 4-Supervision or Touching Assistance-helper provides verbal cues and/or touching/steadying and/or contact guard assistance as patient completes activity. Assistance may be provided throughout the activity or intermittently. 3-Partial/Moderate Assistance-helper does LESS THAN HALF the effort. [place] lifts, holds or supports trunk or limbs, but provides less than half the effort. 2-Substantial/Maximal Assistance-helper does MORE THAN HALF the effort. [place] lifts or holds trunk or limbs and provides more than half the effort. 7-Noisrnzxm-yueutj does ALL the effort. Patient does none of the effort to complete the activity. Or, the assistance of 2 or more helpers is required for the patient to complete the activity. If activity was not attempted, code reason: 7-Patient Refused. 9-Not Applicable-not attempted and the patient did not perform the activity before the current illness, exacerbation or injury. 10-Not Attempted due to Environmental Limitations-(lack of equipment, weather restraints, etc.). 88-Not Attempted due to Medical Conditions or Safety Concerns. Eating (QC): 6 (Pt has demonstrated that ability to complete set up of meal and using regular utensils to eat.) Oral Hygiene (QC): 6 Bathing Location: L Arm, R Arm, L Upper Leg, R Upper Leg, L Lower Leg (including foot), R Lower Leg (including foot), Chest, Abdomen, Buttocks, Perineal Area Shower/Bathe Self (QC): 6 Upper Body Dressing (QC): 6 Lower Body Dressing (QC): 6 On/Off Footwear: 6 Toileting Hygiene (QC): 6 Toilet Transfer (QC): 6 Other Treatment Pt ambulated ~125' before taking rest break then completed arm bike for 10 min with 1 recovery break to increase activity tolerance and UE strengthening for daily functional tasks. Pt then took one more recovery break prior to ambulated back to room ~125 ". Will check with PT for pt to be up ad dereje in room. After session, pt sitting in recliner with call light/phone in reach. All needs met in room. OT Short Term Goals Short Term Goals Oral hygiene: 6 Toileting hygiene: 3 OT Dewer Goals Dewer Goals Time Frame: Oct 06, 2019 Eating (QC): 6 (met) Oral Hygiene (QC): 6 (met) Toileting Hygiene (QC): 6 Shower/Bathe Self (QC): 6 Upper Body Dressing (QC): 6 (met) Lower Body Dressing (QC): 6 On/Off Footwear (QC): 6 (met) Additional Goals: 1-Demonstrate ADL Tasks, 2-Verbalize Understanding, 3-Imp roveStrength/Kameron 1=Demonstrate adherence to instructed precautions during ADL tasks. 2=Patient will verbalize/demonstrate understanding of assistive devices/modifications for ADL. 3=Patient will improve strength/tolerance for activity to enable patient to perform ADL's. OT Education/Plan Problem List/Assessment Assessment: Decreased Activ Tolerance, Decreased UE Strength Discharge Recommendations Plan/Recommendations: Continue POC Treatment Plan/Plan of Care Patient would benefit from OT for education, treatment and training to promote independence in ADL's, mobility, safety and/or upper extremity function for ADL's. Plan of Care: ADL Retraining, Caregiver Training, Concurrent Therapy, Functional Mobility, Group Exercise/Act as Ind, UE Funct Exercise/Act Treatment Duration: Oct 06, 2019 Frequency: At least 5 of 7 days/Wk (IRF) Estimated Hrs Per Day: 1.5 hours per day Agreement: Yes Rehab Potential: Fair Time/GCodes Start Time: 07:30 Stop Time: 09:00 Total Time Billed (hr/min): 90 Billed Treatment Time 1 visit-ADL 4 (60 min) FA 1 (20 min) EX 1 (10 min) SYLVIA MALDONADO Sep 29, 2019 08:02
[2019-09-29] MEDS: NYSTATIN CREAM (MYCOSTATIN) 30 GM TUBE TP SCH ×3 (08:30→20:42)
--- NOTE | 2019-09-29 09:46 | NUR ---
Late entry: Patient received Privacy Act Statement and Data Collection Information Summary at admission.
--- NOTE | 2019-09-29 09:48 | Progress Note - Cardiology ---
Cardiology SOAP Progress Note Subjective: Generally feels well Shortness of breath has improved compared to time of adm No cp or palp or syncope No black stools in several days now Objective: I&O/Vital Signs 09/29/19 09/29/19 09/29/19 09/29/19 02:21 05:36 07:54 07:59 Temp 36.4 Pulse 92 Resp 20 B/P (MAP) 150/69 (96) Pulse Ox 99 93 97 96 O2 Delivery Nasal Cannula Nasal Cannula Nasal Cannula Nasal Cannula O2 Flow Rate 3.00 3.00 3.00 3.00 09/29/19 08:01 Pulse Ox 96 O2 Delivery Nasal Cannula O2 Flow Rate 3.00 09/29/19 00:00 Intake Total 700 ml Balance 700 ml Weight (Pounds): 170 Weight (Ounces): 0.0 Weight (Calculated Kilograms): 77.020528 Constitutional: AAO x 3, well-developed Respiratory: chest expansion is symmetric, chest is bilaterally symmetric, other (good air entry) Cardiovascular: regular rate-rhythm, systolic murmur (SOPHIA) Gastrointestional: No tender; round, distended, audible bowel sounds Extremities: other (mod bilat LE swelling) Neurologic/Psychiatric: grossly intact Skin: No rash on exposed areas, No ulcerations on exposed areas Results/Procedures: Labs Laboratory Tests 09/28/19 11:02: Glucometer 144H 09/28/19 15:47: Glucometer 135H 09/28/19 20:58: Glucometer 134H 09/29/19 05:08: White Blood Count 9.0, Red Blood Count 3.10L, Hemoglobin 8.0L, Hematocrit 27L, Mean Corpuscular Volume 86, Mean Corpuscular Hemoglobin 26, Mean Corpuscular Hemoglobin Concent 30L, Red Cell Distribution Width 18.2H, Platelet Count 544H, Mean Platelet Volume 9.0 09/29/19 05:17: Glucometer 106 Microbiology 09/27/19 Gram Stain - Final, Resulted 09/27/19 Sputum Culture - Preliminary, Resulted Staphylococcus aureus Probable Klebsiella/Enterobact Usual upper respiratory jose Laboratory Tests 09/29/19 05:08 A/P: Assessment: Sepsis and ac resp failure due to ac exac of COPD due to ANTONIA pneumonia, improved, managed by the Med Svce PAF with intermittent RVR Significant anemia due to GI blood loss. Upper and lower endoscopy of 09/21/19: reflux esophagitis(stage 2), moderate gastritis with prepyloric ulcer 5mm size with overlying fibrin clot, no active bleed; mild chronic stage 2 ext and int hemorrhoids, mild sigmoid diverticulosis. CAD. Cath of 10/20/18 showed 75% mid vessel stenosis in the left anterior descending artery that was stented with Jing 2.25 x 18 mm stent. The rest of the coronary vessels have mild to moderate diffuse disease. Normal global left ventricular systolic function with ejection fraction of 65%. Mild to moderate elevation of left ventricular end-diastolic pressure COPD Chronic tobacco use, quit in Jun 2018 Borderline DM II vs IFG Hyperlipidemia 50-60% bilat ICA stenoses on carotid u/s 04/29/2019 Plan: * Complex management due to multiple comorbidities (see above) * Today's labs still show marked anemia * Still doesn't seem suitable for Eliquis * Venofer started per Medical services. Consider resumption of Elquis if Hgb improves * Continue Plavix. Hold ASA * Advised to continue to stay away from tobacco use * Continue to monitor labs AVANI SAHU MD FACP FACC CCDS Sep 29, 2019 09:48
--- NOTE | 2019-09-29 09:55 | PM&R Progress Note ---
Subjective HPI/CC On Admission Date Seen by Provider: Sep 29, 2019 Time Seen by Provider: 09:30 Subjective/Events-last exam Has mask on for MRSA colonization of the sputum but she is ambulating well Will put her in the independent room and will DC on Friday Hgb stable at 8.0 since on IV iron infusion and. stopped Eliquis maintained on Plavix Checked meds and labs Conferred with RN Reviewed therapy notes Review of Systems General: Fatigue Pulmonary: Dyspnea Objective Exam Vital Signs Vital Signs Date Time Temp Pulse Resp B/P (MAP) Pulse Ox O2 Delivery O2 Flow Rate FiO2 09/29/19 17:24 36.8 85 20 132/75 (94) 97 Nasal Cannula 3.00 09/29/19 13:54 32 Capillary Refill : Less Than 3 Seconds General Appearance: No Apparent Distress, WD/WN, Anxious, Chronically ill HEENT: PERRL/EOMI, Normal ENT Inspection, Pharynx Normal Neck: Full Range of Motion, Normal Inspection, Non Tender, Supple, Carotid Bruit Respiratory: Chest Non Tender, No Accessory Muscle Use, No Respiratory Distress, Decreased Breath Sounds Cardiovascular: Regular Rate, Rhythm, No Gallop, No JVD, No Murmur, Normal Peripheral Pulses Gastrointestinal: Normal Bowel Sounds, No Organomegaly, No Pulsatile Mass, Non Tender, Soft Back: Normal Inspection, No CVA Tenderness, No Vertebral Tenderness Extremity: Normal Capillary Refill, Normal Inspection, Normal Range of Motion, Non Tender, No Calf Tenderness, Pedal Edema Neurologic/Psychiatric: Alert, Oriented x3, No Motor/Sensory Deficits, Normal Mood/Affect, Motor Weakness Skin: Normal Color, Warm/Dry Lymphatic: No Adenopathy Results/Procedures Lab Laboratory Tests 09/29/19 05:08 Patient resulted labs reviewed. FIM Transfers Therapy Code Descriptions/Definitions Functional [place] Measure: 0=Not Assessed/NA 4=Minimal Assistance 1=Total Assistance 5=Supervision or Setup 2=Maximal Assistance 6=Modified [place] 3=Moderate Assistance 7=Complete IndependenceSCALE: Activities may be completed with or without assistive devices. 5-Ohukamhyab-xzhcwag completes the activity by him/herself with no assistance from a helper. 5-Set-up or Clean-up Assistance-helper sets up or cleans up; patient completes activity. [place] assists only prior to or following the activity. 4-Supervision or Touching Assistance-helper provides verbal cues and/or touc shelly/steadying and/or contact guard assistance as patient completes activity. Assistance may be provided throughout the activity or intermittently. 3-Partial/Moderate Assistance-helper does LESS THAN HALF the effort. [place] lifts, holds or supports trunk or limbs, but provides less than half the effort. 2-Substantial/Maximal Assistance-helper does MORE THAN HALF the effort. [place] lifts or holds trunk or limbs and provides more than half the effort. 9-Qciirbdnp-edrdbx does ALL the effort. Patient does none of the effort to complete the activity. Or, the assistance of 2 or more helpers is required for the patient to complete the activity. If activity was not attempted, code reason: 7-Patient Refused. 9-Not Applicable-not attempted and the patient did not perform the activity be fore the current illness, exacerbation or injury. 10-Not Attempted due to Environmental Limitations-(lack of equipment, weather restraints, etc.). 88-Not Attempted due to Medical Conditions or Safety Concerns. Roll Left to Right (QC): 6 Sit to Lying (QC): 5 Sit to Stand (QC): 5 Chair/Bcf-tu-Dlhct Xfer(QC): 6 Car Transfer (QC): 4 Gait Training Does the Patient Walk?: Yes Distance: 125 x2 Walk 10 feet (QC): 5 Walk 50 ft with 2 Turns(QC): 4 Walking 10ft/uneven surface-QC: 88 Gait Persons Needed: 1 Gait Assistive Device: FWW Wheelchair Training Does the Pt Use a Wheelchair?: No Wheel 50 ft with 2 turns (QC): 1 Wheel 150 ft (QC): 1 Type of Wheelchair: Manual Stair Training 1 Step (curb) (QC): 88 4 Steps (QC): 88 12 Steps (QC): 88 Balance Picking up an Object (QC): 88 ADL-Treatment Eating (QC): 6 (Pt has demonstrated that ability to complete set up of meal and using regular utensils to eat.) Oral Hygiene (QC): 6 Bathing Location: L Arm, R Arm, L Upper Leg, R Upper Leg, L Lower Leg (including foot), R Lower Leg (including foot), Chest, Abdomen, Buttocks, Perineal Area Shower/Bathe Self (QC): 6 Upper Body Dressing (QC): 6 Lower Body Dressing (QC): 6 On/Off Footwear (QC): 6 Toileting Hygiene (QC): 6 Toilet Transfer (QC): 6 Assessment/Plan Assessment and Plan Assess & Plan/Chief Complaint Assessment: COPD myopathy s/p Severe sepsis placed on aggressive IV fluid protocol s/p MRSA pneumonia left lung nearly white out post influenza placed on broad- spectrum Zosyn and vancomycin to cover for MRSA pneumonia post influenza which ultimately revealed MRSA in sputum s/p Influenza B s/p Tamiflu s/p Exacerbation of COPD placed on IV steroids and nebulizer treatments Obstructive sleep apnea maintain on BiPAP Dr. Kirkland CAD previous stent placed by Dr. Williamson consulted cardiology Episodes of atrial fibrillation with rapid ventricular response on telemetry consulting cardiology High risk for DVT placed on Lovenox Severe leukocytosis Anemia of chronic illness s/p transfusion Edema Plan: IRF protocol Monitor closely Cardiology and Pulmo appreciated Weaned Vapotherm Maintain Plavix, Hold OAC BRYAN's MRSA colonized sputum so placing mask on and ambulating out of the room (1) Respiratory failure Status: Acute (2) Anemia (3) CAD (coronary artery disease) (4) Leukocytosis (5) Atrial fibrillation with RVR (6) COPD (chronic obstructive pulmonary disease) Status: Acute (7) Obstructive sleep apnea Status: Chronic (8) Myopathy (9) Former smoker (10) History of coronary artery stent placement BERTRAND CUEVAS DO Sep 29, 2019 09:55
[2019-09-29] MEDS: CLOPIDOGREL 75 MG (PLAVIX) TABLET PO SCH (10:00)
[2019-09-29] MEDS: DOCUSATE SODIUM 100 MG (COLACE) CAP PO SCH ×2 (10:00→20:44)
[2019-09-29] MEDS: polyethylene glycoL POWDER 17 GM (MIRALAX) PACK PO SCH ×2 (10:00→20:45)
[2019-09-29] MEDS: SENNA W/DOCUSATE (SENOKOT S) TABLET PO SCH ×2 (10:00→20:45)
[2019-09-29] MEDS: PANTOPRAZOLE 40 MG (PROTONIX) TAB PO SCH ×2 (10:00→20:39)
--- NOTE | 2019-09-29 12:20 | Physical Therapy Daily Note ---
PT Daily Note-Current Subjective Pt sitting in recliner upon arrival. OT asked for PT to observe for possible Ad dereje in room. Pt agrees to PT. Pain Location: No Pain Reported Mental Status Patient Orientation: Person, Place, Time, Situation Attachments: Oxygen (3L) Transfers SCALE: Activities may be completed with or without assistive devices. 4-Nvnykavzlo-ywojgco completes the activity by him/herself with no assistance from a helper. 5-Set-up or Clean-up Assistance-helper sets up or cleans up; patient completes activity. [place] assists only prior to or following the activity. 4-Supervision or Touching Assistance-helper provides verbal cues and/or touching/steadying and/or contact guard assistance as patient completes activity. Assistance may be provided throughout the activity or intermittently. 3-Partial/Moderate Assistance-helper does LESS THAN HALF the effort. [place] lifts, holds or supports trunk or limbs, but provides less than half the effort. 2-Substantial/Maximal Assistance-helper does MORE THAN HALF the effort. [place] lifts or holds trunk or limbs and provides more than half the effort. 3-Omigusrfj-ogvqlq does ALL the effort. Patient does none of the effort to complete the activity. Or, the assistance of 2 or more helpers is required for the patient to complete the activity. If activity was not attempted, code reason: 7-Patient Refused. 9-Not Applicable-not attempted and the patient did not perform the activity before the current illness, exacerbation or injury. 10-Not Attempted due to Environmental Limitations-(lack of equipment, weather restraints, etc.). 88-Not Attempted due to Medical Conditions or Safety Concerns. Sit to Stand (QC): 6 Weight Bearing Right Lower Extremity: Right Full Weight Bearing Left Lower Extremity: Left Full Weight Bearing Gait Training Does the Patient Walk?: Yes Distance: 150' x2 Walk 10 feet (QC): 6 Walk 50 ft with 2 Turns(QC): 6 Walk 150 ft (QC): 6 Gait Persons Needed: 1 Gait Assistive Device: FWW Wheelchair Training Does the Pt Use a Wheelchair?: No Exercises Standing: Hamstring curls, Heel/toe raises, 3 way Ex=Flex, Abd, Ext, Marching Standing Reps: 15 Treatments Pt transfers to standing and ambulates in hallway. Pt uses NuStep for 12m at WL 3. Pt then completes Standing EX at //bars. Pt walks back to room and practices managing longer O2 line for Ad dereje in room. Pt resting in recliner at end of Rx, all needs met & call light in hand. Assessment Current Status: Good Progress Pt still fatigues quickly, needing short RB to recover. Pt reports this has been ongoing for sometime. PT Short Term Goals Short Term Goals Time Frame: Sep 29, 2019 Roll Left & Right: 6 Sit to lyin Lying to sitting on side of be: 6 Sit to stand: 4 (SBA) Chair/aip-ox-fyrhw transfer: 4 (SBA) Toilet transfer: 4 (SBA) Car transfer: 4 (SBA) Walk 10 feet: 4 (CGA) PT Child Watch Attendant Goals Jail Goals PT Child Watch Attendant Goals Time Frame: Oct 13, 2019 Roll Left & Right (QC): 6 Sit to Lying (QC): 6 Lying-Sitting on Side/Bed(QC): 6 Sit to Stand (QC): 6 Chair/Qhl-cy-Wjyzj Xfer(QC): 6 Toilet Transfer (QC): 6 Car Transfer (QC): 6 Walk 10 feet (QC): 6 PT Plan Problem List Problem List: Activity Tolerance Treatment/Plan Treatment Plan: Continue Plan of Care Treatment Plan: Bed Mobility, Education, Functional Activity Kameron, Functional Strength, Group Therapy, Gait, Safety, Therapeutic Exercise, Transfers Treatment Duration: Oct 13, 2019 Frequency: Modified Program (IRF) Estimated Hrs Per Day: 1.5 hours per day Patient and/or Family Agrees t: Yes Safety Risks/Education Patient Education: Gait Training, Transfer Techniques, Correct Positioning, Safety Issues Teaching Recipient: Patient Teaching Methods: Discussion Response to Teaching: Verbalize Understanding Time/GCodes Time In: 1100 Time Out: 1200 Total Billed Treatment Time: 60 Total Billed Treatment 1, GT (15m), FA (15m) & EX x2 (30m) BRINA ARNETT PTA Sep 29, 2019 12:20
[2019-09-29 13:54] VITALS: BP 150/69
--- NOTE | 2019-09-29 15:15 | NUR ---
Pt, & belongings transferred to Transition Room 226 by Daisha Freeman RN, & TAL Moncada. PT has instructed pt that she can be up ad dereje in her room, w FWW.
--- NOTE | 2019-09-29 15:16 | Physical Therapy Daily Note ---
PT Daily Note-Current Subjective Pt sitting in recliner upon arrival. Pt agrees to PT. Pt declines needing to use restroom. Pain Location: No Pain Reported Mental Status Patient Orientation: Person, Place, Time, Situation Attachments: Oxygen (3L) Transfers SCALE: Activities may be completed with or without assistive devices. 4-Haqsdlmhqz-wxapmmc completes the activity by him/herself with no assistance from a helper. 5-Set-up or Clean-up Assistance-helper sets up or cleans up; patient completes activity. [place] assists only prior to or following the activity. 4-Supervision or Touching Assistance-helper provides verbal cues and/or touching/steadying and/or contact guard assistance as patient completes activity . Assistance may be provided throughout the activity or intermittently. 3-Partial/Moderate Assistance-helper does LESS THAN HALF the effort. [place] lifts, holds or supports trunk or limbs, but provides less than half the effort. 2-Substantial/Maximal Assistance-helper does MORE THAN HALF the effort. [place] lifts or holds trunk or limbs and provides more than half the effort. 5-Mekhmldoo-fbtdsc does ALL the effort. Patient does none of the effort to complete the activity. Or, the assistance of 2 or more helpers is required for the patient to complete the activity. If activity was not attempted, code reason: 7-Patient Refused. 9-Not Applicable-not attempted and the patient did not perform the activity before the current illness, exacerbation or injury. 10-Not Attempted due to Environmental Limitations-(lack of equipment, weather restraints, etc.). 88-Not Attempted due to Medical Conditions or Safety Concerns. Weight Bearing Right Lower Extremity: Right Full Weight Bearing Left Lower Extremity: Left Full Weight Bearing Exercises Supine Ex: Ankle pumps, Quad Set, Glut sets, Heel Slides, Straight leg raise, Hip abd/add Supine Reps: 15 Seated Therapy Exercises: Ankle pumps, Long arc quads, Hip flexion, Kicking activity, Hip abd/add Seated Reps: 15 Treatments Pt completes Supine & Seated EX as discussed on HEP given to pt. Pt resting at end of Rx with all needs met, call light in hand. Pt is Ad dereje in room. Assessment Current Status: Good Progress Pt still demonstrates difficulty with SOA with Ex but reports this is baseline. PT Short Term Goals Short Term Goals Time Frame: Sep 29, 2019 Roll Left & Right: 6 Sit to lyin Lying to sitting on side of be: 6 Sit to stand: 4 (SBA) Chair/lbo-qo-ybzzj transfer: 4 (SBA) Toilet transfer: 4 (SBA) Car transfer: 4 (SBA) Walk 10 feet: 4 (CGA) PT Steward/Stewardess Night Goals Intermediate Goals PT Steward/Stewardess Night Goals Time Frame: Oct 13, 2019 Roll Left & Right (QC): 6 Sit to Lying (QC): 6 Lying-Sitting on Side/Bed(QC): 6 Sit to Stand (QC): 6 Chair/Kjq-fu-Tsvjd Xfer(QC): 6 Toilet Transfer (QC): 6 Car Transfer (QC): 6 Walk 10 feet (QC): 6 PT Plan Problem List Problem List: Activity Tolerance, Functional Strength Treatment/Plan Treatment Plan: Continue Plan of Care Treatment Plan: Bed Mobility, Education, Functional Activity Kameron, Functional Strength, Group Therapy, Gait, Safety, Therapeutic Exercise, Transfers Treatment Duration: Oct 13, 2019 Frequency: Modified Program (IRF) Estimated Hrs Per Day: 1.5 hours per day Patient and/or Family Agrees t: Yes Safety Risks/Education Patient Education: Correct Positioning, Safety Issues Teaching Recipient: Patient Teaching Methods: Discussion Response to Teaching: Verbalize Understanding Time/GCodes Time In: 1400 Time Out: 1430 Total Billed Treatment Time: 30 Total Billed Treatment 1, EX x2 (30m) BRINA ARNETT HAND II CUTTER Sep 29, 2019 15:16
--- NOTE | 2019-09-29 15:55 | NUR ---
CM/SS WEEKLY TEAM CONFERENCE SUMMARY and DISCHARGE PLANNING Visited with patient this a.m. regarding discharge planning and presented her input during Team meeting. Met with patient after meeting, all are in agreement to discharge date of 10/01/19. Patient states her pulmonary status is the best it has been in a very long time and she is more vibrant and independent with her functioning. She has transitioned to her independent living room and is free to be up ad dereje. Patient's mother will be staying with her at her home and her sister resides next door. HHC: Recommended for RN and PT, exploring for an agency in [facility]; [facility] is not in network. DME: Med Alert has been pursued by her sister through [facility] Litigation Coordinator, Vielka Bal. Student did communicate with Vielka, the approval has been received but equipment has not been set up. Patient has all other recommended DME for her care needs. Finalize plans when orders received and agencies confirmed.
[2019-09-29 17:24] VITALS: BP 132/75
[2019-09-30] MEDS: CATHETER FLUSH 10 ML SYR IV SCH ×3 (04:54→20:43)
[2019-09-30] MEDS: SUCRALFATE 1 GM (CARAFATE) TAB PO SCH ×4 (04:55→20:41)
[2019-09-30 05:04] VITALS: BP 165/73
[2019-09-30] MEDS: inSUlin ASPART (NovoLOG) 1 UNIT/0.01 ML (CHARGE PER UNIT) SC SCH ×4 (05:36→20:42)
[2019-09-30] MEDS ORDERED: PANT40TA3 PO (06:06)
[2019-09-30] MEDS ORDERED: DILT180C85 PO (06:06)
[2019-09-30] MEDS ORDERED: SUCR1TAB PO (06:06)
[2019-09-30] MEDS ORDERED: IPRA3AMP31 INH (06:06)
--- NOTE | 2019-09-30 07:41 | Occupational Ther Daily Note ---
OT Current Status-Daily Note Subjective Pt alert, sitting EOB. Pt agrees to therapy. No c/o pain at this time. Pt stated that nrsg alerted respiratory for a treatment this morning. Mental Status/Objective Patient Orientation: Person, Place, Time, Situation Attachments: Central Line, Oxygen (3L) ADL-Treatment Pt agrees to shower. Pt gathered clothing using FWW then transported into bathroom, mod I. Pt transferred with tub transfer bench, mod I. Completed shower using AE for energy conservation, mod I. Completed dressing sitting in chair, independently. Transferred to toilet using FWW, mod I. Completed toilet hygiene and clothing manipulation, independently. Pt stood at sink to complete grooming and oral care, independently. Pt able to manipulate O2 tubing independently with ambulation. Pt is completing functional tasks more timely though continues to need recovery breaks throughout session. After session, pt sitting in recliner with call light/phone in reach. All needs met in room. Therapy Code Descriptions/Definitions Functional [place] Measure: 0=Not Assessed/NA 4=Minimal Assistance 1=Total Assistance 5=Supervision or Setup 2=Maximal Assistance 6=Modified [place] 3=Moderate Assistance 7=Complete IndependenceSCALE: Activities may be completed with or without assistive devices. 4-Hjuhmzrezf-cjfidsu completes the activity by him/herself with no assistance from a helper. 5-Set-up or Clean-up Assistance-helper sets up or cleans up; patient completes activity. [place] assists only prior to or following the activity. 4-Supervision or Touching Assistance-helper provides verbal cues and/or touching/steadying and/or contact guard assistance as patient completes activity. Assistance may be provided throughout the activity or intermittently. 3-Partial/Moderate Assistance-helper does LESS THAN HALF the effort. [place] lifts, holds or supports trunk or limbs, but provides less than half the effort. 2-Substantial/Maximal Assistance-helper does MORE THAN HALF the effort. [place] lifts or holds trunk or limbs and provides more than half the effort. 1-Mzftrabhh-ylgzwt does ALL the effort. Patient does none of the effort to complete the activity. Or, the assistance of 2 or more helpers is required for the patient to complete the activity. If activity was not attempted, code reason: 7-Patient Refused. 9-Not Applicable-not attempted and the patient did not perform the activity before the current illness, exacerbation or injury. 10-Not Attempted due to Environmental Limitations-(lack of equipment, weather restraints, etc.). 88-Not Attempted due to Medical Conditions or Safety Concerns. Eating (QC): 6 (Pt demonstrates the ability to set up own meal and uses regular utensils to eat.) Oral Hygiene (QC): 6 Bathing Location: L Arm, R Arm, L Upper Leg, R Upper Leg, L Lower Leg (including foot), R Lower Leg (including foot), Chest, Abdomen, Buttocks, Perineal Area Shower/Bathe Self (QC): 6 Upper Body Dressing (QC): 6 Lower Body Dressing (QC): 6 On/Off Footwear: 6 Toileting Hygiene (QC): 6 Toilet Transfer (QC): 6 OT Short Term Goals Short Term Goals Oral hygiene: 6 Toileting hygiene: 3 OT Residential Goals Residential Goals Time Frame: Oct 06, 2019 Eating (QC): 6 (met) Oral Hygiene (QC): 6 (met) Toileting Hygiene (QC): 6 (met) Shower/Bathe Self (QC): 6 (met) Upper Body Dressing (QC): 6 (met) Lower Body Dressing (QC): 6 (met) On/Off Footwear (QC): 6 (met) Additional Goals: 1-Demonstrate ADL Tasks, 2-Verbalize Understanding, 3- ImproveStrength/Kameron 1=Demonstrate adherence to instructed precautions during ADL tasks. 2=Patient will verbalize/demonstrate understanding of assistive dev ices/modifications for ADL. 3=Patient will improve strength/tolerance for activity to enable patient to perform ADL's. OT Education/Plan Problem List/Assessment Assessment: Decreased Activ Tolerance Discharge Recommendations Plan/Recommendations: Continue POC Treatment Plan/Plan of Care Patient would benefit from OT for education, treatment and training to promote independence in ADL's, mobility, safety and/or upper extremity function for ADL's. Plan of Care: ADL Retraining, Caregiver Training, Concurrent Therapy, Functional Mobility, Group Exercise/Act as Ind, UE Funct Exercise/Act Treatment Duration: Oct 06, 2019 Frequency: At least 5 of 7 days/Wk (IRF) Estimated Hrs Per Day: 1.5 hours per day Agreement: Yes Rehab Potential: Fair Time/GCodes Start Time: 07:15 Stop Time: 08:15 Total Time Billed (hr/min): 60 Billed Treatment Time 1 visit-ADL 4 (60 min) SYLVIA MALDONADO Sep 30, 2019 07:41
[2019-09-30] MEDS: RT-ALBUTEROL/IPRATROPIUM 3 ML (DUONEB) VIAL INH SCH ×2 (08:20→20:18)
[2019-09-30] MEDS: ADVAIR HFA 115/21 MCG INHALER 8 GM IH SCH ×2 (08:21→20:19)
[2019-09-30] MEDS: UMECLIDINIUM BROMIDE (INCRUSE ELLIPTA) 7'S IH SCH (08:21)
--- NOTE | 2019-09-30 09:07 | D/C HH Face to Face Order ---
D/C Face to Face Orders Reconcile Patient Problems Problems Reviewed?: Yes Instructions for Patient Home Health Patient Instructions/FollowUp: [facility] 1 week Physician to follow Patient: [facility] Discharge Diet for Home: No Restrictions Patient Problems: COPD Anemia AF Goals for Patient: Charlo Patient Data-Allergies,Ht & Wt Patient Allergies: Coded Allergies: No Known Drug Allergies (Unverified , 09/06/19) Height (Feet): 5 Height (Inches): 3.00 Weight (Pounds): 170 Weight (Ounces): 0.0 Home Health Need/Face to Face Date of Face to Face: Sep 30, 2019 Clinical Findings: Generalized weakness and fatigue, Muscle weakness I have seen Pt slot-si-rdxs: Yes Discharged To: Home Diagnosis/Conditions: COPD Anemia AF Patient is Homebound due to: Muscle weakness, Shortness of breath/distress Homebound Status Due to the above stated illness, injury or surgical procedure (medical condition or diagnosis) and associated clinical findings, the patient is homebound because of his/her inability to leave home except with aid of a supportive device and/or person AND leaving the home requires a considerable and taxing effort or is medically contraindicated. Pt req the following assistanc: [facility] Nursing Orders Home Health Services Order: Nursing Services, Claim Specialist-Evaluate & Treat, Physical Therapy-Evaluate & Treat Certify Stmt I certify that this patient is under my care and that I, a nurse practitioner or a physician; a catalog library assistant working with me, had a face to face encounter that - meets the physician face to face encounter requirements with this patient as dated. BERTRAND CUEVAS DO Sep 30, 2019 09:07
--- NOTE | 2019-09-30 09:10 | PM&R Progress Note ---
Subjective HPI/CC On Admission Date Seen by Provider: Sep 30, 2019 Time Seen by Provider: 09:15 Subjective/Events-last exam Home health will be set up. Reviewed all home medications at discharge. Resuming iron therapy. Oxygen is at her baseline of 3 L. Overall progressing nicely. Checked meds and labs Conferred with RN Reviewed therapy notes Review of Systems General: Fatigue Pulmonary: Dyspnea Objective Exam Vital Signs Vital Signs Date Time Temp Pulse Resp B/P (MAP) Pulse Ox O2 Delivery O2 Flow Rate FiO2 09/30/19 21:02 Nasal Cannula 3.00 09/30/19 20:20 99 09/30/19 17:25 35.6 82 20 142/71 (94) 09/29/19 13:54 32 Capillary Refill : Less Than 3 Seconds General Appearance: No Apparent Distress, WD/WN, Anxious, Chronically ill HEENT: PERRL/EOMI, Normal ENT Inspection, Pharynx Normal Neck: Full Range of Motion, Normal Inspection, Non Tender, Supple, Carotid Bruit Respiratory: Chest Non Tender, No Accessory Muscle Use, No Respiratory Distress, Decreased Breath Sounds Cardiovascular: Regular Rate, Rhythm, No Gallop, No JVD, No Murmur, Normal Peripheral Pulses Gastrointestinal: Normal Bowel Sounds, No Organomegaly, No Pulsatile Mass, Non Tender, Soft Back: Normal Inspection, No CVA Tenderness, No Vertebral Tenderness Extremity: Normal Capillary Refill, Normal Inspection, Normal Range of Motion, Non Tender, No Calf Tenderness, Pedal Edema Neurologic/Psychiatric: Alert, Oriented x3, No Motor/Sensory Deficits, Normal Mood/Affect, Motor Weakness Skin: Normal Color, Warm/Dry Lymphatic: No Adenopathy Results/Procedures Lab Patient resulted labs reviewed. FIM Transfers Therapy Code Descriptions/Definitions Functional [place] Measure: 0=Not Assessed/NA 4=Minimal Assistance 1=Total Assistance 5=Supervision or Setup 2=Maximal Assistance 6=Modified [place] 3=Moderate Assistance 7=Complete IndependenceSCALE: Activities may be completed with or without assistive devices. 9-Kepcvwlcxp-wqgzode completes the activity by him/herself with no assistance from a helper. 5-Set-up or Clean-up Assistance-helper sets up or cleans up; patient completes activity. [place] assists only prior to or following the activity. 4-Supervision or Touching Assistance-helper provides verbal cues and/or touching/steadying and/or contact guard assistance as patient completes activity. Assistance may be provided throughout the activity or intermittently. 3-Partial/Moderate Assistance-helper does LESS THAN HALF the effort. [place] lifts, holds or supports trunk or limbs, but provides less than half the effort. 2-Substantial/Maximal Assistance-helper does MORE THAN HALF the effort. [place] lifts or holds trunk or limbs and provides more than half the effort. 8-Sdwbjdjhz-npckyz does ALL the effort. Patient does none of the effort to complete the activity. Or, the assistance of 2 or more helpers is required for the patient to complete the activity. If activity was not attempted, code reason: 7-Patient Refused. 9-Not Applicable-not attempted and the patient did not perform the activity before the current illness, exacerbation or injury. 10-Not Attempted due to Environmental Limitations-(lack of equipment, weather restraints, etc.). 88-Not Attempted due to Medical Conditions or Safety Concerns. Roll Left to Right (QC): 6 Sit to Lying (QC): 5 Sit to Stand (QC): 6 Chair/Ldp-li-Yvjnz Xfer(QC): 6 Car Transfer (QC): 4 Gait Training Does the Patient Walk?: Yes Distance: 150' x2 Walk 10 feet (QC): 6 Walk 50 ft with 2 Turns(QC): 6 Walk 150 ft (QC): 6 Walking 10ft/uneven surface-QC: 88 Gait Persons Needed: 1 Gait Assistive Device: FWW Wheelchair Training Does the Pt Use a Wheelchair?: No Wheel 50 ft with 2 turns (QC): 1 Wheel 150 ft (QC): 1 Stair Training 1 Step (curb) (QC): 88 4 Steps (QC): 88 12 Steps (QC): 88 Balance Picking up an Object (QC): 88 ADL-Treatment Eating (QC): 6 (Pt has demonstrated that ability to complete set up of meal and using regular utensils to eat.) Oral Hygiene (QC): 6 Bathing Location: L Arm, R Arm, L Upper Leg, R Upper Leg, L Lower Leg (including foot), R Lower Leg (including foot), Chest, Abdomen, Buttocks, Perineal Area Shower/Bathe Self (QC): 6 Upper Body Dressing (QC): 6 Lower Body Dressing (QC): 6 On/Off Footwear (QC): 6 Toileting Hygiene (QC): 6 Toilet Transfer (QC): 6 Assessment/Plan Assessment and Plan Assess & Plan/Chief Complaint Assessment: COPD myopathy s/p Severe sepsis placed on aggressive IV fluid protocol s/p MRSA pneumonia left lung nearly white out post influenza placed on broad- spectrum Zosyn and vancomycin to cover for MRSA pneumonia post influenza which ultimately revealed MRSA in sputum s/p Influenza B s/p Tamiflu s/p Exacerbation of COPD placed on IV steroids and nebulizer treatments Obstructive sleep apnea maintain on BiPAP Dr. Kirkland CAD previous stent placed by Dr. Williamson consulted cardiology Episodes of atrial fibrillation with rapid ventricular response on telemetry consulting cardiology High risk for DVT placed on Lovenox Severe leukocytosis Anemia of chronic illness s/p transfusion Edema Plan: IRF protocol Monitor closely Cardiology and Pulmo appreciated Weaned Vapotherm Maintain Plavix, Hold OAC BRYAN's MRSA colonized sputum so placing mask on and ambulating out of the room DC tomorrow (1) Respiratory failure Status: Acute (2) Anemia (3) CAD (coronary artery disease) (4) Leukocytosis (5) Atrial fibrillation with RVR (6) COPD (chronic obstructive pulmonary disease) Status: Acute Qualifiers: Qualified Codes: J44.9 - Chronic obstructive pulmonary disease, unspecified (7) Obstructive sleep apnea Status: Chronic (8) Myopathy (9) Former smoker (10) History of coronary artery stent placement BERTRAND CUEVAS DO Sep 30, 2019 09:10
[2019-09-30] MEDS: NYSTATIN CREAM (MYCOSTATIN) 30 GM TUBE TP SCH ×3 (10:47→20:41)
[2019-09-30] MEDS: CLOPIDOGREL 75 MG (PLAVIX) TABLET PO SCH (10:47)
[2019-09-30] MEDS: PANTOPRAZOLE 40 MG (PROTONIX) TAB PO SCH ×2 (10:47→20:41)
[2019-09-30] MEDS: IRON SUCROSE 200 MG/10 ML (VENOFER) VIAL IV SCH (10:47)
[2019-09-30] MEDS: SENNA W/DOCUSATE (SENOKOT S) TABLET PO SCH ×2 (10:48→19:28)
[2019-09-30] MEDS: polyethylene glycoL POWDER 17 GM (MIRALAX) PACK PO SCH ×2 (10:48→19:28)
[2019-09-30] MEDS: DOCUSATE SODIUM 100 MG (COLACE) CAP PO SCH ×2 (10:48→19:28)
--- NOTE | 2019-09-30 12:10 | Physical Therapy Daily Note ---
PT Daily Note-Current Subjective Pt sitting in recliner upon arrival. Pt agrees to PT. Pain Location: No Pain Reported Mental Status Patient Orientation: Person, Place, Time, Situation Attachments: Oxygen (3L) Transfers SCALE: Activities may be completed with or without assistive devices. 9-Tpwmwypoij-ohomcze completes the activity by him/herself with no assistance from a helper. 5-Set-up or Clean-up Assistance-helper sets up or cleans up; patient completes activity. [place] assists only prior to or following the activity. 4-Supervision or Touching Assistance-helper provides verbal cues and/or touching/steadying and/or contact guard assistance as patient completes activity. Assistance may be provided throughout the activity or intermittently. 3-Partial/Moderate Assistance-helper does LESS THAN HALF the effort. [place] lifts, holds or supports trunk or limbs, but provides less than half the effort. 2-Substantial/Maximal Assistance-helper does MORE THAN HALF the effort. [place] lifts or holds trunk or limbs and provides more than half the effort. 4-Wqgfimiwa-bphlby does ALL the effort. Patient does none of the effort to complete the activity. Or, the assistance of 2 or more helpers is required for the patient to complete the activity. If activity was not attempted, code reason: 7-Patient Refused. 9-Not Applicable-not attempted and the patient did not perform the activity before the current illness, exacerbation or injury. 10-Not Attempted due to Environmental Limitations-(lack of equipment, weather restraints, etc.). 88-Not Attempted due to Medical Conditions or Safety Concerns. Roll Left & Right (QC): 6 Sit to Lying (QC): 6 Lying to Sitting/Side of Bed(Q: 6 Sit to Stand (QC): 6 Chair/Xmw-fy-Jyymw Xfer(QC): 6 Toilet Transfer (QC): 6 Car Transfer (QC): 6 Weight Bearing Right Lower Extremity: Right Full Weight Bearing Left Lower Extremity: Left Full Weight Bearing Gait Training Does the Patient Walk?: Yes Distance: 150' x2 Walk 10 feet (QC): 6 Walk 50 ft with 2 Turns(QC): 6 Walk 150 ft (QC): 6 Walking 10ft/uneven surface-QC: 6 Gait Persons Needed: 1 Gait Assistive Device: FWW Wheelchair Training Does the Pt Use a Wheelchair?: No Stair Training Stair Training: Handrails/: 2 handrails #of Steps: 4 1 Step (curb) (QC): 6 4 Steps (QC): 6 12 Steps (QC): 9 Stairs: Pattern: Step to Pt reports not needing to complete steps for entering home but does complete 4 before fatiguing. Balance Picking up an Object (QC): 6 Exercises Standing: Hamstring curls, Heel/toe raises, 3 way Ex=Flex, Abd, Ext, Marching, Mini squats Standing Reps: 15 NuStep Minutes: 10 NuStep Workload: 3 Treatments Pt completes QC scoring items (listed above). Pt also uses NuStep for 10m at [facility] 3. Pt also completes Standing Ex at //bars. Pt returns to room at end of Rx. Pt uses restroom. Pt has all needs met, call light in hand. Assessment Current Status: Good Progress Pt tolerates Rx well. PT Short Term Goals Short Term Goals Time Frame: Sep 29, 2019 Roll Left & Right: 6 Sit to lyin Lying to sitting on side of be: 6 Sit to stand: 4 (SBA) Chair/rbm-sk-sabpb transfer: 4 (SBA) Toilet transfer: 4 (SBA) Car transfer: 4 (SBA) Walk 10 feet: 4 (CGA) PT Regrader Goals Custodial Goals PT Custodial Goals Time Frame: Oct 13, 2019 Roll Left & Right (QC): 6 Sit to Lying (QC): 6 Lying-Sitting on Side/Bed(QC): 6 Sit to Stand (QC): 6 Chair/Ccq-gj-Lahxr Xfer(QC): 6 Toilet Transfer (QC): 6 Car Transfer (QC): 6 Walk 10 feet (QC): 6 PT Plan Problem List Problem List: Activity Tolerance Treatment/Plan Treatment Plan: Continue Plan of Care Treatment Plan: Bed Mobility, Education, Functional Activity Kameron, Functional Strength, Group Therapy, Gait, Safety, Therapeutic Exercise, Transfers Treatment Duration: Oct 13, 2019 Frequency: Modified Program (IRF) Estimated Hrs Per Day: 1.5 hours per day Patient and/or Family Agrees t: Yes Safety Risks/Education Patient Education: Gait Training, Transfer Techniques, Steps, Correct Positioning, Safety Issues Teaching Recipient: Patient Teaching Methods: Discussion Response to Teaching: Verbalize Understanding Time/GCodes Time In: 1100 Time Out: 1200 Total Billed Treatment Time: 60 Total Billed Treatment 1, GT (15m), FA (10m) & Ex x2 (35m) BRINA ARNETT WIRELESS STORE MANAGER Sep 30, 2019 12:10
--- NOTE | 2019-09-30 14:11 | NUR ---
"RD ASSESSMENT PMHx: COPD; CAD; hypercholesterolemia; GERD; stroke; REGAN PT INTERACTION: Pt was awake and pleasant during nutrition follow-up. Pt states she has been eating well since last assessment. Note avg PO intake of >75% x4d, per chart review. Pt states no issues with n/v/c/d since last assessment. Note last BM was 09/30 and pt currently on bowel regimen of colace BID; senna BID; and miralax BID, per chart review. ABNORMAL NUTRITION-RELATED LAB VALUES LOW: cr 0.53; Pro 6.0; alb 2.9 HIGH: glu 107 Est. kcal needs: 2756-6933 kcal | 15-18 kcal/kg Est. Pro needs: 68-85 g Pro | 0.8-1.0 g Pro/kg PES STATEMENT: Given pt's PO intake, no nutrition diagnosis at this time (NO-1.1) INTERVENTION: Continue with current diet order of Heart Healthy diet. Will continue to follow and reassess as pt needs and status change. MONITOR/EVALUATE: PO Intake; Plan of Care; Hydration Status; Weight Status; Lab Values Edgar Morgan, MS, RD, LD"
--- NOTE | 2019-09-30 14:15 | Therapy Group Daily Note ---
Therapy Daily Group Note Patient Education Topic Other List Below (handwashing, AD for walker) Exercises LE Seated Exercise, UE Exercise Session Ratio (pt:therapist): 3:1 Goal of Session: Use of Adaptive Equipment, Other (list) (handwashing) Goal Met for this Session: Yes Pt Benefit of Group: Contributions to Others, F/U Use of Strategies @Home, Increased Functional Safety, Increased Functional Strength, Improved Cognition, Recognition of Peers, Socialization Other/Notes Pt ambulated using FWW to [facility] for OT/PT group. Group consisted of introductions (name, place living, favorite childhood food), socialization, peer lead UE/LE seated exercises, educational topics of handwashing and AD for walkers. Pt introduced self appropriately and actively listened to peers. Pt was able to read exercise card and lead group in one exercise then completed other exercises that was lead by peers. Pt acknowledged understanding of educational topics by giving own strategies and personal stories on each topic. After group, pt ambulated back to room and sat in recliner. Call light and phone placed in reach. All needs met. Start Time: 13:00 Stop Time: 14:00 Total Billed Treatment Time: 60 Total Billed Treatment 1-SYLVIA CHUNG Sep 30, 2019 14:15
[2019-09-30 17:25] VITALS: BP 142/71
[2019-10-01 05:07] VITALS: BP 157/72
--- NOTE | 2019-10-01 05:58 | Discharge Summary ---
Diagnosis/Chief Complaint Date of Admission Sep 22, 2019 at 15:33 Date of Discharge Discharge Date: Oct 01, 2019 Discharge Diagnosis Assessment: COPD myopathy s/p Severe sepsis placed on aggressive IV fluid protocol s/p MRSA pneumonia left lung nearly white out post influenza placed on broad- spectrum Zosyn and vancomycin to cover for MRSA pneumonia post influenza which ultimately revealed MRSA in sputum s/p Influenza B s/p Tamiflu s/p Exacerbation of COPD placed on IV steroids and nebulizer treatments Obstructive sleep apnea maintain on BiPAP Dr. Kirkland CAD previous stent placed by Dr. Williamson consulted cardiology Episodes of atrial fibrillation with rapid ventricular response on telemetry consulting cardiology High risk for DVT placed on Lovenox Severe leukocytosis Anemia of chronic illness s/p transfusion Edema Plan: IRF protocol Monitor closely Cardiology and Pulmo appreciated Weaned Vapotherm Maintain Plavix, Hold OAC BRYAN's MRSA colonized sputum so placing mask on and ambulating out of the room (1) Respiratory failure Status: Acute (2) Anemia (3) CAD (coronary artery disease) (4) Leukocytosis (5) Atrial fibrillation with RVR (6) COPD (chronic obstructive pulmonary disease) Status: Acute (7) Obstructive sleep apnea Status: Chronic (8) Myopathy (9) Former smoker (10) History of coronary artery stent placement Discharge Summary Discharge Physical Examination Allergies: Coded Allergies: No Known Drug Allergies (Unverified , 09/06/19) Vitals & I&Os Vital Signs Date Time Temp Pulse Resp B/P (MAP) Pulse Ox O2 Delivery O2 Flow Rate FiO2 10/01/19 10:30 10/01/19 08:00 Nasal Cannula 3.00 10/01/19 05:07 36.9 100 20 94 09/29/19 13:54 32 General Appearance: Alert, Oriented X3, Cooperative Respiratory: Clear to Auscultation Cardiovascular: Regular Rate Neuro: Normal Gait, Normal Speech, Strength at 5/5 X4 Ext Psych/Mental Status: Mental Status NL Hospital Course Was the Problem List Reviewed?: Yes Hospital course: Pt had an uneventful but lengthy hospital course considering she was critically ill for approximately 12 days in the ICU for pneumonia, COPD exacerbation, A-FIB with RVR, severe anemia, transfusion required and residual from influenza. Cardiology maintained their consultation services, pneumonia had completely resolved at the time of discharge and Pt had no significant decompensation. Pt did require a mask when she went out of the room because of continued MRSA colonization of the sputum, but she was asymptomatic, Nystatin was initiated for breast yeast dermatitis under the left breast and Pt was overall deemed stable for discharge on her home oxygens of 3 L and will hold Eliquis due to anemia, but maintain Plavix since that is absolutely critical per cardiology and will maintain iron after iron infusion is given of four doses while in inpatient rehab and will have home health set up for close follow-up. Labs (last 24 hrs) Laboratory Tests 09/22/19 15:33: Lab Scanned Report Referred Lab Report 09/22/19 20:40: Glucometer 128H 09/23/19 05:30: White Blood Count 8.9, Red Blood Count 3.31L, Hemoglobin 8.6L, Hematocrit 28L, Mean Corpuscular Volume 86, Mean Corpuscular Hemoglobin 26, Mean Corpuscular Hemoglobin Concent 30L, Red Cell Distribution Width 18.4H, Platelet Count 561H, Mean Platelet Volume 10.4, Neutrophils (%) (Auto) 72, Lymphocytes (%) (Auto) 13, Monocytes (%) (Auto) 10, Eosinophils (%) (Auto) 5, Basophils (%) (Auto) 0, Neutrophils # (Auto) 6.5, Lymphocytes # (Auto) 1.2, Monocytes # (Auto) 0.9, Eosinophils # (Auto) 0.4H, Basophils # (Auto) 0.0, Sodium Level 133L, Potassium Level 4.2, Chloride Level 98, Carbon Dioxide Level 27, Anion Gap 8, Blood Urea Nitrogen 8, Creatinine 0.59L, Estimat Glomerular Filtration Rate > 60, BUN/Creatinine Ratio 14, Glucose Level 111H, Calcium Level 8.7, Corrected Calcium 9.6, Total Bilirubin 0.3, Aspartate Amino Transf (AST/SGOT) 12, Alanine Aminotransferase (ALT/SGPT) 15, Alkaline Phosphatase 75, Total Protein 6.2L, Albumin 2.9L 09/23/19 05:55: Glucometer 115H 09/23/19 10:52: Glucometer 119H 09/23/19 15:58: Glucometer 145H 09/23/19 21:01: Glucometer 145H 09/24/19 05:34: Glucometer 136H 09/24/19 06:30: White Blood Count 8.7, Red Blood Count 3.14L, Hemoglobin 8.1L, Hematocrit 27L, Mean Corpuscular Volume 85, Mean Corpuscular Hemoglobin 26, Mean Corpuscular Hemoglobin Concent 30L, Red Cell Distribution Width 18.1H, Platelet Count 564H, Mean Platelet Volume 10.0 09/24/19 10:42: Glucometer 122H 09/24/19 16:11: Glucometer 109 09/24/19 21:58: Glucometer 138H 09/25/19 05:47: Glucometer 129H 09/25/19 12:06: Glucometer 117H 09/25/19 16:33: Glucometer 132H 09/25/19 21:11: Glucometer 104 09/26/19 05:24: Glucometer 136H 09/26/19 05:28: White Blood Count 7.7, Red Blood Count 2.94L, Hemoglobin 7.6L, Hematocrit 25L, Mean Corpuscular Volume 86, Mean Corpuscular Hemoglobin 26, Mean Corpuscular Hemoglobin Concent 30L, Red Cell Distribution Width 17.4H, Platelet Count 541H, Mean Platelet Volume 9.7, Neutrophils (%) (Auto) 74, Lymphocytes (%) (Auto) 13, Monocytes (%) (Auto) 9, Eosinophils (%) (Auto) 5, Basophils (%) (Auto) 0, Neutrophils # (Auto) 5.7, Lymphocytes # (Auto) 1.0, Monocytes # (Auto) 0.7, Eosinophils # (Auto) 0.4H, Basophils # (Auto) 0.0, Sodium Level 135, Potassium Level 3.7, Chloride Level 102, Carbon Dioxide Level 24, Anion Gap 9, Blood Urea Nitrogen 9, Creatinine 0.52L, Estimat Glomerular Filtration Rate > 60, BUN/Creatinine Ratio 17, Glucose Level 117H, Calcium Level 8.3L, Iron Level 13L 09/26/19 11:18: Glucometer 125H 09/26/19 16:20: Glucometer 110 09/26/19 20:12: Glucometer 107 09/27/19 05:55: White Blood Count 6.0, Red Blood Count 3.02L, Hemoglobin 7.8L, Hematocrit 26L, Mean Corpuscular Volume 85, Mean Corpuscular Hemoglobin 26, Mean Corpuscular Hemoglobin Concent 30L, Red Cell Distribution Width 17.7H, Platelet Count 568H, Mean Platelet Volume 9.1, Neutrophils (%) (Auto) 67, Lymphocytes (%) (Auto) 18, Monocytes (%) (Auto) 9, Eosinophils (%) (Auto) 5, Basophils (%) (Auto) 1, Neutrophils # (Auto) 4.0, Lymphocytes # (Auto) 1.1, Monocytes # (Auto) 0.5, Eosinophils # (Auto) 0.3, Basophils # (Auto) 0.0, Sodium Level 137, Potassium Level 3.6, Chloride Level 103, Carbon Dioxide Level 26, Anion Gap 8, Blood Urea Nitrogen 9, Creatinine 0.53L, Estimat Glomerular Filtration Rate > 60, BUN/Creatinine Ratio 17, Glucose Level 107H, Calcium Level 8.6, Corrected Calcium 9.5, Total Bilirubin 0.2, Aspartate Amino Transf (AST/SGOT) 10, Alanine Aminotransferase (ALT/SGPT) 13, Alkaline Phosphatase 75, Total Protein 6.0L, Albumin 2.9L 09/27/19 06:03: Glucometer 93 09/27/19 11:26: Glucometer 97 09/27/19 16:08: Glucometer 92 09/27/19 20:18: Glucometer 163H 09/28/19 05:52: Glucometer 121H 09/28/19 11:02: Glucometer 144H 09/28/19 15:47: Glucometer 135H 09/28/19 20:58: Glucometer 134H 09/29/19 05:08: White Blood Count 9.0, Red Blood Count 3.10L, Hemoglobin 8.0L, Hematocrit 27L, Mean Corpuscular Volume 86, Mean Corpuscular Hemoglobin 26, Mean Corpuscular Hemoglobin Concent 30L, Red Cell Distribution Width 18.2H, Platelet Count 544H, Mean Platelet Volume 9.0 09/29/19 05:17: Glucometer 106 09/29/19 10:52: Glucometer 167H 09/29/19 15:52: Glucometer 99 09/29/19 20:51: Glucometer 124H 09/30/19 05:34: Glucometer 124H 09/30/19 11:22: Glucometer 101 09/30/19 15:57: Glucometer 130H 09/30/19 20:38: Glucometer 121H 10/01/19 06:05: Glucometer 105 Microbiology 09/27/19 Gram Stain - Final, Complete 09/27/19 Sputum Culture - Final, Complete Staphylococcus aureus Usual upper respiratory jose Pending Labs Microbiology Date/Time Source Procedure Growth Status 09/27/19 07:30 Sputum Expectorated Gram Stain - Final Complete 09/27/19 07:30 Sputum Culture - Final Staphylococcus aureus Usual upper respiratory jose Complete 09/23/19 10:51 Sputum Expectorated Gram Stain - Final Complete 09/23/19 10:51 Sputum Culture - Final Staphylococcus aureus Complete Laboratory Tests 09/22/19 15:33: Lab Scanned Report Referred Lab Report 09/22/19 20:40: Glucometer 128 09/23/19 05:30: White Blood Count 8.9, Red Blood Count 3.31, Hemoglobin 8.6, Hematocrit 28, Mean Corpuscular Volume 86, Mean Corpuscular Hemoglobin 26, Mean Corpuscular Hemoglobin Concent 30, Red Cell Distribution Width 18.4, Platelet Count 561, Mean Platelet Volume 10.4, Neutrophils (%) (Auto) 72, Lymphocytes (%) (Auto) 13, Monocytes (%) (Auto) 10, Eosinophils (%) (Auto) 5, Basophils (%) (Auto) 0, Neutrophils # (Auto) 6.5, Lymphocytes # (Auto) 1.2, Monocytes # (Auto) 0.9, Eosinophils # (Auto) 0.4, Basophils # (Auto) 0.0, Sodium Level 133, Potassium Level 4.2, Chloride Level 98, Carbon Dioxide Level 27, Anion Gap 8, Blood Urea Nitrogen 8, Creatinine 0.59, Estimat Glomerular Filtration Rate > 60, BUN/Creatinine Ratio 14, Glucose Level 111, Calcium Level 8.7, Corrected Calcium 9.6, Total Bilirubin 0.3, Aspartate Amino Transf (AST/SGOT) 12, Alanine Aminotransferase (ALT/SGPT) 15, Alkaline Phosphatase 75, Total Protein 6.2, Albumin 2.9 09/23/19 05:55: Glucometer 115 09/23/19 10:52: Glucometer 119 09/23/19 15:58: Glucometer 145 09/23/19 21:01: Glucometer 145 09/24/19 05:34: Glucometer 136 09/24/19 06:30: White Blood Count 8.7, Red Blood Count 3.14, Hemoglobin 8.1, Hematocrit 27, Mean Corpuscular Volume 85, Mean Corpuscular Hemoglobin 26, Mean Corpuscular Hemoglobin Concent 30, Red Cell Distribution Width 18.1, Platelet Count 564, Mean Platelet Volume 10.0 09/24/19 10:42: Glucometer 122 09/24/19 16:11: Glucometer 109 09/24/19 21:58: Glucometer 138 09/25/19 05:47: Glucometer 129 09/25/19 12:06: Glucometer 117 09/25/19 16:33: Glucometer 132 09/25/19 21:11: Glucometer 104 09/26/19 05:24: Glucometer 136 09/26/19 05:28: White Blood Count 7.7, Red Blood Count 2.94, Hemoglobin 7.6, Hematocrit 25, Mean Corpuscular Volume 86, Mean Corpuscular Hemoglobin 26, Mean Corpuscular Hemoglobin Concent 30, Red Cell Distribution Width 17.4, Platelet Count 541, Mean Platelet Volume 9.7, Neutrophils (%) (Auto) 74, Lymphocytes (%) (Auto) 13, Monocytes (%) (Auto) 9, Eosinophils (%) (Auto) 5, Basophils (%) (Auto) 0, Neutro phils # (Auto) 5.7, Lymphocytes # (Auto) 1.0, Monocytes # (Auto) 0.7, Eosinophils # (Auto) 0.4, Basophils # (Auto) 0.0, Sodium Level 135, Potassium Level 3.7, Chloride Level 102, Carbon Dioxide Level 24, Anion Gap 9, Blood Urea Nitrogen 9, Creatinine 0.52, Estimat Glomerular Filtration Rate > 60, BUN/Creatinine Ratio 17, Glucose Level 117, Calcium Level 8.3, Iron Level 13 09/26/19 11:18: Glucometer 125 09/26/19 16:20: Glucometer 110 09/26/19 20:12: Glucometer 107 09/27/19 05:55: White Blood Count 6.0, Red Blood Count 3.02, Hemoglobin 7.8, Hematocrit 26, Mean Corpuscular Volume 85, Mean Corpuscular Hemoglobin 26, Mean Corpuscular Hemoglobin Concent 30, Red Cell Distribution Width 17.7, Platelet Count 568, Mean Platelet Volume 9.1, Neutrophils (%) (Auto) 67, Lymphocytes (%) (Auto) 18, Monocytes (%) (Auto) 9, Eosinophils (%) (Auto) 5, Basophils (%) (Auto) 1, Neutrophils # (Auto) 4.0, Lymphocytes # (Auto) 1.1, Monocytes # (Auto) 0.5, Eo sinophils # (Auto) 0.3, Basophils # (Auto) 0.0, Sodium Level 137, Potassium Level 3.6, Chloride Level 103, Carbon Dioxide Level 26, Anion Gap 8, Blood Urea Nitrogen 9, Creatinine 0.53, Estimat Glomerular Filtration Rate > 60, BUN/Creatinine Ratio 17, Glucose Level 107, Calcium Level 8.6, Corrected Calcium 9.5, Total Bilirubin 0.2, Aspartate Amino Transf (AST/SGOT) 10, Alanine Amino transferase (ALT/SGPT) 13, Alkaline Phosphatase 75, Total Protein 6.0, Albumin 2.9 09/27/19 06:03: Glucometer 93 09/27/19 11:26: Glucometer 97 09/27/19 16:08: Glucometer 92 09/27/19 20:18: Glucometer 163 09/28/19 05:52: Glucometer 121 09/28/19 11:02: Glucometer 144 09/28/19 15:47: Glucometer 135 09/28/19 20:58: Glucometer 134 09/29/19 05:08: White Blood Count 9.0, Red Blood Count 3.10, Hemoglobin 8.0, Hematocrit 27, Mean Corpuscular Volume 86, Mean Corpuscular Hemoglobin 26, Mean Corpuscular Hemoglobin Concent 30, Red Cell Distribution Width 18.2, Platelet Count 544, Mean Platelet Volume 9.0 09/29/19 05:17: Glucometer 106 09/29/19 10:52: Glucometer 167 09/29/19 15:52: Glucometer 99 09/29/19 20:51: Glucometer 124 09/30/19 05:34: Glucometer 124 09/30/19 11:22: Glucometer 101 09/30/19 15:57: Glucometer 130 09/30/19 20:38: Glucometer 121 10/01/19 06:05: Glucometer 105 Discharge Home Medications: Active Scripts Active Pantoprazole Sodium 40 Mg Tablet.dr 40 Mg PO BID Sucralfate 1 Gm Tablet 1 Gm PO ACHS Diltiazem 24Hr ER (Diltiazem HCl) 180 Mg Cap.er.24h 360 Mg PO DAILY@0900 Iprat-Albut 0.5-3(2.5) mg/3 ml (Ipratropium/Albuterol Sulfate) 3 Ml Ampul.neb 3 Ml INH RTBID Reported Aspirin 81 Mg Tab.chew 81 Mg PO HS Albuterol Sulfate 2.5 Mg/3 Ml Vial.neb 2.5 Mg NEB Q4H PRN Proair Hfa (Albuterol Sulfate) 1 Puff Puff 2 Puff INH Q4H PRN Fluticasone Propionate 16 Gm [place].susp 1 [place] NS DAILY PRN Clopidogrel (Clopidogrel Bisulfate) 75 Mg Tablet 75 Mg PO DAILY Iron (Ferrous Sulfate) 325 Mg Tablet 325 Mg PO DAILY Spiriva (Tiotropium [place]) 1 Inh Aerp 1 Cap IH 1000 Symbicort 160-4.5 Mcg Inhaler (Budesonide/Formoterol Fumarate) 10.2 Gm Hfa.aer.ad 2 Puff IH BID Montelukast Sodium 10 Mg Tablet 10 Mg PO HS Cetirizine HCl 10 Mg Tablet 10 Mg PO DAILY Rosuvastatin Calcium 10 Mg Tablet 10 Mg PO HS Raloxifene HCl 60 Mg Tablet 60 Mg PO DAILY Instructions to patient/family Please see electronic discharge instructions given to patient. Diagnosis/Problems Diagnosis/Problems (1) Respiratory failure Status: Acute (2) Anemia (3) CAD (coronary artery disease) (4) Leukocytosis (5) Atrial fibrillation with RVR (6) COPD (chronic obstructive pulmonary disease) Status: Acute Qualifiers: Qualified Codes: J44.9 - Chronic obstructive pulmonary disease, unspecified (7) Obstructive sleep apnea Status: Chronic (8) Myopathy (9) Former smoker (10) History of coronary artery stent placement Clinical Quality Measures DVT/VTE Risk/Contraindication: Risk Factor Score Per Nursin RFS Level Per Nursing on Admit: 4+=Very High BERTRAND CUEVAS DO Oct 01, 2019 05:57
[2019-10-01] MEDS: CATHETER FLUSH 10 ML SYR IV SCH (06:07)
[2019-10-01] MEDS: SUCRALFATE 1 GM (CARAFATE) TAB PO SCH (06:07)
[2019-10-01] MEDS: inSUlin ASPART (NovoLOG) 1 UNIT/0.01 ML (CHARGE PER UNIT) SC SCH (06:07)
[2019-10-01] MEDS: polyethylene glycoL POWDER 17 GM (MIRALAX) PACK PO SCH (07:38)
[2019-10-01] MEDS: SENNA W/DOCUSATE (SENOKOT S) TABLET PO SCH (07:38)
[2019-10-01] MEDS: CLOPIDOGREL 75 MG (PLAVIX) TABLET PO SCH (08:24)
[2019-10-01] MEDS: PANTOPRAZOLE 40 MG (PROTONIX) TAB PO SCH (08:24)
[2019-10-01] MEDS: DOCUSATE SODIUM 100 MG (COLACE) CAP PO SCH (08:25)
[2019-10-01] MEDS: NYSTATIN CREAM (MYCOSTATIN) 30 GM TUBE TP SCH (08:25)
[2019-10-01] MEDS: ADVAIR HFA 115/21 MCG INHALER 8 GM IH SCH (08:27)
[2019-10-01] MEDS: UMECLIDINIUM BROMIDE (INCRUSE ELLIPTA) 7'S IH SCH (08:28)
--- NOTE | 2019-10-01 09:17 | Therapy Team Discharge Summary ---
Therapy Discharge Summary Discharge Recommendations Date of Discharge Occupational Therapy Pt admits with respiratory failure dx, admitting QC's: showering 3, UB dress 3, LB dress 3, footwear 5. Pt and OT staff work towards greater functional IND within ADL tasks through functional mobility, ADL activities, endurance/ strength training, breathing ex, safety overview. Pt limited by precautions and respiratory endurance. Pt d/c's home with all LTG's met, IND-mod I within all ADLs. D/c OT at this time. Decreased Activ Tolerance PT Senior Care Goals Senior Care Goals PT Legal Service Specialist Goals Time Frame: Oct 13, 2019 Roll Left to Right (QC): 6 Sit to Lying (QC): 6 Lying-Sitting on Side/Bed(QC): 6 Sit to Stand (QC): 6 Chair/Ovu-yj-Dfenc Xfer(QC): 6 Car Transfer (QC): 6 Walk 10 feet (QC): 6 OT Senior Care Goals Legal Service Specialist Goals Time Frame: Oct 06, 2019 Eating (QC): 6 (met) Oral Hygiene (QC): 6 (met) Shower/Bathe Self (QC): 6 (met) Upper Body Dressing (QC): 6 (met) Lower Body Dressing (QC): 6 (met) On/Off Footwear (QC): 6 (met) Toileting Hygiene (QC): 6 (met) Toilet/Commode Transfer (QC): 6 Additional Goals: 1-Demonstrate ADL Tasks, 2-Verbalize Understanding, 3- ImproveStrength/Kameron 1=Demonstrate adherence to instructed precautions during ADL tasks. 2=Patient will verbalize/demonstrate understanding of assistive devices/modifications for ADL. 3=Patient will improve strength/tolerance for activity to enable patient to perform ADL's. JIMBO DEL TORO OTR Oct 01, 2019 09:17
--- NOTE | 2019-10-01 09:32 | Therapy Team Discharge Summary ---
Therapy Discharge Summary Discharge Recommendations Date of Discharge Physical Therapy Patient came to rehab with resp failure, sepsis/pneumonia. Upon evaluation patient performed bed mobility with SBA, supine <-> sit with SBA, sit <-> stand with CGA, transfers with CGA, ambulated 3' with a rolling walker with CGA. Patient has been performing bed mobility and transfer training, balance and endurance training, functional strengthening, stair training, gait training, and education. Patient has made good progress and has met all of her detention goals. Now, patient performs bed mobility and transfers with independence, independent with car transfer, independent with picking up and object from the floor, ambulates 150' with a rolling walker with independence (including 50' with at least 2 turns of 90 degrees and 10' over an uneven surface), and can go up and down 4 steps using 2 handrails with independence. Patient is being discharged from this facility today and will be discharged from PT at this time. Occupational Therapy Decreased Activ Tolerance PT Halfway Goals Night Shift Goals PT Halfway Goals Time Frame: Oct 13, 2019 Roll Left to Right (QC): 6 Sit to Lying (QC): 6 Lying-Sitting on Side/Bed(QC): 6 Sit to Stand (QC): 6 Chair/Nyn-zq-Bkcoc Xfer(QC): 6 Car Transfer (QC): 6 Walk 10 feet (QC): 6 OT Night Shift Goals Night Shift Goals Time Frame: Oct 06, 2019 Eating (QC): 6 (met) Oral Hygiene (QC): 6 (met) Shower/Bathe Self (QC): 6 (met) Upper Body Dressing (QC): 6 (met) Lower Body Dressing (QC): 6 (met) On/Off Footwear (QC): 6 (met) Toileting Hygiene (QC): 6 (met) Toilet/Commode Transfer (QC): 6 Additional Goals: 1-Demonstrate ADL Tasks, 2-Verbalize Understanding, 3- ImproveStrength/Kameron 1=Demonstrate adherence to instructed precautions during ADL tasks. 2=Patient will verbalize/demonstrate understanding of assistive devices/modifications for ADL. 3=Patient will improve strength/tolerance for activity to enable patient to perform ADL's. YAMILET HOPKINS PT Oct 01, 2019 09:32
--- NOTE | 2019-10-01 10:00 | NUR ---
CM/SS DISCHARGE HHC: Finalized HHC with [facility] office, this a.pedro Collins has not yet received the PA from patient's insurance; however, she is confident the care plan will be approved and they intend to open patient service 10/04/19. If for some reason [facility] does not authorize services, it ends there as a referral to another agency would be pointless. [facility] contracted PT is not in patient [facility] network, but they are working in partnership to provide PT exercises through the visiting RN. Patient has also been provided handouts by [facility] PT regarding home exercises. Patient understands this arrangement fully and is in agreement. DME: Patient's [facility] insurance community case manager have coordinated a med alert for her through [employer]. Award Machine Operator is not familiar with that resource. Patient and resource will make arrangements for delivery and set up. IMM2 presented, signed, charted. Patient is dressed and ready to leave once all discharge paperwork is finalized. Discharge planning has taken place over the last week. Patient has portable O2 for transport. Confirmed her mother is staying with her at present for approx the next month at which time she will move in with her other daughter next door. Patient and her sister have [employer] for communication and she describes this as a better system for them over a cell phone. Patient identifies all needs addressed, no further interventions unless situation changes to warrant. Unit RN updated. Addendum: 10/01/19 at 1225 by CELESTINE JACKSON [facility], Sales Director Eula Manuel Direct: [phone] [email or web address] Vielka Camp, Oil Exploration Engineer [email or web address]
== END 2019-10-01 10:30 | disposition home health service (06) | DRG 91 ==
PROVIDERS: ADMIT Internal Medicine; ATTEND Internal Medicine
DX: G72.89 Other specified myopathies (principal); J15.212 Pneumonia due to Methicillin resistant Staphylococcus aureus; J14 Pneumonia due to Hemophilus influenzae; J10.08 Influenza due to other identified influenza virus with other specified pneumonia; J96.01 Acute respiratory failure with hypoxia; J43.9 Emphysema, unspecified; G47.33 Obstructive sleep apnea (adult) (pediatric); I25.10 Atherosclerotic heart disease of native coronary artery without angina pectoris; I48.0 Paroxysmal atrial fibrillation; D63.8 Anemia in other chronic diseases classified elsewhere; D50.0 Iron deficiency anemia secondary to blood loss (chronic); K25.9 Gastric ulcer, unspecified as acute or chronic, without hemorrhage or perforation; K21.0 Gastro-esophageal reflux disease with esophagitis; K29.70 Gastritis, unspecified, without bleeding; K64.1 Second degree hemorrhoids; B37.2 Candidiasis of skin and nail; K57.30 Diverticulosis of large intestine without perforation or abscess without bleeding; E78.5 Hyperlipidemia, unspecified; I65.23 Occlusion and stenosis of bilateral carotid arteries; Z87.891 Personal history of nicotine dependence; Z95.5 Presence of coronary angioplasty implant and graft; Z23 Encounter for immunization
CPT/HCPCS: 36415; 80048; 80053; 82962; 83540; 85025; 85027; 87070; 87077; 87186; 87205; 94640; 94760

== ENCOUNTER → 2019-10-11 | Outpatient (CLI) | payer MEDICARE, MEDICAID ==
[~2019-10-11] MED LIST changes: +ACHD5005 PO; +DILT180C85 PO; +IPRA3AMP31 INH; +LNZ600T PO; -MONT10TA24 PO; +MONT10TA26 PO; +PANT40TA3 PO; +SUCR1TAB PO
--- NOTE | 2019-10-11 17:47 | Diagnostic Imaging Report ---
EXAMINATION: Chest 2 view HISTORY: ABSCESS OF LEFT LUNG WITH PNEUMONIA, UNSPECIFIED PART OF LUNG COMPARISON: 09/21/2019. FINDINGS: Improving but persistent opacities are visualized in the left upper lobe and left lung base. No patchy opacities are visualized in the right lung base. No large pleural effusion or pneumothorax. The cardiac silhouette is unremarkable. No acute osseous abnormalities. IMPRESSION: 1. Improving opacities in the left upper lobe and left lung base. New patchy opacities are seen in the right lung base. These findings likely represent improving pneumonia. Recommend continued follow-up as indicated to ensure resolution. Dictated by: Dictated on workstation # [id number]
== END ==
LOC: RAD 16:52
PROVIDERS: ATTEND Nurse Practitioner Family
DX: J85.1 Abscess of lung with pneumonia (principal)
CPT/HCPCS: 71046

== ENCOUNTER → 2019-12-28 | Outpatient (CLI) | payer MEDICARE, MEDICAID ==
[~2019-12-28] MED LIST changes: +HOLD METFORMIN - RECEIVED CONTRAST 20 ML VIAL IV SCH; +IOHEXOL 350 MG/ML 100 ML (OMNIPAQUE 350) VIAL IV ONE; +NS 100 ML (IVPB) BAG IV ONE
[2019-12-28 07:42] LABS: CREATININE SERUM 0.78 MG/DL (0.60-1.30); GFR ESTIMATED > 60
[2019-12-28 07:43] LABS: BUN/CREATININE RATIO 21
--- NOTE | 2019-12-28 09:04 | Diagnostic Imaging Report ---
PROCEDURE: CT chest with contrast only. TECHNIQUE: Multiple contiguous axial images were obtained through the chest after administration of intravenous contrast. Auto Exposure Controls were utilized during the CT exam to meet ALARA standards for radiation dose reduction. INDICATION: Asthma, hypoxemia. COMPARED: 09/14/2019. FINDINGS: Some mild partial atelectasis as well as allie-fissural scarring in the dependent left upper lobe at the site of previous dense airspace consolidation with the acute infiltrate present on the prior having resolved in the interim. There has also been resolution of infiltrate in the superior segment of the left lower lobe. Changes of COPD chronic, no new consolidation, no suspicious pulmonary nodularity no thoracic adenopathy, no evidence for abscess or empyema, tiny hiatal hernia chronic, visualized upper abdomen shows a right lobe liver cyst stable. IMPRESSION: Resolution of prior pneumonia. There is a very mild allie-fissural scarring and subsegmental atelectasis in the left upper lobe as the residua. Negative for PE or acute aortic disease. There has been no adverse development. Dictated by: Dictated on workstation # [id number]
== END ==
LOC: RAD 07:07
PROVIDERS: ATTEND Nurse Practitioner Family
DX: J44.9 Chronic obstructive pulmonary disease, unspecified (principal); G47.33 Obstructive sleep apnea (adult) (pediatric); R09.02 Hypoxemia; R91.8 Other nonspecific abnormal finding of lung field; Z87.891 Personal history of nicotine dependence; J98.11 Atelectasis
CPT/HCPCS: 36415; 71260; 82565; 84520

== ENCOUNTER → 2020-01-21 | Outpatient (CLI) | payer MEDICARE, MEDICAID ==
[~2020-01-21] MED LIST changes: -HOLD METFORMIN - RECEIVED CONTRAST 20 ML VIAL IV SCH; -IOHEXOL 350 MG/ML 100 ML (OMNIPAQUE 350) VIAL IV ONE; -NS 100 ML (IVPB) BAG IV ONE; +RT-ALBUTEROL SULF 2.5 MG/3 ML PRE-MIX VIAL INH ONE; +RT-ALBUTEROL SULF 2.5 MG/3 ML PRE-MIX VIAL ONE
== END ==
LOC: RT 07:28
PROVIDERS: ATTEND Nurse Practitioner Family
DX: J44.9 Chronic obstructive pulmonary disease, unspecified (principal)
CPT/HCPCS: 94060; 94726; 94729

== ENCOUNTER → 2020-08-25 | Outpatient (CLI) | payer MEDICARE, MEDICAID ==
[~2020-08-25] MED LIST changes: +ASPI-1238 PO; -ASPI-983 PO; -MONT10TA26 PO; +MONT10TA97 PO; -PANT40TA3 PO; +PANT40TA52 PO; -RT-ALBUTEROL SULF 2.5 MG/3 ML PRE-MIX VIAL INH ONE; -RT-ALBUTEROL SULF 2.5 MG/3 ML PRE-MIX VIAL ONE
== END ==
LOC: LABNPT 06:04
PROVIDERS: ATTEND Internal Medicine Critical Care Medicine
DX: Z03.89 Encounter for observation for other suspected diseases and conditions ruled out (principal); Z20.822 Contact with and (suspected) exposure to COVID-19
CPT/HCPCS: 87635

== ENCOUNTER → 2021-01-01 | Outpatient (CLI) | payer MEDICARE, MEDICAID ==
[~2021-01-01] MED LIST changes: -ACYC400T PO; +ACYC400T21 PO; +MONT10TA32 PO; -MONT10TA97 PO
== END ==
LOC: CARD 09:00
PROVIDERS: ATTEND Internal Medicine Cardiovascular Disease
DX: R06.09 Other forms of dyspnea (principal)
CPT/HCPCS: 93306

== ENCOUNTER → 2021-01-02 | Outpatient (CLI) | payer MEDICARE, MEDICAID ==
[~2021-01-02] VITALS: Ht 160 cm; Wt 78.0 kg
[~2021-01-02] MED LIST changes: +CATHETER FLUSH 10 ML SYR IV PRN; +REGADENOSON 0.4 MG/5 ML SYR (LEXISCAN) IV ONE
--- NOTE | 2021-01-02 15:46 | STRESS TEST ---
DATE OF SERVICE: 01/02/2021 RESTING AND POST REGADENOSON TECHNETIUM-99M TETROFOSMIN SPECT CT IMAGING ORDERING PHYSICIAN: Dr. Williamson. PRIMARY PHYSICIAN: [facility] in [place]. CLINICAL DIAGNOSIS: Coronary artery disease. Baseline images were carried out after injection of 11 mCi of technetium-99m Tetrofosmin. This was followed by 0.4 mg of regadenoson and 31 mCi of technetium-99m Tetrofosmin for stress imaging. The electrocardiogram showed sinus rhythm at baseline. It did not change significantly with regadenoson infusion. The patient noted some shortness of breath following regadenoson infusion, which resolved in a few minutes. Review of images at rest and following stress does not indicate any significant perfusion defects consistent with significant myocardial ischemia or infarction. Gated images show normal global left ventricular systolic function with normal regional wall motion. Left ventricular ejection fraction is calculated to be 63%. Left ventricular end diastolic volume is 51 mL. TID is absent (1.07). CONCLUSIONS: 1. No evidence of any significant myocardial ischemia or infarction on this study. 2. Normal regional wall motion. 3. Normal global left ventricular systolic function with a calculated ejection fraction of 63%. Job ID: [id number] DocumentID: [id number] Dictated Date: 01/02/2021 15:06:54 Market Development Analyst Date: 01/02/2021 15:45:36 Dictated By: AVANI WILLIAMSON MD, MA, FACP, FACC,
== END ==
LOC: CARD 08:15
PROVIDERS: ATTEND Internal Medicine Cardiovascular Disease
DX: I25.10 Atherosclerotic heart disease of native coronary artery without angina pectoris (principal)
CPT/HCPCS: 78452; 93017

== ENCOUNTER → 2021-01-12 | Outpatient (CLI) | payer MEDICARE, MEDICAID ==
[~2021-01-12] MED LIST changes: +HOLD METFORMIN - RECEIVED CONTRAST 20 ML VIAL IV SCH; +IOHEXOL 350 MG/ML 100 ML (OMNIPAQUE 350) VIAL IV ONE; +NS 100 ML (IVPB) BAG IV ONE; -REGADENOSON 0.4 MG/5 ML SYR (LEXISCAN) IV ONE
[2021-01-12 08:43] LABS: BUN/CREATININE RATIO 17; CREATININE SERUM 0.71 MG/DL (0.60-1.30); GFR ESTIMATED > 60
--- NOTE | 2021-01-12 09:49 | Diagnostic Imaging Report ---
PROCEDURE: CT chest with contrast only. TECHNIQUE: Multiple contiguous axial images were obtained through the chest after administration of intravenous contrast. Auto Exposure Controls were utilized during the CT exam to meet ALARA standards for radiation dose reduction. INDICATION: COPD The previous CT chest exam of 12/28/2019 noted mild residual perifissural scarring and subsegmental atelectasis in both upper lobes. Those findings are again evident on this exam and do not appear to have changed significantly. The left upper lung may be slightly better aerated. I suspect that these abnormal parenchymal densities are chronic in nature. The prior exam also noted an area of increased density in the right infrahilar region. (Image 90 of 152). That finding has resolved. The lungs are now generally clear. There are emphysematous changes involving both lungs however. There is no acute pneumonia or pleural effusion identified. The heart is stable in size. Coronary artery calcifications are again noted. The aorta is not abnormally dilated. There is no defect within the pulmonary arteries to indicate a pulmonary embolus. There is no mediastinal or hilar adenopathy. The thyroid gland where visualized is unremarkable. The sections through the upper abdomen failed to show any sign of an acute abnormality. The small area of low density within the liver seen previously is again evident and no different. This may represent a cyst. There is no obvious breast mass. The bone windows are unremarkable for fracture or for destructive lesion. IMPRESSION: 1. There continues to be scar formation and subsegmental atelectasis in both upper lobes. Emphysematous changes are also again seen involving both lungs. However there is no evidence for an acute cardiopulmonary abnormality. 2. The heart is stable in size but there are coronary artery calcifications evident. Dictated by: Dictated on workstation # [id number]
== END ==
LOC: RAD 09:45
PROVIDERS: ATTEND Nurse Practitioner Family
DX: J43.9 Emphysema, unspecified (principal)
CPT/HCPCS: 36415; 71260; 82565; 84520

== ENCOUNTER → 2021-06-01 | Outpatient (CLI) | payer MEDICARE, MEDICAID ==
[~2021-06-01] MED LIST changes: -CATHETER FLUSH 10 ML SYR IV PRN; -HOLD METFORMIN - RECEIVED CONTRAST 20 ML VIAL IV SCH; -IOHEXOL 350 MG/ML 100 ML (OMNIPAQUE 350) VIAL IV ONE; -NS 100 ML (IVPB) BAG IV ONE
--- NOTE | 2021-06-01 12:22 | Diagnostic Imaging Report ---
EXAMINATION: CHEST (PA AND LATERAL) CLINICAL INDICATION: 60-year-old female, shortness of breath. COMPARISON: October 11, 2019. FINDINGS: Heart size and mediastinal contours are unchanged. There is no identified pneumothorax. There is no pleural effusion. There are linear opacities in the upper lung which are better demonstrated on the lateral view which are improved since comparison exam. This most likely reflects scarring and/or atelectasis. There is no additional identified focal airspace consolidation. IMPRESSION: 1. Predominantly linear opacities in the upper lungs with an interval improved appearance since prior radiographs on October 11, 2019. This likely reflects scarring and/or atelectasis. 2. No identified acute cardiopulmonary abnormality. Dictated by: Dictated on workstation # [id number]
== END ==
LOC: LAB 10:16
PROVIDERS: ATTEND Nurse Practitioner Family
DX: J44.9 Chronic obstructive pulmonary disease, unspecified (principal); R91.8 Other nonspecific abnormal finding of lung field
CPT/HCPCS: 71046

== ENCOUNTER → 2023-02-10 | Outpatient (CLI) | payer MEDICARE, MEDICAID ==
[~2023-02-10] MED LIST changes: +ALBU8.5H6 INH; +CLOP-31 PO; -CLOP75TA69 PO; +MONT-40 PO; -MONT10TA32 PO
== END ==
LOC: CARD 10:38
PROVIDERS: ATTEND Nurse Practitioner Family
DX: I51.9 Heart disease, unspecified (principal)
CPT/HCPCS: 93306

== ENCOUNTER 2023-05-06 09:58 | Inpatient (IN) | payer MEDICARE, MEDICAID ==
[~2023-05-06] VITALS: Ht 160 cm; Wt 77.3 kg
[2023-05-06 10:25] LABS: BASOPHILS # (AUTO) 0.1 10^3/uL (0.0-0.1); BASOPHILS % (AUTO) 0 % (0-10); EOSINOPHILS # (AUTO) 0.2 10^3/uL (0.0-0.3); EOSINOPHILS % (AUTO) 1 % (0-10); HEMATOCRIT 22 % (35-52); LYMPHOCYTES # (AUTO) 3.9 10^3/uL (1.0-4.0); LYMPHOCYTES % (AUTO) 31 % (12-44); MEAN CORPUSCULAR HEMOGLOBIN 18 pg (25-34); MEAN CORPUSCULAR HGB CONC 27 g/dL (32-36); MEAN CORPUSCULAR VOLUME 67 fL (80-99); MEAN PLATELET VOLUME 10.1 fL (9.0-12.2); MONOCYTES # (AUTO) 0.8 10^3/uL (0.0-1.0); MONOCYTES % (AUTO) 6 % (0-12); NEUTROPHILS # (AUTO) 7.8 10^3/uL (1.8-7.8); NEUTROPHILS % (AUTO) 61 % (42-75); PLATELET COUNT 586 10^3/uL (130-400); WHITE BLOOD COUNT 12.8 10^3/uL (4.3-11.0)
[2023-05-06 10:30] LABS: ALBUMIN 3.9 GM/DL (3.2-4.5); CHLORIDE 101 MMOL/L (98-107); INR 1.2 (0.8-1.4); POTASSIUM 3.8 MMOL/L (3.6-5.0); PROTHROMBIN TIME PATIENT 15.8 SEC (12.2-14.7); SODIUM 135 MMOL/L (135-145)
[2023-05-06] MEDS ORDERED: ONDANSETRON INJECTION 4 MG/2 ML (SDV) IVP ONE (10:30)
[2023-05-06] MEDS ORDERED: NITROGLYCERIN 0.4 MG SL TABLETS BTL 25'S SL PRN (10:30)
[2023-05-06] MEDS ORDERED: ASPIRIN 81 MG CHEWABLE TABLET PO ONE (10:30)
[2023-05-06 10:31] LABS: CALCIUM 9.1 MG/DL (8.5-10.1); PARTIAL THROMBOPLASTIN TIME 32 SEC (24-35)
[2023-05-06 10:32] LABS: GLUCOSE 169 MG/DL (70-105); HEMOGLOBIN 5.8 g/dL (11.5-16.0)
[2023-05-06 10:33] LABS: TOTAL PROTEIN 6.7 GM/DL (6.4-8.2)
[2023-05-06 10:34] LABS: BILIRUBIN,TOTAL 0.4 MG/DL (0.1-1.0); CARBON DIOXIDE 22 MMOL/L (21-32)
[2023-05-06 10:36] LABS: ALKALINE PHOSPHATASE 64 U/L (40-136); CREATININE SERUM 0.63 MG/DL (0.60-1.30); GFR ESTIMATED 99
[2023-05-06 10:37] LABS: BUN/CREATININE RATIO 25
[2023-05-06 10:39] LABS: ALANINE AMINOTRANSFERASE 12 U/L (0-55); MAGNESIUM 1.9 MG/DL (1.6-2.4)
[2023-05-06 10:42] LABS: FIBRIN DEGRADATION PRODUCTS < 0.27 UG/ML (0.00-0.49)
--- NOTE | 2023-05-06 10:44 | ED Chest Pain ---
General Chief Complaint: Respiratory Problems Stated Complaint: SOB Nursing Triage Note: PT TO RM 9 BY [facility] WITH C/O SOB, VOMITTING X3 DAYS. PT DENIES COUGH OR FEVER Source: patient, old records Exam Limitations: no limitations History of Present Illness Date Seen by Provider: May 06, 2023 Time Seen by Provider: 10:01 Initial Comments This 62-year-old woman presents to the emergency room via [facility] wi th complaints of nausea and vomiting, shortness of breath, chest heaviness, headache, and feeling "fuzzy" for 2 to 3 days. She was recently treated for COPD exacerbation about 3 weeks ago which included steroid therapy. She uses oxygen at 3 L/min by nasal cannula. She has had to increase her usage to 4 L. She received a DuoNeb treatment by EMS in route which improved her wheezing. She reports feeling very weak. She is on Eliquis for atrial fibrillation. Her last dose was this morning. She reports her chest discomfort at 5/10. Review of her chart reveals a normal echocardiogram in February 2023, and negative stress test in December 2020, and a cardiac cath in 2018 showing 75% stenosis of the mid LAD which was stented. She otherwise had mild to moderate disease. She reports taking Tylenol and this morning for her headache. Her primary recruitment assistant is Dr. Williamson. Her primary care provider is Héctor Napoles at [facility]. Her pulmonology provider is Eileen Kwong who works with Dr. Casas at [facility]. Allergies and Home Medications Allergies Coded Allergies: No Known Drug Allergies (Unverified , 09/06/19) Patient Home Medication List Home Medication List Reviewed: Yes Albuterol Sulfate (Ventolin Hfa) 1 Puff Puff, 2 PUFF INH Q4H PRN for SHORTNESS OF BREATH, (Reported) Entered as Reported by: JOVANNI BEEBE on 09/13/1936 Last Action: Continued Albuterol Sulfate (Albuterol Sulfate) 2.5 Mg/3 Ml Vial.neb, 2.5 MG NEB Q4H PRN for SHORTNESS OF BREATH, (Reported) Entered as Reported by: JOVANNI BEEBE on 09/13/19 0936 Last Action: Continued Apixaban (Eliquis) 5 Mg Tablet, 5 MG PO BID, (Reported) Entered as Reported by: MOLLY ANTOINE on 05/06/23 1632 Last Action: New Order Aspirin (Aspirin) 81 Mg Tab.chew, 81 MG PO HS, (Reported) Entered as Reported by: JOVANNI BEEBE on 09/22/191631 Last Action: Continued Cetirizine HCl (Cetirizine HCl) 10 Mg Tablet, 10 MG PO DAILY, (Reported) Entered as Reported by: EVA JOY on 10/20/1840 Last Action: Converted Diltiazem HCl (Diltiazem 24Hr ER) 180 Mg Cap.er.24h, 360 MG PO DAILY@0900 Prescribed by: BERTRAND CUEVAS on 09/30/19605 Last Action: Continued Ferrous Sulfate (Iron) 325 Mg Tablet, 325 MG PO DAILY, (Reported) Entered as Reported by: FABBY PERES on 09/12/19 1342 Last Action: Continued Fluticasone Propionate (Fluticasone Propionate) 16 Gm [place].susp, 1 SPRAY NS DAILY PRN for ALLERGIES, (Reported) Entered as Reported by: JOVANNI BEEBE on 09/13/19 0936 Last Action: Continued Ipratropium/Albuterol Sulfate (Iprat-Albut 0.5-3(2.5) mg/3 ml) 3 Ml Ampul.neb, 3 ML INH RTBID Prescribed by: BERTRAND CUEVAS on 09/30/19605 Lisinopril (Lisinopril) 10 Mg Tablet, 10 MG PO DAILY, (Reported) Entered as Reported by: MOLLY ANTOINE on 05/06/231631 Last Action: New Order Montelukast Sodium (Montelukast Sodium) 10 Mg Tablet, 10 MG PO HS, (Reported) Entered as Reported by: EVA JOY on 10/20/1840 Last Action: Continued Pantoprazole Sodium (Pantoprazole Sodium) 40 Mg Tablet.dr, 40 MG PO BID Prescribed by: BERTRAND CUEVAS on 09/30/19605 Last Action: Continued Raloxifene HCl (Raloxifene HCl) 60 Mg Tablet, 60 MG PO DAILY, (Reported) Entered as Reported by: EVA JOY on 10/20/18 0733 Last Action: Continued Roflumilast (Roflumilast) 500 Mcg Tablet, 500 MG PO DAILY, (Reported) Entered as Reported by: MOLLY ANTOINE on 05/06/23 1632 Last Action: New Order Rosuvastatin Calcium (Rosuvastatin Calcium) 10 Mg Tablet, 10 MG PO HS, (Reported) Entered as Reported by: EVA JOY on 10/20/18739 Last Action: Continued Sucralfate (Sucralfate) 1 Gm Tablet, 1 GM PO ACHS Prescribed by: BERTRAND CUEVAS on 09/30/19 0606 Last Action: Continued Discontinued Medications Budesonide/Formoterol Fumarate (Symbicort 160-4.5 Mcg Inhaler) 10.2 Gm Hfa.aer.ad, 2 PUFF IH BID, (Reported) Discontinued Reason: No Longer Taking Entered as Reported by: EVA JOY on 10/20/18739 Last Action: Discontinued Clopidogrel Bisulfate (Clopidogrel) 75 Mg Tablet, 75 MG PO DAILY, (Reported) Discontinued Reason: No Longer Taking Entered as Reported by: JOVANNI BEEBE on 09/13/19 0936 Last Action: Discontinued Tiotropium [place] (Spiriva) 1 Inh Aerp, 1 CAP IH 1000, (Reported) Discontinued Reason: No Longer Taking Entered as Reported by: EVA JOY on 10/20/18739 Last Action: Discontinued Review of Systems Review of Systems Constitutional: see HPI; No fever EENTM: No Symptoms Reported Respiratory: See HPI Cardiovascular: See HPI, Edema Gastrointestinal: No Symptoms Reported Genitourinary: No Symptoms Reported Musculoskeletal: no symptoms reported Skin: no symptoms reported Psychiatric/Neurological: See HPI Endocrine: No Symptoms Reported Hematologic/Lymphatic: No Symptoms Reported Past Iajuykk-Xubxtl-Vxhqqr Hx Patient Social History Tobacco Use?: No Smoking Status: Former Smoker Substance use?: No Alcohol Use?: No Pt feels they are or have been: No Immunizations Up To Date PED Vaccines UTD: Yes Seasonal Allergies Seasonal Allergies: Yes Past Medical History Surgery/Hospitalization HX: AFIB, HTN, ANEMIA PARTIAL HYSTO, RANDALL, APPY Surgeries: Yes (CATARACTS) Abdominal (Colonoscopy, EGD), Coronary Stent, Eye Surgery (Cataracts), Hysterectomy Respiratory: Yes (CONT O2 3L) Sleep Apnea, COPD Currently Using CPAP: No Currently Using BIPAP: Yes (WITH O2 ) Cardiac: Yes (RECENT CARDIAC STENT) Atrial Fibrillation, Coronary Artery Disease, High Cholesterol, Hypertension, Peripheral Vascular Neurological: Yes Stroke Sexually Transmitted Disease: No HIV/AIDS: No Genitourinary: No Gastrointestinal: Yes Gastroesophageal Reflux, Diverticulosis, Hemorrhoids, Esophagitis, Ulcer Musculoskeletal: Yes (JOINTS ARE ACHEY) Chronic Back Pain Endocrine: Yes (DIET CONTROLLED DIABETES) Diabetes, Non-Insulin dep HEENT: Yes (READING GLASSES, DENTURES) Loss of Vision: Denies Hearing Impairment: Denies Cancer: No Psychosocial: No Integumentary: No Blood Disorders: Yes (ANEMIA) Adverse Reaction/Blood Tranf: No (N/A) Family Medical History Alcoholism 19 FATHER G8 BROTHER Alzheimer's disease Arthritis 19 MOTHER Cardiovascular disease G8 SISTER Cataracts 19 MOTHER Completed stroke 19 MOTHER Coronary thrombosis G8 SISTER Dementia 19 MOTHER Hypercholesterolemia 19 MOTHER Hypertension 19 MOTHER Myocardial infarction G8 SISTER Osteoporosis 19 MOTHER Physical Exam Vital Signs Vital Signs - First Documented 05/06/23 10:02 Temp 36.4 Pulse 82 Resp 30 B/P (MAP) 143/60 (87) Pulse Ox 97 O2 Delivery Nasal Cannula O2 Flow Rate 3.00 Capillary Refill : Height, Weight, BMI Height: 5'3.00" Weight: 170lbs. 0.0oz. 77.266612gs; 29.00 BMI Method:Stated General Appearance: No Apparent Distress, WD/WN HEENT: PERRL/EOMI, Normal ENT Inspection Neck: Normal Inspection; No JVD Respiratory: Lungs Clear, Accessory Muscle Use, Decreased Breath Sounds Cardiovascular: Regular Rate, Rhythm, No Murmur, Other (Mild pitting edema of the feet and ankles) Gastrointestinal: Normal Bowel Sounds, Non Tender, Soft; No Distended Extremity: Non Tender, Pedal Edema Neurologic/Psychiatric: Alert, Oriented x3, No Motor/Sensory Deficits, Normal Mood/Affect Skin: Normal Color, Warm/Dry Progress/Results/Core Measures Results/Orders Lab Results Laboratory Tests Test 05/06/23 10:04 05/06/23 10:19 05/06/23 12:19 Range/Units White Blood Count 12.8 H 4.3-11.0 10^3/uL Red Blood Count 3.23 L 3.80-5.11 10^6/uL Hemoglobin 5.8 *L 11.5-16.0 g/dL Hematocrit 22 L 35-52 % Mean Corpuscular Volume 67 L 80-99 fL Mean Corpuscular Hemoglobin 18 L 25-34 pg Mean Corpuscular Hemoglobin Concent 27 L 32-36 g/dL Red Cell Distribution Width 18.7 H 10.0-14.5 % Platelet Count 586 H 130-400 10^3/uL Mean Platelet Volume 10.1 9.0-12.2 fL Immature Granulocyte % (Auto) 0 % Neutrophils (%) (Auto) 61 42-75 % Lymphocytes (%) (Auto) 31 12-44 % Monocytes (%) (Auto) 6 0-12 % Eosinophils (%) (Auto) 1 0-10 % Basophils (%) (Auto) 0 0-10 % Neutrophils # (Auto) 7.8 1.8-7.8 10^3/uL Lymphocytes # (Auto) 3.9 1.0-4.0 10^3/uL Monocytes # (Auto) 0.8 0.0-1.0 10^3/uL Eosinophils # (Auto) 0.2 0.0-0.3 10^3/uL Basophils # (Auto) 0.1 0.0-0.1 10^3/uL Immature Granulocyte # (Auto) 0.0 0.0-0.1 10^3/uL Absolute Reticulocyte Count 132 H 24-90 10e9/uL Percent Reticulocyte Count 4.08 H 0.50-2.40 % Prothrombin Time 15.8 H 12.2-14.7 SEC INR Comment 1.2 0.8-1.4 Activated Partial Thromboplast Time 32 24-35 SEC D-Dimer < 0.27 0.00-0.49 UG/ML Sodium Level 135 135-145 MMOL/L Potassium Level 3.8 3.6-5.0 MMOL/L Chloride Level 101 98-107 MMOL/L Carbon Dioxide Level 22 21-32 MMOL/L Anion Gap 12 5-14 MMOL/L Blood Urea Nitrogen 16 7-18 MG/DL Creatinine 0.63 0.60-1.30 MG/DL Estimat Glomerular Filtration Rate 99 BUN/Creatinine Ratio 25 Glucose Level 169 H 70-105 MG/DL Calcium Level 9.1 8.5-10.1 MG/DL Corrected Calcium 9.2 8.5-10.1 MG/DL Magnesium Level 1.9 1.6-2.4 MG/DL Iron Level 24 L 33-167 ug/dL Total Iron Binding Capacity 439 H 237-330 ug/dL Unsaturated Iron Binding Capacity 415 25-500 ug/dL Transferrin % Saturation 5 L 17-57 % Ferritin 7.0 L 20.0-177.0 ng/mL Total Bilirubin 0.4 0.1-1.0 MG/DL Aspartate Amino Transf (AST/SGOT) 16 5-34 U/L Alanine Aminotransferase (ALT/SGPT) 12 0-55 U/L Alkaline Phosphatase 64 40-136 U/L Myoglobin 25.1 10.0-92.0 NG/ML Troponin I < 0.028 < 0.028 <0.028 NG/ML C-Reactive Protein High Sensitivity 1.18 H 0.00-0.50 MG/DL Total Protein 6.7 6.4-8.2 GM/DL Albumin 3.9 3.2-4.5 GM/DL Influenza Type A (RT-PCR) Not Detected Not Detecte Influenza Type B (RT-PCR) Not Detected Not Detecte SARS-CoV-2 RNA (RT-PCR) Not Detected Not Detecte My Orders Orders - BHAVESH WATSON MD Cbc With Automated Diff (05/06/23 10:14) Magnesium (05/06/23 10:14) Chest 1 View, Ap/Pa Only (05/06/23 10:14) Ekg Tracing (05/06/23 10:14) Comprehensive Metabolic Panel (05/06/23 10:14) Myoglobin Serum (05/06/23 10:14) Protime With Inr (05/06/23 10:14) Partial Thromboplastin Time (05/06/23 10:14) O2 (05/06/23 10:14) Monitor-Rhythm Ecg Trace Only (05/06/23 10:14) Lipid Panel (05/07/23 06:00) Ed Iv/Invasive Line Start (05/06/23 10:14) Troponin I [place] (05/06/23 10:14) Covid 19 Inhouse Test (05/06/23 10:18) Influenza A And B By Pcr (05/06/23 10:18) Hs C Reactive Protein (05/06/23 10:19) Fibrin Degradation Products (05/06/23 10:19) Nitroglycerin 0.4 Mg Btl 25's (Nitroglyc (05/06/23 10:30) Aspirin Chewable Tablet (Aspirin Chewabl (05/06/23 10:30) Ondansetron Injection (Ondansetron Inj (05/06/23 10:30) Red Cells Leukocytes Reduced (05/06/23 10:44) Type And Screen (05/06/23 10:44) Iron Tibc %Sat & Ferritin (05/06/23 10:47) Troponin I [place] (05/06/23 12:05) Ns Iv 500 Ml (Ns Iv 500 Ml) (05/06/23 13:00) Pantoprazole Injection (Pantoprazole Inj (05/06/23 14:00) Red Cells Leukocytes Reduced (05/06/23 13:59) Ipratropium/Albuterol Inh Soln (Ipratrop (05/06/23 14:00) Svn Small Volume Nebulizer (05/06/23 14:00) Vitamin B 12 (05/06/23 14:31) Reticulocyte Count (05/06/23 14:31) Ed Admission (Communication) (05/06/23 14:44) Medications Given in ED Current Medications Medications Dose Ordered Sig/Elena Route Start Time Stop Time Status Last Admin Dose Admin Albuterol/ Ipratropium 3 ml ONCE ONCE INH 05/06/23 14:00 05/06/23 14:01 DC 05/06/23 14:23 3 ML Pantoprazole 40 mg ONCE ONCE IV 05/06/23 14:00 05/06/23 14:01 DC 05/06/23 14:53 40 MG Sodium Chloride 500 ml @ 0 mls/hr Q0M ONCE IV 05/06/23 13:00 05/06/23 13:01 DC 05/06/23 13:02 1,000 MLS/HR Vital Signs/I&O 05/06/23 05/06/23 05/06/23 05/06/23 10:02 13:40 14:24 15:00 Temp 36.4 36.4 Pulse 82 80 Resp 30 30 B/P (MAP) 143/60 (87) 150/59 Pulse Ox 97 97 97 O2 Delivery Nasal Cannula Nasal Cannula Nasal Cannula Nasal Cannula O2 Flow Rate 3.00 3.00 3.00 3.00 3.00 Blood Pressure Mean: 87 Progress Progress Note : Progress Note Patient was interviewed and examined upon arrival. Report was received from EMS. EKG was reviewed and interpreted by me. Sinus rhythm was noted with no ischemic changes. Patient received aspirin and nitroglycerin. Nitroglycerin improved her pain from 5/10 down to 1/10 at 08/19/2007. Labs were obtained, reviewed, and interpreted by me in their entirety. WBC was 12.8, hemoglobin severely low at 5.8, and platelets high at 586. When reviewing her prior labs, she has a trend of severe anemia. She reports receiving transfusions in the past. Further review of her chart revealed an EGD and colonoscopy report from Dr. Sandoval in August 2019 revealing GERD, esophagitis, gastric ulcer with clot, internal hemorrhoids, and diverticulosis. Serial troponin was negative. Case was discussed with Dr. Pa, recruitment assistant on-call for Dr. Isaac. He recommended transfusing 2 units of PRBC and admitting with surgical consult to Dr. Sandoval. Spoke with Dr. Sandoval, patient's general surgeon. He is happy to c onsult on the patient. He recommended clear liquid diet and PPI therapy. Case was discussed with Dr. Cuevas, hospitalist on-call, who excepted admission. I discussed CODE STATUS with the patient. She requested a modified code. She does not want cardiac resuscitation such as CPR. She does permit intubation with a limit of 2 weeks total. Patient remained stable until admission and transfer to the cardiac stepdown unit. Her first unit of PRBC was initiated in the ER. She was experiencing rebound dyspnea, and a repeat DuoNeb treatment was given. Initial ECG Impression Date: May 06, 2023 Initial ECG Impression Time: 10:19 Initial ECG Rate: 79 Initial ECG Rhythm: Normal Sinus Initial ECG Intervals: Normal Initial ECG Impression: Normal Comment Normal sinus rhythm with no ST elevation or depression. Slightly prolonged QRS of 113 ms. No axis deviation. Diagnostic Imaging Diagonstic Imaging: Xray Plain Films/CT/US/NM/MRI: chest Comments NAME: ROM [facility] MED REC#: [id number] PT STATUS: REG ER : 1960 PHYSICIAN: BHAVESH WATSON MD ADMIT DATE: 05/06/23/ER Signed Date of Exam:05/06/23 CHEST 1 VIEW, AP/PA ONLY Indication: Chest pain Single AP view of chest is obtained with comparison made to study of 09/21/2019 Mild upper lobe air trapping is noted. Left upper lobe consolidation has resolved. There is mild blunting left costophrenic sulcus which could represent residual pleural fluid or thickening. IMPRESSION: Background emphysema with resolved left upper lobe pneumonia. There may be mild left pleural fluid and/or thickening. Dictated by: Dictated on workstation # [id number] Dict: 05/06/23 1117 Trans: 05/06/23 1259 [facility] [id number] Interpreted by: MEGHNA GILLESPIE MD Electronically signed by: MEGHNA GILLESPIE MD 05/06/23 1259 Departure Communication (Admissions) Time/Spoke to Admitting Phy: 14:30 Dr. Bisi Sandoval at 1440 Dr. Pa at 1350 Impression Primary Impression: Severe anemia Additional Impressions: Chest heaviness Coronary artery disease Qualified Codes: I25.10 - Atherosclerotic heart disease of [place] coronary artery without angina pectoris COPD (chronic obstructive pulmonary disease) Qualified Codes: J44.9 - Chronic obstructive pulmonary disease, unspecified Disposition: ADMITTED INPATIENT Condition: Improved Admissions Decision to Admit Reason: Admit from ER (General) Decision to Admit/Date: May 06, 2023 Time/Decision to Admit Time: 13:50 Departure-Patient Inst. Referrals: [facility] (PCP/Family) Primary Care Physician Copy Copies To 1: AVANI WILLIAMSON MD FACP FAC CCDS Copies To 2: [facility]/BHAVESH NELSON MD May 06, 2023 10:44
--- NOTE | 2023-05-06 11:20 | Diagnostic Imaging Report ---
Indication: Chest pain Single AP view of chest is obtained with comparison made to study of 09/21/2019 Mild upper lobe air trapping is noted. Left upper lobe consolidation has resolved. There is mild blunting left costophrenic sulcus which could represent residual pleural fluid or thickening. IMPRESSION: Background emphysema with resolved left upper lobe pneumonia. There may be mild left pleural fluid and/or thickening. Dictated by: Dictated on workstation # [id number]
[2023-05-06] MEDS ORDERED: NS IV 500 ML 500 ML IV ONE (13:00)
[2023-05-06] MEDS ORDERED: RT-Ipratropium/Albuterol NEB 3 ML VIAL INH ONE (14:00)
[2023-05-06] MEDS ORDERED: PANTOPRAZOLE INJECTION 40 MG VIAL IV ONE (14:00)
[2023-05-06 14:48] LABS: RETICULOCYTE % 4.08 % (0.50-2.40)
[2023-05-06] MEDS ORDERED: oxyCODONE IMMEDIATE RELEASE 5 MG TABLET PO PRN (15:45)
[2023-05-06] MEDS ORDERED: LACTULOSE SYRUP 10GM/15ML 30ML UDC PO PRN (15:45)
[2023-05-06] MEDS ORDERED: BISACODYL 10 MG SUPPOSITORY PR PRN (15:45)
[2023-05-06] MEDS ORDERED: MILK OF MAGNESIA 400 MG/5 ML 30 ML UDC PO PRN (15:45)
[2023-05-06] MEDS ORDERED: diphenhydrAMINE INJ 50 MG/ML VIAL IVP PRN (15:45)
[2023-05-06] MEDS ORDERED: diphenhydrAMINE 25 MG TABLET PO PRN (15:45)
[2023-05-06] MEDS ORDERED: ONDANSETRON INJECTION 4 MG/2 ML (SDV) IV PRN (15:45)
[2023-05-06] MEDS ORDERED: HYDROmorphone INJECTION 2 MG/ML VIAL IV PRN (15:45)
[2023-05-06] MEDS ORDERED: ANTACID SUSPENSION 30 ML UDC PO PRN (15:45)
[2023-05-06] MEDS ORDERED: ONDANSETRON 4 MG ORAL DISSOLVE TABLET PO PRN (15:45)
[2023-05-06] MEDS ORDERED: CALCIUM CARBONATE 500 MG CHEW TABLET PO PRN (15:45)
[2023-05-06] MEDS ORDERED: MELATONIN 3 MG TABLET PO PRN (15:45)
[2023-05-06 16:13] VITALS: BP 163/61
[2023-05-06 16:19] VITALS: BP 163/61
[2023-05-06] MEDS ORDERED: LISI10TA25 PO (16:32)
[2023-05-06] MEDS ORDERED: ROFL500T9 PO (16:32)
[2023-05-06] MEDS ORDERED: APIX5TAB PO (16:32)
[2023-05-06 16:33] VITALS: BP 120/61
[2023-05-06 16:39] VITALS: BP 120/61
[2023-05-06] MEDS: inSUlin ASPART 1 UNIT/0.01 ML (PER UNIT) SC SCH ×2 (16:45→20:41)
[2023-05-06] MEDS ORDERED: RT-ALBUTEROL SULF 2.5 MG/3 ML PRE-MIX VIAL IH PRN (16:45)
[2023-05-06] MEDS ORDERED: FLUTICASONE NASAL SPRAY (120 SPRAYS) NS PRN (16:45)
[2023-05-06] MEDS ORDERED: RT-ALBUTEROL SULF 2.5 MG/3 ML PRE-MIX VIAL INH PRN (16:45)
[2023-05-06] MEDS ORDERED: RT-Ipratropium/Albuterol NEB 3 ML VIAL INH PRN (16:45)
--- NOTE | 2023-05-06 17:24 | Progress Note-Pre Operative ---
Pre-Operative Progress Note Date of Available H&P: May 06, 2023 Date H&P Reviewed: May 06, 2023 Time H&P Reviewed: 18:00 History & Physical: No changes noted Pre-Operative Diagnosis: severe sx anemia MONICA MYRICK MD May 06, 2023 17:24
--- NOTE | 2023-05-06 17:44 | CONSULTATION REPORT ---
ATTENDING MISSION MANAGER: [place], [place]. HISTORY OF PRESENT ILLNESS: The patient is a 62-year-old female who we have seen before in the past. She reports that she has had worsening shortness of breath and also had 3 episodes of nausea and vomiting. She does not report any known clinical bleeding. She does not state any hematemesis, no coffee-ground emesis. She also does not report any red blood per rectum, nor any dark tarry stools. She does have a history of coronary artery disease and has had coronary stents placed and is on anticoagulation with aspirin and Plavix. We had seen her in 08/2019 for similar presentation with anemia as well as exacerbation of chronic obstructive pulmonary disease. We had placed a central venous catheter on that admission as well as performed an EGD and colonoscopy. She was found to have reflux esophagitis Carter grade B, small prepyloric ulcer 5 mm in size with an overlying fibrin clot with no active bleeding. Pylorus and duodenum appeared normal. There was a chronic stage II, external and internal hemorrhoids as well as a mild sigmoid diverticulosis. No active bleeding identified. The patient was treated medically and was resuscitated with blood products, which remained stable and eventually, she was discharged home. This time around, again, she has felt significant fatigue and nausea and vomiting and her hemoglobin was found to be 5.8. PAST MEDICAL HISTORY: Coronary artery disease, COPD, sleep apnea, hypertension, hypercholesterolemia, atrial fibrillation, history of stroke, gastroesophageal reflux disease, degenerative joint disease. PAST SURGICAL HISTORY: Partial hysterectomy, laparoscopic cholecystectomy, laparoscopic appendectomy, cardiac catheterization and stent placement. ALLERGIES: NO KNOWN DRUG ALLERGIES. MEDICATIONS: Ventolin inhaler 1 puff q.4 hours p.r.n., albuterol nebulizer breathing treatment q.4 hours p.r.n., aspirin 81 mg daily, budesonide/formoterol 160/4.5 mcg 2 puffs b.i.d., cetirizine 10 mg daily, Plavix 75 mg daily, diltiazem 100 mg daily, iron 325 mg daily, fluticasone spray 16 grams daily p.r.n., ipratropium/albuterol breathing treatments b.i.d., montelukast 10 mg daily, Protonix 40 mg b.i.d., raloxifene 60 mg daily, rosuvastatin 10 mg daily, Carafate 1 gram q.i.d., tiotropium bromide 1 cap daily. SOCIAL HISTORY: Previous smoke 40 pack years, negative alcohol. FAMILY HISTORY: Mother, stroke. Sister, coronary artery disease and myocardial infarction. VITAL SIGNS: Temperature 35.9, blood pressure 120/61, pulse 86, respirations 18, pulse ox 100% on room air. REVIEW OF SYSTEMS: A well-nourished female, currently in no acute distress. She does have exertional shortness of breath and mild intermittent cough. No sputum production. She did have nausea and vomiting, which she just states as undigested food and bilious material. She does not report any hematemesis, no coffee-ground emesis. She does not report any red blood per rectum, nor any dark tarry stools. No fever or chills. No recent inadvertent weight loss. All other review of systems negative. PHYSICAL EXAMINATION: CHEST: Distant breath sounds as well as scattered wheezes and rhonchi bilaterally. HEART: Regular. No murmurs. EXTREMITIES: No lower extremity edema. Negative Homans sign. HEENT: No scleral icterus. No cervical lymphadenopathy. ABDOMEN: Soft. There is mild discomfort in the epigastric region upon deep palpation. No hernias. SKIN: Warm, dry. LABORATORY DATA: WBC 12.8, hemoglobin 5.8, hematocrit 22, platelets 586, BUN 16, creatinine 0.63. Liver function enzymes normal. ASSESSMENT AND PLAN: A 62-year-old female with severe anemia and known history of peptic ulcer disease. Due to her recurrent, significant and symptomatic anemia and her continued need for anticoagulation, we will again arrange for an EGD and colonoscopy on this admission. Job ID: [id number] DocumentID: [id number] Dictated Date: 05/06/2023 17:22:21 Senior Electrical Project Manager Date: 05/06/2023 17:42:00 Dictated By: MONICA MYRICK MD
[2023-05-06] MEDS: RT-Ipratropium/Albuterol NEB 3 ML VIAL INH SCH ×2 (18:30→22:32)
[2023-05-06] MEDS: ROSUVASTATIN 10 MG TABLET PO SCH (20:39)
[2023-05-06] MEDS: ASPIRIN 81 MG CHEWABLE TABLET PO SCH (20:39)
[2023-05-06] MEDS: MONTELUKAST 10 MG TABLET PO SCH (20:40)
[2023-05-06] MEDS: DOCUSATE SODIUM 100 MG CAPSULE PO SCH (20:40)
[2023-05-06] MEDS: PANTOPRAZOLE 40 MG TABLET PO SCH (20:40)
[2023-05-06] MEDS: MILK OF MAGNESIA 400 MG/5 ML 30 ML UDC PO SCH ×2 (20:40→22:28)
[2023-05-06] MEDS: SUCRALFATE 1 GM TABLET PO SCH (20:40)
[2023-05-06] MEDS: SENNOSIDES 8.6 MG TABLET PO SCH (20:41)
[2023-05-06 20:43] VITALS: BP 148/42
[2023-05-06] MEDS ORDERED: PANTOPRAZOLE 40 MG TABLET PO SCH (21:00)
[2023-05-06 21:05] VITALS: BP 148/72
[2023-05-07] MEDS: MILK OF MAGNESIA 400 MG/5 ML 30 ML UDC PO SCH ×13 (00:11→23:59)
[2023-05-07 01:05] VITALS: BP 133/66
[2023-05-07] MEDS: RT-Ipratropium/Albuterol NEB 3 ML VIAL INH SCH ×6 (03:18→22:30)
[2023-05-07 04:39] VITALS: BP 142/65
[2023-05-07 05:03] LABS: BASOPHILS # (AUTO) 0.1 10^3/uL (0.0-0.1); BASOPHILS % (AUTO) 1 % (0-10); EOSINOPHILS # (AUTO) 0.2 10^3/uL (0.0-0.3); EOSINOPHILS % (AUTO) 2 % (0-10); HEMATOCRIT 29 % (35-52); HEMOGLOBIN 8.8 g/dL (11.5-16.0); LYMPHOCYTES # (AUTO) 2.6 10^3/uL (1.0-4.0); LYMPHOCYTES % (AUTO) 23 % (12-44); MEAN CORPUSCULAR HEMOGLOBIN 22 pg (25-34); MEAN CORPUSCULAR HGB CONC 30 g/dL (32-36); MEAN CORPUSCULAR VOLUME 72 fL (80-99); MONOCYTES # (AUTO) 0.9 10^3/uL (0.0-1.0); MONOCYTES % (AUTO) 8 % (0-12); NEUTROPHILS # (AUTO) 7.4 10^3/uL (1.8-7.8); NEUTROPHILS % (AUTO) 66 % (42-75); PLATELET COUNT 463 10^3/uL (130-400); WHITE BLOOD COUNT 11.2 10^3/uL (4.3-11.0)
[2023-05-07 05:16] LABS: ALBUMIN 3.8 GM/DL (3.2-4.5); CALCIUM 8.9 MG/DL (8.5-10.1); CREATININE SERUM 0.63 MG/DL (0.60-1.30); POTASSIUM 3.5 MMOL/L (3.6-5.0); TOTAL PROTEIN 6.4 GM/DL (6.4-8.2)
[2023-05-07] MEDS: inSUlin ASPART 1 UNIT/0.01 ML (PER UNIT) SC SCH ×5 (06:05→20:31)
[2023-05-07] MEDS: SUCRALFATE 1 GM TABLET PO SCH ×4 (06:42→20:19)
[2023-05-07] MEDS: ACETAMINOPHEN 325 MG TABLET PO PRN ×2 (06:44→18:10)
--- NOTE | 2023-05-07 07:47 | Consultation-Cardiology ---
HPI-Cardiology Cardiology Consultation: Date of Consultation 05/07/23 Time Seen by a Provider: 08:10 Date of Admission 05-06-23 Attending Physician Filiberto Elliott - [facility] Admitting Physician Admitting Physician: Adrianne Cuevas DO Attending Physician: Adrianne Cuevas DO Consulting Physician Fernando Williamson MD HPI: Chief Complaint: Progressive dyspnea Suspected GIB Ms. Kc is a 62 yr old female admitted to [facility] from the ED with c/o increasing weakness and shortness of breath. She reports she was hospitalized with an exacerbation of COPD a few weeks ago and she feels as though she has had increasing weakness since then. She states over the course of the last couple days her BP has been low at home so she has only been taking 1/2 of her antihypertensive pill. She reports tightness and heaviness in her chest. She reports episodes of rapid heartbeat. She reports dizziness with changes in position. She denies any blood in her stools, but does report she is on iron pills so her stools are always dark, but no chidi blood. She states she received 2 units of blood and her SOB is better, but she continues to feel weak. She reports abdominal bloating, but no discomfort. Review of Systems-Cardiology Review of Systems Constitutional: No chills, No fever; lightheadedness, malaise Eyes: No vision change Ears/Nose/Throat: No epistaxis, No recent hearing loss Respiratory: As described under HPI Cardiovascular: As described under HPI Gastrointestinal: As described under HPI Genitourinary: No dysuria, No hematuria Musculoskeletal: As describe under HPI Skin: No rash on exposed areas, No ulcerations on exposed areas Psychiatric/Neurological: No anxiety, No depression, No seizure, No focal weakness, No syncope Hematologic: No bleeding abnormalities FGT-Kivptu-Ipayvy Hx Patient Social History Smoking Status: Former Smoker 2nd Hand Smoke Exposure: Yes Alcohol Use?: No Pt feels they are or have been: No Immunizations Up To Date Date of Pneumonia Vaccine: May 22, 2016 Date of Influenza Vaccine: May 22, 2018 Past Medical History PMH As described under Assessment. Family Medical History Family Medical History: She does not report fam h/o early CAD or SCD Family History: 19 FATHER Alcoholism 19 MOTHER Arthritis Cataracts Completed stroke Dementia Hypercholesterolemia Hypertension Osteoporosis G8 BROTHER Alcoholism G8 SISTER Cardiovascular disease Coronary thrombosis Myocardial infarction Relation not specified for: Alzheimer's disease Allergies and Home Medications Allergies Coded Allergies: No Known Drug Allergies (Unverified , 09/06/19) Patient Home Medication List Albuterol Sulfate (Ventolin Hfa) 1 Puff Puff, 2 PUFF INH Q4H PRN for SHORTNESS OF BREATH, (Reported) Entered as Reported by: JOVANNI BEEBE on 09/13/19935 Last Action: Reviewed Albuterol Sulfate (Albuterol Sulfate) 2.5 Mg/3 Ml Vial.neb, 2.5 MG NEB Q4H PRN for SHORTNESS OF BREATH, (Reported) Entered as Reported by: JOVANNI BEEBE on 09/13/19935 Last Action: Reviewed Apixaban (Eliquis) 5 Mg Tablet, 5 MG PO BID, (Reported) Entered as Reported by: MOLLY ANTOINE on 05/06/231631 Last Action: Reviewed Aspirin (Aspirin) 81 Mg Tab.chew, 81 MG PO HS, (Reported) Entered as Reported by: JOVANNI BEEBE on 09/22/191631 Last Action: Reviewed Budesonide/Glycopyr/Formoterol (Breztri Aerosphere Inhaler) 160 Mcg-9 Mcg-4.8 Mcg/Actuation Hfa.aer.ad, 2 PUFF INH BID, (Reported) Entered as Reported by: HAYDEN DALTON on 05/07/231556 Last Action: Reviewed Cyanocobalamin (Vitamin B-12) (Vitamin B-12) 1,000 Mcg Tablet, 1,000 MCG PO DA BOGDAN, (Reported) Entered as Reported by: HAYDEN DALTON on 05/07/231556 Last Action: Reviewed Diltiazem HCl (Diltiazem ER) 180 Mg Capsule.er, 360 MG PO DAILY, (Reported) Entered as Reported by: HAYDEN DALTON on 05/07/231556 Last Action: Reviewed Ferrous Sulfate (Iron) 325 Mg Tablet, 325 MG PO DAILY, (Reported) Entered as Reported by: FABBY PERES on 09/12/19 1342 Last Action: Reviewed Fluticasone Propionate (Fluticasone Propionate) 16 Gm Bayard.susp, 1 SPRAY NS DAILY PRN for ALLERGIES, (Reported) Entered as Reported by: JOVANNI BEEBE on 09/13/19935 Last Action: Reviewed Lisinopril (Lisinopril) 10 Mg Tablet, 5 MG PO BID, (Reported) Entered as Reported by: MOLLY ANTOINE on 05/06/231631 Last Action: Reviewed Loratadine (Loratadine) 10 Mg Tablet, 10 MG PO DAILY PRN for ALLERGY SYMPTOMS, (Reported) Entered as Reported by: HAYDEN DALTON on 05/07/231556 Last Action: Reviewed Montelukast Sodium (Montelukast Sodium) 10 Mg Tablet, 10 MG PO HS, (Reported) Entered as Reported by: EVA JOY on 10/20/18739 Last Action: Reviewed [place]en-3/Dha/Epa/Fish Oil (Fish Oil 1,200 mg Softgel) 1,200 Mg (144 Mg-216 Mg) Capsule, 1,200 MG PO DAILY, (Reported) Entered as Reported by: HAYDEN DALTON on 05/07/231556 Last Action: Reviewed Pantoprazole Sodium (Pantoprazole Sodium) 40 Mg Tablet.dr, 40 MG PO DAILY, (Reported) Entered as Reported by: HAYDEN DALTON on 05/07/231556 Last Action: Reviewed Raloxifene HCl (Raloxifene HCl) 60 Mg Tablet, 60 MG PO DAILY, (Reported) Entered as Reported by: EVA JOY on 10/20/18732 Last Action: Reviewed Roflumilast (Roflumilast) 500 Mcg Tablet, 500 MG PO DAILY, (Reported) Entered as Reported by: MOLLY ANTOINE on 05/06/231631 Last Action: Reviewed Rosuvastatin Calcium (Rosuvastatin Calcium) 10 Mg Tablet, 10 MG PO HS, (Reported) Entered as Reported by: EVA JOY on 10/20/18739 Last Action: Reviewed Sucralfate (Sucralfate) 1 Gram Tablet, 1 GM PO BID, (Reported) Entered as Reported by: HAYDEN DALTON on 05/07/231556 Last Action: Reviewed Discontinued Medications Budesonide/Formoterol Fumarate (Symbicort 160-4.5 Mcg Inhaler) 10.2 Gm Hfa.aer.ad, 2 PUFF IH BID, (Reported) Discontinued Reason: No Longer Taking Entered as Reported by: EVA JOY on 10/20/18739 Last Action: Discontinued Cetirizine HCl (Cetirizine HCl) 10 Mg Tablet, 10 MG PO DAILY, (Reported) Discontinued Reason: No Longer Taking Entered as Reported by: EVA JOY on 10/20/18739 Last Action: Discontinued Clopidogrel Bisulfate (Clopidogrel) 75 Mg Tablet, 75 MG PO DAILY, (Reported) Discontinued Reason: No Longer Taking Entered as Reported by: JOVANNI BEEBE on 09/13/1936 Last Action: Discontinued Diltiazem HCl (Diltiazem 24Hr ER) 180 Mg Cap.er.24h, 360 MG PO DAILY@0900 Discontinued Reason: No Longer Taking Prescribed by: ADRIANNE CUEVAS on 09/30/19605 Last Action: Discontinued Ipratropium/Albuterol Sulfate (Iprat-Albut 0.5-3(2.5) mg/3 ml) 3 Ml Ampul.neb, 3 ML INH RTBID Discontinued Reason: No Longer Taking Prescribed by: ADRIANNE CUEVAS on 09/30/19605 Last Action: Discontinued Pantoprazole Sodium (Pantoprazole Sodium) 40 Mg Tablet.dr, 40 MG PO BID Discontinued Reason: Duplicate Order Prescribed by: ADRIANNE CUEVAS on 09/30/19605 Last Action: Discontinued Sucralfate (Sucralfate) 1 Gm Tablet, 1 GM PO ACHS Discontinued Reason: No Longer Taking Prescribed by: ADRIANNE CUEVAS on 09/30/19605 Last Action: Discontinued Tiotropium Emerson (Spiriva) 1 Inh Aerp, 1 CAP IH 1000, (Reported) Discontinued Reason: No Longer Taking Entered as Reported by: EVA JOY on 10/20/18739 Last Action: Discontinued Physical Exam-Cardiology Physical Exam Vital Signs/I&O 05/07/23 05/07/23 05/07/23 05/07/23 19:45 20:30 22:30 23:09 Temp 36.3 Pulse 104 92 Resp 18 B/P (MAP) 150/81 (104) Pulse Ox 96 93 O2 Delivery Nasal Cannula Nasal Cannula O2 Flow Rate 4.00 4.00 40.00 05/07/23 05/08/23 05/08/23 05/08/23 23:09 01:00 02:44 04:00 Pulse 90 90 76 Resp 19 B/P (MAP) Pulse Ox 99 97 O2 Delivery NIV Bilevel NIV Bilevel O2 Flow Rate 40.00 40.00 40.00 05/08/23 07:08 Pulse Ox 94 O2 Delivery Nasal Cannula O2 Flow Rate 4.00 05/08/23 00:00 Intake Total 730 ml Balance 730 ml Capillary Refill : Constitutional: AAO x 3, well-developed, well-nourished HEENT: PERRL, hearing is well preserved, oral hygience is good Neck: No carotid bruit; carotid pulses are 2 + bilaterally Respiratory: No accessory muscle use, No respiratory distress; chest expansion is symmetric, chest is bilaterally symmetric, other (diminished throughout) Cardiovascular: regular rate-rhythm, tachycardia, S1 and S2 Gastrointestinal: No tender; soft, round, distended; No guarding; audible bowel sounds Extremities: no lower extremity edema bilateral Neurologic/Psychiatric: other (moves all extremities) Skin: No rash on exposed areas, No ulcerations on exposed areas; other (brusising to arms bilat) Data Review Labs Laboratory Tests 05/07/23 16:37: Glucometer 100 05/07/23 20:25: Glucometer 168H 05/08/23 04:05: White Blood Count 10.9, Red Blood Count 4.16, Hemoglobin 9.0L, Hematocrit 31L, Mean Corpuscular Volume 73L, Mean Corpuscular Hemoglobin 22L, Mean Corpuscular Hemoglobin Concent 30L, Red Cell Distribution Width 23.1H, Platelet Count 472H, Mean Platelet Volume 9.7, Immature Granulocyte % (Auto) 1, Neutrophils (%) (Auto) 71, Lymphocytes (%) (Auto) 17, Monocytes (%) (Auto) 8, Eosinophils (%) (Auto) 3, Basophils (%) (Auto) 1, Neutrophils # (Auto) 7.7, Lymphocytes # (Auto) 1.8, Monocytes # (Auto) 0.9, Eosinophils # (Auto) 0.3, Basophils # (Auto) 0.1, Immature Granulocyte # (Auto) 0.1, Sodium Level 141, Potassium Level 3.8, Chloride Level 103, Carbon Dioxide Level 29, Anion Gap 9, Blood Urea Nitrogen 12, Creatinine 0.64, Estimat Glomerular Filtration Rate 99, BUN/Creatinine Ratio 19, Glucose Level 120H, Calcium Level 9.0, Corrected Calcium 9.2, Total Bilirubin 0.6, Aspartate Amino Transf (AST/SGOT) 13, Alanine Aminotransferase (ALT/SGPT) 14, Alkaline Phosphatase 74, Total Protein 6.5, Albumin 3.8 Radiology NAME: [facility] REC#: [id number] PT STATUS: REG ER : 1960 PHYSICIAN: BHAVESH WATSON MD ADMIT DATE: 05/06/23/ER Signed Date of Exam:05/06/23 CHEST 1 VIEW, AP/PA ONLY Indication: Chest pain Single AP view of chest is obtained with comparison made to study of 09/21/2019 Mild upper lobe air trapping is noted. Left upper lobe consolidation has resolved. There is mild blunting left costophrenic sulcus which could represent residual pleural fluid or thickening. IMPRESSION: Background emphysema with resolved left upper lobe pneumonia. There may be mild left pleural fluid and/or thickening. Dictated by: Dictated on workstation # [id number] Dict: 05/06/23 1117 Trans: 05/06/23 1259 BANNER [id number] Interpreted by: MEGHNA GILLESPIE MD Electronically signed by: MEGHNA GILLESPIE MD 05/06/23 1259 ECG Impression ECG Initial ECG Rhythm: Normal Sinus A/P-Cardiology Assessment/Admission Diagnosis Suspected GIB with anemia - management per surgical/medical services - H/H improved following 2 units PRBC Shortness of breath - likely primarily due to severe COPD - Sepsis and ac resp failure due to ac exac of COPD due to ANTONIA pneumonia leading to long hosp in Aug and Sep 2019 - Echo of 01-01-21 showed LVEF 55-60%. PASP 30-35 mmHg PAF with intermittent RVR - first diagnosed in Aug 2019 - OAC with Eliquis H/o Anemia - Significant anemia due to GI blood loss. Upper and lower endoscopy of 09/21/19: reflux esophagitis(stage 2), moderate gastritis with prepyloric ulcer 5mm size with overlying fibrin clot, no active bleed; mild chronic stage 2 ext and int hemorrhoids, mild sigmoid diverticulosis. CAD - Cath of 10/20/18 showed 75% mid vessel stenosis in the left anterior descending artery that was stented with Jing 2.25 x 18 mm stent. The rest of the coronary vessels have mild to moderate diffuse disease. Normal global left ventricular systolic function with ejection fraction of 65%. Mild to moderate elevation of left ventricular end-diastolic pressure - MPI of 01-02-21 showed no evidence of ischemia or infarction. LVEF 53% H/O tobacco use - quit in Jun 2018 Borderline DM II vs IFG - managed by PCP Hyperlipidemia - statin tx - followed by PCP Carotid arterial dz: - 40-59% R ICA and 60-79% L ICA stenoses on carotid u/s 05/31/21 and again on u /s of 07/26/2022 H/O Epistaxis - managed by her ENT Dr Reynolds, none in the recent past Discussion and Recomendations Suspected GIB with anemia - H/H improved following 2 units of PRBC - plan is for endoscopy today by Dr. Jaime PATEL - currently maintaining SR - continue rate controlling agents (Cardizem CD) - Ok to hold off on OAC until source of bleeding has been determined and treated by surgical services (endoscopy planned for later today); we advise OAC be resumes as soon as possible when allowed by surgical/medical services CAD and carotid dz - continue ASA Continue cardiac medications Monitor lab closely Further recs will be based on her hospital course We would like to thank medical services for this consult Clinical Quality Measures DVT/VTE Risk/Contraindication: Contraindications-Pharm: Other *list below* Other: STEPH Goddard [facility] May 07, 2023 07:47
[2023-05-07] MEDS: DOCUSATE SODIUM 100 MG CAPSULE PO SCH ×2 (08:13→20:19)
[2023-05-07] MEDS: dilTIAZem ER 180 MG CAPSULE PO SCH (08:13)
[2023-05-07] MEDS: SENNOSIDES 8.6 MG TABLET PO SCH ×2 (08:13→20:19)
[2023-05-07] MEDS: LORATADINE 10 MG TABLET PO SCH (08:13)
[2023-05-07] MEDS: PANTOPRAZOLE 40 MG TABLET PO SCH ×2 (08:13→20:19)
[2023-05-07] MEDS: FERROUS SULFATE 325 MG (IRON) TABLET PO SCH (08:14)
[2023-05-07] MEDS ORDERED: NON-FORMULARY MEDICATION 1 EA EA (Cetirizine HCl 10 MG) PO SCH (09:00)
[2023-05-07] MEDS ORDERED: CYANOCOBALAMIN 1000 MCG/ML 1 ML VIAL IM ONE (09:45)
[2023-05-07] MEDS: IRON SUCROSE 200 MG/10 ML VIAL IV SCH (10:05)
[2023-05-07] MEDS ORDERED: LACTATED RINGERS 1,000 ML 1,000 ML IV STA (10:38)
[2023-05-07] MEDS ORDERED: HURRICAINE EXT TUBE (BENZOCAINE) XX PRN (10:45)
[2023-05-07] MEDS ORDERED: LIDOCAINE JELLY 2% 6 ML SYRINGE MM PRN (10:45)
[2023-05-07] MEDS ORDERED: KETAMINE 50 MG/5 ML SYRINGE ONE (10:46)
[2023-05-07] MEDS ORDERED: LIDOCAINE JELLY 2% 6 ML SYRINGE ONE (10:48)
--- NOTE | 2023-05-07 11:00 | Physical Therapy Evaluation ---
PT Evaluation-General Medical Diagnosis Admission Date May 06, 2023 at 15:09 Medical Diagnosis: Severe Anemia Onset Date: May 06, 2023 Therapy Diagnosis Therapy Diagnosis: Gait deficit, strength deficit Height/Weight Height (Feet): 5 Height (Inches): 3.00 Weight (Pounds): 170 Weight (Ounces): 0.0 Precautions Precautions/Isolations: Fall Prevention, Standard Precautions Weight Bear Status Right Lower Extremity: Right Weight Bearing/Tolerated Left Lower Extremity: Left Weight Bearing/Tolerated Referral Physician: Dr. Mathews Reason for Referral: Evaluation/Treatment Medical History Pertinent Medical History: CAD, COPD Reviewed History: Yes Social History Home: Apartment Current Living Status: Alone Entry Into Home: Level Entry Prior Prior Level of Function SCALE: Activities may be completed with or without assistive devices. 4-Rtlgaxsove-tcblwom completes the activity by him/herself with no assistance from a helper. 5-Set-up or Clean-up Assistance-helper sets up or cleans up; patient completes activity. [place] assists only prior to or following the activity. 4-Supervision or Touching Assistance-helper provides verbal cues and/or touching/steadying and/or contact guard assistance as patient completes activity. Assistance may be provided throughout the activity or intermittently. 3-Partial/Moderate Assistance-helper does LESS THAN HALF the effort. [place] lifts, holds or supports trunk or limbs, but provides less than half the effort. 2-Substantial/Maximal Assistance-helper does MORE THAN HALF the effort. [place] lifts or holds trunk or limbs and provides more than half the effort. 4-Ynornblwi-psylwz does ALL the effort. Patient does none of the effort to complete the activity. Or, the assistance of 2 or more helpers is required for the patient to complete the activity. If activity was not attempted, code reason: 7-Patient Refused. 9-Not Applicable-not attempted and the patient did not perform the activity before the current illness, exacerbation or injury. 10-Not Attempted due to Environmental Limitations-(lack of equipment, weather restraints, etc.). 88-Not Attempted due to Medical Conditions or Safety Concerns. Bed Mobility: 6 Transfers (B,C,W/C): 6 Gait: 6 Stairs: 9 Indoor Mobility (Ambulation): Independent Stairs: Not Applicalbe Prior Devices Use: Walker PT Evaluation-Current Subjective Patient lying supine in bed upon PT arrival, agreeable to treatment. Patient rates pain at 2/10 in her head. Objective Patient Orientation: Person, Place, Time, Situation Attachments: Oxygen, IV ROM/Strength ROM Lower Extremities WFLs BLEs all planes Strength Lower Extremities 3+/5 BLEs all planes Sensory Vision: Functional Hearing: Functional Sensation Right Lower Extremit: Intact Sensation Left Lower Extremity: Intact Transfers Roll Left to Right (QC): 4 Sit to Lying (QC): 4 Lying to Sitting/Side of Bed(Q: 4 Sit to Stand (QC): 4 Chair/Oxg-qc-Xsuxb Xfer(QC): 4 Gait Mode of Locomotion: Walk Anticipated Mode of Locomotion: Walk Walk 10 feet (QC): 4 Walk 50 ft with 2 Turns(QC): 4 Distance: 80' Gait Assistive Device: FWW Balance Sitting Static: Good Sitting Dynamic: Fair Standing Static: Fair Standing Dynamic: Fair Assessment/Needs Patient tolerated treatment fair. Patient performs all bed mobility and transfers with SBA/CGA. Patient ambulates 80 feet with FWW, with CGA and verbal cues for safety, progression, balance and breathing. Patient sitting EOB post treatment with all needs met, nursing notified, call light in reach. Rehab Potential: Fair PT Alf Goals Mortgage Consultant Goals PT Mortgage Consultant Goals Time Frame: Jun 14, 2023 Roll Left & Right (QC): 6 Sit to Lying (QC): 6 Lying-Sitting on Side/Bed(QC): 6 Sit to Stand (QC): 6 Chair/Saw-vj-Xpzjs Xfer(QC): 6 Toilet Transfer (QC): 6 Does the Patient Walk: Yes Walk 10 feet (QC): 6 Walk 50ft with 2 Turns (QC): 6 Walk 150 ft (QC): 4 PT Plan Problem List Problem List: Activity Tolerance, Functional Strength, Safety, Balance, Gait, Transfer, Bed Mobility, ROM Treatment/Plan Treatment Plan: Continue Plan of Care Treatment Plan: Bed Mobility, Education, Functional Activity Kameron, Functional Strength, Group Therapy, Gait, Safety, Therapeutic Exercise, Transfers Treatment Duration: Jun 14, 2023 Frequency: 6 times per week Estimated Hrs Per Day: .25 hour per day Patient and/or Family Agrees t: Yes Safety Risks/Education Patient Education: Gait Training, Transfer Techniques Teaching Recipient: Patient Teaching Methods: Demonstration, Discussion Response to Teaching: Verbalize Understanding, Return Demonstration Time Time In: 1004 Time Out: 1025 DATE: May 07, 2023 Total Billed Treatment Time: 21 Total Billed Treatment Visit, MILLA ELKINS PT May 07, 2023 11:00
[2023-05-07 11:30] VITALS: BP 120/56
--- NOTE | 2023-05-07 12:12 | History & Physical-Hospitalist ---
CHELY HAYWARD 05/07/23 1212: History of Present Illness HPI/Chief Complaint 62-year-old female arrived via EMS to ED on 05/06 with CC of SOB, N/V. Patient has been having these symptoms as well as chest heaviness, headache, and fatigue for about 2-3 days. She has a history of COPD and normally wears 3L O2, but has had to increase to 4L. EMS reported that she was wheezing, gave duoneb which improved. She has a history of severe anemia requiring transfusions. Endoscopy done in 2019 showed GERD, esophagitis, gastric ulcer with clot, internal and external hemorrhoids, and diverticulosis. She denies any bloody, dark, or tarry stools. She describes her vomiting as undigested food, denies any hematemesis or coffee ground emesis. On admit she was found to have a hemoglobin of 5.8, transfused with 2 units PRBCs and hemoglobin improved to 8.8. Patient is seen laying in bed this morning. She reports that she is feeling much better, no headache or N/V, SOB has improved, still feeling fatigued but also notes that she did not sleep well last night. Patient is undergoing endoscopy today, she has no other complaints. Source: patient Exam Limitations: no limitations Date Seen 05/07/23 Time Seen by a Provider: 10:45 Attending Physician Filiberto Elliott - [facility] PCP Admitting Physician: Adrianne Cuevas DO Attending Physician: Adrianne Cuevas DO Referring Physician Date of Admission May 06, 2023 at 15:09 Home Medications & Allergies Home Medications Reviewed patient Home Medication Reconciliation performed by pharmacy medication reconciliations electrical design technician and/or nursing. Patients Allergies have been reviewed. Allergies Allergies Coded Allergies No Known Drug Allergies (Unverified09/06/19) Past Qsnccpo-Hbusnu-Cetwae Hx Patient Social History Tobacco Use?: Yes Smoking Status: Former Smoker Use of E-Cig and/or Vaping dev: No Substance use?: No Alcohol Use?: No Pt feels they are or have been: No Immunizations Up To Date Date of Influenza Vaccine: May 22, 2018 Tetanus Booster (TDap): Unknown Hepatitis A: No Hepatitis B: No PED Vaccines UTD: Yes Date of Pneumonia Vaccine: May 22, 2016 Seasonal Allergies Seasonal Allergies: Yes Current Status Advance Directives: Yes Advance Directive Location: Home Communicates: Verbally Primary Language: Moldovan Preferred Spoken Language: Moldovan Implanted or Applied Medical D: Stents Past Medical History Surgeries: Abdominal (Colonoscopy, EGD), Coronary Stent, Eye Surgery (Cataracts), Hysterectomy Sleep Apnea, COPD Currently Using CPAP: No Currently Using BIPAP: Yes (WITH O2 ) Atrial Fibrillation, Coronary Artery Disease, High Cholesterol, Hypertension, Peripheral Vascular Stroke Sexually Transmitted Disease: No HIV/AIDS: No Gastroesophageal Reflux, Diverticulosis, Hemorrhoids, Esophagitis, Ulcer Chronic Back Pain Diabetes, Non-Insulin dep Loss of Vision: Denies Hearing Impairment: Denies Blood Disorders: Yes (ANEMIA) Adverse Reaction/Blood Tranf: No (N/A) Family Medical History Alcoholism 19 FATHER G8 BROTHER Alzheimer's disease Arthritis 19 MOTHER Cardiovascular disease G8 SISTER Cataracts 19 MOTHER Completed stroke 19 MOTHER Coronary thrombosis G8 SISTER Dementia 19 MOTHER Hypercholesterolemia 19 MOTHER Hypertension 19 MOTHER Myocardial infarction G8 SISTER Osteoporosis 19 MOTHER Review of Systems Constitutional: No chills, No fever; weakness (improved) EENTM: No hearing loss, No blurred vision Respiratory: No cough; short of breath (improved) Cardiovascular: No chest pain; edema (slight b/l LE edema) Gastrointestinal: No nausea (denies currently), No vomiting Genitourinary: No dysuria, No hematuria Musculoskeletal: No back pain, No neck pain Skin: No change in color, No change in hair/nails Psychiatric/Neurological: Headache (improved); Denies Numbness; Weakness (improved) Physical Exam Physical Exam Vital Signs Vital Signs - First Documented 05/06/23 10:02 Temp 36.4 Pulse 82 Resp 30 B/P (MAP) 143/60 (87) Pulse Ox 97 O2 Delivery Nasal Cannula O2 Flow Rate 3.00 Capillary Refill : Height, Weight, BMI Height: 5'3.00" Weight: 170lbs. 0.0oz. 77.320690iq; 29.37 BMI Method:Stated General Appearance: No Apparent Distress, WD/WN, Obese HEENT: PERRL/EOMI Neck: Non Tender, Supple Respiratory: Chest Non Tender, Normal Breath Sounds, No Accessory Muscle Use, No Respiratory Distress Cardiovascular: Regular Rate, Rhythm, No Murmur, Normal Peripheral Pulses Gastrointestinal: Non Tender, Soft Rectal: Deferred Extremity: Normal Capillary Refill, Non Tender, No Calf Tenderness, Pedal Edema (slight, b/l) Neurologic/Psychiatric: Alert, Oriented x3 Skin: Normal Color, Warm/Dry Lymphatic: No Adenopathy Results Results/Procedures Labs Laboratory Tests 05/06/23 10:04 05/07/23 04:15 Patient resulted labs reviewed. Assessment/Plan Admission Diagnosis Anemia Assessment and Plan Symptomatic iron-deficiency anemia: received 2 units yesterday, likely GI bleed, general surgery consulted, endoscopy today, continue PPI, sucralfate and iron supplementation. Continue to monitor. Cardiology consulted, appreciate recs COPD: Continue supplemental O2, nebs, has maintained good O2 sats A-fib: continue eliquis, currently sinus CAD: continue rosuvastatin HLD: continue rosuvastatin HTN: Home BP meds Hx stroke: maintained on eliquis GERD: PPI, sucralfate NIDDM: SSI Obesity Hx of tobacco use Clinical Quality Measures DVT/VTE Risk/Contraindication: Contraindications-Pharm: Other *list below* Other: ADRIANNE Wilkinson DO 05/07/23 2019: History of Present Illness HPI/Chief Complaint Chief complaint: Acute on chronic shortness of breath with severe anemia HPI: This is a 62-year-old female with known history of anemia who presented to the ER with shortness of breath found to have low hemoglobin meeting criteria for transfusion. General surgery completed EGD and colonoscopy today. IV iron initiated. Patient appears to have very severe shortness of breath with COPD meeting criteria for BiPAP and staying on cardiac stepdown unit tonight Source: patient Exam Limitations: no limitations Past Xgutkmc-Yomjyt-Piiirg Hx Patient Social History Marrital Status: single Employed/Student: retired Smoking Status: Former Smoker Family Medical History Alcoholism 19 FATHER G8 BROTHER Alzheimer's disease Arthritis 19 MOTHER Cardiovascular disease G8 SISTER Cataracts 19 MOTHER Completed stroke 19 MOTHER Coronary thrombosis G8 SISTER Dementia 19 MOTHER Hypercholesterolemia 19 MOTHER Hypertension 19 MOTHER Myocardial infarction G8 SISTER Osteoporosis 19 MOTHER Review of Systems Constitutional: see HPI, weakness (improved) Respiratory: dyspnea on exertion, short of breath (improved) Physical Exam Physical Exam General Appearance: No Apparent Distress, Chronically ill Respiratory: Lungs Clear, Normal Breath Sounds Cardiovascular: Regular Rate, Rhythm Neurologic/Psychiatric: Alert, Oriented x3 Assessment/Plan Admission Diagnosis Assessment: Acute on chronic respiratory failure Severe symptomatic anemia Severe COPD Oxygen dependency Plan: Supportive care Monitor closely Transfuse EGD and colonoscopy Admission Status: Observation Supervisory-Addendum Brief Verification & Attestation Participated in pt care: history, MDM, physical Personally performed: exam, history, MDM, supervision of care Care discussed with: Medical Student Procedures: n/a Results interpretation: Verified all documentation Verification and Attestation of Medical Student E/M Service A medical student performed and documented this service in my presence. I reviewed and verified all information documented by the medical student and made modifications to such information, when appropriate. I personally performed the physical exam and medical decision making. Adrianne Cuevas, May 07, 2023,20:22 CHELY HAYWARD May 07, 2023 12:12 ADRIANNE CUEVAS DO May 07, 2023 20:19
--- NOTE | 2023-05-07 12:16 | Consultation-Cardiology ---
HPI-Cardiology Cardiology Consultation: Date of Consultation 05/07/23 Time Seen by a Provider: 09:00 Date of Admission Attending Physician Filiberto Elliott - [facility] Admitting Physician Admitting Physician: Bertrand Cuevas DO Attending Physician: Bertrand Cuevas DO Consulting Physician AVANI SAHU MD, MA, FACP, FACC, FSCAI, CCDS HPI: Chief Complaint: Progressive dyspnea Suspected GIB Ms. Ramirez is a 62 yr old female admitted to [facility] from the ED with c/o increasing weakness and shortness of breath. She reports she was hospitalized with an exacerbation of COPD a few weeks ago and she feels as though she has had increasing weakness since then. She states over the course of the last couple days her BP has been low at home so she has only been taking 1/2 of her antihypertensive pill. She reports tightness and heaviness in her chest. She reports episodes of rapid heartbeat. She reports dizziness with changes in position. She denies any blood in her stools, but does report she is on iron pills so her stools are always dark, but no chidi blood. She states she received 2 units of blood and her SOB is better, but she continues to feel weak. She reports abdominal bloating, but no discomfort. Review of Systems-Cardiology Review of Systems Constitutional: No chills, No fever; lightheadedness, malaise Eyes: No vision change Ears/Nose/Throat: No epistaxis, No recent hearing loss Respiratory: As described under HPI Cardiovascular: As described under HPI Gastrointestinal: As described under HPI Genitourinary: No dysuria, No hematuria Musculoskeletal: As describe under HPI Skin: No rash on exposed areas, No ulcerations on exposed areas Psychiatric/Neurological: No anxiety, No depression, No seizure, No focal weakness, No syncope Hematologic: No bleeding abnormalities WJF-Eikplg-Luaenh Hx Patient Social History Smoking Status: Former Smoker 2nd Hand Smoke Exposure: Yes Alcohol Use?: No Pt feels they are or have been: No Immunizations Up To Date Date of Pneumonia Vaccine: May 22, 2016 Date of Influenza Vaccine: May 22, 2018 Past Medical History PMH As described under Assessment. Family Medical History Family Medical History: She does not report fam h/o early CAD or SCD Family History: Alcoholism 19 FATHER G8 BROTHER Alzheimer's disease Arthritis 19 MOTHER Cardiovascular disease G8 SISTER Cataracts 19 MOTHER Completed stroke 19 MOTHER Coronary thrombosis G8 SISTER Dementia 19 MOTHER Hypercholesterolemia 19 MOTHER Hypertension 19 MOTHER Myocardial infarction G8 SISTER Osteoporosis 19 MOTHER Allergies and Home Medications Allergies Coded Allergies: No Known Drug Allergies (Unverified , 09/06/19) Patient Home Medication List Home Medication List Reviewed: Yes Albuterol Sulfate (Ventolin Hfa) 1 Puff Puff, 2 PUFF INH Q4H PRN for SHORTNESS OF BREATH, (Reported) Entered as Reported by: JOVANNI BEEBE on 09/13/19 0936 Last Action: Continued Albuterol Sulfate (Albuterol Sulfate) 2.5 Mg/3 Ml Vial.neb, 2.5 MG NEB Q4H PRN for SHORTNESS OF BREATH, (Reported) Entered as Reported by: JOVANNI BEEBE on 09/13/19 0936 Last Action: Continued Apixaban (Eliquis) 5 Mg Tablet, 5 MG PO BID, (Reported) Entered as Reported by: MOLLY ANTOINE on 05/06/23 1632 Last Action: New Order Aspirin (Aspirin) 81 Mg Tab.chew, 81 MG PO HS, (Reported) Entered as Reported by: JOVANNI BEEBE on 09/22/19 163 Last Action: Continued Cetirizine HCl (Cetirizine HCl) 10 Mg Tablet, 10 MG PO DAILY, (Reported) Entered as Reported by: EVA JOY on 10/20/18 0740 Last Action: Converted Diltiazem HCl (Diltiazem 24Hr ER) 180 Mg Cap.er.24h, 360 MG PO DAILY@0900 Prescribed by: BERTRAND CUEVAS on 09/30/19 06 Last Action: Continued Ferrous Sulfate (Iron) 325 Mg Tablet, 325 MG PO DAILY, (Reported) Entered as Reported by: FABBY PERES on 09/12/19 1342 Last Action: Continued Fluticasone Propionate (Fluticasone Propionate) 16 Gm [place].susp, 1 SPRAY NS DAILY PRN for ALLERGIES, (Reported) Entered as Reported by: JOVANNI BEEBE on 09/13/19 0936 Last Action: Continued Ipratropium/Albuterol Sulfate (Iprat-Albut 0.5-3(2.5) mg/3 ml) 3 Ml Ampul.neb, 3 ML INH RTBID Prescribed by: BERTRAND CUEVAS on 09/30/19 0606 Lisinopril (Lisinopril) 10 Mg Tablet, 10 MG PO DAILY, (Reported) Entered as Reported by: MOLLY ANTOINE on 05/06/231631 Last Action: New Order Montelukast Sodium (Montelukast Sodium) 10 Mg Tablet, 10 MG PO HS, (Reported) Entered as Reported by: EVA JOY on 10/20/18739 Last Action: Continued Pantoprazole Sodium (Pantoprazole Sodium) 40 Mg Tablet.dr, 40 MG PO BID Prescribed by: BERTRAND CUEVAS on 09/30/19605 Last Action: Continued Raloxifene HCl (Raloxifene HCl) 60 Mg Tablet, 60 MG PO DAILY, (Reported) Entered as Reported by: EVA JOY on 10/20/18732 Last Action: Continued Roflumilast (Roflumilast) 500 Mcg Tablet, 500 MG PO DAILY, (Reported) Entered as Reported by: MOLLY ANTOINE on 05/06/231631 Last Action: New Order Rosuvastatin Calcium (Rosuvastatin Calcium) 10 Mg Tablet, 10 MG PO HS, (Reported) Entered as Reported by: EVA JOY on 10/20/18739 Last Action: Continued Sucralfate (Sucralfate) 1 Gm Tablet, 1 GM PO ACHS Prescribed by: BERTRAND CUEVAS on 09/30/19605 Last Action: Continued Discontinued Medications Budesonide/Formoterol Fumarate (Symbicort 160-4.5 Mcg Inhaler) 10.2 Gm Hfa.aer.ad, 2 PUFF IH BID, (Reported) Discontinued Reason: No Longer Taking Entered as Reported by: EVA JOY on 10/20/18739 Last Action: Discontinued Clopidogrel Bisulfate (Clopidogrel) 75 Mg Tablet, 75 MG PO DAILY, (Reported) Discontinued Reason: No Longer Taking Entered as Reported by: JOVANNI BEEBE on 09/13/19935 Last Action: Discontinued Tiotropium [place] (Spiriva) 1 Inh Aerp, 1 CAP IH 1000, (Reported) Discontinued Reason: No Longer Taking Entered as Reported by: EVA JOY on 10/20/18739 Last Action: Discontinued Physical Exam-Cardiology Physical Exam Vital Signs/I&O 05/07/23 05/07/23 05/07/23 05/07/23 01:03 01:05 03:18 04:39 Pulse 78 78 95 100 Resp 16 B/P (MAP) 133/66 (88) 142/65 (90) Pulse Ox 98 96 98 O2 Delivery NIV Bilevel Nasal Cannula O2 Flow Rate 21.00 25.00 3.00 05/07/23 05/07/23 05/07/23 05/07/23 07:28 07:52 08:00 08:00 Pulse 79 109 Resp 28 Pulse Ox 100 98 O2 Delivery Nasal Cannula Nasal Cannula O2 Flow Rate 3.00 4.00 05/07/23 11:30 Pulse 93 Resp 16 Pulse Ox 100 O2 Delivery OxyMask O2 Flow Rate 6.00 05/07/23 00:00 Intake Total 200 ml Output Total 1 ml Balance 199 ml Capillary Refill : Constitutional: AAO x 3, well-developed, well-nourished HEENT: PERRL, hearing is well preserved, oral hygience is good Neck: No carotid bruit; carotid pulses are 2 + bilaterally Respiratory: No accessory muscle use, No respiratory distress; chest expansion is symmetric, chest is bilaterally symmetric, other (diminished throughout) Cardiovascular: regular rate-rhythm, tachycardia, S1 and S2 Gastrointestinal: No tender; soft, round, distended; No guarding; audible bowel sounds Extremities: no lower extremity edema bilateral Neurologic/Psychiatric: other (moves all extremities) Skin: No rash on exposed areas, No ulcerations on exposed areas; other (brusising to arms bilat) Data Review Labs Laboratory Tests 05/06/23 12:19: Troponin I < 0.028 05/06/23 20:39: Glucometer 147H 05/07/23 04:15: White Blood Count 11.2H, Red Blood Count 4.08, Hemoglobin 8.8#L, Hematocrit 29L, Mean Corpuscular Volume 72L, Mean Corpuscular Hemoglobin 22L, Mean Corpuscular Hemoglobin Concent 30L, Red Cell Distribution Width 22.1H, Platelet Count 463H, Mean Platelet Volume 10.0, Immature Granulocyte % (Auto) 1, Neutrophils (%) (Auto) 66, Lymphocytes (%) (Auto) 23, Monocytes (%) (Auto) 8, Eosinophils (%) (Auto) 2, Basophils (%) (Auto) 1, Neutrophils # (Auto) 7.4, Lymphocytes # (Auto) 2.6, Monocytes # (Auto) 0.9, Eosinophils # (Auto) 0.2, Basophils # (Auto) 0.1, Immature Granulocyte # (Auto) 0.1, Sodium Level 140, Potassium Level 3.5L, Chloride Level 104, Carbon Dioxide Level 27, Anion Gap 9, Blood Urea Nitrogen 11, Creatinine 0.63, Estimat Glomerular Filtration Rate 99, BUN/Creatinine Ratio 17, Glucose Level 143H, Calcium Level 8.9, Corrected Calcium 9.1, Total Bilirubin 1.0, Aspartate Amino Transf (AST/SGOT) 13, Alanine Aminotransferase (ALT/SGPT) 12, Alkaline Phosphatase 70, Total Protein 6.4, Albumin 3.8, Triglycerides Level 73, Cholesterol Level 134, LDL Cholesterol Direct 82, VLDL Cholesterol 15, HDL Cholesterol 47 A/P-Cardiology Assessment/Admission Diagnosis Suspected GIB with anemia - management per surgical/medical services - H/H improved following 2 units PRBC Shortness of breath - likely primarily due to severe COPD - Sepsis and ac resp failure due to ac exac of COPD due to ANTONIA pneumonia leading to long hosp in Aug and Sep 2019 - Echo of 01-01-21 showed LVEF 55-60%. PASP 30-35 mmHg PAF with intermittent RVR - first diagnosed in Aug 2019 - OAC with Eliquis H/o Anemia - Significant anemia due to GI blood loss. Upper and lower endoscopy of 09/21/19: reflux esophagitis(stage 2), moderate gastritis with prepyloric ulcer 5mm size with overlying fibrin clot, no active bleed; mild chronic stage 2 ext and int hemorrhoids, mild sigmoid diverticulosis. CAD - Cath of 10/20/18 showed 75% mid vessel stenosis in the left anterior descending artery that was stented with Jing 2.25 x 18 mm stent. The rest of the coronary vessels have mild to moderate diffuse disease. Normal global left ventricular systolic function with ejection fraction of 65%. Mild to moderate elevation of left ventricular end-diastolic pressure - MPI of 01-02-21 showed no evidence of ischemia or infarction. LVEF 53% H/O tobacco use - quit in Jun 2018 Borderline DM II vs IFG - managed by PCP Hyperlipidemia - statin tx - followed by PCP Carotid arterial dz: - 40-59% R ICA and 60-79% L ICA stenoses on carotid u/s 05/31/21 and again on u/s of 07/26/2022 H/O Epistaxis - managed by her ENT Dr Reynolds, none in the recent past Discussion and Recomendations Suspected GIB with anemia - H/H improved following 2 units of PRBC - plan is for endoscopy today by Dr. Jaime PATEL - currently maintaining SR - continue rate controlling agents (Cardizem CD) - Ok to hold off on OAC until source of bleeding has been determined and treated by surgical services (endoscopy planned for later today); we advise OAC be resumes as soon as possible when allowed by surgical/medical services CAD and carotid dz - continue ASA Continue cardiac medications Monitor lab closely Further recs will be based on her hospital course We would like to thank medical services for this consult Clinical Quality Measures DVT/VTE Risk/Contraindication: Contraindications-Pharm: Other *list below* Other: AVANI Salmeron MD FACP FAC CCDS May 07, 2023 12:16
--- NOTE | 2023-05-07 12:28 | Progress Note-Post Operative ---
Post-Operative Progess Note Surgeon (s)/Clerical Production Worker (s) Surgeon MONICA MYRICK MD Clerical Production Worker: none Pre-Operative Diagnosis severe sx anemia Post-Operative Diagnosis reflux esophagitis(grade B-C), small-mod HH(2.5cm), moderate gastritis, no active bleed. chronic stage 2 ext and int hemorrhoids, mild sigmoid diverticulosis, small HP transverse colon(2mm). Procedure & Operative Findings Date of Procedure 05/07/23 Procedure Performed/Findings EGD with bx. Colonoscopy with bx. Anesthesia Type mac Estimated Blood Loss Estimated blood loss (mL): minimal Specimens/Packing Specimens Removed ge jxn, antrum, transverse colon polyp MONICA MYRICK MD May 07, 2023 12:28
--- NOTE | 2023-05-07 12:29 | Anesthesia-General Post-Op ---
MAC Patient Condition Mental Status/LOC: Same as Preop Cardiovascular: Satisfactory Nausea/Vomiting: Absent Respiratory: Satisfactory Pain: Controlled Complications: Absent Post Op Complications Complications None Follow Up Care/Instructions Patient Instructions None needed. Anesthesiology Discharge Order Discharge Order Patient is doing well, no complaints, stable vital signs, no apparent adverse anesthesia problems. No complications reported per nursing. HARMEET HAIRSTON CRNA May 07, 2023 12:29
[2023-05-07] MEDS ORDERED: BUDE10.7 INH (15:57)
[2023-05-07] MEDS ORDERED: PANT40TA52 PO (15:57)
[2023-05-07] MEDS ORDERED: OMEG12002 PO (15:57)
[2023-05-07] MEDS ORDERED: SUCR1TAB PO (15:57)
[2023-05-07] MEDS ORDERED: LORA10TA7 PO (15:57)
[2023-05-07] MEDS ORDERED: DILT180C71 PO (15:57)
[2023-05-07] MEDS ORDERED: CYAN-41 PO (15:57)
[2023-05-07 16:10] VITALS: BP 148/72
--- NOTE | 2023-05-07 18:17 | OPERATIVE REPORT ---
DATE OF SERVICE: 05/07/2023 ATTENDING PRIMARY ZIPPER TRIMMER HAND: [facility] in [place], [place]. PREOPERATIVE DIAGNOSIS: Symptomatic anemia. POSTOPERATIVE DIAGNOSES: Reflux esophagitis, Daniels between grade B and C, small hiatal hernia, 2.5 cm in size, moderate gastritis. No formal ulcerations or any active bleeding sources. Chronic stage II, external and internal hemorrhoids, mild sigmoid diverticulosis, small hyperplastic polyp of the transverse colon. PROCEDURE: EGD with biopsy, colonoscopy with polypectomy with hot biopsy forceps. SURGEON: Monica Myrick MD ANESTHESIA: Monitored anesthesia care. ESTIMATED BLOOD LOSS: Minimal. FINDINGS: Reflux esophagitis, Daniels between grade B and C, small hiatal hernia, 2.5 cm in size, moderate gastritis. No formal ulcerations or any active bleeding sources. Chronic stage II, external and internal hemorrhoids, mild sigmoid diverticulosis, small hyperplastic polyp of the transverse colon. DISPOSITION: The patient tolerated the procedure well. INDICATIONS: The patient is a 62-year-old female known to us. She had presented to the Emergency Department with weakness, shortness of breath and exacerbation of COPD. She was found to be anemic with a hemoglobin of 5.8. The patient had a similar presentation 2 years ago and again was found to be anemic. On that admission, she underwent an EGD and colonoscopy and was found to have reflux esophagitis as well as severe gastritis with a small antral ulcer with an overlying fibrin clot and no active bleeding. Colonoscopy showed mild hemorrhoids as well as mild sigmoid diverticulosis. She does not report any clinical bleeding, with no hematemesis, no coffee-ground emesis. She also does not report any red blood per rectum, nor any dark tarry stools. She is currently on Protonix daily. DESCRIPTION OF PROCEDURE: The patient was brought to the endoscopy suite and laid in the left lateral decubitus position. After adequate IV pain and sedative medications and monitored anesthesia care, the mouthpiece was applied. The endoscope was placed in the mouth, visualized the pharynx and hypopharyngeal region. Vocal cords, epiglottis and vallecula identified and appeared to be normal. The endoscope was then gently intubated into the esophageal opening and esophagus insufflated. The endoscope was then advanced through the [facility] [place] through the first, second and third portions of esophagus at the level of the GE junction. A reflux esophagitis, Daniels between grade B and C identified. No ulcers or strictures identified in this region. The endoscope was then advanced into the stomach and endoscope retroflexed visualizing a small to moderate size hiatal hernia approximately 2.5 cm in size. There was a moderate severity gastritis. No formal ulcerations, polyps or any neoplasms. No ulcers or any active bleeding identified. The endoscope was advanced through the pylorus and the duodenum, which appeared normal as well. The endoscope was then slowly withdrawn while taking second look and suctioning of residual air with no additional findings. A digital rectal examination was performed which revealed chronic stage II, external and internal hemorrhoids, not actively edematous nor inflamed and no bleeding. Normal sphincter tone was felt and there were no palpable masses. The endoscope was then intubated into the anus, rectum gently insufflated. The endoscope was then advanced through the valves of [place] of the rectum with no polyps or any neoplasms identified. Through the sigmoid colon, mild sigmoid diverticulosis identified. The endoscope was then advanced through the descending and transverse colon. At the transverse colon, a small hyperplastic polyp, 2 mm in size was identified and this was biopsied and destroyed with forceps and cautery with visualization of good hemostasis. The endoscope was then advanced through the ascending colon to the cecum, which were normal. The endoscope was then slowly withdrawn while taking a second look and suctioning of residual air with no additional findings. The patient tolerated the procedure well. We feel that the most likely cause of her anemia is gastritis on an intermittent basis, which causes her to lose microscopic amounts of blood. Over time, this does cause her to have symptomatic anemia. She is currently on Protonix; however, we feel that this may not be covering her throughout the entirety of 24 hours and we will also start her on omeprazole 40 mg taken at a different time during the day. She will also be instructed to proceed with the necessary lifestyle and dietary accommodation including avoidance of spicy, greasy and acidic foods as well as caffeinated beverages and to take a small and more frequent meals and avoidance of eating at night. We will also again recommend a high-fiber diet with a fiber supplement, which are equal or exceed 25 grams daily as well as significant amounts of water to promote soft consistency stools on a daily basis. The polyp appears is likely consistent with a benign hyperplastic polyp, which does not have any growth or malignancy potential and if this was verified on pathology and she is asymptomatic, she does not need another colonoscopy for another 10 years. Job ID: [id number] DocumentID: [id number] Dictated Date: 05/07/2023 11:43:13 Housing Liaison Date: 05/07/2023 18:15:00 Dictated By: MONICA MYRICK MD
[2023-05-07 19:45] VITALS: BP 150/81
[2023-05-07] MEDS: ASPIRIN 81 MG CHEWABLE TABLET PO SCH (20:18)
[2023-05-07] MEDS: ROSUVASTATIN 10 MG TABLET PO SCH (20:18)
[2023-05-07] MEDS: MONTELUKAST 10 MG TABLET PO SCH (20:19)
[2023-05-08] MEDS: MILK OF MAGNESIA 400 MG/5 ML 30 ML UDC PO SCH ×6 (02:12→12:08)
[2023-05-08] MEDS: RT-Ipratropium/Albuterol NEB 3 ML VIAL INH SCH ×5 (02:44→22:20)
[2023-05-08 04:27] LABS: BASOPHILS # (AUTO) 0.1 10^3/uL (0.0-0.1); BASOPHILS % (AUTO) 1 % (0-10); EOSINOPHILS # (AUTO) 0.3 10^3/uL (0.0-0.3); EOSINOPHILS % (AUTO) 3 % (0-10); HEMATOCRIT 31 % (35-52); LYMPHOCYTES # (AUTO) 1.8 10^3/uL (1.0-4.0); LYMPHOCYTES % (AUTO) 17 % (12-44); MEAN CORPUSCULAR HEMOGLOBIN 22 pg (25-34); MEAN CORPUSCULAR HGB CONC 30 g/dL (32-36); MEAN CORPUSCULAR VOLUME 73 fL (80-99); MEAN PLATELET VOLUME 9.7 fL (9.0-12.2); MONOCYTES # (AUTO) 0.9 10^3/uL (0.0-1.0); MONOCYTES % (AUTO) 8 % (0-12); NEUTROPHILS # (AUTO) 7.7 10^3/uL (1.8-7.8); NEUTROPHILS % (AUTO) 71 % (42-75); PLATELET COUNT 472 10^3/uL (130-400); WHITE BLOOD COUNT 10.9 10^3/uL (4.3-11.0)
[2023-05-08 04:59] LABS: ALBUMIN 3.8 GM/DL (3.2-4.5); BILIRUBIN,TOTAL 0.6 MG/DL (0.1-1.0); CREATININE SERUM 0.64 MG/DL (0.60-1.30); POTASSIUM 3.8 MMOL/L (3.6-5.0); TOTAL PROTEIN 6.5 GM/DL (6.4-8.2)
[2023-05-08] MEDS: SUCRALFATE 1 GM TABLET PO SCH ×4 (05:00→19:53)
[2023-05-08] MEDS: inSUlin ASPART 1 UNIT/0.01 ML (PER UNIT) SC SCH ×4 (05:01→20:50)
[2023-05-08 07:00] VITALS: BP 152/74
--- NOTE | 2023-05-08 07:41 | Progress Note - Cardiology ---
Cardiology SOAP Progress Note Subjective: Sitting up in bed States she is feeling SOB this morning, but feels it is d/t her COPD She states she has not had her inhalers or breathing treatments since admission No c/o CP or palpitations Objective: I&O/Vital Signs 05/08/23 05/08/23 05/08/23 05/08/23 19:50 22:20 22:34 23:03 Temp 36.0 Pulse 97 86 Resp 20 B/P (MAP) 130/72 (91) Pulse Ox 91 98 99 O2 Delivery Nasal Cannula Nasal Cannula NIV Bilevel O2 Flow Rate 4.00 4.00 40.00 05/09/23 05/09/23 05/09/23 05/09/23 03:16 03:42 06:42 07:36 Temp 36.5 36.4 Pulse 90 81 Resp 20 17 B/P (MAP) 119/59 (79) 126/60 (82) Pulse Ox 98 98 96 94 O2 Delivery Nasal Cannula Nasal Cannula Nasal Cannula Nasal Cannula O2 Flow Rate 4.00 4.00 4.00 4.00 05/09/23 00:00 Intake Total 510 ml Balance 510 ml Weight (Pounds): 170 Weight (Ounces): 0.0 Weight (Calculated Kilograms): 77.224453 Constitutional: AAO x 3, well-developed, well-nourished Respiratory: No accessory muscle use, No respiratory distress; chest expansion is symmetric, chest is bilaterally symmetric, other (diminished throughout) Cardiovascular: regular rate-rhythm, tachycardia, S1 and S2 Gastrointestional: No tender; soft, round, distended; No guarding; audible bowel sounds Extremities: no lower extremity edema bilateral Neurologic/Psychiatric: other (moves all extremities) Skin: No rash on exposed areas, No ulcerations on exposed areas; other (brusising to arms bilat) Results/Procedures: Labs Laboratory Tests 05/08/23 11:11: Glucometer 106 05/08/23 12:57: Lab Scanned Report Transfusion Reaction Form 05/08/23 15:58: Glucometer 121H 05/08/23 20:43: Glucometer 119H 05/09/23 05:12: White Blood Count 16.3H, Red Blood Count 4.29, Hemoglobin 9.2L, Hematocrit 32L, Mean Corpuscular Volume 75L, Mean Corpuscular Hemoglobin 21L, Mean Corpuscular Hemoglobin Concent 29L, Red Cell Distribution Width 25.0H, Platelet Count 465H, Mean Platelet Volume 10.1, Immature Granulocyte % (Auto) 1, Neutrophils (%) (Auto) 77H, Lymphocytes (%) (Auto) 14, Monocytes (%) (Auto) 7, Eosinophils (%) (Auto) 2, Basophils (%) (Auto) 0, Neutrophils # (Auto) 12.5H, Lymphocytes # (Auto) 2.2, Monocytes # (Auto) 1.1H, Eosinophils # (Auto) 0.3, Basophils # ( Auto) 0.1, Immature Granulocyte # (Auto) 0.1, Neutrophils % (Manual) 78, Lymphocytes % (Manual) 16, Monocytes % (Manual) 5, Basophils % (Manual) 1, Polychromasia SLIGHT, Hypochromasia SLIGHT, Poikilocytosis SLIGHT, Anisocytosis MARKED, Elliptocytes SLIGHT, Sodium Level 141, Potassium Level 4.2, Chloride Level 105, Carbon Dioxide Level 25, Anion Gap 11, Blood Urea Nitrogen 13, Creat inine 0.63, Estimat Glomerular Filtration Rate 99, BUN/Creatinine Ratio 21, Glucose Level 112H, Calcium Level 9.3, Corrected Calcium 9.5, Total Bilirubin 0.7, Aspartate Amino Transf (AST/SGOT) 15, Alanine Aminotransferase (ALT/SGPT) 12, Alkaline Phosphatase 72, Total Protein 6.7, Albumin 3.7 A/P: Assessment: Suspected recent GIB with anemia - management per surgical/medical services - H/H improved following 2 units PRBC - S/P EGD/colo on 05-07-[address] Sandoval: Reflux esophagitis, small hiatal hernia, 2.5 cm in size, moderate gastritis. No formal ulcerations or any active bleedi ng sources. Chronic stage II, external and internal hemorrhoids, mild sigmoid diverticulosis, small hyperplastic polyp of the transverse colon. Shortness of breath - likely primarily due to severe COPD - Sepsis and ac resp failure due to ac exac of COPD due to ANTONIA pneumonia leading to long hosp in Aug and Sep 2019 - Echo of 01-01-21 showed LVEF 55-60%. PASP 30-35 mmHg PAF with intermittent RVR (currently SR) - first diagnosed in Aug 2019 - OAC with Eliquis H/o Anemia - Significant anemia due to GI blood loss. Upper and lower endoscopy of 09/21/19: reflux esophagitis(stage 2), moderate gastritis with prepyloric ulcer 5mm size with overlying fibrin clot, no active bleed; mild chronic stage 2 ext and int hemorrhoids, mild sigmoid diverticulosis. CAD - Cath of 10/20/18 showed 75% mid vessel stenosis in the left anterior descending artery that was stented with Jing 2.25 x 18 mm stent. The rest of the coronary vessels have mild to moderate diffuse disease. Normal global left ventricular systolic function with ejection fraction of 65%. Mild to moderate elevation of left ventricular end-diastolic pressure - MPI of 01-02-21 showed no evidence of ischemia or infarction. LVEF 53% H/O tobacco use - quit in Jun 2018 Borderline DM II vs IFG - managed by PCP Hyperlipidemia - statin tx - followed by PCP Carotid arterial dz: - 40-59% R ICA and 60-79% L ICA stenoses on carotid u/s 05/31/21 and again on u/s of 07/26/2022 H/O Epistaxis - managed by her ENT Dr Reynolds, none in the recent past Plan: Suspected recent GIB with anemia - H/H improved following 2 units of PRBC - management per medical/srugical services PAF - currently maintaining SR - we advise OAC be resumed as soon as possible when allowed by surgical/medical services CAD and carotid dz - continue ASA Monitor lab closely Management of COPD per medical services STEPH REVELES May 08, 2023 07:41
[2023-05-08] MEDS: PANTOPRAZOLE 40 MG TABLET PO SCH ×2 (08:01→19:53)
[2023-05-08] MEDS: CYANOCOBALAMIN 1,000 MCG TABLET PO SCH (08:01)
[2023-05-08] MEDS: DOCUSATE SODIUM 100 MG CAPSULE PO SCH ×2 (08:01→19:53)
[2023-05-08] MEDS: dilTIAZem ER 180 MG CAPSULE PO SCH (08:01)
[2023-05-08] MEDS: FERROUS SULFATE 325 MG (IRON) TABLET PO SCH (08:01)
[2023-05-08] MEDS: SENNOSIDES 8.6 MG TABLET PO SCH ×2 (08:01→19:53)
[2023-05-08] MEDS: LORATADINE 10 MG TABLET PO SCH (08:01)
[2023-05-08] MEDS: ACETAMINOPHEN 325 MG TABLET PO PRN ×2 (08:05→16:33)
[2023-05-08] MEDS ORDERED: LORATADINE 10 MG TABLET PO PRN (11:00)
[2023-05-08] MEDS ORDERED: PATIENT MAY USE OWN MED,SINGLE MED PO SCH (11:00)
--- NOTE | 2023-05-08 11:13 | Physical Therapy Daily Note ---
PT Daily Note-Current Subjective Patient agrees to PT. Pain Section J - Health Conditions 1. Rarely or not at all 2. Occasionally 3. Frequently 4. Almost constantly 8. Unable to answer Pain Effect on Sleep: 1 Pain Interference with Therapy: 1 Pain Interference w/Day-to-Day: 1 Mental Status Patient Orientation: Normal For Age Attachments: Oxygen (4L) Transfers SCALE: Activities may be completed with or without assistive devices. 3-Disgztxrbq-wiuscmz completes the activity by him/herself with no assistance from a helper. 5-Set-up or Clean-up Assistance-helper sets up or cleans up; patient completes activity. [place] assists only prior to or following the activity. 4-Supervision or Touching Assistance-helper provides verbal cues and/or touching/steadying and/or contact guard assistance as patient completes activity. Assistance may be provided throughout the activity or intermittently. 3-Partial/Moderate Assistance-helper does LESS THAN HALF the effort. [place] lifts, holds or supports trunk or limbs, but provides less than half the effort. 2-Substantial/Maximal Assistance-helper does MORE THAN HALF the effort. [place] lifts or holds trunk or limbs and provides more than half the effort. 4-Dirlyvrdg-yisakd does ALL the effort. Patient does none of the effort to complete the activity. Or, the assistance of 2 or more helpers is required for the patient to complete the activity. If activity was not attempted, code reason: 7-Patient Refused. 9-Not Applicable-not attempted and the patient did not perform the activity before the current illness, exacerbation or injury. 10-Not Attempted due to Environmental Limitations-(lack of equipment, weather restraints, etc.). 88-Not Attempted due to Medical Conditions or Safety Concerns. Lying to Sitting/Side of Bed(Q: 6 Sit to Stand (QC): 4 Chair/Tjt-nb-Lmpdf Xfer(QC): 4 Weight Bearing Right Lower Extremity: Right Weight Bearing/Tolerated Left Lower Extremity: Left Weight Bearing/Tolerated Gait Training Distance: 150' Walk 10 feet (QC): 4 Walk 50 ft with 2 Turns(QC): 4 Walk 150 ft (QC): 4 Gait Assistive Device: FWW slow,steady gait sequence with 1 standing recovery period due to SOA Assessment Patient SAO2 remains >90% with activity and O2 in place. Patient up in recliner with needs met. PT Sand Digger Goals Sand Digger Goals PT Sand Digger Goals Time Frame: Jun 14, 2023 Roll Left & Right (QC): 6 Sit to Lying (QC): 6 Lying-Sitting on Side/Bed(QC): 6 Sit to Stand (QC): 6 Chair/Whe-jv-Cyjse Xfer(QC): 6 Toilet Transfer (QC): 6 Does the Patient Walk: Yes Walk 10 feet (QC): 6 Walk 50ft with 2 Turns (QC): 6 Walk 150 ft (QC): 4 PT Plan Treatment/Plan Treatment Plan: Continue Plan of Care Treatment Plan: Bed Mobility, Education, Functional Activity Kameron, Functional Strength, Group Therapy, Gait, Safety, Therapeutic Exercise, Transfers Treatment Duration: Jun 14, 2023 Frequency: 6 times per week Estimated Hrs Per Day: .25 hour per day Patient and/or Family Agrees t: Yes Time Time In: 1050 Time Out: 1100 DATE: May 08, 2023 Total Billed Treatment Time: 10 Total Billed Treatment 1 visit FA 10 min SHIRA TYLER PT May 08, 2023 11:13
[2023-05-08 11:55] VITALS: BP 140/66
--- NOTE | 2023-05-08 12:24 | Progress Note ---
CHELY HAYWARD 05/08/23 1224: Subjective Date Seen by a Provider: May 08, 2023 Time Seen by a Provider: 10:30 Subjective/Events-last exam Patient is seen laying in bed, no family at bedside. She reports that she feels a little more SOB today, thinks it may be in part due to not having her breztri, has a family member bringing one this morning. She has continued to maintain good O2 sats on 4L. She also has a headache this morning, took some tylenol and says it is helping. Endoscopy showed reflux esophagitis, a small hiatal hernia, moderate gastritis, internal and external hemorrhoids, diverticulosis, did not show any ulcerations or sources of active bleeding. Hemoglobin up to 9.0 today from 8.8 yesterday. Review of Systems General: No Chills, No Night Sweats HEENT: Head Aches; No Visual Changes, No Eye Pain Pulmonary: Dyspnea; No Cough Cardiovascular: No: Chest Pain, Palpitations Gastrointestinal: Diarrhea (States started when doing bowel prep for endoscopy, improving); No: Nausea, Vomiting Genitourinary: No Dysuria, No Hematuria Musculoskeletal: No: neck pain, back pain Neurological: No: Numbness, Incoordination Objective Exam Last Set of Vital Signs Vital Signs Date Time Temp Pulse Resp B/P (MAP) Pulse Ox O2 Delivery O2 Flow Rate FiO2 05/08/23 11:55 36.8 104 28 140/66 (90) 96 Nasal Cannula 4.00 Capillary Refill : I&O Intake and Output 05/08/23 00:00 Intake Total 1130 ml Output Total 2 ml Balance 1128 ml Intake Oral 830 ml IV Total 300 ml Output Stool Total 2 ml # Voids 8 # Bowel Movements 7 General: Alert, Oriented X3 HEENT: Atraumatic Neck: Supple, No JVD Lungs: Clear to Auscultation, Normal Air Movement Heart: Regular Rate, No Murmurs Abdomen: Soft, No Tenderness Extremities: No Clubbing, No Cyanosis, Normal Pulses Skin: No Rashes, No Breakdown Neuro: Normal Speech, Normal Tone Psych/Mental Status: Mental Status NL Results Lab Laboratory Tests 05/07/23 16:37: Glucometer 100 05/07/23 20:25: Glucometer 168H 05/08/23 04:05: White Blood Count 10.9, Red Blood Count 4.16, Hemoglobin 9.0L, Hematocrit 31L, Mean Corpuscular Volume 73L, Mean Corpuscular Hemoglobin 22L, Mean Corpuscular Hemoglobin Concent 30L, Red Cell Distribution Width 23.1H, Platelet Count 472H, Mean Platelet Volume 9.7, Immature Granulocyte % (Auto) 1, Neutrophils (%) (Auto) 71, Lymphocytes (%) (Auto) 17, Monocytes (%) (Auto) 8, Eosinophils (%) (Auto) 3, Basophils (%) (Auto) 1, Neutrophils # (Auto) 7.7, Lymphocytes # (Auto) 1.8, Monocytes # (Auto) 0.9, Eosinophils # (Auto) 0.3, Basophils # (Auto) 0.1, Immature Granulocyte # (Auto) 0.1, Sodium Level 141, Potassium Level 3.8, Chloride Level 103, Carbon Dioxide Level 29, Anion Gap 9, Blood Urea Nitrogen 12, Creatinine 0.64, Estimat Glomerular Filtration Rate 99, BUN/Creatinine Ratio 19, Glucose Level 120H, Calcium Level 9.0, Corrected Calcium 9.2, Total Bilirubin 0.6, Aspartate Amino Transf (AST/SGOT) 13, Alanine Aminotransferase (ALT/SGPT) 14, Alkaline Phosphatase 74, Total Protein 6.5, Albumin 3.8 05/08/23 11:11: Glucometer 106 Assessment/Plan Assessment/Plan Assess & Plan/Chief Complaint Severe symptomatic anemia: Hg at 9.0 from 8.8 yesterday general surgery consulted, endoscopy no areas of active bleeding/ulcerations, continue PPI, sucralfate and iron supplementation. Continue to monitor. Cardiology consulted, appreciate recs Acute on chronic respiratory failure: Supplemental O2, nebs COPD: Continue supplemental O2, nebs, has maintained good O2 sats A-fib: holding eliquis, currently sinus CAD: continue rosuvastatin HLD: continue rosuvastatin HTN: Home BP meds Hx stroke: maintained on eliquis GERD: PPI, sucralfate NIDDM: SSI Obesity Hx of tobacco use Clinical Quality Measures DVT/VTE Risk/Contraindication: Contraindications-Pharm: Other *list below* Other: ADRIANNE Wilkinson DO 05/08/232054: Subjective Subjective/Events-last exam Much improved overall Lungs are chronically fragile Objective Exam General: Alert, Oriented X3, Cooperative, No Acute Distress Lungs: Clear to Auscultation, Normal Air Movement Heart: Regular Rate, Normal S1, Normal S2, No Murmurs Psych/Mental Status: Mental Status NL, Mood NL Assessment/Plan Assessment/Plan Assess & Plan/Chief Complaint Monitor closely DC tomorrow? Supervisory-Addendum Brief Verification & Attestation Participated in pt care: history, MDM, physical Personally performed: exam, history, MDM, supervision of care Care discussed with: Medical Student Procedures: n/a Results interpretation: Verified all documentation Verification and Attestation of Medical Student E/M Service A medical student performed and documented this service in my presence. I reviewed and verified all information documented by the medical student and made modifications to such information, when appropriate. I personally performed the physical exam and medical decision making. Adrianne Mathews, May 08, 2023,20:54 CHELY HAYWADR May 08, 2023 12:24 ADRIANNE MATHEWS DO May 08, 2023 20:55
--- NOTE | 2023-05-08 13:01 | Progress Note - Cardiology ---
Cardiology SOAP Progress Note Subjective: Reports malaise Reports shortness of breath No n/v/d No focal weakness No cp or palp or syncope Objective: I&O/Vital Signs 05/08/23 05/08/23 05/08/23 05/08/23 01:00 02:44 04:00 07:00 Pulse 90 90 76 101 Resp 19 19 B/P (MAP) 152/74 (100) Pulse Ox 99 97 97 O2 Delivery NIV Bilevel NIV Bilevel O2 Flow Rate 40.00 40.00 40.00 05/08/23 05/08/23 05/08/23 05/08/23 07:00 07:08 08:00 11:55 Temp 36.8 Pulse 105 104 Resp 28 B/P (MAP) 140/66 (90) Pulse Ox 94 96 O2 Delivery Nasal Cannula Nasal Cannula Nasal Cannula O2 Flow Rate 4.00 4.00 4.00 05/08/23 00:00 Intake Total 730 ml Balance 730 ml Weight (Pounds): 170 Weight (Ounces): 0.0 Weight (Calculated Kilograms): 77.630236 Constitutional: AAO x 3, well-developed, well-nourished Respiratory: No accessory muscle use, No respiratory distress; chest expansion is symmetric, chest is bilaterally symmetric, other (diminished throughout) Cardiovascular: regular rate-rhythm, tachycardia, S1 and S2 Gastrointestional: No tender; soft, round, distended; No guarding; audible bowel sounds Extremities: no lower extremity edema bilateral Neurologic/Psychiatric: other (moves all extremities) Skin: No rash on exposed areas, No ulcerations on exposed areas; other (brusising to arms bilat) Results/Procedures: Labs Laboratory Tests 05/07/23 16:37: Glucometer 100 05/07/23 20:25: Glucometer 168H 05/08/23 04:05: White Blood Count 10.9, Red Blood Count 4.16, Hemoglobin 9.0L, Hematocrit 31L, Mean Corpuscular Volume 73L, Mean Corpuscular Hemoglobin 22L, Mean Corpuscular Hemoglobin Concent 30L, Red Cell Distribution Width 23.1H, Platelet Count 472H, Mean Platelet Volume 9.7, Immature Granulocyte % (Auto) 1, Neutrophils (%) (Auto) 71, Lymphocytes (%) (Auto) 17, Monocytes (%) (Auto) 8, Eosinophils (%) (Auto) 3, Basophils (%) (Auto) 1, Neutrophils # (Auto) 7.7, Lymphocytes # (Auto) 1.8, Monocytes # (Auto) 0.9, Eosinophils # (Auto) 0.3, Basophils # (Auto) 0.1, Immature Granulocyte # (Auto) 0.1, Sodium Level 141, Potassium Level 3.8, Chloride Level 103, Carbon Dioxide Level 29, Anion Gap 9, Blood Urea Nitrogen 12, Creatinine 0.64, Estimat Glomerular Filtration Rate 99, BUN/Creatinine Ratio 19, Glucose Level 120H, Calcium Level 9.0, Corrected Calcium 9.2, Total Bilirubin 0.6, Aspartate Amino Transf (AST/SGOT) 13, Alanine Aminotransferase (ALT/SGPT) 14, Alkaline Phosphatase 74, Total Protein 6.5, Albumin 3.8 05/08/23 11:11: Glucometer 106 05/08/23 12:57: Lab Scanned Report Transfusion Reaction Form Laboratory Tests 05/07/23 04:15 05/08/23 04:05 A/P: Assessment: Suspected recent GIB with anemia - management per Dr Mathews - H/H improved following 2 units PRBC - S/P EGD/colo on 05-07-[address] Sandoval: Reflux esophagitis, small hiatal hernia, 2.5 cm in size, moderate gastritis. No formal ulcerations or any active bleeding sources. Chronic stage II, external and internal hemorrhoids, mild sigmoid diverticulosis, small hyperplastic polyp of the transverse colon. Shortness of breath - likely primarily due to severe COPD - Sepsis and ac resp failure due to ac exac of COPD due to ANTONIA pneumonia leading to long hosp in Aug and Sep 2019 - Echo of 01-01-21 showed LVEF 55-60%. PASP 30-35 mmHg PAF with intermittent RVR (currently SR) - first diagnosed in Aug 2019 - OAC with Eliquis H/o Anemia - Significant anemia due to GI blood loss. Upper and lower endoscopy of 09/21/19: reflux esophagitis(stage 2), moderate gastritis with prepyloric ulcer 5mm size with overlying fibrin clot, no active bleed; mild chronic stage 2 ext and int hemorrhoids, mild sigmoid diverticulosis. CAD - Cath of 10/20/18 showed 75% mid vessel stenosis in the left anterior descending artery that was stented with Jing 2.25 x 18 mm stent. The rest of the coronary vessels have mild to moderate diffuse disease. Normal global left ventricular systolic function with ejection fraction of 65%. Mild to moderate elevation of left ventricular end-diastolic pressure - MPI of 01-02-21 showed no evidence of ischemia or infarction. LVEF 53% H/O tobacco use - quit in Jun 2018 Borderline DM II vs IFG - managed by PCP Hyperlipidemia - statin tx - followed by PCP Carotid arterial dz: - 40-59% R ICA and 60-79% L ICA stenoses on carotid u/s 05/31/21 and again on u/s of 07/26/2022 H/O Epistaxis - managed by her ENT Dr Reynolds, none in the recent past Plan: * Resume anticoag when ok with Dr Mathews * Monitor labs AVANI SAHU MD FACP FAC CCDS May 08, 2023 13:01
[2023-05-08 14:45] VITALS: BP 169/70
[2023-05-08 15:47] VITALS: BP 142/63
[2023-05-08 19:30] VITALS: BP 143/67
[2023-05-08] MEDS: ROSUVASTATIN 10 MG TABLET PO SCH (19:53)
[2023-05-08] MEDS: ASPIRIN 81 MG CHEWABLE TABLET PO SCH (19:53)
[2023-05-08] MEDS: MONTELUKAST 10 MG TABLET PO SCH (19:53)
[2023-05-08 23:03] VITALS: BP 130/72
[2023-05-09 03:16] VITALS: BP 119/59
[2023-05-09] MEDS: RT-Ipratropium/Albuterol NEB 3 ML VIAL INH SCH ×3 (03:42→10:57)
[2023-05-09 05:51] LABS: BASOPHILS # (AUTO) 0.1 10^3/uL (0.0-0.1); BASOPHILS % (AUTO) 0 % (0-10); EOSINOPHILS # (AUTO) 0.3 10^3/uL (0.0-0.3); EOSINOPHILS % (AUTO) 2 % (0-10); HEMATOCRIT 32 % (35-52); HEMOGLOBIN 9.2 g/dL (11.5-16.0); LYMPHOCYTES # (AUTO) 2.2 10^3/uL (1.0-4.0); LYMPHOCYTES % (AUTO) 14 % (12-44); MEAN CORPUSCULAR HEMOGLOBIN 21 pg (25-34); MEAN CORPUSCULAR HGB CONC 29 g/dL (32-36); MEAN CORPUSCULAR VOLUME 75 fL (80-99); MEAN PLATELET VOLUME 10.1 fL (9.0-12.2); MONOCYTES # (AUTO) 1.1 10^3/uL (0.0-1.0); MONOCYTES % (AUTO) 7 % (0-12); NEUTROPHILS # (AUTO) 12.5 10^3/uL (1.8-7.8); NEUTROPHILS % (AUTO) 77 % (42-75); PLATELET COUNT 465 10^3/uL (130-400); WHITE BLOOD COUNT 16.3 10^3/uL (4.3-11.0)
[2023-05-09] MEDS: SUCRALFATE 1 GM TABLET PO SCH ×2 (05:51→12:35)
[2023-05-09] MEDS: CYANOCOBALAMIN 1,000 MCG TABLET PO SCH (05:51)
[2023-05-09 05:56] LABS: ALBUMIN 3.7 GM/DL (3.2-4.5)
[2023-05-09 05:57] LABS: POTASSIUM 4.2 MMOL/L (3.6-5.0)
[2023-05-09 05:58] LABS: CALCIUM 9.3 MG/DL (8.5-10.1)
[2023-05-09 05:59] LABS: TOTAL PROTEIN 6.7 GM/DL (6.4-8.2)
[2023-05-09 06:01] LABS: BILIRUBIN,TOTAL 0.7 MG/DL (0.1-1.0)
[2023-05-09 06:02] LABS: CREATININE SERUM 0.63 MG/DL (0.60-1.30)
[2023-05-09] MEDS: inSUlin ASPART 1 UNIT/0.01 ML (PER UNIT) SC SCH ×2 (06:18→10:58)
[2023-05-09 06:24] LABS: ANISOCYTOSIS MARKED; BASOPHILS % (MANUAL) 1 %; HYPOCHROMASIA SLIGHT; LYMPHOCYTES % (MANUAL) 16 %; MONOCYTES % (MANUAL) 5 %; NEUTROPHILS % (MANUAL) 78 %; POIKILOCYTOSIS SLIGHT; POLYCHROMASIA SLIGHT
[2023-05-09 06:25] LABS: ELLIPT/OVALOCYTES SLIGHT
[2023-05-09] MEDS: NON-FORMULARY MEDICATION 1 EA EA (Budesonide/Glycopyr/Formoterol (Breztri Aerosphere Inhal IH SCH ×2 (06:41→08:36)
[2023-05-09 07:36] VITALS: BP 126/60
[2023-05-09] MEDS: PANTOPRAZOLE 40 MG TABLET PO SCH (08:32)
[2023-05-09] MEDS: FERROUS SULFATE 325 MG (IRON) TABLET PO SCH (08:32)
[2023-05-09] MEDS: SENNOSIDES 8.6 MG TABLET PO SCH (08:32)
[2023-05-09] MEDS: dilTIAZem ER 180 MG CAPSULE PO SCH (08:33)
[2023-05-09] MEDS: DOCUSATE SODIUM 100 MG CAPSULE PO SCH (08:33)
[2023-05-09] MEDS: IRON SUCROSE 200 MG/10 ML VIAL IV SCH (08:34)
[2023-05-09] MEDS: LORATADINE 10 MG TABLET PO SCH (08:34)
[2023-05-09] MEDS ORDERED: ROFLUMILAST 500 MCG TABLET PO SCH ×2 (09:00)
[2023-05-09] MEDS ORDERED: dilTIAZem ER 180 MG CAPSULE PO SCH (09:00)
[2023-05-09] MEDS ORDERED: OMEGA 3 (FISH OIL) 1000 MG CAP PO SCH (09:00)
[2023-05-09] MEDS ORDERED: CYANOCOBALAMIN 1,000 MCG TABLET PO SCH (09:00)
--- NOTE | 2023-05-09 09:28 | Progress Note - Cardiology ---
Cardiology SOAP Progress Note Subjective: Sitting up in bed Feels SOB is much improved from yesterday No c/o CP, palpitations, syncope, near syncope No c/o abd pain, n/v/d Objective: I&O/Vital Signs 05/08/23 05/08/23 05/08/23 05/09/23 22:20 22:34 23:03 03:16 Temp 36.0 36.5 Pulse 97 86 90 Resp 20 20 B/P (MAP) 130/72 (91) 119/59 (79) Pulse Ox 91 98 99 98 O2 Delivery Nasal Cannula NIV Bilevel Nasal Cannula O2 Flow Rate 4.00 40.00 4.00 05/09/23 05/09/23 05/09/23 05/09/23 03:42 06:42 07:36 08:00 Temp 36.4 Pulse 81 Resp 17 B/P (MAP) 126/60 (82) Pulse Ox 98 96 94 O2 Delivery Nasal Cannula Nasal Cannula Nasal Cannula Nasal Cannula O2 Flow Rate 4.00 4.00 4.00 4.00 05/09/23 00:00 Intake Total 510 ml Balance 510 ml Weight (Pounds): 170 Weight (Ounces): 0.0 Weight (Calculated Kilograms): [id number] Constitutional: AAO x 3, well-developed, well-nourished Respiratory: No accessory muscle use, No respiratory distress; chest expansion is symmetric, chest is bilaterally symmetric, other (diminished throughout) Cardiovascular: regular rate-rhythm, S1 and S2 Gastrointestional: No tender; soft, round, distended; No guarding; audible bowel sounds Extremities: no lower extremity edema bilateral Neurologic/Psychiatric: other (moves all extremities) Skin: No rash on exposed areas, No ulcerations on exposed areas; other (brusising to arms bilat) Results/Procedures: Labs Laboratory Tests 05/08/23 11:11: Glucometer 106 05/08/23 12:57: Lab Scanned Report Transfusion Reaction Form 05/08/23 15:58: Glucometer 121H 05/08/23 20:43: Glucometer 119H 05/09/23 05:12: White Blood Count 16.3H, Red Blood Count 4.29, Hemoglobin 9.2L, Hematocrit 32L, Mean Corpuscular Volume 75L, Mean Corpuscular Hemoglobin 21L, Mean Corpuscular Hemoglobin Concent 29L, Red Cell Distribution Width 25.0H, Platelet Count 465H, Mean Platelet Volume 10.1, Immature Granulocyte % (Auto) 1, Neutrophils (%) (Auto) 77H, Lymphocytes (%) (Auto) 14, Monocytes (%) (Auto) 7, Eosinophils (%) (Auto) 2, Basophils (%) (Auto) 0, Neutrophils # (Auto) 12.5H, Lymphocytes # (Auto) 2.2, Monocytes # (Auto) 1.1H, Eosinophils # (Auto) 0.3, Basophils # (Auto) 0.1, Immature Granulocyte # (Auto) 0.1, Neutrophils % (Manual) 78, Lymphocytes % (Manual) 16, Monocytes % (Manual) 5, Basophils % (Manual) 1, Polychromasia SLIGHT, Hypochromasia SLIGHT, Poikilocytosis SLIGHT, Anisocytosis MARKED, Elliptocytes SLIGHT, Sodium Level 141, Potassium Level 4.2, Chloride Level 105, Carbon Dioxide Level 25, Anion Gap 11, Blood Urea Nitrogen 13, Creatinine 0.63, Estimat Glomerular Filtration Rate 99, BUN/Creatinine Ratio 21, Glucose Level 112H, Calcium Level 9.3, Corrected Calcium 9.5, Total Bilirubin 0 .7, Aspartate Amino Transf (AST/SGOT) 15, Alanine Aminotransferase (ALT/SGPT) 12, Alkaline Phosphatase 72, Total Protein 6.7, Albumin 3.7 Laboratory Tests 05/08/23 04:05 05/09/23 05:12 A/P: Assessment: Suspected recent GIB with anemia - management per Dr Mathews - H/H improved following 2 units PRBC - S/P EGD/colo on 05-07-[address] Sandoval: Reflux esophagitis, small hiatal hernia, 2.5 cm in size, moderate gastritis. No formal ulcerations or any active bleeding sources. Chronic stage II, external and internal hemorrhoids, mild sigmoid diverticulosis, small hyperplastic polyp of the transverse colon. Shortness of breath - likely primarily due to severe COPD - Sepsis and ac resp failure due to ac exac of COPD due to ANTONIA pneumonia leading to long hosp in Aug and Sep 2019 - Echo of 01-01-21 showed LVEF 55-60%. PASP 30-35 mmHg PAF with intermittent RVR (currently SR) - first diagnosed in Aug 2019 - OAC with Eliquis H/o Anemia - Significant anemia due to GI blood loss. Upper and lower endoscopy of 09/21/19: reflux esophagitis(stage 2), moderate gastritis with prepyloric ulcer 5mm size with overlying fibrin clot, no active bleed; mild chronic stage 2 ext and int hemorrhoids, mild sigmoid diverticulosis. CAD - Cath of 10/20/18 showed 75% mid vessel stenosis in the left anterior descending artery that was stented with Jing 2.25 x 18 mm stent. The rest of the coronary vessels have mild to moderate diffuse disease. Normal global left ventricular systolic function with ejection fraction of 65%. Mild to moderate elevation of left ventricular end-diastolic pressure - MPI of 01-02-21 showed no evidence of ischemia or infarction. LVEF 53% H/O tobacco use - quit in Jun 2018 Borderline DM II vs IFG - managed by PCP Hyperlipidemia - statin tx - followed by PCP Carotid arterial dz: - 40-59% R ICA and 60-79% L ICA stenoses on carotid u/s 05/31/21 and again on u/s of 07/26/2022 H/O Epistaxis - managed by her ENT Dr Reynolds, none in the recent past Plan: * Resume anticoag when ok with Dr Mathews * Monitor labs - H/H continues to improve STEPH REVELES May 09, 2023 09:28
--- NOTE | 2023-05-09 09:54 | Progress Note - Cardiology ---
Cardiology SOAP Progress Note Subjective: No cp or palp or syncope Gen malaise No shortness of breath at rest No n/v/d Objective: I&O/Vital Signs 05/08/23 05/08/23 05/08/23 05/09/23 22:20 22:34 23:03 03:16 Temp 36.0 36.5 Pulse 97 86 90 Resp 20 20 B/P (MAP) 130/72 (91) 119/59 (79) Pulse Ox 91 98 99 98 O2 Delivery Nasal Cannula NIV Bilevel Nasal Cannula O2 Flow Rate 4.00 40.00 4.00 05/09/23 05/09/23 05/09/23 05/09/23 03:42 06:42 07:36 08:00 Temp 36.4 Pulse 81 Resp 17 B/P (MAP) 126/60 (82) Pulse Ox 98 96 94 O2 Delivery Nasal Cannula Nasal Cannula Nasal Cannula Nasal Cannula O2 Flow Rate 4.00 4.00 4.00 4.00 05/09/23 00:00 Intake Total 510 ml Balance 510 ml Weight (Pounds): 170 Weight (Ounces): 0.0 Weight (Calculated Kilograms): [id number] Constitutional: AAO x 3, well-developed, well-nourished Respiratory: No accessory muscle use, No respiratory distress; chest expansion is symmetric, chest is bilaterally symmetric, other (diminished throughout) Cardiovascular: regular rate-rhythm, S1 and S2 Gastrointestional: No tender; soft, round, distended; No guarding; audible bowel sounds Extremities: no lower extremity edema bilateral Neurologic/Psychiatric: other (moves all extremities) Skin: No rash on exposed areas, No ulcerations on exposed areas; other (brusising to arms bilat) Results/Procedures: Labs Laboratory Tests 05/08/23 11:11: Glucometer 106 05/08/23 12:57: Lab Scanned Report Transfusion Reaction Form 05/08/23 15:58: Glucometer 121H 05/08/23 20:43: Glucometer 119H 05/09/23 05:12: White Blood Count 16.3H, Red Blood Count 4.29, Hemoglobin 9.2L, Hematocrit 32L, Mean Corpuscular Volume 75L, Mean Corpuscular Hemoglobin 21L, Mean Corpuscular Hemoglobin Concent 29L, Red Cell Distribution Width 25.0H, Platelet Count 465H, Mean Platelet Volume 10.1, Immature Granulocyte % (Auto) 1, Neutrophils (%) (Auto) 77H, Lymphocytes (%) (Auto) 14, Monocytes (%) (Auto) 7, Eosinophils (%) (Auto) 2, Basophils (%) (Auto) 0, Neutrophils # (Auto) 12.5H, Lymphocytes # (Auto) 2.2, Monocytes # (Auto) 1.1H, Eosinophils # (Auto) 0.3, Basophils # (Auto) 0.1, Immature Granulocyte # (Auto) 0.1, Neutrophils % (Manual) 78, Lymphocytes % (Manual) 16, Monocytes % (Manual) 5, Basophils % (Manual) 1, Polychromasia SLIGHT, Hypochromasia SLIGHT, Poikilocytosis SLIGHT, Anisocytosis MARKED, Elliptocytes SLIGHT, Sodium Level 141, Potassium Level 4.2, Chloride Level 105, Carbon Dioxide Level 25, Anion Gap 11, Blood Urea Nitrogen 13, Creatinine 0.63, Estimat Glomerular Filtration Rate 99, BUN/Creatinine Ratio 21, Glucose Level 112H, Calcium Level 9.3, Corrected Calcium 9.5, Total Bilirubin 0.7, Aspartate Amino Transf (AST/SGOT) 15, Alanine Aminotransferase (ALT/SGPT) 12, Alkaline Phosphatase 72, Total Protein 6.7, Albumin 3.7 Laboratory Tests 05/08/23 04:05 05/09/23 05:12 A/P: Assessment: Suspected recent GIB with anemia - management per Dr Mathews - H/H improved following 2 units PRBC - S/P EGD/colo on 05-07-[address] Sandoval: Reflux esophagitis, small hiatal hernia, 2.5 cm in size, moderate gastritis. No formal ulcerations or any active bleeding sources. Chronic stage II, external and internal hemorrhoids, mild sigmoid diverticulosis, small hyperplastic polyp of the transverse colon. Shortness of breath - likely primarily due to severe COPD - Sepsis and ac resp failure due to ac exac of COPD due to ANTONIA pneumonia leading to long hosp in Aug and Sep 2019 - Echo of 01-01-21 showed LVEF 55-60%. PASP 30-35 mmHg PAF with intermittent RVR (currently SR) - first diagnosed in Aug 2019 - OAC with Eliquis H/o Anemia - Significant anemia due to GI blood loss. Upper and lower endoscopy of 09/21/19: reflux esophagitis(stage 2), moderate gastritis with prepyloric ulcer 5mm size with overlying fibrin clot, no active bleed; mild chronic stage 2 ext and int h emorrhoids, mild sigmoid diverticulosis. CAD - Cath of 10/20/18 showed 75% mid vessel stenosis in the left anterior descending artery that was stented with Jing 2.25 x 18 mm stent. The rest of the coronary vessels have mild to moderate diffuse disease. Normal global left ventricular systolic function with ejection fraction of 65%. Mild to moderate elevation of left ventricular end-diastolic pressure - MPI of 01-02-21 showed no evidence of ischemia or infarction. LVEF 53% H/O tobacco use - quit in Jun 2018 Borderline DM II vs IFG - managed by PCP Hyperlipidemia - statin tx - followed by PCP Carotid arterial dz: - 40-59% R ICA and 60-79% L ICA stenoses on carotid u/s 05/31/21 and again on u/s of 07/26/2022 H/O Epistaxis - managed by her ENT Dr Reynolds, none in the recent past Plan: * Dr Mathews to resume anticoag when she determines patient stable for anticoag from GI and medical standpoint * Monitor labs - H/H continues to improve AVANI SAHU MD FACP FAC CCDS May 09, 2023 09:53
--- NOTE | 2023-05-09 10:57 | Physical Therapy Progress Note ---
Therapy Progress Note Patient is currently at independent LOF with all gross motor skills safely and does not require continued skilled therapy. PT to dismiss patient from services at this time. PT discussed this with patient and patient reports she is up independently in room without difficulty. SHIRA TYLER PT May 09, 2023 10:57
[2023-05-09 11:32] VITALS: BP 127/60
[2023-05-09] MEDS ORDERED: PANT40TA52 PO (12:48)
[2023-05-09] MEDS ORDERED: IRON150C3 PO (12:48)
[2023-05-09] MEDS ORDERED: SUCR1TAB PO (12:48)
[2023-05-09] MEDS ORDERED: APIX5TAB PO (12:48)
--- NOTE | 2023-05-09 12:49 | Discharge Summary ---
Discharge Summary Hospital Course Was the Problem List Reviewed?: Yes Problems/Dx: (1) Severe anemia Status: Acute (2) Chest heaviness Status: Acute (3) Coronary artery disease Status: Acute Qualifiers: Qualified Codes: I25.10 - Atherosclerotic heart disease of [place] coronary artery without angina pectoris (4) COPD (chronic obstructive pulmonary disease) Status: Acute Qualifiers: Qualified Codes: J44.9 - Chronic obstructive pulmonary disease, unspecified Hospital Course Date of Admission: May 08, 2023 at 11:00 Admission Diagnosis : Family Physician/Provider: Filiberto Elliott - [facility] Date of Discharge: 05/09/23 Discharge Diagnosis: [ ] Hospital Course: 62-year-old female arrived via EMS to ED on 05/06 with CC of SOB, N/V. Patient had been having these symptoms as well as chest heaviness, headache, and fatigue for about 2-3 days. She has a history of COPD and normally wears 3L O2, but had to increase to 4L. She has a history of severe anemia requiring transfusions. Endoscopy done in 2019 showed GERD, esophagitis, gastric ulcer with clot, internal and external hemorrhoids, and diverticulosis. She denied any bloody, dark, or tarry stools. She describes her vomiting as undigested food, denied any hematemesis or coffee ground emesis. On admit she was found to have a hemoglobin of 5.8, transfused with 2 units PRBCs and hemoglobin improved to 8.8. General surgery was consulted and endoscopy revealed esophagitis, a small hiatal hernia, internal and external hemorrhoids, diverticulosis, but did not show any areas of active bleeding or ulcerations. Patient was given iron supplementation and her hg improved during the stay to 9.2 today. She was given supplemental O2 and nebs during her stay, maintained good O2 sats and her SOB improved close to her baseline. Her eliquis was held during her stay, will restart in 2 weeks. She is being prepared for discharge today with ferrex for iron supplementation and increasing her protonix to BID, instructed to follow up outpatient with PCP. CHELY HAYWARD May 09, 2023 12:55 Labs and Pending Lab Test: Laboratory Tests 05/08/23 12:57: Lab Scanned Report Transfusion Reaction Form 05/08/23 15:58: Glucometer 121H 05/08/23 20:43: Glucometer 119H 05/09/23 05:12: White Blood Count 16.3H, Red Blood Count 4.29, Hemoglobin 9.2L, Hematocrit 32L, Mean Corpuscular Volume 75L, Mean Corpuscular Hemoglobin 21L, Mean Corpuscular Hemoglobin Concent 29L, Red Cell Distribution Width 25.0H, Platelet Count 465H, Mean Platelet Volume 10.1, Immature Granulocyte % (Auto) 1, Neutrophils (%) (Auto) 77H, Lymphocytes (%) (Auto) 14, Monocytes (%) (Auto) 7, Eosinophils (%) (Auto) 2, Basophils (%) (Auto) 0, Neutrophils # (Auto) 12.5H, Lymphocytes # (Auto) 2.2, Monocytes # (Auto) 1.1H, Eosinophils # (Auto) 0.3, Basophils # (Auto) 0.1, Immature Granulocyte # (Auto) 0.1, Neutrophils % (Manual) 78, Lymphocytes % (Manual) 16, Monocytes % (Manual) 5, Basophils % (Manual) 1, Polychromasia SLIGHT, Hypochromasia SLIGHT, Poikilocytosis SLIGHT, Anisocytosis MARKED, Elliptocytes SLIGHT, Sodium Level 141, Potassium Level 4.2, Chloride Level 105, Carbon Dioxide Level 25, Anion Gap 11, Blood Urea Nitrogen 13, Creatinine 0.63, Estimat Glomerular Filtration Rate 99, BUN/Creatinine Ratio 21, Glucose Level 112H, Calcium Level 9.3, Corrected Calcium 9.5, Total Bilirubin 0.7, Aspartate Amino Transf (AST/SGOT) 15, Alanine Aminotransferase (ALT/SGPT) 12, Alkaline Phosphatase 72, Total Protein 6.7, Albumin 3.7 05/09/23 10:39: Glucometer 116H Home Meds Active Pantoprazole Sodium 40 Mg Tablet.dr 40 Mg PO BID Sucralfate 1 Gram Tablet 1 Gm PO ACHS Ferrex 150 (Iron Polysaccharide Complex) 150 Mg Iron Capsule 150 Mg PO DAILY Eliquis (Apixaban) 5 Mg Tablet 5 Mg PO BID 14 Days hold for 2 weeks then restart Reported Vitamin B-12 (Cyanocobalamin (Vitamin B-12)) 1,000 Mcg Tablet 1,000 Mcg PO DAILY Fish Oil 1,200 mg Softgel ([place]-3/Dha/Epa/Fish Oil) 1,200 Mg (144 Mg-216 Mg) Capsule 1,200 Mg PO DAILY Diltiazem ER (Diltiazem HCl) 180 Mg Capsule.er 360 Mg PO DAILY TAKES 2 (180MG) CAPS Breztri Aerosphere Inhaler (Budesonide/Glycopyr/Formoterol) 160 Mcg-9 Mcg-4.8 Mcg/Actuation Hfa.aer.ad 2 Puff INH BID Pantoprazole Sodium 40 Mg Tablet.dr 40 Mg PO DAILY Loratadine 10 Mg Tablet 10 Mg PO DAILY PRN Sucralfate 1 Gram Tablet 1 Gm PO BID Roflumilast 500 Mcg Tablet 500 Mg PO DAILY Lisinopril 10 Mg Tablet 5 Mg PO BID TAKES OF A 10MG TAB Aspirin 81 Mg Tab.chew 81 Mg PO HS Albuterol Sulfate 2.5 Mg/3 Ml Vial.neb 2.5 Mg NEB Q4H PRN Ventolin Hfa (Albuterol Sulfate) 1 Puff Puff 2 Puff INH Q4H PRN Fluticasone Propionate 16 Gm Tyler.susp 1 Tyler NS DAILY PRN Iron (Ferrous Sulfate) 325 Mg Tablet 325 Mg PO DAILY Montelukast Sodium 10 Mg Tablet 10 Mg PO HS Rosuvastatin Calcium 10 Mg Tablet 10 Mg PO HS Raloxifene HCl 60 Mg Tablet 60 Mg PO DAILY Assessment/Pt Instructions pcp 1 week Discharge Planning: <30 minutes discharge planning Discharge Physical Examination Vital Signs Vital Signs Date Time Temp Pulse Resp B/P (MAP) Pulse Ox O2 Delivery O2 Flow Rate FiO2 05/09/23 11:32 36.4 83 17 127/60 (82) 96 Nasal Cannula 4.00 General Appearance: No Apparent Distress, WD/WN, Chronically ill Allergies: Coded Allergies: No Known Drug Allergies (Unverified , 09/06/19) Discharge Summary Date of Admission May 08, 2023 at 11:00 Date of Discharge Discharge Date: May 09, 2023 Admission Diagnosis Assessment: Acute on chronic respiratory failure Severe symptomatic anemia Severe COPD Oxygen dependency Plan: Supportive care Monitor closely Transfuse EGD and colonoscopy Clinical Quality Measures DVT/VTE Risk/Contraindication: Contraindications-Pharm: Other *list below* Other: BERTRAND Wilkinson DO May 09, 2023 12:49
--- NOTE | 2023-05-09 12:55 | Progress Note ---
CHELY HAYWARD 05/09/23 1255: Progress Note 62-year-old female arrived via EMS to ED on 05/06 with CC of SOB, N/V. Patient had been having these symptoms as well as chest heaviness, headache, and fatigue for about 2-3 days. She has a history of COPD and normally wears 3L O2, but had to increase to 4L. She has a history of severe anemia requiring transfusions. Endoscopy done in 2019 showed GERD, esophagitis, gastric ulcer with clot, internal and external hemorrhoids, and diverticulosis. She denied any bloody, dark, or tarry stools. She describes her vomiting as undigested food, denied any hematemesis or coffee ground emesis. On admit she was found to have a hemoglobin of 5.8, transfused with 2 units PRBCs and hemoglobin improved to 8.8. General surgery was consulted and endoscopy revealed esophagitis, a small hiatal hernia, internal and external hemorrhoids, diverticulosis, but did not show any areas of active bleeding or ulcerations. Patient was given iron supplementation and her h g improved during the stay to 9.2 today. She was given supplemental O2 and nebs during her stay, maintained good O2 sats and her SOB improved close to her baseline. Her eliquis was held during her stay, will restart in 2 weeks. She is being prepared for discharge today with ferrex for iron supplementation and increasing her protonix to BID, instructed to follow up outpatient with PCP. ADRIANNE MATHEWS DO 05/09/237: Supervisory-Addendum Brief Verification & Attestation Participated in pt care: history, MDM, physical Personally performed: exam, history, MDM, supervision of care Care discussed with: Medical Student Procedures: n/a Results interpretation: Verified all documentation Verification and Attestation of Medical Student E/M Service A medical student performed and documented this service in my presence. I reviewed and verified all information documented by the medical student and made modifications to such information, when appropriate. I personally performed the physical exam and medical decision making. Adrianne Mathews, May 09, 2023,21:07 CHELY HAYWARD May 09, 2023 12:55 ADRIANNE MATHEWS DO May 09, 2023 21:07
== END 2023-05-09 14:41 | disposition home or self-care (01) | DRG 811 ==
LOC: EDUNIT# 09:58 → ER 10:00 → CSD 15:09 → OBSVTOIN 05-08 11:00 → 4TH 05-08 14:36
PROVIDERS: ADMIT Internal Medicine; ATTEND Internal Medicine
PROC: 5A09357 Assistance with Respiratory Ventilation, Less than 24 Consecutive Hours, Continuous Positive Airway Pressure (ICD-10-PCS; 2023-05-06)
PROC: 0DBL8ZX Excision of Transverse Colon, Via Natural or Artificial Opening Endoscopic, Diagnostic (ICD-10-PCS; 2023-05-07)
PROC: 0DB48ZX Excision of Esophagogastric Junction, Via Natural or Artificial Opening Endoscopic, Diagnostic (ICD-10-PCS; principal; 2023-05-07 10:42)
PROC: 0DB68ZX Excision of Stomach, Via Natural or Artificial Opening Endoscopic, Diagnostic (ICD-10-PCS; 2023-05-07 10:42)
DX: D64.9 Anemia, unspecified (principal); J96.20 Acute and chronic respiratory failure, unspecified whether with hypoxia or hypercapnia; I25.10 Atherosclerotic heart disease of native coronary artery without angina pectoris; J44.9 Chronic obstructive pulmonary disease, unspecified; K44.9 Diaphragmatic hernia without obstruction or gangrene; K64.8 Other hemorrhoids; K64.4 Residual hemorrhoidal skin tags; Z99.81 Dependence on supplemental oxygen; I10 Essential (primary) hypertension; Z86.73 Personal history of transient ischemic attack (TIA), and cerebral infarction without residual deficits; K21.00 Gastro-esophageal reflux disease with esophagitis, without bleeding; I48.0 Paroxysmal atrial fibrillation; E11.9 Type 2 diabetes mellitus without complications; E66.9 Obesity, unspecified; Z87.891 Personal history of nicotine dependence; Z79.82 Long term (current) use of aspirin; Z79.899 Other long term (current) drug therapy; Z95.5 Presence of coronary angioplasty implant and graft; E78.00 Pure hypercholesterolemia, unspecified; Z20.822 Contact with and (suspected) exposure to COVID-19; K29.70 Gastritis, unspecified, without bleeding; K57.30 Diverticulosis of large intestine without perforation or abscess without bleeding; I77.9 Disorder of arteries and arterioles, unspecified
CPT/HCPCS: 36415; 36430; 71045; 80053; 80061; 82607; 82728; 82947; 83540; 83550; 83735; 83874; 84484; 85007; 85025; 85027; 85045; 85379; 85610; 85730; 86141; 86850; 86900; 86901; 86920; 87636; 93005; 93041; 94640; 94660; 94760